=== PATIENT | male | born 1970 | race Caucasian/White ===

== ENCOUNTER 2023-05-10 10:16 | Outpatient (OUT) | payer OTHER, SELFPAY ==
[2023-05-10 10:40] LABS: Basophils Absolute Auto 0.1 10^3/uL (0.0-0.1); Basophils Percent Auto 0.9 % (0.2-2.0); Eosinophils Absolute Auto 0.3 10^3/uL (0.0-0.7); Eosinophils Percent Auto 2.9 % (0.9-7.0); Hematocrit 51.2 % (42.0-54.0); Hemoglobin 17.4 g/dL (14.0-18.0); Immature Granulocytes Abs Auto 0.08 10^3/uL (0.00-0.03); Immature Granulocytes Pct Auto 0.9 % (0.0-0.5); Lymphocytes Percent Auto 33.5 % (20.5-60.0); Mean Corpuscular Hemoglobin 32.6 pg (25.9-34.0); Mean Corpuscular Volume 95.9 fL (80.0-94.0); Mean Platelet Volume 9.5 fL (9.5-13.5); Monocytes Absolute Auto 0.8 10^3/uL (0.3-0.8); Monocytes Percent Auto 8.3 % (1.7-12.0); Neutrophils Absolute Auto 4.8 10^3/uL (1.4-6.5); Neutrophils Percent Auto 53.5 % (43.0-75.0); Platelet Count 268 10^3/uL (150-450); Red Blood Count 5.34 10^6/uL (4.70-6.10); Red Cell Distribution Width 12.4 % (11.0-15.0)
[2023-05-10 11:09] LABS: Estimated Average Glucose 169 mg/dL; Glycohemoglobin A1C 7.5 % (4.5-6.2)
[2023-05-10 12:31] LABS: Alanine Aminotransferase 91 U/L (16-63); Albumin Level 4.2 g/dL (3.4-5.0); Alkaline Phosphatase 46 U/L (46-116); Anion Gap 15.6; Aspartate Amino Transferase 48 U/L (15-37); Bilirubin Total 0.5 mg/dL (0.2-1.0); Calcium 9.2 mg/dL (8.5-10.1); Carbon Dioxide 24.7 mmol/L (21.0-32.0); Chloride 100 mmol/L (98-107); Chol HDL Ratio 5.5; Cholesterol 192 mg/dL (<=200); Estimated GFR (African America >60 (>=60); Estimated GFR (Non-African Ame >60 (>=60); Free T3 2.82 pg/mL (2.18-3.98); Globulin 4.3 g/dL; Glucose 205 mg/dL (74-106); HDL Cholesterol 35 mg/dL (40-60); Potassium 4.3 mmol/L (3.5-5.1); Sodium 136 mmol/L (136-145); Thyroid Stimulating Hormone 2.109 uIU/mL (0.358-3.740); Total Protein 8.5 g/dL (6.4-8.2); Triglycerides 436 mg/dL (<=150); Uric Acid 7.9 mg/dL (3.5-7.2)
[2023-05-10 12:34] LABS: Prostate Specific Antigen Scrn 0.67 ng/mL (<=4.00)
[2023-05-10 12:35] LABS: LDL Cholesterol Direct 87 mg/dL
== END 2023-05-10 10:17 | disposition home or self-care (01) ==
LOC: LAB 10:18
PROVIDERS: PCP Family Medicine; Visit Provider Family Medicine
DX: Z00.00 Encounter for general adult medical examination without abnormal findings (principal)
CPT/HCPCS: 36415; 80053; 80061; 83036; 83721; 84436; 84443; 84481; 84550; 85025; G0103

== ENCOUNTER 2023-05-20 13:28 | Outpatient (OUT) | payer OTHER, SELFPAY ==
--- NOTE | 2023-05-20 13:30 | VEIN_ITS ---
Patient Name: CHRISTOPHER FARRELL MR#: [id number] : 1970 Exam Date: 05/20/2023 Ordering Doctor: DR RULA HERRERA . RADIOLOGY REPORT PROCEDURE: VC EXT VENOUS REFLUX FLOWER LMTD COMPARISON: None. INDICATIONS: I83.813 Bilateral painful varicose veins TECHNIQUE: Duplex imaging of the lower extremity to assess the deep and superficial venous system for the presence of deep or superficial venous incompetence and to document the location and severity of disease. The study includes evaluation of the great saphenous vein (GSV), anterior accessory saphenous vein (AASV) and small saphenous vein (SSV). Patient scanned in reverse Trendelenburg and standing. FINDINGS: RIGHT LOWER EXTREMITY: Saphenofemoral Junction Reflux: Yes 10.6mm 2.5 sec GSV: Diam (mm) Reflux/ Time (sec) Proximal Thigh 5.9 Yes 2.2 Mid Thigh 6.2 Yes 2.1 Distal Thigh 5.5 Yes 0.7 Prox Calf 5.2 No Mid Calf 4.9 No Saphenopopliteal Junction Reflux: 3.3mm No SSV: Proximal Calf 2.6 Yes 0.8 Mid Calf 2.0 No AASV: Proximal Thigh 5.2 No Mid Thigh 3.0 No Distal Thigh Thrombi: No acute or chronic thrombus visualized Compressibility: Normal Flow: Normal Preforator: Dist/med calf 2.4mm with 0s reflux. Tech Note: Incompetent GSV. Patent varicose vein medial knee 3.9mm with 0s reflux. 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 Tech Note: Incompetent GSV and SSV. Patent varicose vein mid/med calf 7.3mm with 1.3s reflux. Patent varicose vein prox/med calf 6.1mm with 1.5s reflux. Patent varicose vein medial knee 4.3mm with 1.1s reflux. Patent varicose vein dist/med calf 6.9mm with 1.3s reflux. CONCLUSION: 1. Milder it bilateral great saphenous vein venous insufficiency with saphenofemoral junction reflux and dilatation 2. Mild to moderate left small saphenous vein venous insufficiency with dilatation and saphenous popliteal junction reflux 3. 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 Bilateral incompetent varicose veins measuring up to 7.3 mm on the left Dictated by: Fernando Miguel MD on 05/20/2023 at 14:36 Approved by: Fernando Miguel MD on 05/20/2023 at 14:38
--- NOTE | 2023-05-20 13:30 | VEIN_ITS ---
Patient Name: CHRISTOPHER FARRELL MR#: [id number] : 1970 Exam Date: 05/20/2023 Ordering Doctor: DR Rocky Michaels . RADIOLOGY REPORT PROCEDURE: [facility] - OFFICE VISIT INITIAL COMPARISON: None. PROGRESS NOTES: 52-year-old male who presents with a 2 year history of lower extremity pain swelling and varicose veins. The patient's symptoms have significantly progressed over the past 6 months. The patient's left side is much worse than the right. The patient rates the pain as a 3 on a scale of 1-10. The patient describes the pain as aching heaviness and throbbing. The patient's symptoms are exacerbated by prolonged sitting and standing and are only partially relieved by rest, leg elevation, compression stockings and over the counter oral analgesics. The patient does have a history of 2 episodes of unprovoked deep vein thrombosis for which she is currently on long-term Eliquis. The patient denies any signs and symptoms to suggest arterial ischemia. Thirty-five pack year history of smoking. The patient continues to smoke 1 pack per day. The patient was counseled on smoking cessation as it relates to his arterial and venous disease. The patient does drink alcohol occasionally. No illicit drug use. Past medical history is significant for type 2 diabetes, gout, hypertension, hypercholesterolemia and sleep apnea. 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 No history of pulmonary embolus. See separate history and physical for medication list. No prior treatment treatment for varicose or spider veins. Nursing notes were reviewed. After history and physical exam I discussed at length the pathophysiology of venous hypertension and possible treatments, therapies and strategies available. We discussed at length the importance of elevating the lower extremities above the level of the heart, increased physical activity and compression stocking use. We discussed conservative treatment with thigh-high compression stockings. We discussed surgical treatments including ligation and stripping and microphlebectomy. We discussed intravenous laser ablation, micro foam chemical ablation at length. Risks benefits and alternatives were discussed. The patient's questions were answered Ultrasound venous reflux study performed the same day was discussed at length with the patient. The report demonstrates moderate bilateral great saphenous and left small saphenous vein venous insufficiency with dilatation period bilateral incompetent varicose veins. Chronic left leg deep vein thrombus involving the popliteal and peroneal veins. I discussed with the patient that his insurance likely would not approve micro foam chemical ablation. I also discussed with him that his symptoms likely remote type factorial while we expected improvement, treatment of his veins would likely not completely resolve his symptoms. PHYSICAL EXAM: The right leg demonstrates mild scattered varicose and reticular veins. Mild hemosiderin staining. No subcutaneous edema. No active ulceration The left leg demonstrates moderate to large varicosities knee lower leg and ankle. Moderate hemosiderin staining. Mild subcutaneous edema. No active ulceration. Both thighs, legs and feet were symmetrically warm to the touch. Good posterior tibial and dorsalis pedis pulses were present bilaterally. VEIN/VC Facility EST Comprehensive IMPRESSION: 1. Bilateral great saphenous vein and left small saphenous vein venous insufficiency with dilatation 2. Bilateral lower extremity varicose veins, left greater than right 3. Mild left lower extremity subcutaneous edema 4. No definite flow significant arterial disease 5. CEAP: C4a, Ep, As, Pro PLAN: 1. Endovenous laser ablation left great saphenous vein followed by right great saphenous vein followed left small saphenous vein 2. Micro foam chemical ablation incompetent varicose veins if approved by his insurance 3. Long-term use of bilateral knee or thigh-high 20-30 mm compression stockings 4. Smoking cessation 5. Leg elevation in the increased physical activity for symptomatic relief Nurse notes, history and physical were reviewed and confirmed, see attached forms. The nurse was present throughout the physical exam and consultation Dictated by: Fernando Miguel MD on 05/20/2023 at 15:20 Approved by: Fernando Miguel MD on 05/20/2023 at 15:25
--- OUTSIDE RECORDS SUMMARY | 2023-05-20 13:32 | XMS_ITS | CCD ---
Author Name Unknown Address [address] [place] [address] Organization [facility] Care Team Providers Care Associate Property Manager Name Role Phone Rula Herrera MD Primary Care Provider [phone] SHARON, RULA Primary Care Unavailable MISC, DR SOTO Attending Unavailable MISC, DR SOTO Admitting Unavailable HOY, RULA Primary Care Unavailable MISC, DR SOTO Admitting Unavailable MISC, DR SOTO Attending Unavailable NICHOLAS BHATIA Admitting Unavailable HOY, RULA Primary Care Unavailable NICHOLAS BHATIA Attending Unavailable TORIE FOLEY Consulting Unavailable NICHOLAS BHATIA Consulting Unavailable LEE ANN BARNETT Consulting Unavailable HOY, RULA Attending Unavailable HOY, RULA Admitting Unavailable HOY, RULA Primary Care Unavailable HOY, RULA Consulting Unavailable HOY, RULA Primary Care Unavailable KRISTINA WAKEFIELD Attending Unavailable KRISTINA WAKEFIELD Admitting Unavailable HOY, RULA Attending Unavailable HOY, RULA Admitting Unavailable HOY, RULA Primary Care Unavailable HOY, RULA Consulting Unavailable Ken Quinonezen Consulting Unavailable HOY, RULA Primary Care Unavailable Red Quinonez Consulting Unavailable DENAE CONTRERAS Attending Unavailable DENAE CONTRERAS Admitting Unavailable DENAE CONTRERAS Consulting Unavailable Rula Herrera MD Primary Care Provider [phone] PERRY ALCANTARA Attending Unavailable RULA HERRERA M Primary Care Unavailable ANDREW, MICHAEL Referring Unavailable RULA HERRERA M Primary Care Unavailable MEGHA LEGGETT Attending Unavailable ANDREW, MICHAEL Referring Unavailable RULA HERRERA M Primary Care Unavailable STEWART BRISENO Attending Unavailable STEWART BRISENO Referring Unavailable RULA HERRERA Primary Care Unavailable RULA HERRERA M Primary Care Unavailable ANDREW, MICHAEL Referring Unavailable ANRDEW, MICHAEL Referring Unavailable HOY, RULA M Primary Care Unavailable ANDREW, MICHAEL Referring Unavailable HOY, RULA M Primary Care Unavailable WADE, STEWART Gibbs Referring Unavailable STEWART BRISENO Attending Unavailable HOY, RULA M Primary Care Unavailable WADE, STEWART R Referring Unavailable MARTINEZ, DONITA Attending Unavailable HOY, RULA M Primary Care Unavailable STEWART BRISENO Attending Unavailable WADE, STEWART R Referring Unavailable HOY, RULA M Primary Care Unavailable MARTINEZ, DONITA Referring Unavailable MARTINEZ, DONITA Attending Unavailable HOY, RULA M Primary Care Unavailable HASNIJohn, PERRY Attending Unavailable HOY, RULA M Primary Care Unavailable ENTEZARI, CHARLIE Referring Unavailable ENTEZARI, CHARLIE Attending Unavailable HOY, RULA M Primary Care Unavailable WADE, STEWART R Attending Unavailable HOY, RULA M Primary Care Unavailable MARTINEZ, DONITA Referring Unavailable MARTINEZ, DONITA Attending Unavailable HOY, RULA M Primary Care Unavailable STEWART BRISENO R Attending Unavailable WADE, STEWART R Referring Unavailable HOY, RULA M Primary Care Unavailable AGAPITO RUANO Attending Unavailable HOY, RULA M Primary Care Unavailable HASNIJohn, PAGEIAH Attending Unavailable HOY, RULA M Primary Care Unavailable ANDREW, MICHAEL Referring Unavailable HOY, RULA M Primary Care Unavailable Allergies Allergy Classification Reported Allergen(s) Allergy Type Date of Onset Reaction(s) Facility (20 sources) Bee Venom Protein (Honey Bee); Translations: [BEE VENOM PROTEIN (HONEY BEE)] Drug Allergy 7 Swelling, Shortness of Breath [facility] Work Phone: (1 source) bee venom Drug allergy (disorder) 7 [facility] Medications Current Medications Medication Drug Class(es) Dates Sig (Normalized) Sig (Original) benoxinate hydrochloride 4 mg/ml / fluorescein sodium 2.5 mg/ml ophthalmic solution (6 sources) Diagnostic Dye Start: 08-02-2022 End: 08-02-2022 fluorescein-benoxi sary 0.25-0.4 % 1 Drop (FLURESS) Start: 07-19-2022 End: 07-19-2022 fluorescein-benoxinate 0.25- 0.4 % 1 Drop (FLURESS) Start: 07-05-2022 End: 07-05-2022 fluorescein-benoxinate 0.25- 0.4 % 1 Drop (FLURESS) Start: 06-17-2022 End: 06-17-2022 fluorescein-benoxinate 0.25- 0.4 % 1 Drop (FLURESS) docusate sodium 100 mg oral capsule (2 sources) Start: 10-25-2021 End: 11-09-2021 take 1 capsule by mouth twice daily docusate sodium (COLACE) 100 mg capsule Take 1 capsule by mouth twice daily for 15 days. 30 capsule 0 10/25/2021 11/09/2021 Active Comment on above: Take 1 capsule by [facility] twice daily for 15 days. Completed/Discontinued Medications Medication Drug Class(es) Dates Sig (Normalized) Sig (Original) apixaban 5 mg oral tablet (16 sources) Factor Xa Inhibitor Start: 3 take 1 tablet by mouth twice daily ELIQUIS 5 mg tab(s) Take 5 mg by mouth twice daily. 0 05/27/2022 Active Comment on above: Take 5 mg by mouth t wice daily. aspirin 81 mg delayed release oral tablet (7 sources) Platelet Aggregation Inhibitor, Nonsteroidal Anti-inflammatory Drug Start: 2 End: 3 take 1 tablet by mouth twice daily aspirin, enteric coated (ECOTRIN LOW STRENGTH) 81 mg EC tablet Take 1 tablet by mouth twice daily for 14 days. 28 tablet 0 10/25/2021 06/17/2022 Discontinued (Course of therapy completed) Comment on above: Take 1 tablet by [facility] twice daily for 14 days. cyclobenzaprine hydrochloride 10 mg oral tablet (16 sources) Muscle Relaxant Start: 3 take 1 tablet by mouth three times daily cyclobenzaprine (FLEXERIL) 10 mg tablet Take 10 mg by mouth three times daily. 0 06/13/2022 Active Comment on above: Take 10 mg by mouth three times daily. cycloSPORINE (14 sources) Calcineurin Inhibitor Immunosuppressant cyclosporine (RESTASIS OPHTHALMIC) Use in eyes. 0 Active Comment on above: Use in eyes. dexamethasone 1 mg/ml / neomycin 3.5 mg/ml / polymyxin b 12581 unt/ml ophthalmic suspension (3 sources) Aminoglycoside Antibacterial, Polymyxin-class Antibacterial, Corticosteroid Start: 3 End: 3 take 1 drop(s) into the eye(s) three times daily NEOMYCIN-POLYMYXIN- DEXAMETH 3.5 MG/ML-10,000 UNIT/ML-0.1% EYE DROPS INSTILL 1 DROP INTO EACH EYE 3 TIMES DAILY 0 05/02/2022 07/19/2022 Discontinued (Course of therapy completed) Comment on above: INSTILL 1 DROP INTO EACH EYE 3 TIMES DAILY diclofenac sodium 75 mg delayed release oral tablet (16 sources) Nonsteroidal Anti-inflammatory Drug Start: 2 take 1 tablet by mouth twice daily diclofenac, EC, (VOLTAREN) 75 mg EC tablet Take 75 mg by mouth twice daily. 0 03/18/2022 Active Comment on above: Take 75 mg by mouth twice daily. erythromycin 0.005 mg/mg ophthalmic ointment (3 sources) Macrolide, Macrolide Antimicrobial Start: 3 End: 3 erythromycin (ROMYCIN) 5 mg/gram (0.5 %) ophthalmic ointment APPLY TO INTO BOTH EYES EVERY DAY AT BEDTIME DIRECTED 0 06/07/2022 07/19/2022 Discontinued (Course of therapy completed) Comment on above: APPLY TO INTO BOTH E YES EVERY DAY AT BEDTIME DIRECTED Fish Oil-DHA-EPA (FISH OIL) 1,200-144-216 mg ORAL Cap (10 sources) Fish Oil-DHA-EPA (FISH OIL) 1,200-144-216 mg ORAL Cap Take by mouth. Taking 3 tablet a day 0 Active Comment on above: Take by mouth. Takin g 3 tablet a day Fish Oil-DHA-EPA 1,200-144-216 mg cap (20 sources) Fish Oil-DHA-EPA 1,200-144-216 mg cap Take by mouth. Taking 3 tablet a day 0 Active Comment on above: Take by mouth. Takin g 3 tablet a day Flaxseed Oil oil (20 sources) Flaxseed Oil oil once daily. 0 Active Comment on above: once daily. glimepiride 4 mg oral tablet (16 sources) Sulfonylurea Start: 3 take 2 tablets by mouth once daily glimepiride (AMARYL) 4 mg tablet Take 8 mg by mouth once daily. 0 05/03/2022 Active Comment on above: Take 8 mg by mouth o nce daily. latanoprost 0.05 mg/ml ophthalmic solution (7 sources) Prostaglandin Analog Start: 3 take 1 drop(s) into the eye(s) once daily latanoprost (XALATAN) 0.005 % ophthalmic solution Use 1 Drop in both eyes once daily. 2.5 mL 1 07/19/2022 Active Comment on above: Use 1 Drop in both e yes once daily. lisinopril 40 mg oral tablet (20 sources) Angiotensin Converting Enzyme Inhibitor Start: 2 take 1 tablet by mouth once daily lisinopril (ZESTRIL, PRINIVIL) 40 mg tablet Take 40 mg by mouth once daily. 0 07/27/2021 Active Comment on above: Take 40 mg by mouth once daily. metFORMIN hydrochloride 500 mg oral tablet (16 sources) Biguanide Start: 3 take 1 tablet by mouth twice daily metFORMIN (GLUCOPHAGE) 500 mg tablet Take 500 mg by mouth twice daily. 0 06/13/2022 Active Comment on above: Take 500 mg by mouth twice daily. MULTI-VITAMIN ORAL (20 sources) MULTI-VITAMIN OR AL Take by mouth. Taking 3 a day 0 Active Comment on above: Take by mouth. Takin g 3 a day naproxen sodium 220 mg oral capsule (20 sources) Nonsteroidal Anti-inflammatory Drug naproxen sodium 220 mg cap Take by mouth as needed. 0 Active Comment on above: Take by mouth as nee ded. olopatadine (14 sources) Histamine-1 Receptor Inhibitor olopatadine HCl (PATADAY OPHTHALMIC) Use in eyes. 0 Active Comment on above: Use in eyes. oxyCODONE hydrochloride 5 mg oral tablet (6 sources) Opioid Agonist Start: 2 End: 3 take 1 tablet by mouth every eight hours as needed for pain oxyCODONE IR (ROXICODONE) 5 mg immediate release tablet Indications: Traumatic complete tear of right rotator cuff, initial encounter Take 1 tablet by mouth every 8 hours as needed for pain. 21 tablet 0 11/07/2021 06/17/2022 Discontinued (Course of therapy completed) Comment on above: Take 1 tablet by omari th every 8 hours as needed for pain. traMADol hydrochloride 50 mg oral tablet (14 sources) Opioid Agonist Start: 2 End: 3 take 1 tablet by mouth every eight hours as needed traMADOL (ULTRAM) 50 mg ORAL tablet Take 1 tablet by mouth every 8 hours as needed. 20 tablet 0 08/23/2011 06/17/2022 Discontinued (Course of therapy completed) Comment on above: Take 1 tablet by omari th every 8 hours as needed. Problems Active Problems Problem Classification Problem Date Documented Da te Episodic/Chronic Adjustment disorders (2 sources) Adjustment disorder; Translations: [Adjustment disorder, unspecified] Onset: 02-18-2023 12-09-2022 Chronic Diabetes mellitus with complications (20 sources) Diabetes mellitus; Translations: [Type 2 diabetes mellitus with hyperglycemia] Onset: 09-28-2021 09-28-2021 Chronic Essential hypertension (20 sources) Essential hypertension; Translations: [Essential (primary) hypertension] Onset: 09-27-2021 Chronic Glaucoma (17 sources) Corticosteroid-liborio valdemar glaucoma; 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, bilateral, stage unspecified] Onset: 07-19-2022 Chronic Inflammation; infection of eye (except that caused by tuberculosis or sexually transmitteddisease) (5 sources) Chronic allergic conjunctivitis; Translations: [Other chronic allergic conjunctivitis] Onset: 06-17-2022 Chronic Miscellaneous mental health disorders (2 sources) Psychologic conversion disorder; 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] Onset: 02-18-2023 12-09-2022 Chronic Other aftercare (1 source) Surgical follow-up; Translations: [Encounter for follow-up examination after completed treatment for conditions other than malignant neoplasm] Episodic Other hereditary and degenerative nervous system conditions (20 sources) Blepharospasm; Translations: [Blepharospasm] Onset: 07-05-2022 Chronic Other hereditary and degenerative nervous system conditions (5 sources) Functional movement disorder; Translations: [Extrapyramidal and movement disorder, unspecified] 11-22-2022 Chronic Other hereditary and degenerative nervous system conditions (1 source) Blepharospasm; Translations: [Blepharospasm] Onset: 07-05-2022 Chronic Other nutritional; endocrine; and metabolic disorders (1 source) Severe obesity; Translations: [Morbid (severe) obesity due to excess calories] Chronic Other nutritional; endocrine; and metabolic disorders (20 sources) Obesity; Translations: [Obesity, unspecified] Onset: 09-27-2021 09-27-2021 Chronic Residual codes; unclassified (20 sources) Obstructive sleep apnea syndrome; Translations: [Obstructive sleep apnea (adult) (pediatric)] Onset: 09-27-2021 Chronic Residual codes; unclassified (3 sources) Obstructive sleep apnea (adult) (pediatric); Translations: [OBSTRUCTIVE SLEEP APNEA] Onset: 07-09-2022 Chronic Thyroid disorders (20 sources) Nodular goiter ; Translations: [Nontoxic goiter, unspecified] Onset: 09-27-2021 Chronic Past or Other Problems Problem Classification Problem Date Documented Da te Episodic/Chronic E Codes: Adverse effects of medical drugs (1 source) Adverse effect of glucocorticoids and synthetic analogues, initial encounter; Translations: [Steroid induced glaucoma, both eyes] Onset: 07-19-2022 Episodic E Codes: Overexertion (1 source) Slipping, tripping and stumbling without falling due to stepping from one level to another, initial encounter; Translations: [SLIP STMBL NO FALL 1 LVL ANOTHR INT] Onset: 09-04-2021 Episodic Inflammation; infection of eye (except that caused by tuberculosis or sexually transmitteddisease) (17 sources) Conjunctivitis; Translations: [Unspecified conjunctivitis] Onset: 06-17-2022 06-17-2022 Episodic Other connective tissue disease (1 source) Unspecified rotator cuff tear or rupture of right shoulder, not specified as traumatic; Translations: [UNS ROT CUFF TEAR/RUPT RT SHOULDER] Onset: 09-04-2021 Episodic Other eye disorders (20 sources) Disorder of lacrimal gland; Translations: [Dry eye syndrome of bilateral lacrimal glands] Onset: 06-17-2022 Episodic Other eye disorders (1 source) Dry eye syndrome of bilateral lacrimal glands; Translations: [Dry eye syndrome of bilateral lacrimal glands] Onset: 06-17-2022 Episodic Other non-traumatic joint disorders (16 sources) Pain in left knee; Translations: [Pain in joint, lower leg] Onset: 03-21-2021 07-05-2022 Episodic Other non-traumatic joint disorders (10 sources) Shoulder pain; Translations: [Pain in right shoulder] Onset: 08-25-2021 07-05-2022 Episodic Other non-traumatic joint disorders (19 sources) Pain in unspecified knee; Translations: [Pain in joint, lower leg] Onset: 11-14-2021 07-05-2022 Episodic Other non-traumatic joint disorders (9 sources) Pain in right shoulder; Translations: [Pain in joint, shoulder region] Onset: 08-25-2021 07-05-2022 Episodic Other skin disorders (20 sources) Excessive sweating; Translations: [Generalized hyperhidrosis] Onset: 09-27-2021 Episodic Phlebitis; thrombophlebitis and thromboembolism (20 sources) H/O: Deep vein thrombosis; Translations: [Personal history of other venous thrombosis and embolism] Onset: 09-27-2021 Episodic Residual codes; unclassified (16 sources) Localized edema; Translations: [Localized edema] Onset: 11-19-2021 07-05-2022 Episodic Residual codes; unclassified (1 source) Localized edema; Translations: [LOCALIZED EDEMA] Onset: 11-19-2021 Episodic Spondylosis; intervertebral disc disorders; other back problems (20 sources) Lumbosacral neuritis; Translations: [Radiculopathy, lumbosacral region] Onset: 07-16-2011 07-16-2011 Episodic Sprains and strains (20 sources) Traumatic rupture of rotator cuff; Translations: [Strain of muscle(s) and tendon(s) of the rotator cuff of right shoulder, initial encounter] Onset: 09-05-2021 Episodic Results Test Name Value Interpretation Reference Range [facility]/PT/Speech Visit (PTAVTC) GONZALES FARRELL ([id number]) 1970 M Date Time Provider Department 03/13/23 4:15 PM [facility] Date Time Provider Department Center 03/13/2023 4:15 PM [id number], AMANDA [facility] [place] Reason for Visit: PT Progress Note [1596] Physical Therapy [503] Primary Visit Diagnosis: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 - olopatadine HCl (PATADAY OPHTHALMIC) Use in eyes. - ELIQUIS 5 mg tab(s) Take 5 mg by mouth twice daily. - cyclobenzaprine (FLEXERIL) 10 mg tablet Take 10 mg by mouth three times daily. - diclofenac, EC, (VOLTAREN) 75 mg EC tablet Take 75 mg by mouth twice daily. - glimepiride (AMARYL) 4 mg tablet Take 8 mg by mouth once daily. - metFORMIN (GLUCOPHAGE) 500 mg tablet Take 500 mg by mouth twice daily. - lisinopril (ZESTRIL, PRINIVIL) 40 mg tablet Take 40 mg by mouth once daily. - naproxen sodium 220 mg cap Take by mouth as needed. - MULTI-VITAMIN ORAL Take by mouth. Taking 3 a day - Fish Oil-DHA-EPA 1,200-144-216 mg cap Take by mouth. 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 - olopatadine HCl (PATADAY OPHTHALMIC) Use in eyes. - ELIQUIS 5 mg tab(s) Take 5 mg by mouth twice daily. - cyclobenzaprine (FLEXERIL) 10 mg tablet Take 10 mg by mouth three times daily. - diclofenac, EC, (VOLTAREN) 75 mg EC tablet Take 75 mg by mouth twice daily. - glimepiride (AMARYL) 4 mg tablet Take 8 mg by mouth once daily. - metFORMIN (GLUCOPHAGE) 500 mg tablet Take 500 mg by mouth twice daily. - lisinopril (ZESTRIL, PRINIVIL) 40 mg tablet Take 40 mg by mouth once daily. - naproxen sodium 220 mg cap Take by mouth as needed. - MULTI-VITAMIN ORAL Take by mouth. Taking 3 a day - Fish Oil-DHA-EPA 1,200-144-216 mg cap Take by mouth. Taking 3 tablet a day Normal [facility] Aracelis 12-26-2022 CNPN Telephone (NREUS2) GONZALES FARRELL ([id number]) 1970 M Date Time Provider Department 12/26/22 MICHAEL ANDREW NREUS2 During your visit today, we recorded the following information about you: Petrona Jacobs 12/26/2022 12:13 PM Signed NI PHONE Name of caller : Clinton Farrell Relationship to patient : Self If not self Will need patient permission to release results or disclose health information with called documented in fy. Was permission obtained from patient ? Yes Patient identified by Name and Date of . ( Gonzales Farrell, 1970). Yes Reason for Call : Request letter stating diagnosis and why he's not able to see be faxed to [phone]/Attn: Sheron @ [facility] Services re: disability. Please cc: Dr. Rula Herrera (PCP) on letter and fax to Dr. Herrera at [phone]. Number to return call [phone] Okay to leave a message ? Yes Last office visit 09/18/[address] Gilmar Andrew Next office visit not scheduled (only FMD appts w/Dr. Alcantara) Thank you calling [facility]. You will receive a return call within 48 hours ( or 2 business days if close to the weekend). If you feel that this is an urgent issue and needs immediate attention, it is recommended that you contact your primary care provider office or proceed to your nearest Urgent Care Center of Emergency Room ED for evaluation/treatment. ' Sandy Ratliff, RN 12/27/2022 8:[address] Andrew documented in My Chart message he spoke with patient and informed him he could not give him the letter requested but could print the notes from his last visit through My Chart. Allergies As of Date: 12/26/2022 Noted Allergy Reaction BEE VENOM PROTEIN (HONEY BEE) 01/27/2017 7 - Swelling 12 - Shortness of Breath Date Reviewed: 09/18/2022 Reviewed by: Rigo Howe MA - Fully Assessed Reason for Visit: Letter [Other] Prescriptions as of 12/27/2022 - cyclosporine (RESTASIS OPHTHALMIC) Use in eyes. - olopatadine HCl (PATADAY OPHTHALMIC) Use in eyes. - ELIQUIS 5 mg tab(s) Take 5 mg by mouth twice daily. - cyclobenzaprine (FLEXERIL) 10 mg tablet Take 10 mg by mouth three times daily. - diclofenac, EC, (VOLTAREN) 75 mg EC tablet Take 75 mg by mouth twice daily. - glimepiride (AMARYL) 4 mg tablet Take 8 mg by mouth once daily. - metFORMIN (GLUCOPHAGE) 500 mg tablet Take 500 mg by mouth twice daily. - lisinopril (ZESTRIL, PRINIVIL) 40 mg tablet Take 40 mg by mouth once daily. - naproxen sodium 220 mg cap Take by mouth as needed. - MULTI-VITAMIN ORAL Take by mouth. Taking 3 a day - Fish Oil-DHA-EPA 1,200-144-216 mg cap Take by mouth. Taking 3 tablet a day Problem List As Of Date 12/26/2022 Noted Resolved Lumbosacral neuritis [M54.17] 07/16/2011 Traumatic complete tear of right rotator cuff [*09/22/2021 Obstructive sleep apnea [G47.33] 09/27/2021 Obese [E66.9] 09/27/2021 Chronic low back pain [M54.50, G89.29] 09/27/2021 History of DVT in adulthood [Z86.718] 09/27/2021 Nodular goiter [E04.9] 09/27/2021 Excessive sweating [R61] 09/27/2021 Primary hypertension [I10] 09/27/2021 Uncontrolled diabetes mellitus with hyperglycem*09/28/2021 S/P right rotator cuff repair [Z98.890] 12/07/2021 Dry eye syndrome of bilateral lacrimal glands [*06/17/2022 Conjunctivitis [H10.9] 06/17/2022 Acute embolism and thrombosis of unspecified de*11/19/2021 Localized edema [R60.0] 11/19/2021 Pain in left knee [M25.562] 03/21/2021 Pain in right shoulder [M25.511] 08/25/2021 Knee pain [M25.569] 11/14/2021 Blepharospasm [G24.5] 07/05/2022 Steroid induced glaucoma, 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, *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/2022 Encounter Status:Closed by SANDY RATLIFF on 12/27/22 [facility] CNTHERAPYon 12-24-2022 CNTHERAPY OT/PT/Speech Visit (PTAVTC) GONZALES FARRELL ([id number]) 1970 M Date Time Provider Department 12/24/22 4:15 PM VONNIE CONNOLLY PTAVTC During your visit today, we recorded the following information about you: Vonnie Connolly, PT 12/24/2022 5:08 PM Signed Episode Visit Count: 4 Therapist That Will Accept/Oversee The Plan Of Care: Soo Villalba Start of Care Date: 11/20/22 Onset Date: 11/20/21 REHABILITATION AND SPORTS THERAPY PHYSICAL THERAPY TREATMENT NOTE ASSESSMENT: Gonzales Farrell tolerated the session with no issues. He demonstrated improvements in understanding at role of PT for FMD management and agrees starting wellness exercise routine at local will help him feel better globally.. The patient will continue to benefit from ongoing skilled physical therapy to progress toward set goals. PLAN FOR NEXT VISIT: Progress note SUBJECTIVE: Doesnt see how the activities performed in PT are helping his symptoms. States deep breathing really helps his symptoms. Pain: Pain Pain Level: 0 Post Treatment Pain Post Treatment Pain Level: No Change OBJECTIVE MEASURES WITH LEVEL OF FUNCTION: Eyes open 100% of time with deep breathing techniques. Overall demeanor: pt talkative and tangential throughout session. Describes multiple stressors going on in his personal life. TREATMENT: Neuromuscular Re-Education: 3: Review of appointments to decrease stress of traveling long distance to come. Will consider changing frequency at next visit if pt continue. 4: *4 square breathing for autonomic strategy for regulating nervous system. 3-4 breath cycles hourly. 5: Education that role of exercises and activities to reduce frequency and intensity of sx to allow for improved brain/nervous system communication 6: Educated on importance of daily exericse for optimal health and wellness. 7: Education on stressors impacting intensity of symptoms. 8: Education and discussion re: role of PT in FMD management. Skilled Intervention: Education as described above. 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 - olopatadine HCl (PATADAY OPHTHALMIC) Use in eyes. - ELIQUIS 5 mg tab(s) Take 5 mg by mouth twice daily. - cyclobenzaprine (FLEXERIL) 10 mg tablet Take 10 mg by mouth three times daily. - diclofenac, EC, (VOLTAREN) 75 mg EC tablet Take 75 mg by mouth twice daily. - glimepiride (AMARYL) 4 mg tablet Take 8 mg by mouth once daily. - metFORMIN (GLUCOPHAGE) 500 mg tablet Take 500 mg by mouth twice daily. - lisinopril (ZESTRIL, PRINIVIL) 40 mg tablet Take 40 mg by mouth once daily. - naproxen sodium 220 mg cap Take by mouth as needed. - MULTI-VITAMIN ORAL Take by mouth. Taking 3 a day - Fish Oil-DHA-EPA 1,200-144-216 mg cap Take by mouth. Taking 3 tablet a day Problem List As Of Date 12/24/2022 Noted Resolved Lumbosacral neuritis [M54.17] 07/16/2011 Traumatic complete tear of right rotator cuff [*09/22/2021 Obstructive sleep apnea [G47.33] 09/27/2021 Obese [E66.9] 09/27/2021 Chronic low back pain [M54.50, G89.29] 09/27/2021 History of DVT in adulthood [Z86.718] 09/27/2021 Nodular goiter [E04.9] 09/27/2021 Excessive sweating [R61] 09/27/2021 Primary hypertension [I10] 09/27/2021 Uncontrolled diabetes mellitus with hyperglycem*09/28/2021 S/P right rotator cuff repair [Z98.890] 12/07/2021 Dry eye syndrome of bilateral lacrimal glands [*06/17/2022 Conjunctivitis [H10.9] 06/17/2022 Acute embolism and thrombosis of unspecified de*11/19/2021 Localized edema [R60.0] 11/19/2021 Pain in left knee [M25.562] 03/21/2021 Pain in right shoulder [M25.511] 08/25/2021 Knee pain [M25.569] 11/14/2021 Blepharospasm [G24.5] 07/05/2022 Steroid induced glaucoma, 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, *07/19/2022 Encounter Status:Closed by VONNIE CONNOLLY on 12/24/22 [facility] CNTHERAPYon 12-19-2022 CNTHERAPY OT/PT/Speech Visit (PTAVTC) GONZALES FARRELL ([id number]) 1970 M Date Time Provider Department 12/19/22 4:15 PM SOO VILLALBA Date Time Provider Department Center 12/19/2022 4:15 PM [id number] [facility] [facility] Reason for Visit: Physical Therapy [503] Primary Visit Diagnosis:Blepharospasm [G24.5] Other Visit Diagnosis: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 - olopatadine HCl (PATADAY OPHTHALMIC) Use in eyes. - ELIQUIS 5 mg tab(s) Take 5 mg by mouth twice daily. - cyclobenzaprine (FLEXERIL) 10 mg tablet Take 10 mg by mouth three times daily. - diclofenac, EC, (VOLTAREN) 75 mg EC tablet Take 75 mg by mouth twice daily. - glimepiride (AMARYL) 4 mg tablet Take 8 mg by mouth once daily. - metFORMIN (GLUCOPHAGE) 500 mg tablet Take 500 mg by mouth twice daily. - lisinopril (ZESTRIL, PRINIVIL) 40 mg tablet Take 40 mg by mouth once daily. - naproxen sodium 220 mg cap Take by mouth as needed. - MULTI-VITAMIN ORAL Take by mouth. Taking 3 a day - Fish Oil-DHA-EPA 1,200-144-216 mg cap Take by mouth. 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 - olopatadine HCl (PATADAY OPHTHALMIC) Use in eyes. - ELIQUIS 5 mg tab(s) Take 5 mg by mouth twice daily. - cyclobenzaprine (FLEXERIL) 10 mg tablet Take 10 mg by mouth three times daily. - diclofenac, EC, (VOLTAREN) 75 mg EC tablet Take 75 mg by mouth twice daily. - glimepiride (AMARYL) 4 mg tablet Take 8 mg by mouth once daily. - metFORMIN (GLUCOPHAGE) 500 mg tablet Take 500 mg by mouth twice daily. - lisinopril (ZESTRIL, PRINIVIL) 40 mg tablet Take 40 mg by mouth once daily. - naproxen sodium 220 mg cap Take by mouth as needed. - MULTI-VITAMIN ORAL Take by mouth. Taking 3 a day - Fish Oil-DHA-EPA 1,200-144-216 mg cap Take by mouth. Taking 3 tablet a day Normal [facility] CNOVon 11-20-2022 CNOV Office Visit (NREUS2 ) GONZALES FARRELL ([id number]) 1970 M Date Time Provider Department 11/20/22 3:00 PM PERRY ALCANTARA NREUS2 During your visit today, we recorded the following information about you: Perry Alcantara PSMARIANELA 12/09/2022 10:05 PM Signed [facility] Psychology Evaluation Time of Service: 3:00 pm to 4:00 pm CPT Code: 76260 - Health AND Behavior Assessment Billing Code: Antonio The patient was informed that this interview was only for the purpose of assessing the presenting problem, for diagnosis and treatment planning and/or to make treatment recommendations. The patient agreed that the evaluation would not be used for forensic, disability, or child custody purposes. The following history is obtained from the patient except when noted. The content acquired from chart review has been confirmed with the patient and discrepancies were noted if any. Limits of confidentiality were discussed. Identification and Presenting Problem: Mr. Farrell is a 51 year old male who was referred by Dr. Andrew from [facility] as part of a multi-disciplinary evaluation for a functional movement disorder. He presents with a history of involuntary movement symptoms. Sx include eye closure/blepharospasm. Symptom onset: 2022 Social History: Mr. Farrell was raised in [place], [place] as the older of 2 children in his family. His parents remained until mother passed at age 80. There is no family hx of movement disorder. Family history is significant for depression and suicide on the part of the patient's brother. Mr. Farrell reports that he has received prior mental health treatment as an outpatient for grief/loss after the of his brother. He believes this treatment was helpful. The patient denies any history of alcohol or drug abuse in his family. Likewise, he denies any history of alcohol or drug abuse on his own part. Mr. Farrell denies any history of physical or sexual abuse in childhood. 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 The patient does not receive any disability payments, nor has he applied for any. Mr. Farrell was previously and is currently for 2 years. He has 4 children, ages 26, 23, 19, and 17 - live nearby and close relationship; 2 grandchildren Social support include close friends and ; hussain community; extended hussain community ACTIVE PROBLEM LIST Lumbosacral Neuritis Traumatic Complete Tear of Right Rotator Cuff Obstructive Sleep Apnea Obese Chronic Low Back Pain History of Dvt in Adulthood Nodular Goiter Excessive Sweating Primary Hypertension Uncontrolled Diabetes Mellitus With Hyperglycemia ([facility]) S/P Right Rotator Cuff Repair Dry Eye Syndrome of Bilateral Lacrimal Glands Conjunctivitis Acute Embolism and Thrombosis of Unspecified Deep Veins of Left Lower Extremity ([facility]) Localized Edema Pain in Left Knee Pain in Right Shoulder Knee Pain Blepharospasm Steroid Induced Glaucoma, Both Eyes Current Functioning: -cautious with walking and fear of tripping; more slow with nurse assistant and lifting objects -no longer driving -mostly sedentary and reports he struggles with requiring more time to complete menial tasks -finger tips and feet are numb chronically -ongoing back problems with 3 bulging discs Medications: Current Outpatient Medications Medication Sig cyclosporine (RESTASIS OPHTHALMIC) Use in eyes. olopatadine HCl (PATADAY OPHTHALMIC) Use in eyes. ELIQUIS 5 mg tab(s) Take 5 mg by mouth twice daily. cyclobenzaprine (FLEXERIL) 10 mg tablet Take 10 mg by mouth three times daily. diclofenac, EC, (VOLTAREN) 75 mg EC tablet Take 75 mg by mouth twice daily. glimepiride (AMARYL) 4 mg tablet Take 8 mg by mouth once daily. metFORMIN (GLUCOPHAGE) 500 mg tablet Take 500 mg by mouth twice daily. lisinopril (ZESTRIL, PRINIVIL) 40 mg tablet Take 40 mg by mouth once daily. naproxen sodium 220 mg cap Take by mouth as needed. MULTI-VITAMIN ORAL Take by mouth. Taking 3 a day Fish Oil-DHA-EPA 1,200-144-216 mg cap Take by mouth. Taking 3 tablet a day No current facility-administered medications for this visit. Mr. Farrell reports significant depressive symptoms in the past month, including intermittent feelings of helplessness, intermittent anhedonia, and intermittent self-criticism - feels he relies on more which is distressing. He denies SI. Drug and alcohol screening and triage Caffeine use: 2-3 cups of coffee Tobacco use: He smokes 0.5 ppd Current illicit drug use: None Current marijuana use: Mr. Farrell denied marijuana use within the past month. Current use of prescribed opioids, sedatives AND benzodiazepines: Mr. Farrell does not use opioids or sedative/hypnotics. Alcohol use: Mr. Farrell has consumed no alc (more content not included)... 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 - olopatadine HCl (PATADAY OPHTHALMIC) Use in eyes. - ELIQUIS 5 mg tab(s) Take 5 mg by mouth twice daily. - cyclobenzaprine (FLEXERIL) 10 mg tablet Take 10 mg by mouth three times daily. - diclofenac, EC, (VOLTAREN) 75 mg EC tablet Take 75 mg by mouth twice daily. - glimepiride (AMARYL) 4 mg tablet Take 8 mg by mouth once daily. - metFORMIN (GLUCOPHAGE) 500 mg tablet Take 500 mg by mouth twice daily. - lisinopril (ZESTRIL, PRINIVIL) 40 mg tablet Take 40 mg by mouth once daily. - naproxen sodium 220 mg cap Take by mouth as needed. - MULTI-VITAMIN ORAL Take by mouth. Taking 3 a day - Fish Oil-DHA-EPA 1,200-144-216 mg cap Take by mouth. Taking 3 tablet a day [facility] Aracelis 08-16-2022 CNPN Telephone (OPHTIN) GONZALES FARRELL ([id number]) 1970 M Date Time Provider Department 08/16/22 DONITA MARTINEZ During your visit today, we recorded the following information about you: Flavia Clement 08/16/2022 1:07 PM Signed Patient was seen on 08/09/22 and states that there is no change in his eyes. In fact he seems to think that they are worse and wants to know what should he do? Please Advise, ~Flavia Lamar Gustavo [facility] 08/16/2022 1:17 PM Signed I spoke with him and he will come in today at 3:30. Appt sent to be scheduled. Flavia Clement 08/19/2022 2:41 PM Signed Brianda Maldonadodon [facility] 3 days ago HS I spoke with him and he will come in today at 3:30. Appt sent to be scheduled. Note Donita Martinez MD You; Yvon Espinal APRN.BOTTOM LINER; Parvin Bhatia MD; Brianda Chen [facility]; Muna Apple PA-C 3 days ago He can come to [facility] to be seen today or can come next week to be seen H, can you see when patient can come in Thanks C Allergies As of Date: 08/16/2022 Noted Allergy Reaction BEE VENOM PROTEIN (HONEY BEE) 01/27/2017 7 - Swelling 12 - Shortness of Breath Date Reviewed: 08/16/2022 Reviewed by: ANGELIA Ramos - Fully Assessed Reason for Visit: Patient Question [3517] Prescriptions as of 08/19/2022 - cyclosporine (RESTASIS OPHTHALMIC) Use in eyes. - olopatadine HCl (PATADAY OPHTHALMIC) Use in eyes. - latanoprost (XALATAN) 0.005 % ophthalmic solution Use 1 Drop in both eyes once daily. - ELIQUIS 5 mg tab(s) Take 5 mg by mouth twice daily. - cyclobenzaprine (FLEXERIL) 10 mg tablet Take 10 mg by mouth three times daily. - diclofenac, EC, (VOLTAREN) 75 mg EC tablet Take 75 mg by mouth twice daily. - glimepiride (AMARYL) 4 mg tablet Take 8 mg by mouth once daily. - metFORMIN (GLUCOPHAGE) 500 mg tablet Take 500 mg by mouth twice daily. - lisinopril (ZESTRIL, PRINIVIL) 40 mg tablet Take 40 mg by mouth once daily. - Flaxseed Oil oil once daily. - naproxen sodium 220 mg cap Take by mouth as needed. - MULTI-VITAMIN ORAL Take by mouth. Taking 3 a day - Fish Oil-DHA-EPA 1,200-144-216 mg cap Take by mouth. Taking 3 tablet a day Problem List As Of Date 08/16/2022 Noted Resolved Lumbosacral neuritis [M54.17] 07/16/2011 Traumatic complete tear of right rotator cuff [*09/22/2021 Obstructive sleep apnea [G47.33] 09/27/2021 Obese [E66.9] 09/27/2021 Chronic low back pain [M54.50, G89.29] 09/27/2021 History of DVT in adulthood [Z86.718] 09/27/2021 Nodular goiter [E04.9] 09/27/2021 Excessive sweating [R61] 09/27/2021 Primary hypertension [I10] 09/27/2021 Uncontrolled diabetes mellitus with hyperglycem*09/28/2021 S/P right rotator cuff repair [Z98.890] 12/07/2021 Dry eye syndrome of bilateral lacrimal glands [*06/17/2022 Conjunctivitis [H10.9] 06/17/2022 Acute embolism and thrombosis of unspecified de*11/19/2021 Localized edema [R60.0] 11/19/2021 Pain in left knee [M25.562] 03/21/2021 Pain in right shoulder [M25.511] 08/25/2021 Knee pain [M25.569] 11/14/2021 Blepharospasm [G24.5] 07/05/2022 Steroid induced glaucoma, 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 Employer's contact info is Glenda Wong Attn: Josue Castellon Allergies As of Date: 08/16/2022 Noted Allergy Reaction BEE VENOM PROTEIN (HONEY BEE) 01/27/2017 7 - Swelling 12 - Shortness of Breath Date Reviewed: 08/09/2022 Reviewed by: Donita Martinez MD - Fully Assessed Reason for Visit: Patient Question [3723] Prescriptions as of 08/16/2022 - cyclosporine (RESTASIS OPHTHALMIC) Use in eyes. - olopatadine HCl (PATADAY OPHTHALMIC) Use in eyes. - latanoprost (XALATAN) 0.005 % ophthalmic solution Use 1 Drop in both eyes once daily. - ELIQUIS 5 mg tab(s) Take 5 mg by mouth twice daily. - cyclobenzaprine (FLEXERIL) 10 mg tablet Take 10 mg by mouth three times daily. - diclofenac, EC, (VOLTAREN) 75 mg EC tablet Take 75 mg by mouth twice daily. - glimepiride (AMARYL) 4 mg tablet Take 8 mg by mouth once daily. - metFORMIN (GLUCOPHAGE) 500 mg tablet Take 500 mg by mouth twice daily. - lisinopril (ZESTRIL, PRINIVIL) 40 mg tablet Take 40 mg by mouth once daily. - Flaxseed Oil oil once daily. - naproxen sodium 220 mg cap Take by mouth as needed. - MULTI-VITAMIN ORAL Take by mouth. Taking 3 a day - Fish Oil-DHA-EPA 1,200-144-216 mg cap Take by mouth. Taking 3 tablet a day Problem List As Of Date 08/16/2022 Noted Resolved Lumbosacral neuritis [M54.17] 07/16/2011 Traumatic complete tear of right rotator cuff [*09/22/2021 Obstructive sleep apnea [G47.33] 09/27/2021 Obese [E66.9] 09/27/2021 Chronic low back pain [M54.50, G89.29] 09/27/2021 History of DVT in adulthood [Z86.718] 09/27/2021 Nodular goiter [E04.9] 09/27/2021 Excessive sweating [R61] 09/27/2021 Primary hypertension [I10] 09/27/2021 Uncontrolled diabetes mellitus with hyperglycem*09/28/2021 S/P right rotator cuff repair [Z98.890] 12/07/2021 Dry eye syndrome of bilateral lacrimal glands [*06/17/2022 Conjunctivitis [H10.9] 06/17/2022 Acute embolism and thrombosis of unspecified de*11/19/2021 Localized edema [R60.0] 11/19/2021 Pain in left knee [M25.562] 03/21/2021 Pain in right shoulder [M25.511] 08/25/2021 Knee pain [M25.569] 11/14/2021 Blepharospasm [G24.5] 07/05/2022 Steroid induced glaucoma, 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 Can you verify if he's good to go for his appt on 08/09 in [place]? 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 Briseno; advised patient to stop steroid drops and not use as needed and to f/u Dr.. Briseno for intraocular pressure Patient does have blepharospasm Will try and get approval for Botox however patient has dryness which can also cause blepharospasm Recc eval with dry accreditation specialist Dr.. Buck Recc art tears four times a day both eyes - Start taking Restasis (or xiidra) 1 drop to both eyes 2 times a day. Restasis may take 3 months to start working effectively. It is normal for the eye drop to burn after instillation of the drop. This will typically improve by the end of the first month. Can also try melissa colored glasses; Where can I get the FL-41 filter? Any [facility] location, (with an optical shop), throughout [place], Email: [email or web address] [employer] [facility] in [place], [place], [facility] in [place], [place], [facility] in [place], [place], [employer] in [place], [place], [phone] [email or web address] Discussed will need to submit for insurance approval and return once approved, usually takes ~1month 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 , up to 100 units Return 1 month for Botulinum toxin if dryness improved 2. General eye care Dr.. Briseno To use pataday 3. Steroid responder Used pred acetate; stop ; f/u Dr. Briseno The documentation for this note was completed by Yvon Espinal APRN, CNP acting as a scribe for Donita Martinez MD. 07/05/2022 11:57 AM. I have confirmed and edited as necessary the relevant ophthalmic history, ROS, and the neuro exam findings as obtained by others. I have seen and examined Gonzales Farrell. I have discussed the case and the management of this patient's care with the Resident/Fellow, if applicable. I also have reviewed and agree with the assessment and plan as stated above and agree with all of its relevant components. I, Donita Martinez MD, personally performed the services described in this documentation. All medical record entries made by the scribe were at my direction and in my presence. I have reviewed the chart and discharge instructions (if applicable) and agree that the record reflects my personal performance and is accurate and complete. Electronically Signed: Donita Martinez MD, July 05, 2022 11:57 AM. Brianda Maldonadodon [facility] 07/30/2022 12:00 PM Signed Yvon Epsinal APRN.BOTTOM LINER Bernardo; Wanda Sousa; Vanessa Maradiaga; Muna Apple PA-C; Parvin Bhatia MD; Stephany Scott PA-C 3 minutes ago (11:56 AM) RH I will send a message to the pharmacy auth team to see if he is approved. Melanie Lamar Gustavo [facility] 07/31/2022 1:33 PM Signed From: Pharm Auth Team Sent: Sunday, July 31, 2022 12:27 PM To: Yvon Espinal Cc: Donita Martinez ; Brianda Higgins ; Muna Apple ; Stephany Scott ; Parvin Abarca ; Ana Hankins ; Sirena Tapia Subject: RE: medical Botox approval Clovis Sanz, I am not seeing a referral request for Botox. Please advise Thank you [facility] Department Remote Office [id number] [id number] From: Yvon Espinal Sent: Saturday, July 30, 2022 11:58 AM To: Pharm Auth Team Cc: Donita Martinez ; Brianda Higgins ; Muna Apple ; Stephany Scott ; Parvin Abarca Subject: medical Botox approval Fredis Berry submitted a prior authorization for Mr. Gonzales Farrell ([id number]) on 07/05/22 for medical Botox. Has it been approved? Thank you, Melanienahid Lamar Gustavo [facility] 07/31/2022 1:36 PM Signed From: Yvon Espinal Sent: Sunday, July 31, 2022 12:33 PM To: Stewart Combs ; Keyona Adkins ; Darlene Lugo ; Pharm Auth Team C (more content not included)... [facility] CNOVon 05-06-2022 CNOV Office Visit (ORTHMN ) GONZALES FARRELL ([id number]) 1970 M Date Time Provider Department 05/06/22 3:45 PM CHARLIE HAYS During your visit today, we recorded the following information about you: Charlie Hays MD 05/08/2022 11:35 AM Signed [facility] NOTE Department of Orthopaedics Charlie Hays MD [facility] [place]: Gonzales Farrell CLINIC NO.: [id number] DATE: 05/06/22 Surgery: Arthroscopy Shoulder Rotator Cuff - Right, Arthroscopy Shoulder Biceps Tenodesis - Right, and Arthroscopy Shoulder With Subacromial Decompression - Right Date: 10/25/2021 Interval Hx: Gonzales Farrell is back for follow up after above mentioned procedure. He was doing really well pain about 2-3/10. Very happy with results. PHYSICAL EXAMINATION: Incision appears well-healed. Forward elevation is passively to 170 ? and actively to 170 ?. External rotation is passively to 50 ? and actively to 40 ?. Abduction is actively to 90 ? and Internal rotation is actively to LL. his strength is 5 of 5 in internal rotation , 5 of 5 in external rotation and 4+ of 5 in abduction in the plane of scapula. Belly press test is neg. Jobes test is neg and Neer and Guido are neg. Upper extremity has intact sensory and motor function and has good perfusion distally. RADIOGRAPHIC STUDIES: no new imaging ASSESSMENT: Encounter Diagnosis ICD-10-CM 1. Traumatic complete tear of right rotator cuff, initial encounter S46.011A PLAN: I told Gonzales Farrell that he is doing well for his post-operative status. We should continue stretching exercises and strengthening with gatching exercises and gradual weight training. As long as symptoms are well controlled and rehab is going well, follow up with my clinic will be as needed. If any questions or concerns arise, he should not hesitate to call. Charlie Hays M.D. M.M.Sc. Shoulder and Elbow Surgeon Orthopaedic Surgery Department [place] [id number] Tell: [phone] Appt: Referring Provider: CHARLIE HAYS [[id number]] Allergies As of Date: 05/06/2022 Noted Allergy Reaction BEE VENOM PROTEIN (HONEY BEE) 09/27/2021 7 - Swelling 12 - Shortness of Breath Date Reviewed: 05/06/2022 Reviewed by: Mariya Giang MA - Fully Assessed Reason for Visit: Established Patient [175] Follow Up [171] Pain [78] Stiffness [1661] Weakness [1606] Primary Visit Diagnosis:Traumatic complete tear of right rotator cuff, initial encounter [S46.011A] Prescriptions as of 05/08/2022 - oxyCODONE IR (ROXICODONE) 5 mg immediate release tablet Take 1 tablet by mouth every 8 hours as needed for pain. - aspirin, enteric coated (ECOTRIN LOW STRENGTH) 81 mg EC tablet Take 1 tablet by mouth twice daily for 14 days. - lisinopril (ZESTRIL, PRINIVIL) 40 mg tablet Take 40 mg by mouth once daily. - Flaxseed Oil oil once daily. - traMADOL (ULTRAM) 50 mg ORAL tablet Take 1 tablet by mouth every 8 hours as needed. - naproxen sodium 220 mg cap Take by mouth as needed. - MULTI-VITAMIN ORAL Take by mouth. Taking 3 a day - Fish Oil-DHA-EPA 1,200-144-216 mg cap Take by mouth. Taking 3 tablet a day Problem List As Of Date 05/06/2022 Noted Resolved Lumbosacral neuritis [M54.17] 07/16/2011 Traumatic complete tear of right rotator cuff [*09/22/2021 Obstructive sleep apnea [G47.33] 09/27/2021 Obese [E66.9] 09/27/2021 Chronic low back pain [M54.50, G89.29] 09/27/2021 History of DVT in adulthood [Z86.718] 09/27/2021 Nodular goiter [E04.9] 09/27/2021 Excessive sweating [R61] 09/27/2021 Primary hypertension [I10] 09/27/2021 Uncontrolled diabetes mellitus with hyperglycem*09/28/2021 S/P right rotator cuff repair [Z98.890] 12/07/2021 Encounter Status:Closed by CHARLIE HAYS on 05/08/22 Normal [facility] US JACKIE DOP LEG LTon 11-15-19 22 US JACKIE DOP LEG LT EXAMINATION: US JACKIE DOP LEG LT HISTORY: Pain of joint of knee COMPARISON: Ultrasound venous Doppler leg left 03/21/2021 FINDINGS: REGION: Left lower extremity THROMBI: Extending from proximal femoral artery through the popliteal vein into the posterior tibial veins and gastrocnemius vein. COMPRESSIBILITY: Noncompressible segments. FLOW: Areas of absent flow. OTHER: None. IMPRESSION: 1. Extensive deep vein thrombus within the left leg. Findings were called by the casing in line feeder to the ordering provider at the time of imaging. Electronically authenticated by: RED QUINONEZ Date: 2021-11-14 12:03 Normal [facility] ANES POSTPROC EVALon 022 ANES POSTPROC EVAL HNO ID: [id number] Author: Smooth Valadez MD Service: Anesthesiology Author Type: Anesthesiologist Type: Anesthesia Postprocedure Evaluation Filed: 10/25/2021 3:50 PM Note Text: POST ANESTHESIA EVALUATION NOTE : 1970 Procedure Summary Date: 10/25/21 Room / Location: [place] [address] / OR Anesthesia Start: 1148 Anesthesia Stop: 1455 Procedure: ARTHROSCOPY SHOULDER ROTATOR CUFF (Right Shoulder) Diagnosis: Preoperative examination Traumatic complete tear of right rotator cuff, initial encounter (Traumatic complete tear of right rotator cuff, initial encounter [S46.011A]) Surgeons: Charlie Hays MD Responsible Provider: mSooth Valadez MD Anesthesia Type: general, regional ASA Status: 3 Anesthesia Type: general, regional Airway Type: ETT Last Vitals Vitals Value Taken Time BP 132/83 10/25/21 1531 Temp 36.9 ?C (98.4 ?F) 10/25/21 1452 Pulse 89 10/25/21 1549 Resp 21 10/25/21 1549 SpO2 93 % 10/25/21 1548 Vitals shown include unvalidated device data. Post Anesthesia Patient Status Patient Evaluation: PACU. PACU/ICU Patient Condition: stable. Anticipated Disposition: phase 2 then home. Neurological Status: aware and responsive. Pulmonary Status: breathing comfortably on room air Airway Control: returned to baseline unsupported. Cardiovascular Status: stable. Pain Management: clinically adequate - multimodal analgesia pain management approach Postoperative Hydration: acceptable. Intraoperative Events: no significant anesthesia events Recommendation: continue current plan of care. Anesthesia Observations No Documentation SIGNATURE: Smooth Valadez MD PATIENT NAME: Gonzales Farrell DATE: October 25, 2021 TIME: 3:50 PM CSN: [id number] [facility] ANES PRE-OPon 10-25-2021 ANES PRE-OP HNO ID: [id number] Author: Smooth Valadez MD Service: Anesthesiology Author Type: Anesthesiologist Type: Anesthesia Preprocedure Evaluation Filed: 10/25/2021 10:00 AM Note Text: ANESTHESIOLOGY DAY OF SURGERY NOTE : 1970 Procedure Information Date/Time: 10/25/21 1120 Procedure: ARTHROSCOPY SHOULDER ROTATOR CUFF (Right Shoulder) - Arthrex Gene and Tex aware 90 mins Location: OR / OR Surgeons: Charlie Hays MD Estimated body mass index is 44.48 kg/m? as calculated from the following: Height as of 09/27/21: 177.8 cm (5' 10 ). Weight as of 09/27/21: 140.6 kg (310 lb). Most recent hematocrit and potassium results: Hematocrit 50.4 09/27/2021 Potassium 4.5 10/18/2021 Relevant Problems ANESTHESIA (+) Obstructive sleep apnea CARDIO (+) Primary hypertension NEURO-PSYCH (+) History of DVT in adulthood PULMONARY (+) Obstructive sleep apnea I - PHYSICAL EVALUATION AIRWAY Patient intubated: No. Tracheostomy tube not present Mallampati: III. TM distance: >3 FB. Neck ROM: full ROM without neurological symptoms. Mouth opening: adequate. Short neck: yes. Thick neck: yes DENTAL Dental findings: teeth intact. Additional exam findings: no II - ANESTHESIA PLAN ASA Score: 3 Anesthetic Plan: general and regional NPO Status: adequate Monitoring plan: Standard ASA. Postoperative analgesic plan: parenteral or oral opioids, peripheral nerve block and multimodal analgesia. Patient / Surrogate agrees to blood products: yes DNR status not reviewed with patient and/or family prior to surgery. Significant changes in the patient condition since the History and Physical, not otherwise documented in primary service progress note: no. Potential Anesthesia issues that may suggest increased risk of complications or contraindication to planned procedure: none. Vitals Value Taken Time BP 135/89 10/25/21925 Pulse 79 10/25/21925 Resp 16 10/25/21925 Temp 36.3 ?C (97.4 ?F) 10/25/21925 SpO2 97 % 10/25/21925 Facility-Administered Medications as of 10/25/2021 Medication Dose Route Frequency - EPINEPHrine 1 mg in lactated Ringers irrigation 5,000 mL 1 mg IRRIGATION PRN Outpatient Medications as of 10/25/2021 Medication Sig - lisinopril (ZESTRIL, PRINIVIL) 40 mg tablet Take 40 mg by mouth once daily. - Flaxseed Oil oil once daily. - traMADOL (ULTRAM) 50 mg ORAL tablet Take 1 tablet by mouth every 8 hours as needed. - naproxen sodium (ALEVE) 220 mg ORAL Cap Take by mouth as needed. - MULTI-VITAMIN ORAL Take by mouth. Taking 3 a day - Fish Oil-DHA-EPA (FISH OIL) 1,200-144-216 mg ORAL Cap Take by mouth. Taking 3 tablet a day - oxyCODONE IR (ROXICODONE) 5 mg immediate release tablet Take 1-2 tablets by mouth every 6 hours as needed for pain for up to 7 days. - acetaminophen (TYLENOL EXTRA STRENGTH) 500 mg tablet Take 2 tablets by mouth every 8 hours as needed for pain for up to 10 days. - docusate sodium (COLACE) 100 mg capsule Take 1 capsule by mouth twice daily for 15 days. - aspirin, enteric coated (ECOTRIN LOW STRENGTH) 81 mg EC tablet Take 1 tablet by mouth twice daily for 14 days. I have interviewed and examined the patient. I have reviewed the medical record and/or the pre-anesthesia evaluation, pertinent labs, and test results. This contains updated information obtained within 48 hours of Surgery/Procedure. SIGNATURE: Smooth Valadez MD PATIENT NAME: Gonzales Farrell DATE: October 25, 2021 TIME: 9:56 AM CSN: [id number] [facility] NURSING PROGon 06-30-2022 NURSING PROG HNO ID: [id number] Author: Kyle Nuno RN Service: Nursing Author Type: Registered Nurse Type: Nursing Progress Note Filed: 10/26/2021 2:35 PM Note Text: TOTAL JOINT COMPLETE CARE PROGRAM DISCHARGE FOLLOW-UP PHONE CALL Phone Call Date: 10/26/2021 Phone Call Time: 230pm Date of Surgery: 10/26 Procedure: Right Shoulder Arthroscopy FOLLOW-UP QUESTIONS: 1. Did you receive adequate written instructions upon discharge? Yes 2. Do you have your follow-up appointment schedule? YES 3. Is your pain controlled with current medication regimen? YES Current Pain level out of 10: 5 4. If you are able to see your incision, is there any increased drainage? NO 5. Any increased swelling? NO 6. Any increased redness? NO 7. If your dressing is still on, do you know when to remove it? Yes, Date: 10/28/2021 8. Do you have any of the following new/worsening symptoms? None 9. Have you contacted your surgeon's office about these symptoms? NO Joint Class Participation: No Education Completed: No Online or DVD Education Complete: Online SIGNATURE: Kyle Nuno RN PATIENT NAME: Gonzales Farrell DATE: October 26, 2021 TIME: 2:33 PM PAGER/CONTACT #: [phone] [facility] NURSING PROG HNO ID: [id number] Author: Salima Nuñez RN Service: Nursing Author Type: Registered Nurse Type: Nursing Progress Note Filed: 10/25/2021 9:31 AM Note Text: PATIENT EDUCATION TOPIC: PROCEDURE / SURGERY: Pre-op Teaching: Logistics PATIENT NAME: Gonzales Farrell PATIENT LOCATION: MM Surgery/MM Surgery READINESS TO LEARN COGNITIVE ABILITY: Alert and oriented MOTIVATION TO LEARN: Interested FAMILY SUPPORT: None - Unavailable/disinterest ed INSTRUCTION PROVIDED TO: Patient PATIENT LEARNS BEST BY: Individual Instruction FACTORS AFFECTING LEARNING: None PHYSICAL LIMITATIONS AFFECTING LEARNING: None LEARNING RESPONSE DIAGNOSIS: ADULT: Well Adult PATIENT/FAMILY RESPONSE: Verbalizes understanding of: PRE-OPERATIVE INSTRUCTIONS-Correct action to take to follow pre-operative instructions METHOD OF INSTRUCTION: Individual instruction FOLLOW-UP PLAN: Complete - No need for follow-up INSTRUCTIONAL AIDS USED: NA SUPPLEMENTAL MATERIAL PROVIDED TO PATIENT: None REFERRAL (RECOMMENDATION): None Electronically Signed By: Salima Willis [facility] OPERATIVE NOon 10-25-2021 OPERATIVE NO HNO ID: [id number] Author: Charlie Hays MD Service: Orthopaedic Surgery Author Type: Physician Type: Operative Report Filed: 10/25/2021 4:56 PM Note Text: OPERATIVE/PROCEDURE REPORT [place] [address] Patient Name: Gonzales Farrell : 1970 Surgery/Procedure Date: 10/25/2021 Incision/Procedure Start Time: 12:34 PM Incision Close/Procedure End Time: 2:37 PM SURGEON(S)/PROCEDURALIS T(S) AND PROTOTYPE MACHINE OPERATOR(S): Charlie Hays MD MMSs (Primary Surgeon) Allan Trevizo MD PRE-OP/PRE-PROCEDURE DIAGNOSIS: * Right full-thickness rotator cuff tear * Right biceps tendinitis POST-OP/POST-PROCEDURE DIAGNOSIS: * Right full-thickness rotator cuff tear * Right biceps tendinitis SURGERY/PROCEDURE(S): * Right arthroscopic rotator cuff repair * Right arthroscopic biceps tenodesis * Right arthroscopic subacromial decompression and acromioplasty * 22-Modifier: BMI 45, massive rotator cuff tear SURGICAL FINDING(S): There was severe degenerative changes in the long head of the biceps tendon and it was unstable. There was full thickness tear of supraspinatus, infraspinatus and subscapularis with retraction to glenoid rim. Subjective tissue quality was goos. There was no arthritic changes in the glenoid and no arthritic changes in the humeral head. SURGICAL IMPLANT(S): Arthrex 5.5 mm bio-composite corkscrew x 1, Arthrex 4.75 mm bio-composite Swivelock x 4, Arthrex link suture x 2 OPERATIVE INDICATIONS: Gonzales Farrell is a 50 year old year old male with previous history of Right shoulder pain who failed extended course of non-operative treatment. MRI showed full-thickness rotator cuff tear. Discussed management including continuing non-operative treatment versus arthroscopic rotator cuff repair. Discussed risks AND benefit of each procedure including but not limited to bleeding, infection, DVT, PE, pain, stiffness, dislocation, neurovascular injury, anesthesia complications, etc. he expressed understanding. Preoperative optimization including pain control, resuscitation and cardiac clearance was obtained and he was deemed acceptable risk for cardiac event. We will proceed with surgery as planned. Consent was obtained. SURGERY/PROCEDURE DETAILS: The patient was identified and brought into the Operating Room by the anesthesia and nursing team. General was successfully performed. Intravenous antibiotic prophylaxis dosing was confirmed. The patient was then positioned in a beach chair position and all pressure points were checked and padded. The operative limb was then examined and range of motion and restrictions noted. The operative leg was then prepped and draped in the usual sterile fashion. A surgical time-out was performed immediately preceding the incision with all personnel in the operating room; the patient identity was again confirmed, the surgical site and extremity were identified and confirmed, X-rays were reviewed, and availability of the appropriate surgical equipment was established. A standard posterior arthroscopic portal was initially established in the Right shoulder. On entering the glenohumeral joint, the long head of the biceps tendon showed evidence of severe degenerative changes and instability. The labrum showed evidence of severe degeneration Superiorly. A full thickness tear of the supraspinatus and infraspinatus tendon was seen. There was evidence of significant degenerative changes along the surfaces of the humeral head and the glenoid. Anteriorly, the subscapularis tendon showed evidence of full thickness tear with retraction to glenoid rim. A standard anterior portal was then made through the rotator interval, just above the subscapularis tendon. A free #1 Prolene stitch was then used to percutaneously tag the long head of the biceps tendon. The biceps was then cut at its anchor site on the superior labrum using the arthroscopic biter. The superior labrum was then debrided at the former biceps insertion site back to a smooth, stable rim. The labral fraying was also debrided. An accessory anterosuperior portal was then made for instrumentation. A combination of the arthroscopic shaver and VAPR device were brought in and used to perform arthroscopic releases for mobilization of the subscapularis tear, including release of the rotator interval. Next, the exposed lesser tuberosity was debrided of soft tissue and prepared using a combination of the arthroscopic shaver and the VAPR device. A 5.5-mm Arthrex Biocorkscrew rotator cuff anchor was placed along the prepared lesser tuberosity, just off the articular margin. The first suture from this anchor was passed in a horizontal mattress fashion through the subscapularis tear, while the second suture was passed in a simple fashion at the uppermost aspect of the tear. The sutures were then sequentially tied down. This did nicely reduce the to (more content not included)... [facility] NURSING PROGon 10-05-2021 NURSING PROG HNO ID: [id number] Author: Shyam Gotti RN Service: ? Author Type: Registered Nurse Type: Nursing Progress Note Filed: 10/05/2021 7:40 AM Note Text: ADDENDUM: Pt meets criteria for DM II, A1C 8.9, glucose close to 300. GFR over 100, but BUN and Cr normal. HGB slightly elevated. Discussed these results with the patient and potential health implications, advised he get into PCP [facility] for treatment. Will review with anesthesia to see if he can proceed with surgical date. Letter and results sent to PCP with patient's permission. He voiced understanding. ? ADDENDUM: 10/04/21: PCP started Gonzales on metformin and Amaryl last week, saw him for a recheck today, and states in faxed note Cleared for OR- sugars under much improved control. Our RN Seun Davidson left a detailed message that he should NOT take his DM meds morning of surgery but glucose needs to be less than 200 or procedure may be cancelled, so watch diet carefully. Dr. Grey reviewed case, ok to proceed with surgery. PCP note from 10/01/2021 scanned in Epic Shyam Gotti RN October 05, 2021 7:40 AM [facility] HGB A1Con 09-27-2021 Average glucose Estimated from glycated hemoglobin (Bld) [Mass/Vol] 209 mg/dL [facility] HbA1c (Bld) [Mass fraction] 8.9 % High 4.3 - 5.6 % [facility] MRI SHOULDER RT WO CONon MRI SHOULDER RT WO CON EXAMINATION: MRI SHOULDER RT WO CON HISTORY: Sprain of shoulder ; acute right shoulder pain and limited range of motion since falling COMPARISON: No relevant comparison available. TECHNIQUE: A variety of imaging planes and parameters were utilized for visualization of suspected pathology. Imaging was performed without contrast. FINDINGS: ROTATOR CUFF REGION CUFF TENDONS: Disruption of the supraspinatus tendon with 2.9 cm retraction. Disruption of the subscapularis tendon. CUFF MUSCLES: Normal appearing muscles. DELTOID: Normal. No significant atrophy or tear. LONG BICEPS TENDON: Medial subluxation of the biceps tendon relative to the bicipital tendon groove, with loss of tendon approximately suggesting a tear. LABRUM/BICEPS ANCHOR SUPERIOR: Normal. No visible labral tear or biceps anchor pathology. ANTERIOR/INFERIOR: Normal. No visible tear or attrition. POSTERIOR: Normal. No posterior labrum abnormality. CAPSULE Normal. No visible capsular laxity or thickening. AC JOINT REGION AC JOINT: Marked osteoarthropathy with moderate to severe narrowing of the underlying coracoacromial arch. AC LIGAMENTS: No appreciable disruption. CC LIGAMENTS: No appreciable disruption. ACROMION: No significant lateral downsloping. SUBACROMIAL BURSA: Small amount of fluid. HYALINE CARTILAGE: Normal. No visible cartilage narrowing or focal defect. OTHER BONES: High riding humeral head. No fracture or dislocation. OTHER OBSERVATIONS: Negative. No other significant findings or glenohumeral effusion. IMPRESSION: 1. Tear and retraction of the supraspinatus tendon. 2. Tear of the subscapularis tendon with medial subluxation of the biceps tendon, and suspected tear of the tendon. 3. Marked degenerative changes of acromioclavicular joint. Electronically authenticated by: RED QUINONEZ Date: 2021-09-05 15:06 Normal [facility] XR FOREIGN BODY EYEon 2021 XR FOREIGN BODY EYE EXAMINATION: XR FORE IGN BODY EYE HISTORY: Foreign body in eye COMPARISON: No relevant comparison available. FINDINGS: ORBITS: Negative for a metallic foreign body. OTHER: Negative. IMPRESSION: 1. No metallic foreign body within the orbits. Electronically authenticated by: RED QUINONEZ Date: 2021-09-05 13:13 Normal [facility] CT CSPINE WO CONon 2 CT CSPINE WO CON EXAMINATION: CT CSPI NE WO CON HISTORY: Pain COMPARISON: None. TECHNIQUE: CT Cervical spine without IV contrast. Coronal and sagittal reformations were performed. Dose reduction techniques were achieved by using automated exposure control and/or adjustment of mA and/or kV according to patient size and/or use of iterative reconstruction technique. FINDINGS: Anatomy: 7 [id number] cervical segments. Column: No acute fracture or dislocation. No suspicious lytic or sclerotic lesion. Canal: No evidence of intraspinal mass or hematoma. C1-C2: Normal atlantoaxial alignment. C2-C3: No significant disc or facet disease. C3-C4: No significant disc or facet disease. C4-C5: No significant disc or facet disease. C5-C6: Disc height loss with endplate osteophytosis and uncovertebral joint hypertrophy. Mild right foraminal stenosis. Patent spinal canal. C6-C7: No significant disc or facet disease. C7-T1: No significant disc or facet disease. Other: Unremarkable paraspinal soft tissues. IMPRESSION: 1. No acute cervical spine pathology. 2. Moderate C5-C6 predominantly disc degeneration with mild right neural foraminal stenosis. Electronically authenticated by: LEE ANN BARNETT Date: 2021-08-25 16:01 Normal [facility] BOTOX INJECTION ESSENTIAL BL EPHAROSPASM [facility] Vital Signs Date Time Vital Sign Value Performing Clinician Brittanyi howiey 09-27-2021 15:07-0400 Body height 177.8 cm Pac 4 Work Phone: [facility] 09-27-2021 15:07-0400 Body temperature 96.69 [degF] Pac 4 Work Phone: [facility] 09-27-2021 15:07-0400 Body weight 140.62 kg Pac 4 Work Phone: [facility] 09-27-2021 15:07-0400 Diastolic blood pressure 84 mm[Hg] Pac 4 Work Phone: [facility] 09-27-2021 15:07-0400 Heart rate 88 /min Pac 4 Work Phone: [facility] 09-27-2021 15:07-0400 Respiratory rate 16 /min Pac 4 Work Phone: [facility] 09-27-2021 15:07-0400 SaO2% (BldA) [Mass fraction] 97 % Pac 4 Work Phone: [facility] 09-27-2021 15:07-0400 Systolic blood pressure 147 mm[Hg] Pac 4 Work Phone: [facility] 09-21-2021 [id number] Body height 177.8 cm Charlie Hays MD Work Phone: [facility] 09-21-2021 [id number] Body weight 136.08 kg Charlie Hays MD Work Phone: [facility] Encounters Encounter Date Encounter Type Care Provider Facility Start: 04-30-2023 End: 04-30-2023 ambulatory [facility] Facility:[facility] Start: 03-13-2023 End: 03-13-2023 ambulatory [facility] Facility:[facility] Start: 03-13-2023 End: 03-13-2023 OT/PT/Speech Visit Soo Villalba PT Work Phone: [facility] Comment on above: Functional movement disorder (Primary Dx); Blepharospasm Start: 02-18-2023 End: 02-18-2023 ambulatory [facility] Facility:[facility] Start: 01-16-2023 End: 01-16-2023 ambulatory RULA HERRERA Facility:[facility] Start: 12-26-2022 Telephone encounter Michael vargas MD Work Phone: [facility] Comment on above: Letter Start: 12-24-2022 End: 12-24-2022 ambulatory MICHAEL ANDREW Facility:[facility] Start: 12-24-2022 End: 12-24-2022 OT/PT/Speech Visit Vonnie Connolly PT Work Phone: [facility] Comment on above: Blepharospasm (Prima ry Dx); Functional movement disorder Start: 12-19-2022 End: 12-19-2022 ambulatory MICHAEL ANDREW Facility:[facility] Start: 12-19-2022 End: 12-19-2022 OT/PT/Speech Visit Soo Villalba PT Work Phone: [facility] Comment on above: Blepharospasm (Prima ry Dx); Functional movement disorder Start: 2022 End: 2022 ambulatory MICHAEL ANDREW Facility:[facility] Start: 2022 End: 2022 OT/PT/Speech Visit Soo Villalba PT Work Phone: [facility] Comment on above: Blepharospasm (Prima ry Dx); Functional movement disorder Start: 11-20-2022 End: 11-20-2022 OT/PT/Speech Visit Megha Leggett PT Work Phone: [facility] Comment on above: Blepharospasm (Prima ry Dx); Functional movement disorder Adjustment disorder, unspecified type (Primary Dx); Functional neurological symptom disorder with mixed symptoms Start: 10-31-2022 End: 10-31-2022 ambulatory AGAPITO RUANO Facility:[facility] Start: 08-26-2022 End: 08-26-2022 ambulatory STEWART BRISENO Facility:[facility] Start: 08-16-2022 End: 08-16-2022 ambulatory DONITA MARTINEZ Facility:[facility] Start: 08-16-2022 End: 08-16-2022 Patient encounter procedure Donita Martinez MD Work Phone: Ophthalmology Comment on above: Blepharospasm (Prima ry Dx) Start: 08-16-2022 Telephone encounter Donita Martinez MD Work Phone: Ophthalmology Comment on above: Patient Question Start: 08-09-2022 End: 08-09-2022 ambulatory DONITA MARTINEZ Facility:[facility] Start: 08-09-2022 End: 08-09-2022 Patient encounter procedure Donita Martinez MD Work Phone: Ophthalmology Comment on above: Blepharospasm (Prima ry Dx) Start: 08-02-2022 End: 08-02-2022 ambulatory STEWART BRISENO Facility:[facility] Start: 08-02-2022 End: 08-02-2022 Patient encounter procedure Stewart Briseno OD Work Phone: Ophthalmology Comment on above: Steroid induced glau coma, both eyes (Primary Dx); Dry eye syndrome of bilateral lacrimal glands; Other chronic allergic conjunctivitis of both eyes; Blepharospasm Start: 07-30-2022 Telephone encounter Donita Martinez MD Work Phone: Ophthalmology Comment on above: Follow Up Start: 07-19-2022 End: 07-19-2022 ambulatory STEWART BRISENO Facility:[facility] Start: 07-19-2022 End: 07-19-2022 Patient encounter procedure Stewart Briseno OD Work Phone: Ophthalmology Comment on above: Steroid induced glau coma, both eyes (Primary Dx); Other chronic allergic conjunctivitis of both eyes; Dry eye syndrome of bilateral lacrimal glands; Blepharospasm Start: 07-07-2022 End: 07-08-2022 ambulatory RULA Nahid Facility: Start: 07-05-2022 End: 07-05-2022 ambulatory STEWART BRISENO Facility:[facility] Start: 07-05-2022 End: 07-05-2022 Patient encounter procedure Donita Martinez MD Work Phone: Ophthalmology Comment on above: Blepharospasm (Prima ry Dx) Other chronic allerg ic conjunctivitis of both eyes (Primary Dx); Dry eye syndrome of bilateral lacrimal glands; Blepharospasm Start: 06-17-2022 End: 06-17-2022 ambulatory STEWART BRISENO Facility:[facility] Start: 06-17-2022 End: 06-17-2022 Patient encounter procedure Stewart Briseno OD Work Phone: Ophthalmology Comment on above: Other chronic allerg ic conjunctivitis of both eyes (Primary Dx); Dry eye syndrome of bilateral lacrimal glands Start: 05-06-2022 End: 05-06-2022 ambulatory CHARLIE HAYS Facility:[facility] Start: 05-06-2022 End: 05-06-2022 Patient encounter procedure Charlie Hays MD Work Phone: Orthopaedics Comment on above: Traumatic complete t ear of right rotator cuff, initial encounter (Primary Dx) Start: 04-28-2022 ambulatory RULA Nahid Facility:[facility] Start: 03-04-2022 End: 03-04-2022 Patient encounter procedure Charlie Hays MD Work Phone: Orthopaedics Comment on above: Traumatic complete t ear of right rotator cuff, initial encounter (Primary Dx); S/P right rotator cuff repair Start: 01-25-2022 End: 01-25-2022 Patient encounter procedure Charlie Hays MD Work Phone: Orthopaedics Comment on above: S/P right rotator cu ff repair (Primary Dx) Start: 12-13-2021 End: 04-27-2022 ambulatory [facility] Facility: Start: 12-07-2021 End: 12-07-2021 Patient encounter procedure Charlie Hays MD Work Phone: Orthopaedics Comment on above: Traumatic complete t ear of right rotator cuff, subsequent encounter (Primary Dx); S/P right rotator cuff repair Start: 11-14-2021 End: 11-15-2021 [facility] Facility: Start: 11-07-2021 End: 11-07-2021 Refill Charlie Hays MD Work Phone: Orthopaedics Comment on above: Refill Request Postop check (Primar y Dx) Start: 10-19-2021 ambulatory Charlie Hays MD Work Phone: Orthopaedics Start: 10-19-2021 Preprocedural examin ation done Charlie Hays MD Work Phone: Orthopaedics Start: 10-17-2021 Orders Only Charlie Hays MD Work Phone: Orthopaedics Comment on above: Preoperative examina tion (Primary Dx) Start: 10-17-2021 Preprocedural examin ation done Charlie Hays MD Work Phone: Orthopaedics Start: 09-28-2021 Telephone encounter Barb olivares PA-C Work Phone: Pre Anesthesia Comment on above: Results (Elevated HG B A1C) Preparations For Tyesha lynette Start: 09-27-2021 End: 09-27-2021 Admission to [facility] 4 Work Phone: [place] Start: 09-27-2021 End: 09-27-2021 [facility] 4 Work Phone: Pre Anesthesia Comment on above: Preop examination (P rimary Dx); Traumatic complete tear of right rotator cuff, initial encounter; Obstructive sleep apnea; Class 3 severe obesity due to excess calories without serious comorbidity with body mass index (BMI) of 40.0 to 44.9 in adult (HCC); Primary hypertension; History of DVT in adulthood; Nodular goiter; Excessive sweating Start: 09-27-2021 End: 09-27-2021 Preprocedural examination done Pac 4 Work Phone: Pre Anesthesia Start: 09-21-2021 ambulatory Charlie Hays MD Work Phone: Orthopaedics Start: 09-21-2021 Preprocedural examin ation done Charlie Hays MD Work Phone: Orthopaedics Start: 09-21-2021 End: 09-21-2021 Patient encounter procedure Charlie Hays MD Work Phone: Orthopaedics Comment on above: Traumatic complete t ear of right rotator cuff, initial encounter (Primary Dx) Start: 09-05-2021 End: 09-06-2021 ambulatory RULA HERRERA Facility:[facility] Start: 08-25-2021 End: 08-25-2021 ambulatory NICHOLAS BHATIA Facility:[facility] Procedures Date Procedure Procedure Detail Performing Clinician Start: 08-09-2022 [facility] innervated facial nrv unil Yvon Espinal LE[employer]IGHTER.[employer]OTT[employer]ER Work Phone: Start: 12-07-2021 History of repair of musculotendinous cuff of shoulder S/P right rotator cuff repair Charlie Hays MD Work Phone: Start: 07-16-2011 Adult depression screening assessment Charlie Hays MD Work Phone: History of repair of musculotendinous cuff of shoulder S/P right rotator cuff repair Charlie Hays MD Work Phone: History of repair of musculotendinous cuff of shoulder S/P right rotator cuff repair Charlie Hays MD Work Phone: Plan of Treatment Date Care Activity Detail Author Start: 09-27-2024 DIABETES SCREEN DIABETES SCREEN [facility] Start: 12-27-2022 Covid-19 Vaccine ( season) Covid-19 Vaccine () [facility] Start: 12-27-2022 Influenza vaccination [facility] Start: 04-28-2022 DEPRESSION ASSESSMENT DEPRESSION ASS ESSMENT [facility] Start: 12-28-2021 Hemoglobin A1c/Hemoglobin.total in Blood HBA1C [facility] Start: 12-27-2021 Influenza vaccination [facility] Start: 10-17-2021 End: 12-17-2021 Basic metabolic 2000 panel - Serum or Plasma BASIC METABOLIC PNL Lab Routine Preoperative examination Expected: 10/17/2021, Expires: 12/17/2021 [facility] Work Phone: Comment on above: Expected: 10/17/2021 , Expires: 12/17/2021 Start: 09-27-2021 End: 11-27-2021 T3 BLD [facility] Work Phone: Comment on above: Expected: 09/27/2021 , Expires: 11/27/2021 Start: 09-27-2021 End: 11-27-2021 T4 FREE/FREE THYROX [facility] Work Phone: Comment on above: Expected: 09/27/2021 , Expires: 11/27/2021 Start: 09-27-2021 End: 11-27-2021 Thyrotropin [Units/volume] in Serum or Plasma [facility] Work Phone: Comment on above: Expected: 09/27/2021 , Expires: 11/27/2021 Start: 09-21-2021 End: 11-21-2021 Basic metabolic 2000 panel - Serum or Plasma BASIC METABOLIC PNL Lab Routine Preoperative examination Expected: 09/21/2021 (Approximate), Expires: 11/21/2021 [facility] Work Phone: Comment on above: Expected: 09/21/2021 (Approximate), Expires: 11/21/2021 Start: 09-21-2021 End: 11-21-2021 CBC panel - Blood by Automated count CBC Lab Routine Preoperative examination Expected: 09/21/2021 (Approximate), Expires: 11/21/2021 [facility] Work Phone: Comment on above: Expected: 09/21/2021 (Approximate), Expires: 11/21/2021 Start: 04-28-2021 DEPRESSION ASSESSMENT DEPRESSION ASS ESSMENT [facility] Start: 09-08-2020 COVID-19 VACCINE (2 - Booster for Marlen series) COVID-19 VACCINE (2 - Booster for Marlen series) [facility] Start: 2018 Influenza vaccination LUNG CANCER SC JODI [facility] Start: 2018 SHINGRIX VACCINE (1 of 2) SHINGRIX VACCINE (1 of 2) [facility] Start: 2013 COLOGUARD (FIT-DNA) COLOGUARD (FIT-D NA) [facility] Start: 2013 Colonoscopy COLONOSCOPY [facility] Start: 2013 COLORECTAL CANCER SCREENING COLORECTAL CANCER SCREENING [facility] Start: [address] COLONOGRAPHY [facility] Start: 2013 DIABETES SCREEN DIABETES SCREEN [facility] Start: 2013 FECAL OCCULT BLOOD FECAL OCCULT BLOO D [facility] Start: 2013 SIGMOIDOSCOPY SIGMOIDOSCOPY [facility] Start: 07-15-2012 Adult depression screening assessment DEPRESSION SCREENING [facility] Start: 12-13-2003 LIPID SCREEN LIPID SCREEN [facility] Start: 12-13-1987 HEPATITIS B (1 of 3 - Risk 3-dose series) HEPATITIS B (1 of 3 - Risk 3-dose series) [facility] Start: 12-13-1987 Urine microalbumin profile [facility] Start: 1986 ANNUAL PCP TEAM HEALTH AND PHYSICAL EDUCATION PROFESSOR OLGA DISEASE VISIT ANNUAL PCP TEAM CHRONIC DISEASE VISIT [facility] Start: 1986 BP CONTROLLED (<130/80) BP CONTROLLE D (<130/80) [facility] Start: 1986 Hepatitis B surface antibody level LDL CHOLESTEROL [facility] Start: 1986 HEPATITIS C SCREENING HEPATITIS C SC JODI [facility] Start: 1986 HIV SCREENING HIV SCREENING [facility] Start: 1978 3 comp foot exam completed DIABETIC FOOT EXAM [facility] Start: 1978 Hepatitis B screening URINE ALBUMIN:CREATININE RATIO [facility] Start: 1978 Hepatitis C antibody , confirmatory test DILATED RETINAL EXAM [facility] Start: 1974 PNEUMOCOCCAL (1 - PCV) PNEUMOCOCCAL (1 - PCV) [facility] Start: 1974 Pneumococcal vaccination Pneum ococcal Vaccine (1 - PCV) [facility] Start: 1968 HEPATITIS B (1 of 3 - 3-dose series) HEPATITIS B (1 of 3 - 3-dose series) [facility] Start: 1968 Hepatitis B Vaccine (1 of 3 - 3-dose series) Hepatitis B Vaccine (1 of 3 - 3-dose series) [facility] End: 09-21-2022 ECG COMPLETE ECG COMPLETE ECG Routine Preoperative examination 1 Occurrences starting 09/21/2021 until 09/21/2022 [facility] Work Phone: Comment on above: 1 Occurrences starti ng 09/21/2021 until 09/21/2022 End: 09-27-2022 ECG COMPLETE ECG COMPLETE ECG Routine Preop examination Obstructive sleep apnea Class 3 severe obesity due to excess calories without serious comorbidity with body mass index (BMI) of 40.0 to 44.9 in adult (HCC) Traumatic complete tear of right rotator cuff, initial encounter Primary hypertension 1 Occurrences starting 09/27/2021 until 09/27/2022 [facility] Work Phone: Comment on above: 1 Occurrences starti ng 09/27/2021 until 09/27/2022 [facility] Payers Date Payer Category Payer Private Health Insurance [id number] 2021 Unknown [id number] 2021 Unknown [facility] RADHA IVORY COMP [id number] 2021-Present [phone] [place] [address] MCO [id number] 2020 Unknown [employer] MED[employer]EN xx [id number] 2020-Present [phone] [address] [place] [address] PPO [id number] 2011 Unknown [facility] MEDICAL GENERIC [id number] 2011-Present [phone] [address] [place] [address] Indemnity [id number] 1968 Unknown [id number] 1968 Unknown [id number] 1968 Unknown [id number] 1968 Unknown [id number] 1968 Unknown [id number] 1968 Unknown [id number] 1968 Unknown [id number] 1959 Self-pay 1959 Unknown [id number] 1959 Unknown [id number] 1959 Unknown [id number] 1959 Unknown [id number] Social History Date Type Detail Facility Start: 07-16-2011 End: 08-02-2022 Tobacco smoking status NHIS Smokes tobacco daily [facility] Start: 07-16-2011 End: 09-18-2022 Cigarettes smoked current (pack per day) - Reported 1.5 [facility] Start: 08-23-2011 End: 09-18-2022 Alcohol intake Current drinker of alcohol (finding) [facility] Start: 07-16-2011 History SDOH Alcohol Comment occassionally [facility] Start: 1970 Sex Assigned At Not on file [facility] Start: 09-11-2021 End: 03-04-2022 Exposure to SARS-CoV-2 (event) Not sure [facility] History of tobacco use Cigarette Smoker [facility] Start: 07-16-2011 End: 08-02-2022 Tobacco use and exposure Former smokeless tobacco user [facility] History of tobacco use Chews Tobacco [facility] Start: 09-27-2021 History SDOH Alcohol Comment once a month maybe [facility] Start: 09-27-2021 End: 08-02-2022 Tobacco Comment 2 ppd [facility] Start: 09-18-2022 End: 02-17-2023 Tobacco use panel [facility] Adult Depression Screening Assessment 4 [facility] Medical Equipment Procedure Code Equipment Code Equipment Origin al Text Equipment Identifier Dates [employer]le Corkscrew Suturetape 5.5mm Full Thread 1.3mm Black Blue White - [id number] Start: 10-25-2021 [place]le Swivelock C 4.75mm Black White Biocomposite Peek 19.1mm Suture - [id number] Start: 10-25-2021 [place] Swivelock C 4.75mm Black White Biocomposite 19.1mm Suture Close - [id number] Start: 10-25-2021 [place] Swivelock C 4.75mm Biocomposite Peek 19.1mm Suture Closed Eyelet - [id number] Start: 10-25-2021 [place]le Swivelock C 4.75mm Biocomposite Peek 19.1mm Suture Closed Eyelet - [id number] Start: 10-25-2021 Clinical Notes 08-25-2021 to 03-13-2023 Soo Villalba, PT - 03/13/2023 4:20 PM ESTTelephone Encounter - Sandy Ratliff RN - 12/27/2022 8:45 AM EDTTelephone Encounter - Petrona Jacobs - 12/26/2022 12:08 PM EDT Note Date & Type Note Facility 03-13-2023 Note HNO ID: [id number] Author: Soo Villalba, PT Service: ? 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 Symptoms are currently affected by significant life stressors, including medical disability and financial stressors, that patient is currently working on addressing. Patient has demonstrated some mild improvements in self management of symptoms including autonomic and diverted attention strategies, though patient continues to require education on role of these strategies for symptom management . He has not met goals. Patient continues to present with impairments in balance, overall function, stress management, symptom management, and driving that interfere with walking, driving, working . Current prognosis is Good due to: within-session changes, Prognosis may be limited due to chronic nature of impairments . He will benefit from continued skilled therapy services to meet the updated goals for this plan of care as noted below. Plan for continued focus on HEP and follow up with Psychology team, and plan to return as needed. Updated 01/16/23, 03/14/23 Goals for Episode of Care: created on 11/20/22 through 01/17/23- EXTENDED Patient will ambulate community distances without assistive device independently without loss of balance.- PROGRESSING- intermittent LOB Patient will demonstrate current home exercise program independently. - PROGRESSING, inconsistent performance Patient will demonstrate 3 strategies to maintain eyes open and improve daily function- PROGRESSING Patient will return to driving x1 hour without symptom onset. - NOT MET Patient Goals: return to driving, walk without losing balance, be able to see Patient Goals: return to driving, walk without losing balance, be able to see Planned Interventions, Frequency, and Duration: 1 visit, 1 visit Total Number of Visits Planned: 1 Patient to be seen for Therapeutic exercise (86760), Neuromuscular re-education (27609), Manual therapy (61429), Therapeutic activities (75661), Self-senior care management (01243), Gait Training (89255) PLAN FOR NEXT VISIT: Return as needed SUBJECTIVE: Is going to gym 2-3x/week and has been able to increase resistance and time on elliptical. No significant change in eye symptoms. Does report a cousin he has not seen in a few months reported he looked better, patient and spouse feel no change. Endorses significant life stressors regarding medical disability, income, and health conditions. Worked with Dr. Alcantara and saw some benefit.. Patient Goals: return to driving, walk without losing balance, be able to see Functional Limitations: walking, driving, working Pain: Pain Pain Level: 0 Additional Pain Information : Specific pain level not discussed in order to focus on movement/functional goals Post Treatment Pain Post Treatment Pain Level: No Change PROMIS Scales Higher is Better 03/10/2023 12/23/2022 11/19/2022 Phys Func - Score 35 (moderate dysfunction) 43 (mild dysfunction) 39 (moderate dysfunction) Phys Func - Percentile 7 % 24 % 14 % Self-Eff Symptom - Score - 41 (Average) 42 (Average) Self-Eff Symptom - Percentile - 18 % 21 % T-scores: mean of general population = 50. 5 points is clinically meaningfully difference Percentiles provide an indication of how the patient's score ranks in relation to the general population. Higher percentile rankings indicate better function/quality of life. 50th percentile is the average of the general population and indicates half of respondents had a worse score. OBJECTIVE MEASURES WITH LEVEL OF FUNCTION: Functional Performance Test Results 9 Hole Peg Test Right (seconds): 28.05 (mild reduced left eye spasm) 9 Hole Peg Test Left (seconds): 28.56 (mild reduced left eye spasm) TREATMENT: Self-Half-Way Management: 1: PNE on sensitive nerves with education on normal baseline nervous system, normal nervous system response to injury/threat, current altered nervous system, resultant symptoms. Goal of rewiring alarm/nervous system 2: Education on daily cup analogy, resultant overflow of symptoms. Extensive discussion on current life stressors impacting patient's nervous system and resultant sx presentation 3: Reinforced role of breathing/autonomic strategies throughout day vs solely as exercise performance, and role of these to be used during stressors and during sx episodes for management and nervous system regulation. 4: Education on role of autonomic and diverted attention str (more content not included)... 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 Symptoms are currently affected by significant life stressors, including medical disability and financial stressors, that patient is currently working on addressing. Patient has demonstrated some mild improvements in self management of symptoms including autonomic and diverted attention strategies, though patient continues to require education on role of these strategies for symptom management . He has not met goals. Patient continues to present with impairments in balance, overall function, stress management, symptom management, and driving that interfere with walking, driving, working . Current prognosis is Good due to: within-session changes, Prognosis may be limited due to chronic nature of impairments . He will benefit from continued skilled therapy services to meet the updated goals for this plan of care as noted below. Plan for continued focus on HEP and follow up with Psychology team, and plan to return as needed. Updated 01/16/23, 03/14/23 Goals for Episode of Care: created on 11/20/22 through 01/17/23- EXTENDED Patient will ambulate community distances without assistive device independently without loss of balance.- PROGRESSING- intermittent LOB Patient will demonstrate current home exercise program independently. - PROGRESSING, inconsistent performance Patient will demonstrate 3 strategies to maintain eyes open and improve daily function- PROGRESSING Patient will return to driving x1 hour without symptom onset. - NOT MET Patient Goals: return to driving, walk without losing balance, be able to see Patient Goals: return to driving, walk without losing balance, be able to see Planned Interventions, Frequency, and Duration: 1 visit, 1 visit Total Number of Visits Planned: 1 Patient to be seen for Therapeutic exercise (41651), Neuromuscular re-education (45021), Manual therapy (78759), Therapeutic activities (89570), Self-senior care management (77817), Gait Training (52018) PLAN FOR NEXT VISIT: Return as needed SUBJECTIVE: Is going to gym 2-3x/week and has been able to increase resistance and time on elliptical. No significant change in eye symptoms. Does report a cousin he has not seen in a few months reported he looked better, patient and spouse feel no change. Endorses significant life stressors regarding medical disability, income, and health conditions. Worked with Dr. Alcantara and saw some benefit.. Patient Goals: return to driving, walk without losing balance, be able to see Functional Limitations: walking, driving, working Pain: Pain Pain Level: 0 Additional Pain Information : Specific pain level not discussed in order to focus on movement/functional goals Post Treatment Pain Post Treatment Pain Level: No Change PROMIS Scales Higher is Better 03/10/2023 12/23/2022 11/19/2022 Phys Func - Score 35 (moderate dysfunction) 43 (mild dysfunction) 39 (moderate dysfunction) Phys Func - Percentile 7 % 24 % 14 % Self-Eff Symptom - Score - 41 (Average) 42 (Average) Self-Eff Symptom - Percentile - 18 % 21 % T-scores: mean of general population = 50. 5 points is clinically meaningfully difference Percentiles provide an indication of how the patient's score ranks in relation to the general population. Higher percentile rankings indicate better function/quality of life. 50th percentile is the average of the general population and indicates half of respondents had a worse score. OBJECTIVE MEASURES WITH LEVEL OF FUNCTION: Functional Performance Test Results 9 Hole Peg Test Right (seconds): 28.05 (mild reduced left eye spasm) 9 Hole Peg Test Left (seconds): 28.56 (mild reduced left eye spasm) TREATMENT: Self-Half-Way Management: 1: PNE on sensitive nerves with education on normal baseline nervous system, normal nervous system response to injury/threat, current altered nervous system, resultant symptoms. Goal of rewiring alarm/nervous system 2: Education on daily cup analogy, resultant overflow of symptoms. Extensive discussion on current life stressors impacting patient's nervous system and resultant sx presentation 3: Reinforced role of breathing/autonomic strategies throughout day vs solely as exercise performance, and role of these to be used during stressors and during sx episodes for management and nervous system regulation. 4: Education on role of autonomic and diverted attention strategies for calming nervous system and sx management 5: Plan for follow up as needed. Skilled Intervention: Skilled judgment in the selection of proper modification for activity of daily living/home management based on clinical presentation, deficits, and needs. Physical assistance was provided during education for modifications and patient safety. Provided written instruction for activities of daily living techniques to facilitate proper performance and compliance. Reviewed patient specific diagnosis in relation to activities of daily living/home management. Activity progression based on professional judgement. Provided written instruction for home program to facilitate proper performance and compliance. Correct performance of home program was facilitated with verbal and visual cueing. Billing Self-Care/Home Management Treatment Minutes: 38 Skilled Treatment Time Minutes (timed and untimed codes): 38 Total Session Time (minutes): 38 Session Start Time : 1615 Session Stop Time : 1653 Soo Villalba PT documented in this encounter [facility] 02-18-2023 Note HNO ID: [id number] Author: Perry Alcantara PSYD Service: ? Author Type: Physician Type: Progress Notes Filed: 03/10/2023 8:54 PM Note Text: [facility] Psychology Progress Note Billing codes: Antonio PSYCHOLOGY: FOLLOW-UP APPOINTMENT PROGRESS NOTE- Virtual Visit I have communicated my name and active licensure. The patient's identity and physical location were verified at the time of this visit. Either the patient or their legal junior sales representative has been informed of the risks and benefits of -- and alternatives to -- treatment through a remote evaluation and consents to proceed with the evaluation remotely. Gonzales Ricks Trinijohanna 02/18/2023 [id number] PROVIDER: Perry Alcantara PSYD CPT Code: Virtual PSYTX PT AND/FAMILY 45 MINS Time spent doing therapy with patient: 3:58-4:40pm Parties Present: Patient, Spouse Interventions: Cognitive Behavioral MENTAL STATUS: Mood: euthymic Affect: mood-congruent Thoughts/Associations: goal directed Suicidal/Homicidal Ideation: None expressed or evidenced MEDICATIONS: Per medical record: Current Outpatient Medications Medication Sig cyclosporine (RESTASIS OPHTHALMIC) Use in eyes. olopatadine HCl (PATADAY OPHTHALMIC) Use in eyes. ELIQUIS 5 mg tab(s) Take 5 mg by mouth twice daily. cyclobenzaprine (FLEXERIL) 10 mg tablet Take 10 mg by mouth three times daily. diclofenac, EC, (VOLTAREN) 75 mg EC tablet Take 75 mg by mouth twice daily. glimepiride (AMARYL) 4 mg tablet Take 8 mg by mouth once daily. metFORMIN (GLUCOPHAGE) 500 mg tablet Take 500 mg by mouth twice daily. lisinopril (ZESTRIL, PRINIVIL) 40 mg tablet Take 40 mg by mouth once daily. naproxen sodium 220 mg cap Take by mouth as needed. MULTI-VITAMIN ORAL Take by mouth. Taking 3 a day Fish Oil-DHA-EPA 1,200-144-216 mg cap Take by mouth. Taking 3 tablet a day No current facility-administered medications for this visit. 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 Staff, [facility] 01-16-2023 Note HNO ID: [id number] Author: Soo Villalba, PT Service: ? Author Type: Physical Therapist Type: Progress Notes Filed: 01/16/2023 4:58 PM Note Text: Episode Visit Count: 5 Therapist That Will Accept/Oversee The Plan Of Care: Soo Villalba Start of Care Date: 11/20/22 Onset Date: 11/20/21 REHABILITATION AND SPORTS THERAPY PHYSICAL THERAPY PROGRESS REPORT PLAN OF CARE UPDATE: Assessment: Gonzales Farrell demonstrates no significant improvement in symptom frequency or intensity, though demonstrates mild improvement in understanding of role of autonomic and diverted attention strategies for managing symptoms and role of these for FND management. Recently began starting an exercise program at gym. He has progressed toward goals. Patient continues to present with impairments in ADL's, balance, gait, independence in exercise, and overall function that interfere with walking, driving, working . Current prognosis is Good due to: within-session changes, Prognosis may be limited due to chronic nature of impairments . He will benefit from continued skilled therapy services to meet the updated goals for this plan of care as noted below. Plan for focus on HEP and return in 2 months or sooner if indicated. Updated 01/16/23 Goals for Episode of Care: created on 11/20/22 through 01/17/23 Patient will ambulate community distances without assistive device independently without loss of balance.- PROGRESSING- intermittent LOB Patient will demonstrate current home exercise program independently. - PROGRESSING, inconsistent performance Patient will demonstrate 3 strategies to maintain eyes open and improve daily function- PROGRESSING Patient will return to driving x1 hour without symptom onset. - NOT MET Patient Goals: return to driving, walk without losing balance, be able to see Patient Goals: return to driving, walk without losing balance, be able to see Planned Interventions, Frequency, and Duration: 1 visit, 1 visit Total Number of Visits Planned: 1 Patient to be seen for Therapeutic exercise (31625), Neuromuscular re-education (94467), Manual therapy (79409), Therapeutic activities (90072), Self-senior care management (81795), Gait Training (94173) PLAN FOR NEXT VISIT: Return in 2 months SUBJECTIVE: Went on vacation and had a great time and was relaxing. Was thinking that the relaxation would get rid of his sx but it did not happen. Thinks his sx all stemmed from when he got his shoulder injury and was out of a job. [place] a lot of stress at that time, and thinks it all piled up.. Patient Goals: return to driving, walk without losing balance, be able to see Functional Limitations: walking, driving, working Pain: Pain Pain Level: 0 Post Treatment Pain Post Treatment Pain Level: No Change PROMIS Scales Higher is Better 12/23/2022 11/19/2022 Phys Func - Score 43 (mild dysfunction) 39 (moderate dysfunction) Phys Func - Percentile 24 % 14 % Self-Eff Symptom - Score 41 (Average) 42 (Average) Self-Eff Symptom - Percentile 18 % 21 % T-scores: mean of general population = 50. 5 points is clinically meaningfully difference Percentiles provide an indication of how the patient's score ranks in relation to the general population. Higher percentile rankings indicate better function/quality of life. 50th percentile is the average of the general population and indicates half of respondents had a worse score. OBJECTIVE MEASURES WITH LEVEL OF FUNCTION: Posture / Alignment Posture comment: Mild lateral lean while sitting. Sunglasses donned throughout session TREATMENT: Neuromuscular Re-Education: 3: Reinforced importance of breathing techniques, finger tracking, meditation techniques when noticing sx come on vs solely performing as an exericse. Reinforced with PNE on sensitive nerves and graph of nervous system response and smaller room for activities prior to ''fight or flight response of nervous system 4: Education on PT POC and plan for 2 month break from therapy for focus on consistency with exercise program at gym, aerobic exercise, and using toolbox of strategies more consistently Skilled Intervention: Skilled judgment used to assess appropriate program for balance and coordination activity. Education in proprioceptive/kinesthetic awareness during dynamic activities Correct performance of home program was facilitated with verbal and visual cueing. Patient education as noted. Billing Neuromuscular Re-Education Treatment Minutes: 25 Skilled Treatment Time Minutes (timed and untimed codes): 25 Total Session Time (minutes): 25 Session Start Time : 1623 Session Stop Time : 1648 Soo Villalba PT [facility] 12-27-[address] Andrew documented in My Chart message he spoke with patient and informed him he could not give him the letter requested but could print the notes from his last visit through My Chart. NI PHONE Name of caller : Clinton Farrell Relationship to patient : Self If not self Will need patient permission to release results or disclose health information with called documented in fyi. Was permission obtained from patient ? Yes Patient identified by Name and Date of . ( Gonzales Farrell, 1970). Yes Reason for Call : Request letter stating diagnosis and why he's not able to see be faxed to [phone]/Attn: Sheron @ [facility] re: disability. Please cc: Dr. Rula Herrera (PCP) on letter and fax to Dr. Herrera at [phone]. Number to return call [phone] Okay to leave a message ? Yes Last office visit 09/18/[address] Gilmar Andrew Next office visit not scheduled (only FMD appts w/Dr. Alcantara) Thank you calling [facility] [place]. You will receive a return call within 48 hours ( or 2 business days if close to the weekend). If you feel that this is an urgent issue and needs immediate attention, it is recommended that you contact your primary care provider office or proceed to your nearest Urgent Care Center of Emergency Room ED for evaluation/treatment. ' documented in this encounter [facility] 12-24-2022 Note HNO ID: [id number] Author: Vonnie Connolly, PT Service: ? Author Type: Physical Therapist Type: Progress Notes Filed: 12/24/2022 5:08 PM Note Text: Episode Visit Count: 4 Therapist That Will Accept/Oversee The Plan Of Care: Soo Villalba Start of Care Date: 11/20/22 Onset Date: 11/20/21 REHABILITATION AND SPORTS THERAPY PHYSICAL THERAPY TREATMENT NOTE ASSESSMENT: Gonzales Rambo Felizjohanna tolerated the session with no issues. He demonstrated improvements in understanding at role of PT for FMD management and agrees starting wellness exercise routine at local will help him feel better globally.. The patient will continue to benefit from ongoing skilled physical therapy to progress toward set goals. PLAN FOR NEXT VISIT: Progress note SUBJECTIVE: Doesnt see how the activities performed in PT are helping his symptoms. States deep breathing really helps his symptoms. Pain: Pain Pain Level: 0 Post Treatment Pain Post Treatment Pain Level: No Change OBJECTIVE MEASURES WITH LEVEL OF FUNCTION: Eyes open 100% of time with deep breathing techniques. Overall demeanor: pt talkative and tangential throughout session. Describes multiple stressors going on in his personal life. TREATMENT: Neuromuscular Re-Education: 3: Review of appointments to decrease stress of traveling long distance to come. Will consider changing frequency at next visit if pt continue. 4: *4 square breathing for autonomic strategy for regulating nervous system. 3-4 breath cycles hourly. 5: Education that role of exercises and activities to reduce frequency and intensity of sx to allow for improved brain/nervous system communication 6: Educated on importance of daily exericse for optimal health and wellness. 7: Education on stressors impacting intensity of symptoms. 8: Education and discussion re: role of PT in FMD management. Skilled Intervention: Education as described above. Allan Neuromuscular Re-Education Treatment Minutes: 45 Total Treatment Time Minutes (timed/untimed): 45 Vonnie Connolly, PT [facility] 12-24-2022 History of Presen t illness Narrative Episode Visit Count: 4 Therapist That Will Accept/Oversee The Plan Of Care: Soo Villalba Start of Care Date: 11/20/22 Onset Date: 11/20/21 REHABILITATION AND SPORTS THERAPY PHYSICAL THERAPY TREATMENT NOTE ASSESSMENT: Gonzales Farrell tolerated the session with no issues. He demonstrated improvements in understanding at role of PT for FMD management and agrees starting wellness exercise routine at local will help him feel better globally.. The patient will continue to benefit from ongoing skilled physical therapy to progress toward set goals. PLAN FOR NEXT VISIT: Progress note SUBJECTIVE: Doesnt see how the activities performed in PT are helping his symptoms. States deep breathing really helps his symptoms. Pain: Pain Pain Level: 0 Post Treatment Pain Post Treatment Pain Level: No Change OBJECTIVE MEASURES WITH LEVEL OF FUNCTION: Eyes open 100% of time with deep breathing techniques. Overall demeanor: pt talkative and tangential throughout session. Describes multiple stressors going on in his personal life. TREATMENT: Neuromuscular Re-Education: 3: Review of appointments to decrease stress of traveling long distance to come. Will consider changing frequency at next visit if pt continue. 4: *4 square breathing for autonomic strategy for regulating nervous system. 3-4 breath cycles hourly. 5: Education that role of exercises and activities to reduce frequency and intensity of sx to allow for improved brain/nervous system communication 6: Educated on importance of daily exericse for optimal health and wellness. 7: Education on stressors impacting intensity of symptoms. 8: Education and discussion re: role of PT in FMD management. Skilled Intervention: Education as described above. Allan Neuromuscular Re-Education Treatment Minutes: 45 Total Treatment Time Minutes (timed/untimed): 45 Vonnie Connolly PT documented in this encounter [facility] 12-19-2022 Note HNO ID: [id number] Author: Soo Villalba, PT Service: ? Author Type: Physical Therapist Type: Progress Notes Filed: 12/19/2022 6:08 PM Note Text: Episode Visit Count: 3 Therapist That Will Accept/Oversee The Plan Of Care: Soo Villalba Start of Care Date: 11/20/22 Onset Date: 11/20/21 REHABILITATION AND SPORTS THERAPY PHYSICAL THERAPY TREATMENT NOTE ASSESSMENT: Gonzales Farrell tolerated the session with no issues. He demonstrated moderate improvements in left eye opening and reduced symptoms onset with use of external visual cueing with blaze pod, though not as effective with use of cognitive distraction technique. Continued difficulty with maintaining left eye opening during more progressed gait activities, like on treadmill this date. The patient will continue to benefit from ongoing skilled physical therapy to progress toward set goals. PLAN FOR NEXT VISIT: Walking with visul external focus- maybe walking with scarf toss. Possible blaze pods. Visual external cues and targets. Aerobic exercise SUBJECTIVE: Feels not much has changed since last visit. Notices he can sit and watch TV for 4-5 hours at a time, and when he does this his left eye is closed the whole time. He will often extend his neck back or to the side to try to keep eye open Pain: Pain Pain Level: 0 Post Treatment Pain Post Treatment Pain Level: No Change OBJECTIVE MEASURES WITH LEVEL OF FUNCTION: Gait Gait Observation: While on treadmill- 50% instances of left eye closing. ATtempts to hyperextend neck when trying to keep eye open as compensation. Mild reduction in sx with cognitive dual task of conversation TREATMENT: Neuromuscular Re-Education: 1: C [place]- [place]- speed: 0.8 m/s. B UE support. 75% instances of left eye closing during task 2: C Mill- -static Catch for visuual distraction. 50% instances of left eye closing 3: Standing on foam pad- blaze pods for visual external focus and distraction. Able to perform 2 minute trials x2 with 100% instance of eye opening. Further trials with cognitive dual task of UE designated per color- reduced performance with 50% instance of eye opening 4: *4 square breathing for autonomic strategy for regulating nervous system. To be used throughout day and when notices symptoms are starting or entering environment that causes sx. 5: Education that role of exercises and activities to reduce frequency and intensity of sx to allow for improved brain/nervous system communication 6: *instruction to break up TV program by watching for only 30 mintues at at time, then taking a break to focus on activities that allow for left eye opening Skilled Intervention: Skilled judgment used to assess appropriate program for balance and coordination activity. Education in proprioceptive/kinesthetic awareness during dynamic activities. Ensured patient safety with use of CGA while on treadmill Correct performance of home program was facilitated with verbal and visual cueing. Patient education as noted. Billing Neuromuscular Re-Education Treatment Minutes: 45 Total Treatment Time Minutes (timed/untimed): 45 Session Start Time : 1615 Session Stop Time : 1700 Soo Villalba, PT [facility] 12-19-2022 History of Presen t illness Narrative Episode Visit Count: 3 Therapist That Will Accept/Oversee The Plan Of Care: Soo Villalba Start of Care Date: 11/20/22 Onset Date: 11/20/21 REHABILITATION AND SPORTS THERAPY PHYSICAL THERAPY TREATMENT NOTE ASSESSMENT: Gonzales Farrell tolerated the session with no issues. He demonstrated moderate improvements in left eye opening and reduced symptoms onset with use of external visual cueing with blaze pod, though not as effective with use of cognitive distraction technique. Continued difficulty with maintaining left eye opening during more progressed gait activities, like on treadmill this date. The patient will continue to benefit from ongoing skilled physical therapy to progress toward set goals. PLAN FOR NEXT VISIT: Walking with visul external focus- maybe walking with scarf toss. Possible blaze pods. Visual external cues and targets. Aerobic exercise SUBJECTIVE: Feels not much has changed since last visit. Notices he can sit and watch TV for 4-5 hours at a time, and when he does this his left eye is closed the whole time. He will often extend his neck back or to the side to try to keep eye open Pain: Pain Pain Level: 0 Post Treatment Pain Post Treatment Pain Level: No Change OBJECTIVE MEASURES WITH LEVEL OF FUNCTION: Gait Gait Observation: While on treadmill- 50% instances of left eye closing. ATtempts to hyperextend neck when trying to keep eye open as compensation. Mild reduction in sx with cognitive dual task of conversation TREATMENT: Neuromuscular Re-Education: 1: C [facility]- speed: 0.8 m/s. B UE support. 75% instances of left eye closing during task 2: C Mill- -static Catch for visuual distraction. 50% instances of left eye closing 3: Standing on foam pad- blaze pods for visual external focus and distraction. Able to perform 2 minute trials x2 with 100% instance of eye opening. Further trials with cognitive dual task of UE designated per color- reduced performance with 50% instance of eye opening 4: *4 square breathing for autonomic strategy for regulating nervous system. To be used throughout day and when notices symptoms are starting or entering environment that causes sx. 5: Education that role of exercises and activities to reduce frequency and intensity of sx to allow for improved brain/nervous system communication 6: *instruction to break up TV program by watching for only 30 mintues at at time, then taking a break to focus on activities that allow for left eye opening Skilled Intervention: Skilled judgment used to assess appropriate program for balance and coordination activity. Education in proprioceptive/kinesthetic awareness during dynamic activities. Ensured patient safety with use of CGA while on treadmill Correct performance of home program was facilitated with verbal and visual cueing. Patient education as noted. Billing Neuromuscular Re-Education Treatment Minutes: 45 Total Treatment Time Minutes (timed/untimed): 45 Session Start Time : 1615 Session Stop Time : 1700 Soo Villalba PT documented in this encounter [facility] 2022 Note HNO ID: [id number] Author: Soo Villalba PT Service: ? Author Type: Physical Therapist Type: Progress Notes Filed: 2022 5:59 PM Note Text: Episode Visit Count: 2 Therapist That Will Accept/Oversee The Plan Of Care: Soo Villalba Start of Care Date: 11/20/22 Onset Date: 11/20/21 REHABILITATION AND SPORTS THERAPY PHYSICAL THERAPY TREATMENT NOTE *Patient accepted as transfer of care from [facility]* ASSESSMENT: Gonzales Farrell tolerated the session with no issues. He demonstrated difficulty with symptom management and consistent utilization of autonomic strategies for symptom management at home. Demos improved understanding of condition, and role of autonomic strategies as symptom management tools. Demonstrates improved eye control during session during dual task and conversation, with only 25% instance of eye closing (L>R) during session. The patient will continue to benefit from ongoing skilled physical therapy to progress toward set goals. PLAN FOR NEXT VISIT: Walking with visual external focus. C Mill with [place] al[place] for visual distraction. Aerobic exercise. SUBJECTIVE: Feels symptoms are the same. Arrives with sunglasses donned. Is planning on going to the gym. Eyes continue to close when he is watching tv and when he is walking. Has been dealing with sx for 1 year, and thinks it is getting worse. Sx started a few weeks after surgery. Very stressed regarding unemployment and income. Reports I will do anything to help my symptoms, whatever it is I will do it. HAs not followed up with Psychology team. Patient Goals: return to driving, walk without losing balance, be able to see Functional Limitations: walking, driving, working Pain: Pain Pain Level: 0 Post Treatment Pain Post Treatment Pain Level: No Change OBJECTIVE MEASURES WITH LEVEL OF FUNCTION: Posture / Alignment Posture: Comments Posture comment: Mild lateral lean while sitting. Sunglasses donned at start of session. Instancs of left eye closing 25% oftime during session. TREATMENT: Neuromuscular Re-Education: 1: PNE on sensitive nerves , fight or flight response of nervous system with lack of return back to baseline function, smaller room for activities prior to fight or flight response, and resultant symptom onset. 2: Education on software vs hardware analogy 3: Education on role of diverted attention strategies to allow for more instances of normal eye movement, and goal of using these strategies when patient notices symptoms starting 4: Education on role of aerobic exercise on brain health and calming nervous system 5: Education on role of autonomic strategies for symptom management 6: Daily cup analogy and resultant overflow of symptom presentation 7: Nustep B UE and LE. L2. HIIT :30 sec fast, and 45 sec recovery period. Total time- 9 minutes 8: Education on role of Psychology for further stress management. Skilled Intervention: Skilled judgment used to assess appropriate program for balance and coordination activity. Education in proprioceptive/kinesthetic awareness during dynamic activities. Correct performance of home program was facilitated with verbal and visual cueing. Patient education as noted. Billing Neuromuscular Re-Education Treatment Minutes: 45 Total Treatment Time Minutes (timed/untimed): 45 Session Start Time : 1615 Session Stop Time : 1700 Soo Villalba PT [facility] 2022 History of Presen t illness Narrative Episode Visit Count: 2 Therapist That Will Accept/Oversee The Plan Of Care: Soo Villalba Start of Care Date: 11/20/22 Onset Date: 11/20/21 REHABILITATION AND SPORTS THERAPY PHYSICAL THERAPY TREATMENT NOTE *Patient accepted as transfer of care from [facility]* ASSESSMENT: Gonzales Farrell tolerated the session with no issues. He demonstrated difficulty with symptom management and consistent utilization of autonomic strategies for symptom management at home. Demos improved understanding of condition, and role of autonomic strategies as symptom management tools. Demonstrates improved eye control during session during dual task and conversation, with only 25% instance of eye closing (L>R) during session. The patient will continue to benefit from ongoing skilled physical therapy to progress toward set goals. PLAN FOR NEXT VISIT: Walking with visual external focus. C [place] with [place] for visual distraction. Aerobic exercise. SUBJECTIVE: Feels symptoms are the same. Arrives with sunglasses donned. Is planning on going to the gym. Eyes continue to close when he is watching tv and when he is walking. Has been dealing with sx for 1 year, and thinks it is getting worse. Sx started a few weeks after surgery. Very stressed regarding unemployment and income. Reports I will do anything to help my symptoms, whatever it is I will do it. HAs not followed up with Psychology team. Patient Goals: return to driving, walk without losing balance, be able to see Functional Limitations: walking, driving, working Pain: Pain Pain Level: 0 Post Treatment Pain Post Treatment Pain Level: No Change OBJECTIVE MEASURES WITH LEVEL OF FUNCTION: Posture / Alignment Posture: Comments Posture comment: Mild lateral lean while sitting. Sunglasses donned at start of session. Instancs of left eye closing 25% oftime during session. TREATMENT: Neuromuscular Re-Education: 1: PNE on sensitive nerves , fight or flight response of nervous system with lack of return back to baseline function, smaller room for activities prior to fight or flight response, and resultant symptom onset. 2: Education on software vs hardware analogy 3: Education on role of diverted attention strategies to allow for more instances of normal eye movement, and goal of using these strategies when patient notices symptoms starting 4: Education on role of aerobic exercise on brain health and calming nervous system 5: Education on role of autonomic strategies for symptom management 6: Daily cup analogy and resultant overflow of symptom presentation 7: Nustep B UE and LE. L2. HIIT :30 sec fast, and 45 sec recovery period. Total time- 9 minutes 8: Education on role of Psychology for further stress management. Skilled Intervention: Skilled judgment used to assess appropriate program for balance and coordination activity. Education in proprioceptive/kinesthetic awareness during dynamic activities. Correct performance of home program was facilitated with verbal and visual cueing. Patient education as noted. Billing Neuromuscular Re-Education Treatment Minutes: 45 Total Treatment Time Minutes (timed/untimed): 45 Session Start Time : 1615 Session Stop Time : 1700 Soo Villalba PT documented in this encounter [facility] 11-22-2022 Instructions Megha Leggett, LANDY - 11/22/2022 2:18 PM EDT You were evaluated by a skilled Physical Therapist for the treatment of Functional Neurological Disorder (FND). Today we discussed that FND is a problem with the functioning of the nervous system due to the brain s ability to send and receive signals properly, rather than a disease or structural problem, leading to altered motor and sensory output. In other words, your brain and body are communicating differently, leading to abnormal movement patterns. The goal for treatment is to return to the positive, automatic movement pathways that are currently being bypassed, utilizing various distraction techniques in a multidisciplinary approach. When your brain is distracted in the way that is best for you, there will be a return to these automatic pathways. Each person is different in what strategies work best for them, so there will be some trial and error in your treatment. Below are some resources that will be beneficial for better understanding FND and learning to manage your symptoms. Websites:? - https://www.neurosymptoms.org/? - Website was developed by a neurologist who is a leader in the field of FND.? - https://fndhope.org/? - Website was developed by a woman who had FND.? Because she didn't have many resources, she developed this for others.? ? - https://www.[facility]/educa tion? ?- Website developed by Dr. Annabella Rodriguez who owns a private neuro therapy practice in [place] with a large focus on the treatment of FND. They are also on [employer]: @[place] - https://fndportal.org/ - Website developed to better understand FND with helpful links and resources (including an information sheet to give to you physician who may be unfamiliar with your FND diagnosis). - MyFND [facility] - Free wyatt where patients can track and monitor their symptoms, review strategies for symptom management, and find resources and education on FND. documented in this encounter [facility] 11-20-2022 Note HNO ID: [id number] Author: Perry Alcantara PSYD Service: ? Author Type: Physician Type: Progress Notes Filed: 12/09/2022 10:05 PM Note Text: [facility] Clinical Health Psychology Evaluation Time of Service: 3:00 pm to 4:00 pm CPT Code: 17790 - Health AND Behavior Assessment Billing Code: Antonio The patient was informed that this interview was only for the purpose of assessing the presenting problem, for diagnosis and treatment planning and/or to make treatment recommendations. The patient agreed that the evaluation would not be used for forensic, disability, or child custody purposes. The following history is obtained from the patient except when noted. The content acquired from chart review has been confirmed with the patient and discrepancies were noted if any. Limits of confidentiality were discussed. Identification and Presenting Problem: Mr. Farrell is a 51 year old male who was referred by Dr. 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 He presents with a history of involuntary movement symptoms. Sx include eye closure/blepharospasm. Symptom onset: 2022 Social History: Mr. Farrell was raised in [place], [place] as the older of 2 children in his family. His parents remained until mother passed at age 80. There is no family hx of movement disorder. Family history is significant for depression and suicide on the part of the patient's brother. Mr. Farrell reports that he has received prior mental health treatment as an outpatient for grief/loss after the of his brother. He believes this treatment was helpful. The patient denies any history of alcohol or drug abuse in his family. Likewise, he denies any history of alcohol or drug abuse on his own part. Mr. Farrell denies any history of physical or sexual abuse in childhood. 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 The patient does not receive any disability payments, nor has he applied for any. Mr. Farrell was previously and is currently for 2 years. He has 4 children, ages 26, 23, 19, and 17 - live nearby and close relationship; 2 grandchildren Social support include close friends and ; hussain community; extended hussain community ACTIVE PROBLEM LIST Lumbosacral Neuritis Traumatic Complete Tear of Right Rotator Cuff Obstructive Sleep Apnea Obese Chronic Low Back Pain History of Dvt in Adulthood Nodular Goiter Excessive Sweating Primary Hypertension Uncontrolled Diabetes Mellitus With Hyperglycemia ([facility]) S/P Right Rotator Cuff Repair Dry Eye Syndrome of Bilateral Lacrimal Glands Conjunctivitis Acute Embolism and Thrombosis of Unspecified Deep Veins of Left Lower Extremity ([facility]) Localized Edema Pain in Left Knee Pain in Right Shoulder Knee Pain Blepharospasm Steroid Induced Glaucoma, Both Eyes Current Functioning: -cautious with walking and fear of tripping; more slow with nurse assistant and lifting objects -no longer driving -mostly sedentary and reports he struggles with requiring more time to complete menial tasks -finger tips and feet are numb chronically -ongoing back problems with 3 bulging discs Medications: Current Outpatient Medications Medication Sig cyclosporine (RESTASIS OPHTHALMIC) Use in eyes. olopatadine HCl (PATADAY OPHTHALMIC) Use in eyes. ELIQUIS 5 mg tab(s) Take 5 mg by mouth twice daily. cyclobenzaprine (FLEXERIL) 10 mg tablet Take 10 mg by mouth three times daily. diclofenac, EC, (VOLTAREN) 75 mg EC tablet Take 75 mg by mouth twice daily. glimepiride (AMARYL) 4 mg tablet Take 8 mg by mouth once daily. metFORMIN (GLUCOPHAGE) 500 mg tablet Take 500 mg by mouth twice daily. lisinopril (ZESTRIL, PRINIVIL) 40 mg tablet Take 40 mg by mouth once daily. naproxen sodium 220 mg cap Take by mouth as needed. MULTI-VITAMIN ORAL Take by mouth. Taking 3 a day Fish Oil-DHA-EPA 1,200-144-216 mg cap Take by mouth. Taking 3 tablet a day No current facility-administered medications for this visit. Mr. Farrell reports significant depressive symptoms in the past month, including intermittent feelings of helplessness, intermittent anhedonia, and intermittent self-criticism - feels he relies on more which is distressing. He denies SI. Drug and alcohol screening and triage Caffeine use: 2-3 cups of coffee Tobacco use: He smokes 0.5 ppd Current illicit drug use: None Current marijuana use: Mr. Farrell denied marijuana use within the past month. Current use of prescribed opioids, sedatives AND benzodiazepines: Mr. Farrell does not use opioids or sedative/hypnotics. Alcohol use: Mr. Farrell has consumed no alcoholic beverages in the past week. He has not consumed more than 4 alcoholic beverages (3 if female) in a single sitting within the past month. Screening questions: - ?H (more content not included)... [facility] 11-20-2022 Note HNO ID: [id number] Author: Megha Leggett PT Service: ? Author Type: Physical Therapist Type: Progress Notes Filed: 11/22/2022 2:20 PM Note Text: Episode Visit Count: 1 Therapist That Will Accept/Oversee The Plan Of Care: Soo Villalba Start of Care Date: 11/20/22 Onset Date: 11/20/21 Patient Identified by Name and Date of : Yes REHABILITATION AND SPORTS THERAPY PHYSICAL THERAPY EVALUATION PLAN OF CARE: Assessment: Gonzales Farrell presents with diagnosis of functional movement disorder with main symptom of frequent eye blinking, blepharospasm that interferes with walking, driving, working . He presents with impairments in gait, overall function, stress management, and symptom management. Good response to techniques including bubble blowing, hand coordination techniques with eyes maintained open through these tasks. PROMIS? (Patient-Reported Outcomes Measurement Information System) scores were reviewed and physical function domain identified as a rehabilitation concern. Prognosis for therapy is Good due to: within-session changes, Prognosis may be limited due to chronic nature of impairments . He will benefit from skilled therapy services to meet the goals established for this plan of care as noted below. Goals for Episode of Care: created on 11/20/22 through 01/17/23 Patient will ambulate community distances without assistive device independently without loss of balance. Patient will demonstrate current home exercise program independently. Patient will demonstrate 3 strategies to maintain eyes open and improve daily function Patient will return to driving x1 hour without symptom onset. Patient Goals: return to driving, walk without losing balance, be able to see Planned Interventions, Frequency, and Duration: Current Frequency: 2x/week Duration: 8 weeks Total Number of Visits Planned: 16 Planned Treatment Interventions: Therapeutic exercise (88596), Neuromuscular re-education (95393), Manual therapy (82886), Therapeutic activities (95639), Self-senior care management (28544), Gait Training (28787) PLAN FOR NEXT VISIT: review aerobic exercise routine. Continue autonomic training (breathing, bubbles, visualization). Sensory assessment and training at face? Patient demonstrates good understanding of plan of care and treatment. The above goals and plan of care were discussed and agreed upon by patient/family. Transfer of Care Due To: Closer to Home Patient transferring care to: Soo Villalba, PT DPT [facility] SUBJECTIVE: Gonzales Farrell is a 51 year old male seen today for Had shoulder surgery in September 2021, then a few weeks later started having eye twitching and problems. Then progressed to blinking, dx as dry eye syndrome, blepharospasm. Then finally diagnosed with functional movement disorder. 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 5 points is clinically meaningfully difference Percentiles provide an indication of how the patient's score ranks in relation to the general population. Higher percentile rankings indicate better function/quality of life. 50th percentile is the average of the general population and indicates half of respondents had a worse score. OBJECTIVE MEASURES WITH LEVEL OF FUNCTION: Posture / Alignment Posture: Forward head Mobility Sit To Stand: Independent Stand To Sit: Independent Gait Gait Observation: mild lateral sway. Intermittent toe catch. Diffciulty with narrow base of support Wearing sunglasses due to symptoms. Frequent eye blinking present throughout session. Worse with attention to task in hands (manipulating objects) or with attempts to reduce symptoms. Improved with distraction and breath activation (blowing bubbles, itsy bitsy spider ) Education: Education Learning Preferences: Demonstration, Explanation, Performance, Printed Materials Barriers: None Learning/educational needs: Home exercise program, Plan of Care Education Provided: Yes, see treatment interventions for education provided Education Provided To: Patient, Family Education Mode/Type: Demonstration, Explanation/Discussion, Literature/Printed Materials Response to Education/Teach Back: States/Identifies, Requires Review/Additional Edu (more content not included)... [facility] 11-20-2022 History of Presen t illness Narrative [facility] Clinical Health Psychology Evaluation Time of Service: 3:00 pm to 4:00 pm CPT Code: 91031 - Health & Behavior Assessment Billing Code: Hasnie The patient was informed that this interview was only for the purpose of assessing the presenting problem, for diagnosis and treatment planning and/or to make treatment recommendations. The patient agreed that the evaluation would not be used for forensic, disability, or child custody purposes. The following history is obtained from the patient except when noted. The content acquired from chart review has been confirmed with the patient and discrepancies were noted if any. Limits of confidentiality were discussed. Identification and Presenting Problem: Mr. Farrell is a 51 year old male who was referred by Dr. 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 He presents with a history of involuntary movement symptoms. Sx include eye closure/blepharospasm. Symptom onset: 2022 Social History: Mr. Farrell was raised in [place], [place] as the older of 2 children in his family. His parents remained until mother passed at age 80. There is no family hx of movement disorder. Family history is significant for depression and suicide on the part of the patient's brother. Mr. Farrell reports that he has received prior mental health treatment as an outpatient for grief/loss after the of his brother. He believes this treatment was helpful. The patient denies any history of alcohol or drug abuse in his family. Likewise, he denies any history of alcohol or drug abuse on his own part. Mr. Farrell denies any history of physical or sexual abuse in childhood. 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 The patient does not receive any disability payments, nor has he applied for any. Mr. Farrell was previously and is currently for 2 years. He has 4 children, ages 26, 23, 19, and 17 - live nearby and close relationship; 2 grandchildren Social support include close friends and ; hussain community; extended hussain community ACTIVE PROBLEM LIST Lumbosacral Neuritis Traumatic Complete Tear of Right Rotator Cuff Obstructive Sleep Apnea Obese Chronic Low Back Pain History of Dvt in Adulthood Nodular Goiter Excessive Sweating Primary Hypertension Uncontrolled Diabetes Mellitus With Hyperglycemia ([facility]) S/P Right Rotator Cuff Repair Dry Eye Syndrome of Bilateral Lacrimal Glands Conjunctivitis Acute Embolism and Thrombosis of Unspecified Deep Veins of Left Lower Extremity ([facility]) Localized Edema Pain in Left Knee Pain in Right Shoulder Knee Pain Blepharospasm Steroid Induced Glaucoma, Both Eyes Current Functioning: -cautious with walking and fear of tripping; more slow with nurse assistant and lifting objects -no longer driving -mostly sedentary and reports he struggles with requiring more time to complete menial tasks -finger tips and feet are numb chronically -ongoing back problems with 3 bulging discs Medications: Current Outpatient Medications Medication Sig cyclosporine (RESTASIS OPHTHALMIC) Use in eyes. olopatadine HCl (PATADAY OPHTHALMIC) Use in eyes. ELIQUIS 5 mg tab(s) Take 5 mg by mouth twice daily. cyclobenzaprine (FLEXERIL) 10 mg tablet Take 10 mg by mouth three times daily. diclofenac, EC, (VOLTAREN) 75 mg EC tablet Take 75 mg by mouth twice daily. glimepiride (AMARYL) 4 mg tablet Take 8 mg by mouth once daily. metFORMIN (GLUCOPHAGE) 500 mg tablet Take 500 mg by mouth twice daily. lisinopril (ZESTRIL, PRINIVIL) 40 mg tablet Take 40 mg by mouth once daily. naproxen sodium 220 mg cap Take by mouth as needed. MULTI-VITAMIN ORAL Take by mouth. Taking 3 a day Fish Oil-DHA-EPA 1,200-144-216 mg cap Take by mouth. Taking 3 tablet a day No current facility-administered medications for this visit. Mr. Farrell reports significant depressive symptoms in the past month, including intermittent feelings of helplessness, intermittent anhedonia, and intermittent self-criticism - feels he relies on more which is distressing. He denies SI. Drug and alcohol screening and triage Caffeine use: 2-3 cups of coffee Tobacco use: He smokes 0.5 ppd Current illicit drug use: None Current marijuana use: Mr. Farrell denied marijuana use within the past month. Current use of prescribed opioids, sedatives & benzodiazepines: Mr. Farrell does not use opioids or sedative/hypnotics. Alcohol use: Mr. Farrell has consumed no alcoholic beverages in the past week. He has not consumed more than 4 alcoholic beverages (3 if female) in a single sitting within the past month. Screening questions: - Has a family member, friend or physician expressed concern about your drug, alcohol, or prescription medication use? No. - Have you ever been evaluated or treated for problems with alcohol or other drugs, including prescribed drugs? No. - Have you ever been concerned that prescriptions, recreational drugs, or alcohol had become harmful to you? No. Impressions Mr. Farrell is a 51 year old male who was referred by Dr. Andrew from [facility] as part of a multi-disciplinary evaluation for a functional movement disorder. He presents with a history of involuntary movement symptoms. Sx include eye closure/blepharospasm. Patient denies any significant MH hx, though reports recent depressive sx largely related to increased dependence on for ADLs secondary to worsening movement sx. Discussed options for engaging in [facility] Psychology for focus on trigger identification, stress management, and relaxation training. Patient decline scheduling at this time and was provided with my clinic contact information should he wish to schedule follow up in the future. Diagnoses: Adjustment disorder, unspecified type (primary encounter diagnosis) Functional neurological symptom disorder with mixed symptoms Perry Alcantara Psy.D. Staff, [facility] documented in this encounter [facility] 11-20-2022 History of Presen t illness Narrative Episode Visit Count: 1 Therapist That Will Accept/Oversee The Plan Of Care: Soo Villalba Start of Care Date: 11/20/22 Onset Date: 11/20/21 Patient Identified by Name and Date of : Yes REHABILITATION AND SPORTS THERAPY PHYSICAL THERAPY EVALUATION PLAN OF CARE: Assessment: Gonzales Farrell presents with diagnosis of functional movement disorder with main symptom of frequent eye blinking, blepharospasm that interferes with walking, driving, working . He presents with impairments in gait, overall function, stress management, and symptom management. Good response to techniques including bubble blowing, hand coordination techniques with eyes maintained open through these tasks. PROMIS (Patient-Reported Outcomes Measurement Information System) scores were reviewed and physical function domain identified as a rehabilitation concern. Prognosis for therapy is Good due to: within-session changes, Prognosis may be limited due to chronic nature of impairments . He will benefit from skilled therapy services to meet the goals established for this plan of care as noted below. Goals for Episode of Care: created on 11/20/22 through 01/17/23 Patient will ambulate community distances without assistive device independently without loss of balance. Patient will demonstrate current home exercise program independently. Patient will demonstrate 3 strategies to maintain eyes open and improve daily function Patient will return to driving x1 hour without symptom onset. Patient Goals: return to driving, walk without losing balance, be able to see Planned Interventions, Frequency, and Duration: Current Frequency: 2x/week Duration: 8 weeks Total Number of Visits Planned: 16 Planned Treatment Interventions: Therapeutic exercise (27552), Neuromuscular re-education (66942), Manual therapy (41316), Therapeutic activities (42100), Self-senior care management (15019), Gait Training (59000) PLAN FOR NEXT VISIT: review aerobic exercise routine. Continue autonomic training (breathing, bubbles, visualization). Sensory assessment and training at face? Patient demonstrates good understanding of plan of care and treatment. The above goals and plan of care were discussed and agreed upon by patient/family. Transfer of Care Due To: Closer to Home Patient transferring care to: Soo Villalba, PT DPT [facility] SUBJECTIVE: Gonzales Farrell is a 51 year old male seen today for Had shoulder surgery in September 2021, then a few weeks later started having eye twitching and problems. Then progressed to blinking, dx as dry eye syndrome, blepharospasm. Then finally diagnosed with functional movement disorder. 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 5 points is clinically meaningfully difference Percentiles provide an indication of how the patient's score ranks in relation to the general population. Higher percentile rankings indicate better function/quality of life. 50th percentile is the average of the general population and indicates half of respondents had a worse score. OBJECTIVE MEASURES WITH LEVEL OF FUNCTION: Posture / Alignment Posture: Forward head Mobility Sit To Stand: Independent Stand To Sit: Independent Gait Gait Observation: mild lateral sway. Intermittent toe catch. Diffciulty with narrow base of support Wearing sunglasses due to symptoms. Frequent eye blinking present throughout session. Worse with attention to task in hands (manipulating objects) or with attempts to reduce symptoms. Improved with distraction and breath activation (blowing bubbles, itsy bitsy spider ) Education: Education Learning Preferences: Demonstration, Explanation, Performance, Printed Materials Barriers: None Learning/educational needs: Home exercise program, Plan of Care Education Provided: Yes, see treatment interventions for education provided Education Provided To: Patient, Family Education Mode/Type: Demonstration, Explanation/Discussion, Literature/Printed Materials Response to Education/Teach Back: States/Identifies, Requires Review/Additional Education TREATMENT: PT Treatment Interventions: Neuromuscular Re-Education Evaluation Neuromuscular Re-Education: 1: extensive FND education 2: software/hardware analogy 3: [email or web address].org 4: functional facial symptoms handout provided 5: autonomic trials: 6: -bubble blowing (eyes open) 7: - itsy bitsy spider eyes open 8: attempted otehr diverted attention techniques including finding objects in putty, tossing ball, walking with box on head. no significant change noted with these techniques 9: *aerobic exercise for neuroplasticity-pt to go to gym with sons and use stationary bike Skilled Intervention: Skilled judgment used to assess appropriate program for balance and coordination activity. Education in proprioceptive/kinesthetic awareness during dynamic activities. Patient education as noted. Education provided on FND, PT role in treatment, diverted attention strategies, physiologic reasoning for FND, plan of care, goal setting, prognosis Patient education regarding need for consistent follow up with neurological PT using principles discussed in Mccray, 2014 article Physiotherapy for functional motor disorders: a consensus recommendation Educated on distraction techniques to practice at home. Includes finger tapping, toe tapping or cognitive/mental distraction to help control the symptoms Educated on proper dosing, frequency, and rest breaks throughout the day Educated on progressive walking program for neuro protective benefits. Billing * Evaluation Moderate Complexity: 1 Unit Neuromuscular Re-Education Treatment Minutes: 40 Total Treatment Time Minutes (timed/untimed): 65 Session Start Time : 1300 Session Stop Time : 1405 Megha Leggett PT DPT Board Certified Neurologic Clinical Specialist documented in this encounter [facility] 10-31-2022 Note HNO ID: [id number] Author: Sandy Ratliff RN Service: ? Author Type: Registered Nurse Type: Progress Notes Filed: 10/31/2022 10:01 AM Note Text: [facility] - FOLLOW UP EVALUATION No referring provider defined for this encounter. Rula Herrera MD [address] [facility] [id number] I had the pleasure of seeing Mr. Farrell for follow up today. he is a 51 year old male with a history of functional neurological disorder here for VSMA FND education session.. We had a visit using: [employer] I have communicated my name and active licensure. The patient's identity and physical location were verified at the time of this visit. Either the patient or their legal junior sales representative has been informed of the risks and benefits of -- and alternatives to -- treatment through a remote evaluation and consents to proceed with the evaluation remotely. Subjective Interval History Patient is here for FMD education VSMA. In the last 4 weeks, patient reported experiencing following symptoms: Patient denies the following symptoms: Abnormal movements: Non-epileptic (dissociative) seizures: Difficulty walking or loss of balance: Weakness or paralysis: Difficulty speaking: Difficulty swallowing: Altered bodily sensation: Pain symptoms: Dizziness: Blackout spells: Visual problems: Hearing problems: Unusual intolerance to ordinary sound, light, or smell: Memory issues: Feeling tired or having little energy: Difficulty sleeping: Chest and/or breathing issues: Stomach or bowel issues: Bladder symptoms: Other symptoms No flowsheet data found. PHQ-9 10/29/2022 09/11/2022 PHQ-9 Score 6 (Mild Depression) 10 (Moderate Depression) ALLERGIES Allergen Reactions Bee Venom Protein (* Swelling, Shortness of Breath Current Outpatient Medications Medication Sig cyclosporine (RESTASIS OPHTHALMIC) Use in eyes. olopatadine HCl (PATADAY OPHTHALMIC) Use in eyes. ELIQUIS 5 mg tab(s) Take 5 mg by mouth twice daily. cyclobenzaprine (FLEXERIL) 10 mg tablet Take 10 mg by mouth three times daily. diclofenac, EC, (VOLTAREN) 75 mg EC tablet Take 75 mg by mouth twice daily. glimepiride (AMARYL) 4 mg tablet Take 8 mg by mouth once daily. metFORMIN (GLUCOPHAGE) 500 mg tablet Take 500 mg by mouth twice daily. lisinopril (ZESTRIL, PRINIVIL) 40 mg tablet Take 40 mg by mouth once daily. naproxen sodium 220 mg cap Take by mouth as needed. MULTI-VITAMIN ORAL Take by mouth. Taking 3 a day Fish Oil-DHA-EPA 1,200-144-216 mg cap Take by mouth. Taking 3 tablet a day No current facility-administered medications for this visit. Objective General Physical Examination: General: Awake, alert, interactive, no acute distress, good nutritional status, normal development, well-kept Only a limited general examination was done. General Neurological Examination: Neurological Exam Mental Status Awake, alert and oriented to person, place and time. Speech is normal. Language is fluent with no aphasia. Cranial Nerves CN III, IV, : Extraocular movements intact bilaterally. Normal lids and orbits bilaterally. CN VII: Full and symmetric facial movement. Motor Moves head, neck and upper extremities with full range of motion. Assessment and Plan: Assessment Mr. Farrell is a 51 year old male with a history of functional neurological disorder here for VSMA FND education session. The following are the current problems noted and addressed during this visit: Functional neurological symptom disorder with mixed symptoms (primary encounter diagnosis) Plan: Provided general education on FMD and treatment approach, questions were answered. Offered future living well with FMD VSMA Follow up with FMD management team locally or at [facility] Level of service : [id number] (20-29 min). Time spent 29 min on the day of service, which included preparing to see the patient, [id number] patient care, completing clinical documentation, obtaining and/or reviewing separately obtained history, performing a medically appropriate examination and counseling and educating the patient/family/caregiver. Medical Decision Making Thank you for allowing me to be part of the clinical care of this patient! I look forward to continued participation in the patient?s care with you. Please do not hesitate to call with any questions. Sincerely, Agapito Ruano MD [facility] 08-26-2022 Note HNO ID: [id number] Author: Stewart Briseno, MADAI Service: ? Author Type: PROCEDURES ANALYST Type: Progress Notes Filed: 08/26/2022 7:08 PM Note Text: [email or web address] (H40.63X0, T38.0X5A) Steroid induced glaucoma, both eyes (primary encounter diagnosis) Comment: resolved after discontinuing PA Plan: no treatment needed monitor (G24.5) Blepharospasm Comment: chronic unresponsive to BOTOX Plan: consult scheduled with Neurology and follow up for another treatment with Dr Martinez (H04.123) Dry eye syndrome of bilateral lacrimal glands Comment: improved with artificial tears and restasis Plan: continue current treatment (H10.45) Other chronic allergic conjunctivitis of both eyes Comment: mild chronic allergic conj both eyes Plan: continue Pataday qd OU I have confirmed and edited as necessary the relevant ophthalmic history, ROS, and the neuro exam findings as obtained by others. I have seen and examined this patient. I have discussed the case and the management of this patient's care with the Resident/Fellow, if applicable. I also have reviewed and agree with the assessment and plan as stated above and agree with all of its relevant components. Stewart Briseno, OD August 26, 2022 6:55 PM [facility] 08-16-2022 Note HNO ID: [id number] Author: Donita Martinez MD Service: ? Author Type: Physician Type: Progress Notes Filed: 08/19/2022 9:37 PM Note Text: Pt is worried about his ability to return to work - current facial sx, blepharospasm, have not improved since injection last week. 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 08/09/22 Exam: Tr blepharospasm tr both eyes (intermittent) Orbicularis function decreased 2/4 both eyes (Botox improved) Some apraxia No Superficial punctate keratopathy (SPK) both eyes Meibomian gland dysfunction Floppy eyelids Bilateral upper lids Everted the lids, no lesions Patient feels that his eyes are still closing Discussed patient has a good result from 81 units Botox; much less blepharospasm today Has some component of apraxia Could consider seeing neurology for possible medical treatment with possible adderal (has worked on a few pts in the past) Cont taking Restasis (or xiidra) 1 drop to both eyes 2 times a day. Restasis may take 3 months to start working effectively. It is normal for the eye drop to burn after instillation of the drop. This will typically improve by the end of the first month. Also has signs of allergies Cont patanol twice a day both eyes Can also try melissa colored glasses; may help with light sensitivity; Where can I get the FL-41 filter? Any [facility] location, (with an optical shop), throughout [place], Email: [email or web address] [email or web address] [facility] in [place], [place], [facility] in [place], [place], 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 Briseno; at this time blepharospasm seems minimal but can try and see neurology to try and see if there are any other treatment options; may want to change professions if he doesn't feel comfortable driving---desk job option? F/u 3 mo 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 , up to 100 units [address] eye care Dr.. Briseno To use pataday 3. H/o Steroid responder The documentation for this note was completed by Yvon Espinal APRN, CNP acting as a scribe for Donita Martinez MD. 08/09/2022 11:13 AM. I have confirmed and edited as necessary the relevant ophthalmic history, ROS, and the neuro exam findings as obtained by others. I have seen and examined Gonzales Farrell. I have discussed the case and the management of this patient's care with the Resident/Fellow, if applicable. I also have reviewed and agree with the assessment and plan as stated above and agree with all of its relevant components. I, Donita Martinez MD, personally performed the services described in this documentation. All medical record entries made by the scribe were at my direction and in my presence. I have reviewed the chart and discharge instructions (if applicable) and agree that the record reflects my personal performance and is accurate and complete. Electronically Signed: Donita Martinez MD, August 09, 2022 11:13 AM. [facility] 08-16-2022 Instructions Donita Martinez MD - 08/16/2022 3:42 PM EDT Patient feels that his eyes are still closing Discussed patient has a good result from 81 units Botox; much less blepharospasm today Has some component of apraxia Could consider seeing neurology for possible medical treatment with possible adderal (has worked on a few pts in the past) Cont taking Restasis (or xiidra) 1 drop to both eyes 2 times a day. Restasis may take 3 months to start working effectively. It is normal for the eye drop to burn after instillation of the drop. This will typically improve by the end of the first month. Also has signs of allergies Cont patanol twice a day both eyes Can also try melissa colored glasses; may help with light sensitivity; Where can I get the FL-41 filter? Any [facility] location, (with an optical shop), throughout [place], Email: [email or web address] [employer] in [place], [place], [facility] in [place], [place], 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 Briseno; at this time blepharospasm seems minimal but can try and see neurology to try and see if there are any other treatment options F/u 3 mo 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 , up to 100 units [address] General eye care Dr.. Briseno To use pataday 3. H/o Steroid responder documented in this encounter [facility] 08-16-2022 History of Presen t illness Narrative Pt is worried about his ability to return to work - current facial sx, blepharospasm, have not improved since injection last week. 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 Exam: Tr blepharospasm tr both eyes (intermittent) Orbicularis function decreased 2/4 both eyes (Botox improved) Some apraxia No Superficial punctate keratopathy (SPK) both eyes Meibomian gland dysfunction Floppy eyelids Bilateral upper lids Everted the lids, no lesions Patient feels that his eyes are still closing Discussed patient has a good result from 81 units Botox; much less blepharospasm today Has some component of apraxia Could consider seeing neurology for possible medical treatment with possible adderal (has worked on a few pts in the past) Cont taking Restasis (or xiidra) 1 drop to both eyes 2 times a day. Restasis may take 3 months to start working effectively. It is normal for the eye drop to burn after instillation of the drop. This will typically improve by the end of the first month. Also has signs of allergies Cont patanol twice a day both eyes Can also try melissa colored glasses; may help with light sensitivity; Where can I get the FL-41 filter? Any [facility] location, (with an optical shop), throughout [place], Email: [email or web address] [employer] [facility] in [place], [place], [facility] in [place], [place], 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 Briseon; at this time blepharospasm seems minimal but can try and see neurology to try and see if there are any other treatment options; may want to change professions if he doesn't feel comfortable driving---desk job option? F/u 3 mo 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 , up to 100 units [address] eye care [address].. Briseno To use pataday 3. H/o Steroid responder The documentation for this note was completed by Yvon Espinal APRN, CNP acting as a scribe for Donita Martinez MD. 08/09/2022 11:13 AM. I have confirmed and edited as necessary the relevant ophthalmic history, ROS, and the neuro exam findings as obtained by others. I have seen and examined Gonzales Farrell. I have discussed the case and the management of this patient's care with the Resident/Fellow, if applicable. I also have reviewed and agree with the assessment and plan as stated above and agree with all of its relevant components. I, Donita Martinez MD, personally performed the services described in this documentation. All medical record entries made by the scribe were at my direction and in my presence. I have reviewed the chart and discharge instructions (if applicable) and agree that the record reflects my personal performance and is accurate and complete. Electronically Signed: Donita Martinez MD, August 09, 2022 11:13 AM. documented in this encounter [facility] 08-16-2022 Miscellaneous Notes I spoke with him and he will come in today at 3:30. Appt sent to be scheduled. Patient was seen on 08/09/22 and states that there is no change in his eyes. In fact he seems to think that they are worse and wants to know what should he do? Please Advise, Rohti documented in this encounter [facility] 08-16-2022 Miscellaneous Notes Patient called in and stated that his employer is requesting a letter to remain off of work due to still have systems after first Botox visit on 08/09/2022. Employer's contact info is [employer] Attn: Josue Castellon documented in this encounter [facility] 08-09-2022 Note HNO ID: [id number] Author: Donita Martinez MD Service: ? Author Type: Physician Type: Progress Notes Filed: 08/09/2022 11:19 AM Note Text: Blepharospasm follow up Patient having trouble keeping eyes open. 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 Restasis may take 3 months to start working effectively. It is normal for the eye drop to burn after instillation of the drop. This will typically improve by the end of the first month. Can also try melissa colored glasses; Where can I get the FL-41 filter? Any [facility] location, (with an optical shop), throughout [place], Email: [email or web address] [employer] in [place], [place], [facility] in [place], [place], [facility] in [place], [place], [facility] in [place], [place], [phone] www.[employer] Botulinum toxin takes 1 week to set in lasts 3-4 mo Discussed risk of bruising, spread to cause droopy eyelid,double vision, rare allergic reaction, rare generalized weakness with neurological disorders eg. Eaton Lambert syndrome Risks, benefits, alternatives discussed and patient wishes to proceed. Consent obtained Additional site verification of Botulinum toxin injection completed verbally with patient just prior to injection. 81 units Botox today F/u 3 mo 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 , up to [address] units [address] eye care [address].. Briseno To use pataday 3. H/o Steroid responder The documentation for this note was completed by Yvon Espinal APRN, CNP acting as a scribe for Donita Martinez MD. 08/09/2022 11:13 AM. I have confirmed and edited as necessary the relevant ophthalmic history, ROS, and the neuro exam findings as obtained by others. I have seen and examined Gonzales Farrell. I have discussed the case and the management of this patient's care with the Resident/Fellow, if applicable. I also have reviewed and agree with the assessment and plan as stated above and agree with all of its relevant components. I, Donita Martinez MD, personally performed the services described in this documentation. All medical record entries made by the scribe were at my direction and in my presence. I have reviewed the chart and discharge instructions (if applicable) and agree that the record reflects my personal performance and is accurate and complete. Electronically Signed: Donita Martinez MD, August 09, 2022 11:13 AM. [facility] 08-09-2022 History of Presen t illness Narrative Blepharospasm follow up Patient having trouble keeping eyes open. 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 Restasis may take 3 months to start working effectively. It is normal for the eye drop to burn after instillation of the drop. This will typically improve by the end of the first month. Can also try melissa colored glasses; Where can I get the FL-41 filter? Any [facility] location, (with an optical shop), throughout [place], Email: [email or web address] [employer] in [place], [place], [facility] in [place], [place], [facility] [facility] in [place], [place], [employer] in [place], [place], [phone] www.[email or web address] Botulinum toxin takes 1 week to set in lasts 3-4 mo Discussed risk of bruising, spread to cause droopy eyelid,double vision, rare allergic reaction, rare generalized weakness with neurological disorders eg. Eaton Lambert syndrome Risks, benefits, alternatives discussed and patient wishes to proceed. Consent obtained Additional site verification of Botulinum toxin injection completed verbally with patient just prior to injection. 81 units Botox today F/u 3 mo 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 , up to [address] units [address] eye care [address].. Briseno To use pataday 3. H/o Steroid responder The documentation for this note was completed by Yvon Espinal APRN, CNP acting as a scribe for Donita Martinez MD. 08/09/2022 11:13 AM. I have confirmed and edited as necessary the relevant ophthalmic history, ROS, and the neuro exam findings as obtained by others. I have seen and examined Gonzales Farrell. I have discussed the case and the management of this patient's care with the Resident/Fellow, if applicable. I also have reviewed and agree with the assessment and plan as stated above and agree with all of its relevant components. I, Donita Martinez MD, personally performed the services described in this documentation. All medical record entries made by the scribe were at my direction and in my presence. I have reviewed the chart and discharge instructions (if applicable) and agree that the record reflects my personal performance and is accurate and complete. Electronically Signed: Donita Martinez MD, August 09, 2022 11:13 AM. documented in this encounter [facility] 08-02-2022 Note HNO ID: [id number] Author: Stewart Briseno OD Service: ? 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) Steroid induced glaucoma, both eyes (primary encounter diagnosis) Comment: IOP normalized Plan:DC latanoprost and follow up 08/26/22 christen (H04.123) Dry eye syndrome of bilateral lacrimal glands Comment: improved with restasis Plan: liannea evaluate cornea to determine if needs to continue restasis (H10.45) Other chronic allergic conjunctivitis of both eyes Comment: mild improved Plan: use patanol (G24.5) Blepharospasm Comment: still very symptomatic Plan: follow up as scheduled with Dr Martinez I have confirmed and edited as necessary the relevant ophthalmic history, ROS, and the neuro exam findings as obtained by others. I have seen and examined this patient. I have discussed the case and the management of this patient's care with the Resident/Fellow, if applicable. I also have reviewed and agree with the assessment and plan as stated above and agree with all of its relevant components. Stewart Briseno, OD August 02, 2022 12:00 PM [facility] 08-02-2022 History of Presen t illness Narrative (H40.63X0, T38.0X5A) Steroid induced glaucoma, both eyes (primary encounter diagnosis) Comment: IOP normalized Plan:DC latanoprost and follow up 08/26/22 christen (H04.123) Dry eye syndrome of bilateral lacrimal glands Comment: improved with restasis Plan: christen evaluate cornea to determine if needs to continue restasis (H10.45) Other chronic allergic conjunctivitis of both eyes Comment: mild improved Plan: use patanol (G24.5) Blepharospasm Comment: still very symptomatic Plan: follow up as scheduled with Dr Martinez I have confirmed and edited as necessary the relevant ophthalmic history, ROS, and the neuro exam findings as obtained by others. I have seen and examined this patient. I have discussed the case and the management of this patient's care with the Resident/Fellow, if applicable. I also have reviewed and agree with the assessment and plan as stated above and agree with all of its relevant components. Stewart Briseno, OD August 02, 2022 12:00 PM documented in this encounter [facility] 07-31-2022 Miscellaneous Notes From: Yvon Espinal < > Sent: Sunday, July 31, 2022 12:33 PM To: Stewart Combs < >; Keyona Adkins < >; Darlene Lugo < >; Pharm Auth Team < > Cc: Donita Martinez < >; Brianda Higgins < >; Muna Apple < >; Stephany Scott < >; Parvin Abarca < >; Ana Hankins < >; Sirena Tapia < > Subject: Re: medical Botox approval Gonzales Farrell [id number] This patient is supposed to be getting medical Botox injections with Dr. Martinez. Can the auth please get placed and expedited? patient has appointment on 08/09/22. Thanks, Melanie Espinal [facility] Oculoplastic [facility] Reconstructive Surgery [facility] [phone] From: Pharm Auth Team < > Sent: Sunday, July 31, 2022 12:27 PM To: Yvon Espinal < > Cc: Donita Martinez < >; Brianda Higgins < >; Muna Apple < >; Stephany Scott < >; Parvin Abarca < >; Ana Hankins < >; Sirena Tapia < > Subject: RE: medical Botox approval Clovis Sanz, I am not seeing a referral request for Botox. Please advise Thank you [facility] Department Remote Office [address] [id number] From: Yvon Espinal < > Sent: Saturday, July 30, 2022 11:58 AM To: Pharm Auth Team < > Cc: oDnita Martinez < >; Brianda Higgins < >; Muna Apple < >; Stephany Scott < >; Parvin Abarca < > Subject: medical Botox approval Fredis Berry submitted a prior authorization for Mr. Gonzales Farrell ([id number]) on 07/05/22 for medical Botox. Has it been approved? Thank you, Melanie Images from the original note were not included. Yvon Espinal APRN.BOTTOM LINER Bernardo; Wanda Sousa; Vanessa Maradiaga; Muna Apple PA-C; Parvin Bhatia MD; Stephany Scott PA-C 3 minutes ago (11:56 AM) RH I will send a message to the pharmacy auth team to see if he is approved. Melanie His is calling stating that they have not received anything regarding whether his injection will be covered for his upcoming appt on 08/09. Can you verify if he's good to go for his appt on 08/09 in [place]? 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 Briseno; advised patient to stop steroid drops and not use as needed and to f/u Dr.. Briseno for intraocular pressure Patient does have blepharospasm Will try and get approval for Botox however patient has dryness which can also cause blepharospasm Recc eval with dry accreditation specialist Dr.. Buck Rec art tears four times a day both eyes - Start taking Restasis (or xiidra) 1 drop to both eyes 2 times a day. Restasis may take 3 months to start working effectively. It is normal for the eye drop to burn after instillation of the drop. This will typically improve by the end of the first month. Can also try melissa colored glasses; Where can I get the FL-41 filter? Any [facility] location, (with an optical shop), throughout [place], Email: [email or web address] [email or web address] [facility] in [place], [place], [facility] in [place], [place], [facility] in [place], [place], [facility] in [place], [place], [email or web address] Discussed will need to submit for insurance approval and return once approved, usually takes ~1month 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 , up to 100 units Return 1 month for Botulinum toxin if dryness improved 2. General eye care Dr.. Briseno To use pataday 3. Steroid responder Used pred acetate; stop ; f/u Dr. Briseno The documentation for this note was completed by Yvon Espinal APRN, CNP acting as a scribe for Donita Martinez MD. 07/05/2022 11:57 AM. I have confirmed and edited as necessary the relevant ophthalmic history, ROS, and the neuro exam findings as obtained by others. I have seen and examined Gonzales Farrell. I have discussed the case and the management of this patient's care with the Resident/Fellow, if applicable. I also have reviewed and agree with the assessment and plan as stated above and agree with all of its relevant components. I, Donita Martinez MD, personally performed the services described in this documentation. All medical record entries made by the scribe were at my direction and in my presence. I have reviewed the chart and discharge instructions (if applicable) and agree that the record reflects my personal performance and is accurate and complete. Electronically Signed: Donita Martinez MD, July 05, 2022 11:57 AM. documented in this encounter [facility] 07-19-2022 Note HNO ID: [id number] Author: Stewart Briseno OD Service: ? 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 I have seen and examined this patient. I have discussed the case and the management of this patient's care with the Resident/Fellow, if applicable. I also have reviewed and agree with the assessment and plan as stated above and agree with all of its relevant components. Stewart Briseno OD July 19, 2022 11:25 AM [facility] 07-19-2022 History of Presen t illness Narrative (H10.45) Other chronic allergic conjunctivitis of both eyes (primary encounter diagnosis) Comment: slight improvement Plan:continue pataday OU (H40.63X0, T38.0X5A) Steroid induced glaucoma, both eyes Comment: IOP still elevated from topical steroid use Plan: add latanoprost OU and follow up vata in 2-3 weeks (H04.123) Dry eye syndrome of bilateral lacrimal glands Comment: slight improvement Plan: continue restasis bid OU (G24.5) Blepharospasm Comment: chronic still very symptomatic Plan: follow up with Dr Martinez for possible botox treatment I have confirmed and edited as necessary the relevant ophthalmic history, ROS, and the neuro exam findings as obtained by others. I have seen and examined this patient. I have discussed the case and the management of this patient's care with the Resident/Fellow, if applicable. I also have reviewed and agree with the assessment and plan as stated above and agree with all of its relevant components. Stewart Briseno OD July 19, 2022 11:25 AM documented in this encounter [facility] 07-05-2022 Note HNO ID: [id number] Author: Donita Martinez MD Service: ? 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 Briseno; advised patient to stop steroid drops and not use as needed and to f/u Dr.. Briseno for intraocular pressure Patient does have blepharospasm Will try and get approval for Botox however patient has dryness which can also cause blepharospasm Recc eval with dry accreditation specialist Dr.. Buck Recc art tears four times a day both eyes - Start taking Restasis (or xiidra) 1 drop to both eyes 2 times a day. Restasis may take 3 months to start working effectively. It is normal for the eye drop to burn after instillation of the drop. This will typically improve by the end of the first month. Can also try melissa colored glasses; Where can I get the FL-41 filter? Any [facility] location, (with an optical shop), throughout [place], Email: [email or web address] in [place], [place], [facility] in [place], [place], [facility] [facility] in [place], [place], [employer] in [place], [place], [phone] www[email or web address] Discussed will need to submit for insurance approval and return once approved, usually takes ~1month 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 , up to 100 units Return 1 month for Botulinum toxin if dryness improved 2. General eye care Dr.. Briseno To use pataday 3. Steroid responder Used pred acetate; stop ; f/u Dr. Briseno The documentation for this note was completed by Yvon Espinal APRN, CNP acting as a scribe for Donita Martinez MD. 07/05/2022 11:57 AM. I have confirmed and edited as necessary the relevant ophthalmic history, ROS, and the neuro exam findings as obtained by others. I have seen and examined Gonzales Farrell. I have discussed the case and the management of this patient's care with the Resident/Fellow, if applicable. I also have reviewed and agree with the assessment and plan as stated above and agree with all of its relevant components. I, Donita Martinez MD, personally performed the services described in this documentation. All medical record entries made by the scribe were at my direction and in my presence. I have reviewed the chart and discharge instructions (if applicable) and agree that the record reflects my personal performance and is accurate and complete. Electronically Signed: Dnoita Martinez MD, July 05, 2022 11:57 AM. [facility] 07-05-2022 Note HNO ID: [id number] Author: Stewart Briseno OD Service: ? Author Type: PROCEDURES ANALYST Type: Progress Notes Filed: 07/05/2022 12:20 PM Note Text: (H10.45) Other chronic allergic conjunctivitis of both eyes (primary encounter diagnosis) Comment: allergy improved Plan:DC PA and change to pataday qd OU allergy improved Vata in 2 weeks due to elevated IOP (H04.123) Dry eye syndrome of bilateral lacrimal glands Comment: slight improvement Plan: continue art tears qid OU try restaisis bid (G24.5) Blepharospasm Comment: uncontrolled spasm Plan: consult Dr Martinez I have confirmed and edited as necessary the relevant ophthalmic history, ROS, and the neuro exam findings as obtained by others. I have seen and examined this patient. I have discussed the case and the management of this patient's care with the Resident/Fellow, if applicable. I also have reviewed and agree with the assessment and plan as stated above and agree with all of its relevant components. Stewart Briseno OD July 05, 2022 11:49 AM [facility] 07-05-2022 Miscellaneous Notes Addended by: STEWART BRISENO on: 07/05/2022 12:21 PM Modules accepted: Orders, SmartSet documented in this encounter [facility] 07-05-2022 Instructions Donita Martinez MD - 07/05/2022 11:58 AM EST Discussed with patient he has dryness both eyes, recc treating dry eye Patient has restasis-->recc starting Intraocular pressure elevated today-->may be steroid responder (was using pred forte); followed by Dr.. Briseno; advised patient to stop steroid drops and not use as needed and to f/u Dr.. Briseno for intraocular pressure Patient does have blepharospasm Will try and get approval for Botox however patient has dryness which can also cause blepharospasm Recc eval with dry accreditation specialist Dr.. Buck Rec art tears four times a day both eyes - Start taking Restasis (or xiidra) 1 drop to both eyes 2 times a day. Restasis may take 3 months to start working effectively. It is normal for the eye drop to burn after instillation of the drop. This will typically improve by the end of the first month. Can also try melissa colored glasses; Where can I get the FL-41 filter? Any [facility] location, (with an optical shop), throughout [place], Email: [email or web address] in [place], [place], [facility] in [place], [place], [facility] [facility] in [place], [place], [employer] in [place], [place], [employer] Discussed will need to submit for insurance approval and return once approved, usually takes ~1month 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 , up to 100 units Return 1 month for Botulinum toxin if dryness improved 2. General eye care Dr.. Briseno To use pataday 3. Steroid responder Used pred acetate; stop ; f/u Dr. 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 Briseno; advised patient to stop steroid drops and not use as needed and to f/u Dr.. Briseno for intraocular pressure Patient does have blepharospasm Will try and get approval for Botox however patient has dryness which can also cause blepharospasm Recc eval with dry accreditation specialist Dr.. Buck Recc art tears four times a day both eyes - Start taking Restasis (or xiidra) 1 drop to both eyes 2 times a day. Restasis may take 3 months to start working effectively. It is normal for the eye drop to burn after instillation of the drop. This will typically improve by the end of the first month. Can also try melissa colored glasses; Where can I get the FL-41 filter? Any [facility] location, (with an optical shop), throughout [place], Email: [email or web address] in [place], [place], [facility] in [place], [place], [facility] [facility] in [place], [place], [employer] [facility] [employer] in [place], [place], [email or web address] Discussed will need to submit for insurance approval and return once approved, usually takes ~1month 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 , up to 100 units Return 1 month for Botulinum toxin if dryness improved 2. General eye care Dr.. Briseno To use pataday 3. Steroid responder Used pred acetate; stop ; f/u Dr. Briseno The documentation for this note was completed by Yvon Espinal APRN, CNP acting as a scribe for Donita Martinez MD. 07/05/2022 11:57 AM. I have confirmed and edited as necessary the relevant ophthalmic history, ROS, and the neuro exam findings as obtained by others. I have seen and examined Gonzales Farrell. I have discussed the case and the management of this patient's care with the Resident/Fellow, if applicable. I also have reviewed and agree with the assessment and plan as stated above and agree with all of its relevant components. I, Donita Martinez MD, personally performed the services described in this documentation. All medical record entries made by the scribe were at my direction and in my presence. I have reviewed the chart and discharge instructions (if applicable) and agree that the record reflects my personal performance and is accurate and complete. Electronically Signed: Donita Martinez MD, July 05, 2022 11:57 AM. documented in this encounter [facility] 07-05-2022 History of Presen t illness Narrative (H10.45) Other chronic allergic conjunctivitis of both eyes (primary encounter diagnosis) Comment: allergy improved Plan:DC PA and change to pataday qd OU allergy improved Vata in 2 weeks due to elevated IOP (H04.123) Dry eye syndrome of bilateral lacrimal glands Comment: slight improvement Plan: continue art tears qid OU try restaisis bid (G24.5) Blepharospasm Comment: uncontrolled spasm Plan: consult Dr Martinez I have confirmed and edited as necessary the relevant ophthalmic history, ROS, and the neuro exam findings as obtained by others. I have seen and examined this patient. I have discussed the case and the management of this patient's care with the Resident/Fellow, if applicable. I also have reviewed and agree with the assessment and plan as stated above and agree with all of its relevant components. Stewart Briseno OD July 05, 2022 11:49 AM documented in this encounter [facility] 06-17-2022 Note HNO ID: [id number] Author: Stewart Briseno OD Service: ? Author Type: PROCEDURES ANALYST Type: Progress Notes Filed: 06/17/2022 12:57 PM Note Text: (H10.45) Other chronic allergic conjunctivitis of both eyes (primary encounter diagnosis) Comment: moderate allergic conj with symptoms of itching and chronic irritaion Plan: add PA qid x 1 week then bid x 1 week then DC start patanol bid oU Follow up in2-3 weeks (H04.123) Dry eye syndrome of bilateral lacrimal glands Comment: chronic irritation not responding to lubricants nor punctal plugs ahd rx for xiidra hasnt started yet Plan: monitor use lubricants and allergy tx for now hold off on xiidra I have confirmed and edited as necessary the relevant ophthalmic history, ROS, and the neuro exam findings as obtained by others. I have seen and examined this patient. I have discussed the case and the management of this patient's care with the Resident/Fellow, if applicable. I also have reviewed and agree with the assessment and plan as stated above and agree with all of its relevant components. Stewart Briseno, OD June 17, 2022 12:55 PM [facility] 06-17-2022 History of Presen t illness Narrative (H10.45) Other chronic allergic conjunctivitis of both eyes (primary encounter diagnosis) Comment: moderate allergic conj with symptoms of itching and chronic irritaion Plan: add PA qid x 1 week then bid x 1 week then DC start patanol bid oU Follow up in2-3 weeks (H04.123) Dry eye syndrome of bilateral lacrimal glands Comment: chronic irritation not responding to lubricants nor punctal plugs ahd rx for xiidra hasnt started yet Plan: monitor use lubricants and allergy tx for now hold off on xiidra I have confirmed and edited as necessary the relevant ophthalmic history, ROS, and the neuro exam findings as obtained by others. I have seen and examined this patient. I have discussed the case and the management of this patient's care with the Resident/Fellow, if applicable. I also have reviewed and agree with the assessment and plan as stated above and agree with all of its relevant components. Stewart Briseno, OD June 17, 2022 12:55 PM documented in this encounter [facility] 05-06-2022 Note HNO ID: [id number] Author: Charlie Hays MD Service: ? Author Type: Physician Type: Progress Notes Filed: 05/08/2022 11:35 AM Note Text: [facility] NOTE Department of Orthopaedics Charlie Hays [place] [facility] [place] Gonzales Farrell [facility] NO.: [id number] DATE: 05/06/22 Surgery: Arthroscopy Shoulder Rotator Cuff - Right, Arthroscopy Shoulder Biceps Tenodesis - Right, and Arthroscopy Shoulder With Subacromial Decompression - Right Date: 10/25/2021 Interval Hx: Gonzales Farrell is back for follow up after above mentioned procedure. He was doing really well pain about 2-3/10. Very happy with results. PHYSICAL EXAMINATION: Incision appears well-healed. Forward elevation is passively to 170 ? and actively to 170 ?. External rotation is passively to 50 ? and actively to 40 ?. Abduction is actively to 90 ? and Internal rotation is actively to LL. his strength is 5 of 5 in internal rotation , 5 of 5 in external rotation and 4+ of 5 in abduction in the plane of scapula. Belly press test is neg. Jobes test is neg and Neer and Guido are neg. Upper extremity has intact sensory and motor function and has good perfusion distally. RADIOGRAPHIC STUDIES: no new imaging ASSESSMENT: Encounter Diagnosis ICD-10-CM 1. Traumatic complete tear of right rotator cuff, initial encounter S46.011A PLAN: I told Gonzales Farrell that he is doing well for his post-operative status. We should continue stretching exercises and strengthening with gatching exercises and gradual weight training. As long as symptoms are well controlled and rehab is going well, follow up with my clinic will be as needed. If any questions or concerns arise, he should not hesitate to call. Charlie Hays M.D. M.M.Sc. Shoulder and Elbow Surgeon Orthopaedic Surgery Department [place], [place] [address] Tell: [phone] Appt:[phone] [facility] 05-06-2022 History of Presen t illness Narrative [facility] NOTE Department of Orthopaedics Charlie Hays [place] [facility] [place] Gonzales Farrell CLINIC NO.: [id number] DATE: 05/06/22 Surgery: Arthroscopy Shoulder Rotator Cuff - Right, Arthroscopy Shoulder Biceps Tenodesis - Right, and Arthroscopy Shoulder With Subacromial Decompression - Right Date: 10/25/2021 Interval Hx: Gonzales Farrell is back for follow up after above mentioned procedure. He was doing really well pain about 2-3/10. Very happy with results. PHYSICAL EXAMINATION: Incision appears well-healed. Forward elevation is passively to 170 and actively to 170 . External rotation is passively to 50 and actively to 40 . Abduction is actively to 90 and Internal rotation is actively to LL. his strength is 5 of 5 in internal rotation , 5 of 5 in external rotation and 4+ of 5 in abduction in the plane of scapula. Belly press test is neg. Jobes test is neg and Neer and Guido are neg. Upper extremity has intact sensory and motor function and has good perfusion distally. RADIOGRAPHIC STUDIES: no new imaging ASSESSMENT: Encounter Diagnosis ICD-10-CM 1. Traumatic complete tear of right rotator cuff, initial encounter S46.011A PLAN: I told Gonzales Farrell that he is doing well for his post-operative status. We should continue stretching exercises and strengthening with gatching exercises and gradual weight training. As long as symptoms are well controlled and rehab is going well, follow up with my clinic will be as needed. If any questions or concerns arise, he should not hesitate to call. Charlie Hays M.D. M.M.Sc. Shoulder and Elbow Surgeon Orthopaedic Surgery Department [place], [place] [address] Tell: [phone] Appt:[phone] documented in this encounter [facility] 03-04-2022 History of Presen t illness Narrative [facility] NOTE Department of Orthopaedics Charlie Hays [place] [facility] [place] Gonzales Farrell CLINIC NO.: [id number] DATE: 03/04/2022 Surgery: Arthroscopy Shoulder Rotator Cuff - Right, Arthroscopy Shoulder Biceps Tenodesis - Right, and Arthroscopy Shoulder With Subacromial Decompression - Right Date: 10/25/2021 Interval Hx: Gonzales Farrell is back for 4 month follow up after above mentioned procedure. He was doing really well but his C9 ran out and had to stop his rehab. He is giving himself . PHYSICAL EXAMINATION: Incision appears well-healed. Forward elevation is passively to 170 and actively to 170 . External rotation is passively to 50 and actively to 40 . Abduction is actively to 90 and Internal rotation is actively to LL. his strength is 5 of 5 in internal rotation , 5 of 5 in external rotation and 4+ of 5 in abduction in the plane of scapula. Belly press test is neg. Jobes test is neg and Neer and Guido are neg. Upper extremity has intact sensory and motor function and has good perfusion distally. RADIOGRAPHIC STUDIES: no new imaging ASSESSMENT: Encounter Diagnosis ICD-10-CM 1. Traumatic complete tear of right rotator cuff, initial encounter S46.011A 2. S/P right rotator cuff repair Z98.890 PLAN: I told Gonzales Farrell that he is doing well for his post-operative status. We should continue stretching exercises and add phase 2 strengthening with gatching exercises and gradual weight training. As long as symptoms are well controlled and rehab is going well, follow up with my clinic will be as needed. If any questions or concerns arise, he should not hesitate to call. Charlie Hays M.D. M.M.Sc. Shoulder and Elbow Surgeon Orthopaedic Surgery Department [place], [place] [address] Tell: [phone] Appt:[phone] documented in this encounter [facility] 01-25-2022 History of Presen t illness Narrative [facility] NOTE Department of Orthopaedics Charlie Hays [place] [facility] [place] Gonzales Farrell CLINIC NO.: [id number] DATE: 01/25/2022 Surgery: Arthroscopy Shoulder Rotator Cuff - Right, Arthroscopy Shoulder Biceps Tenodesis - Right, and Arthroscopy Shoulder With Subacromial Decompression - Right Date: 10/25/2021 Interval Hx: Gonzales Farrell is back for 12 weeks follow up after above mentioned procedure. he denies any new injury or trauma. he gives his pain 2 out of 10. he is not using pain medication. he doing physical therapy and improving. he is very satisfied with his results so far. PHYSICAL EXAMINATION: Incision appears well-healed. Forward elevation is passively to 160 and actively to 150 . External rotation is passively to 50 and actively to 40 . Abduction is actively to 90 and Internal rotation is actively to LL. his strength is 4+ of 5 in internal rotation , 4+ of 5 in external rotation and 4 of 5 in abduction in the plane of scapula. Belly press test is neg. Jobes test is neg and Neer and Guido are neg. Upper extremity has intact sensory and motor function and has good perfusion distally. RADIOGRAPHIC STUDIES: no new imaging ASSESSMENT: Encounter Diagnosis ICD-10-CM 1. S/P right rotator cuff repair Z98.890 PLAN: I told Gonzales Farrell that he is doing well for his post-operative status. We should continue stretching exercises and add phase 2 strengthening with gatching exercises and gradual weight training. As long as symptoms are well controlled and rehab is going well, follow up with my clinic will be as needed. If any questions or concerns arise, he should not hesitate to call. Charlie Hays M.D. M.M.Sc. Shoulder and Elbow Surgeon Orthopaedic Surgery Department [place], [place] [address] Tell: [phone] Appt:[phone] documented in this encounter [facility] 12-07-2021 History of Presen t illness Narrative [facility] NOTE Department of Orthopaedics Charlie Hays [place] [facility] [place] Gonzales Farrell CLINIC NO.: [id number] DATE: 12/07/2021 Surgery: Arthroscopy Shoulder Rotator Cuff - Right, Arthroscopy Shoulder Biceps Tenodesis - Right, and Arthroscopy Shoulder With Subacromial Decompression - Right Date: 10/25/2021 Interval Hx: Gonzales Farrell is back for 2 weeks follow up after above mentioned procedure. he denies any fever, chills, N/V, SP or SOB or drainage from the incision. he gives his pain 3 out of 10. he is using prescribed meds for pain control. he is wearing his immoblizer/sling. He had DVT and has been started on Eliquis. PHYSICAL EXAMINATION: Incision appears well-healed. Dressing is off and we removed sutures today. There is no erythema, warmth or drainage from the incision. There is mild swelling in the upper arm. Patient has passive forward elevation of 90 and passive external rotation of 30 . Upper extremity has intact sensory and motor function and has good perfusion distally. RADIOGRAPHIC STUDIES: no new imaging ASSESSMENT: Encounter Diagnosis ICD-10-CM 1. Traumatic complete tear of right rotator cuff, subsequent encounter S46.011D CONSULT TO PHYSICAL THERAPY 2. S/P right rotator cuff repair Z98.890 CONSULT TO PHYSICAL THERAPY PLAN: I told Gonzales Farrell that he is doing well for his post-operative status. We will start phase 1 stretching exercises. I'd like to see him in 4 weeks. If any questions or concerns arise, he should not hesitate to call. Charlie Hays M.D. M.M.Sc. Shoulder and Elbow Surgeon Orthopaedic Surgery Department [place], [place] [address] Tell: [phone] Appt:[phone] documented in this encounter [facility] 11-07-2021 History of Presen t illness Narrative ORTHO CARE COORDINATION POST OPERATIVE TRANSITIONAL CARE NOTE Patient has been identified by name and date of : Yes Patients pain is controlled?Yes Incision intact? Yes Any drainage? No Patient aware of activity restrictions? Yes Does patient have any medication concerns from what we prescribed? No Follow up appointment made? Yes Patient aware of goals, to return to ADL's, Yes. Any barriers to achieving goal? No Pt presents to clinic for two week postop check well appearing . Pt states his pain is minimal-additional script sent to Dr. Hays. Pt will continue hand/wrist/elbow exercises until follow up with Dr. Hays in one month. Pt to start formal PT after that apt-sent to [facility] for request of C9. Sutures removed-steri strips applied-unremarkable. Reviewed restrictions with pt. Office number provided for additional questions or concerns. Pt seen under direction of Charlie Hays MD. Teresa Birch RN documented in this encounter [facility] 10-25-2021 Note HNO ID: [id number] Author: Pepe Cornelius APRN.PROCESS DEVELOPMENT ENGINEER Service: ? Author Type: Nurse Range Operator Type: Anesthesia Procedure Notes Filed: 10/25/2021 12:53 PM Note Text: ANESTHESIOLOGY PROCEDURE NOTE Airway General Information Procedure Start Time/Medication Administration: 10/25/2021 11:57 AM Patient location during procedure: OR Timeout Performed Pre-procedure: timeout performed Consent Obtained: Yes Patient identity confirmed: arm band, care team manager and patient Staffing PROCESS DEVELOPMENT ENGINEER: Pepe Cornelius APRN.PROCESS DEVELOPMENT ENGINEER Performed by: PROCESS DEVELOPMENT ENGINEER Indications and Patient Condition Preoxygenated: yes Patient position: sniffing Manual In-Line Stabilization: No Difficult Mask: Yes Indications for airway management: anesthesia anesthesia circuit Method: asleep Cricoid Pressure: No Final Airway Details Final airway type: endotracheal airway Final Endotracheal Airway: ETT Cuffed: yes Devices used: Gillespie Endotracheal tube insertion site: oral Blade: Yuki Blade size: #5 ETT size (mm): 7.5 Measured from: teeth Measurement (cm): 23 Placement verified by: chest auscultation and capnometry Number of attempts at approach: 1 Airway not difficult SIGNATURE: Pepe Cornelius APRN.PROCESS DEVELOPMENT ENGINEER PATIENT NAME: Gonzales Farrell DATE: October 25, 2021 TIME: 12:52 PM CSN: [id number] [facility] 10-25-2021 Note HNO ID: [id number] Author: Sofia Glaser RN Service: Nursing Author Type: Registered Nurse Type: Nursing Progress Note Filed: 10/25/2021 10:27 AM Note Text: preop block: [id number] [facility] 10-25-2021 Note HNO ID: [id number] Author: Smooth Valadez MD Service: Anesthesiology Author Type: Anesthesiologist Type: Anesthesia Procedure Notes Filed: 10/25/2021 10:22 AM Note Text: ANESTHESIOLOGY PROCEDURE NOTE Peripheral Nerve Block General Information Procedure Start Time/Medication Administration: 10/25/2021 10:10 AM Procedure End time: 10/25/2021 10:20 AM Patient location during procedure: pre-op Timeout Performed Pre-procedure: timeout performed Consent Obtained: Yes Patient identity confirmed: arm band and patient Reason for block: post-op pain management/at surgeon's request Staffing Anesthesiologist: Smooth Valadez MD Performed by: anesthesiologist Preparation Sterility Preparation: hand hygiene performed prior to procedure, sterile gloves, drapes, and procedure tray, surgical cap used, mask used, sterile drape used during line insertion, skin prep agent completely dried prior to procedure Site Prep: Chloraprep Pre-Procedure Neuro Exam Location: RUE Sensory: intact Motor: intact Procedure Details Patient Position: supine Monitoring: Pulse OX, EKG and NIBP Block Type Upper Extremity: brachial plexus Approach: supraclavicular Laterality: right Injection Technique: single-shot Ultrasound Guided: Yes Image in Chart: yes Local Infiltration: Yes Needle Needle Type: echogenic Needle Gauge: 22 G Needle Length: 51 mm Needle Localization: ultrasound Assessment Injection assessment: negative aspiration, no paresthesia on injection, incremental injection and local visualized surrounding nerve on ultrasound Post-Procedure Neuro Exam Expected Regional Anesthesia: Yes Medications Administered Dexamethasone sodium phosphate injection (DECADRON), 10 mg ropivacaine (PF) 10 mg/mL (1 %) injection (NAROPIN), 20 mL Comments 10cc of 0.5% Lidocaine. 30cc vol SIGNATURE: Smooth Valadez MD PATIENT NAME: Gonzales Farrell DATE: October 25, 2021 TIME: 10:21 AM CSN: [id number] [facility] 09-28-2021 Miscellaneous Notes Spoke with pt and he has made an appointment with his PCP on 10/01/21. Shyam Gotti RN September 28, 2021 11:11 AM The patient needs optimization from PCP for new DM, untreated. Letter and results faxed, please track. Email sent to Dr. Sanders in anesthesia for review. Thank you. documented in this encounter [facility] 09-28-2021 Miscellaneous Notes Component Latest Ref Rng & Units 09/27/2021 Glucose 74 - 99 mg/dL 284 (H) BUN 9 - 24 mg/dL 17 Creatinine 0.73 - 1.22 mg/dL 0.85 Sodium 136 - 144 mmol/L 135 (L) Potassium 3.7 - 5.1 mmol/L 4.1 Chloride 97 - 105 mmol/L 95 (L) CO2 22 - 30 mmol/L 25 Anion Gap 9 - 18 mmol/L 15 Calcium 8.5 - 10.2 mg/dL 10.3 (H) eGFR >=60 mL/min/1.73m 105 Hemoglobin A1C 4.3 - 5.6 % 8.9 (H) Estimated Average Glucose mg/dL 209 Good morning, Please review preoperative labs from 09/27/2021. HGB A1C 8.9 and glucose 284. No prior history of diabetes. Please advise if anything further needed prior to 10/11/2021 surgery. Thank you! Shyam Gotti RN, PACC Resource RN September 28, 2021 7:33 AM documented in this encounter [facility] 09-27-2021 History and physical note HISTORY AND PHYSICAL EXAMINATION SERVICE DATE: 09/27/2021 SERVICE TIME: 4:01 PM PRIMARY CARE PHYSICIAN: Rula Herrera MD, MD REASON FOR VISIT: Gonzales Farrell is a 50 year old male who is scheduled for right Arthroscopy Shoulder Rotator Cuff at the request of Dr. Charlie Hays for consultation. My final recommendation will be communicated back to the requesting physician by way of shared medical record or letter. The patient has the following: ACTIVE PROBLEM LIST Lumbosacral Neuritis Traumatic Complete Tear of Right Rotator Cuff Obstructive Sleep Apnea Obese Chronic Low Back Pain History of Dvt in Adulthood Nodular Goiter Excessive Sweating Primary Hypertension Subjective CHIEF COMPLAINT: PACC HPI: 50 YO WM smoker with MO is here for PACC. He fell at work and Tore his right RC; he has weakness in that arm, unable to lift it to 90 degrees. He has chronic LBP as well. PAST MEDICAL HISTORY Diagnosis Date Acute deep vein thrombosis (DVT) of popliteal vein of left lower extremity (HCC) post viral illness, was in bed for 2 weeks. summer 2019 Chronic low back pain Obese Obstructive sleep apnea Primary hypertension 09/27/2021 PAST SURGICAL HISTORY Procedure Laterality Date APPENDECTOMY CARPAL TUNNEL Right hand FINGER AMPUTATION (SPECIFY DIGIT) HX PAST SURGICAL HISTORY OF Finger removed left hand TONSILLECTOMY HX UVULECTOMY EXCISION OF UVULA FAMILY HISTORY Problem Relation Age of Onset Leukemia Mother other (pulmonary disease) Mother Suicide / Suicidal Behaviors Brother SOCIAL HISTORY: Social History Tobacco Use Smoking status: Current Every Day Smoker Packs/day: 1.50 Years: 20.00 Pack years: 30.00 Types: Cigarettes Smokeless tobacco: Former User Types: Chew Tobacco comment: 2 ppd Substance Use Topics Alcohol use: Yes Comment: once a month maybe Drug use: Yes Types: Marijuana Comment: rare MEDICATIONS: Prior to Admission medications as of 09/27/21 1506 Medication Sig Last Dose Taking lisinopril (ZESTRIL, PRINIVIL) 40 mg tablet Take 40 mg by mouth once daily. Taking Yes Flaxseed Oil oil once daily. Taking Yes MULTI-VITAMIN ORAL Take by mouth. Taking 3 a day Taking Yes traMADOL (ULTRAM) 50 mg ORAL tablet Take 1 tablet by mouth every 8 hours as needed. naproxen sodium (ALEVE) 220 mg ORAL Cap Take by mouth as needed. Fish Oil-DHA-EPA (FISH OIL) 1,200-144-216 mg ORAL Cap Take by mouth. Taking 3 tablet a day No medication comments found. CURRENT ALLERGIES: ALLERGIES Allergen Reactions Bee Venom Protein (* Swelling, Shortness of Breath COVID VACCINATION STATUS: Partially vaccinated REVIEW OF SYSTEMS: PAIN ASSESSMENT: Pain Pain Level: 5 Pain Location: Shoulder-Right Description: Burning;Sharp Frequency: Continuous Intervention/Comfort measure: Medication General: No weight loss, malaise or fevers. Neuro: No history of TIA's, stroke, FLAP MAKER tumor, impaired sensorium, hemiplegia, paraplegia or quadraplegia. No neurological symptoms or problems. Respiratory: 2ppd smoker, denies dx of COPD, haschronic morning congested cough (Brief); no wheezing. HORACIO on BIPAP. Cardiovascular: HTN on rx; Has mild ORDAZ but can take a few flights and do heavy housework. Denies all cardiac symptoms otherwise. GI: chronic constipation controlled with metamucil; no other GI sx : No history of dysuria, frequency or incontinence,, stones or chronic kidney disease Endocrine: excess sweating; denies DM or thyroid dx. No excess thirst, hunger. Frequently feels warm. Hematology: No history of bleeding or clotting disorder. Pt is not taking anti-coagulation or platelet medications. No history of hematological symptoms or problems. Oncology: No history of CA metastasis, chemo within 30 days, or radiotherapy within 90 days. Has not lost 10% of body wt in 6 months. No history of oncological symptoms or problems. Psych: No history of psychiatric symptoms or problems. Musculoskeletal: See HPI Skin: Negative for lesions, rash and itching. Objective PHYSICAL EXAM: VITALS: BP 147/84 Pulse 88 Temp (Src) 96.7 (Temporal Artery) Resp 16 Ht 5' 10 (1.78m) Wt 310 lb (140.6kg) SpO2 97% BMI 44.48 kg/(m^2). General: Alert and oriented, No acute distress, Morbidly obese Skin: small scratch/abrasion right forearm, no sign infeciton HEENT: EOM, pupils equal, round and reactive., No carotid bruits; several small thyroid nodules, mildly enlarged thyroid. Cardiovascular: Normal S1 & S2, no rubs, murmurs or gallops. No JVD. Pulse regular. Lungs: Normal breath sounds, no wheezes or crackles. Abdomen: Soft, non-tender, no rigidity. Extremities: trace pit edema BLEs. No c/c/erythema, cords. Missing second digit left hand Neurological: CN II-XII grossly intact Pulses: pedal and radial pulses normal +2 Diagnostic tests reviewed for today's visit: Lab Value Units Date High Low HB 18.0 g/dL 09/27/2021 17.0 13.0 HCT 50.4 % 09/27/2021 51.0 39.0 WBC 9.56 k/uL 09/27/2021 11.00 3.70 PLT 253 k/uL 09/27/2021 400 150 NA No results within date range. K No results within date range. GLUC No results within date range. BUN No results within date range. CREAT No results within date range. PTSEC No results within date range. INR No results within date range. APTT No results within date range. ALT No results within date range. AST No results within date range. TBILI No results within date range. TSH No results within date range. Lab Value Units Date High Low HCGQT No results within date range. UHCG No results within date range. HCG, BODY* No results within date range. Lab Value Units Date High Low ABORHD No results within date range. ABSCREEN No results within date range. No results found for: HBA1C Assessment/Plan (S46.011A) Traumatic complete tear of right rotator cuff, initial encounter (G47.33) Obstructive sleep apnea On BIPAP, to bring to surgery. (E66.01, Z68.41) Class 3 severe obesity due to excess calories without serious comorbidity with body mass index (BMI) of 40.0 to 44.9 in adult (HCC) BMI 44.48 (R03.0) HTN mildly elevated, acceptable for surgery on ACEI (Z86.718) History of DVT in adulthood In 2020 after being in bed for two week while ill. The patient states the surgeon is aware. (E04.9) Nodular goiter TSH today. F/u with PCP after surgery for possible US. (R61) Excessive sweating TSH; BMP already ordered by PCP, A1C added to orders. Smoker 2ppd, likely has COPD. METS: Climb a flight of stairs or walk up a hill (5.50 METs) Do heavy work around the house, such as scrubbing floors, lifting or moving heavy furniture (8.00 METs) has mild ORDAZ with these activities but doesn't have to stop. DASI Score: ASA Class: 3 ANESTHESIA FINDINGS: Intubation History: No history of difficult intubation Significant Anesthesia Considerations: None Airway Exam: General: Morbid obesity Mallampati Score is CLASS IV ULBT: Class I - Lower incisors can bite the upper lip above the louis line Neck: Distance from hyoid to mentum during neck extension is at least 3 finger breaths, Short thick neck Mouth: Normal tongue size and Mouth opening greater than 2 finger breaths; high arched palate, small appearance of mouth Dentition: Intact Airway History: No abnormal airway history STOP BANG Score: HORACIO uses CPAP/BiPAP PLAN This patient is optimally prepared for surgery pending ANESTHESIA CONSULT and LABS. CONSULTS: Anesthesia Consult airay findings and ORDAZ. email sent to Dr. Sanders. The Following Tests/Procedures Have Been Initiated: Orders Placed This Encounter HGB A1C Standing Status: Future Number of Occurrences: 1 Standing Expiration Date: 11/27/2021 TSH BLD Standing Status: Future Number of Occurrences: 1 Standing Expiration Date: 11/27/2021 T3 BLD Standing Status: Future Number of Occurrences: 1 Standing Expiration Date: 11/27/2021 T4 FREE/FREE THYROX Standing Status: Future Number of Occurrences: 1 Standing Expiration Date: 11/27/2021 lisinopril (ZESTRIL, PRINIVIL) 40 mg tablet Sig: Take 40 mg by mouth once daily. Flaxseed Oil oil Sig: once daily. ECG COMPLETE Standing Status: Future Standing Expiration Date: 09/27/2022 Planned Anesthetic: General Instructions Given to Patient: Instructions located in the after visit summary. Patient given verbal and written preop instructions and voices comprehension and compliance. SIGNATURE: Barb Mast PA-C PATIENT NAME: Gonzales Farrell DATE: September 27, 2021 TIME: 4:01 PM documented in this encounter [facility] 09-27-2021 Instructions Barb Mast PA-C - 09/27/2021 3:40 PM EDT PATIENT PREOPERATIVE INSTRUCTIONS Charlie Hays MD has scheduled you for your procedure at this surgery center: [facility]: [phone] -- [id number] [place] [address]. Please read below carefully for your personalized instructions. Dietary Restrictions: - No solid food after midnight. - You may have 12 ounces of clear liquids (water, clear juices such as apple juice or gatorade, carbonated beverages, clear tea, black coffee, jello) until 2 hours before scheduled arrival at facility. Medications: Unless instructed differently below, stay on all of your medications until your surgery. Approved medications to take the morning of surgery with a sip of water: none If you take any medications for erectile dysfunction-Cialis (Tadalafil), Levitra, Staxyn (Vardenafil) Viagra (Sildenenafil please do not take these for 48 hours before surgery. If you start any new medications after today's visit, please contact the surgeon's office. Blood Thinning Medications: - Stop NSAIDS (Ibuprofen, Advil, Aleve, Motrin, Celebrex, Mobic, etc.) 7 days before surgery, as directed by your surgeon. - Stop Aspirin 7 days before surgery, as directed by your surgeon. - Stop Vitamin E, ALL multi-vitamins, herbals and dietary supplements 14 days before surgery. - You may take Tylenol (Acetaminophen) or any of your pain medications that do not contain aspirin or NSAIDS as needed. Important Reminders: - If you use CPAP/BIPAP, bring the machine with you to the surgery center. - If you are prescribed inhalers for breathing, continue using them. - Candy, mints, and tobacco products are NOT permitted the morning of surgery. - Hearing aids, dentures and glasses may be worn the morning of surgery. - NO jewelry, body piercings, makeup, hairpins or contacts are to be worn the day of surgery. If you develop symptoms such as a fever, cold, or flu, or have other changes to your health within TWO DAYS of scheduled surgery or the morning of surgery, please contact the surgery center above. Personal Belongings: -Please have photo ID and insurance cards. -If you do not have a copy of advance directives on file with us, please bring a copy with you on the day of surgery. - Leave ALL valuables and money at home or with family members. For Outpatient Procedures: - YOU MUST HAVE A RESPONSIBLE SHOPPER TAKE YOU HOME. A PROJECT MANAGEMENT CONSULTANT OR RIVET PASSER CANNOT BE MADE A RESPONSIBLE SHOPPER. - We recommend that a responsible person stays with you overnight to take care of you. - You cannot stay in a hotel alone after outpatient surgery. You will not be permitted to have your surgery, if you do not have someone to take care of you. Arrival Time for Surgery: - The Surgery Center or hospital where you are having surgery will call the afternoon before surgery (or Friday for Friday surgery) with a scheduled arrival time. - If you have not heard by 4 pm, please contact the surgery center above. Please be aware that emergency situations arise, which may delay or change your surgical time. If this happens, we will notify you as soon as possible and regret any inconvenience. If you already have an Advance Directive, please fax a copy to [phone] or email to for it to be added to your chart. If you do not have an Advance Directive, you can find the appropriate form and more information at [email or web address]. We recommend that you complete the Advance Directive form found on the website and bring it with you the day of your surgery. It can be witnessed and scanned into your chart that day. Barb Mast PA-C documented in this encounter [facility] [facility] 09[facility]21[facility]21 History of Presen t illness Narrative SERVICE DATE: Patient would like to see someone today. PCP: Gonzales Farrell REFERRING PROVIDER: SELF Consult requested for an opinion regarding the evaluation and treatment of the above patient. My final impression and recommendations will be communicated back to the requesting physician by way of the shared medical record or letter via [place] mail. CHIEF COMPLAINT: Patient presents with: New Patient: Right Shoulder SUBJECTIVE HISTORY OF PRESENT ILLNESS: Gonzales Farrell is a 50 year old is a [id number] gentleman who is referred to my clinic by Dr. Alcocer for evaluation of his right shoulder injury. This visit is part of a [facility] claim. 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 He gives himself 7 out of 10 for pain and 40% for function in the right shoulder. He denies any history of injury or trauma in the past in the shoulder and had no pain or discomfort in the shoulder prior to this injury. He has history of left lower extremity DVT about 2 years ago. He is currently not taking any blood thinners. He smokes 2 packs/day of cigarette for the past 30 years. He has history of hypertension and no diabetes. He does not drink alcohol regularly. PROGRESSIVE SYMPTOMS: Pain affecting living situation/ADL's Pain impacting sleep or causing fatigue Pain impacting work Pain limiting ability to stay fit and healthy, sports or recreational activity Pain worsened by overhead activity/reaching PREVIOUS TREATMENT(S): Modified Activity OTC NSAIDS for Less Than 3 Months NECK COMPLAINTS: None Problem List Noted Noted By Resolved Resolved By Lumbosacral neuritis 07/16/2011 Vinh Gonzales MD No No past surgical history on file. No family history on file. Social History Marital status: ALLERGIES ALLERGIES No Known Allergies MEDICATIONS: Current Outpatient Medications Medication Sig Dispense Refill traMADOL (ULTRAM) 50 mg ORAL tablet Take 1 tablet by mouth every 8 hours as needed. 20 tablet 0 naproxen sodium (ALEVE) 220 mg ORAL Cap Take by mouth as needed. MULTI-VITAMIN ORAL Take by mouth. Taking 3 a day Fish Oil-DHA-EPA (FISH OIL) 1,200-144-216 mg ORAL Cap Take by mouth. Taking 3 tablet a day No current facility-administered medications for this visit. REVIEW OF SYSTEMS PAIN ASSESSMENT: PAIN EVALUATION 09/21/2021 1350 Pain Level: 7 Pain Location: Shoulder-Right Description: Sharp;Burning Duration Amount of Time: 4 Duration Units: Weeks Frequency: Continuous Intervention/Comfort measure: Medication;Cold;Heat REVIEW OF SYMPTOMS: Constitutional: Any recent fevers? no Cardiovascular: Any chest pain? no Respiratory: Any shortness or breath? no Gastrointestinal: Any abdominal discomfort? no Integumentary: Any recent skin changes or rashes? no Neurologic: Any numbness or tingling? See Above Endocrine: Any diagnosis of diabetes? no Hematologic: Any recent bleeding episodes? no OBJECTIVE Ht 177.8 cm (5' 10 ) Wt 136.1 kg (300 lb) BMI 43.05 kg/m PHYSICAL EXAMINATION: On physical exam he is a 50-year-old gentleman with no apparent distress. His active forward elevation is 80 degrees. Passively I can get his shoulder to 140 degrees. External rotation is actively to 20 degrees and passively to 40 degrees. He does not have a positive lag sign. Internal rotation is to posterior lateral buttock area. His strength is 5 out of 5 in internal rotation but 4 out of 5 in external rotation and abduction in the plane of the scapula. He has positive Terri's test and positive Neer and Guido test and negative belly press test. He has intact sensorimotor function to right upper extremity. RADIOGRAPHIC RESULTS: 3 view x-ray of the right shoulder shows no glenohumeral arthritis, well-maintained glenohumeral relationship on the AP and axillary view with no evidence of fracture or dislocation. Overall bone quality appears to be good. There is minimal AC arthritis. MRI of the right shoulder was brought on a CD that showed full-thickness tear of supraspinatus extending to infraspinatus. Mild atrophy and grade 2 fatty infiltration and muscle belly of supraspinatus and infraspinatus with retraction to the level of glenohumeral joint. ASSESSMENT Encounter Diagnosis ICD-10-CM 1. Traumatic complete tear of right rotator cuff, initial encounter S46.011A PLAN I discussed with Gonzales that the symptoms in his right shoulder is due to full-thickness large rotator cuff tear involving supraspinatus and infraspinatus. We had a long conversation regarding his presentation and treatment options. Given his age, desired level of activity and size of the tear, it is in his best interest to consider surgical repair. His body habitus and active smoking and size of the tear are negative predictors of outcome in his case. We discussed risk and benefit expected recovery and prolonged immobilization and rehab after this procedure. 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 He understands and would like to proceed with surgical option. We obtained a consent form and will get this scheduled for him in coming weeks. If any questions or concerns arise, he should not hesitate to call. Charlie Hays M.D. M.M.Sc. Shoulder and Elbow Surgeon Orthopaedic Surgery Department [place], [place] [address] Tell: [phone] Appt:[phone] 09/21/2021 2:19 PM documented in this encounter [facility] 08-25-2021 Note PROCEDURE: XR SHOULD ER RT 2V or > COMPARISON: None. HISTORY: Pain FINDINGS: BONES:No acute fracture or dislocation. Mild osteoarthropathy of the acromioclavicular joint. SOFT TISSUES:Negative. No visible soft tissue swelling. EFFUSION:None visible. OTHER: Numerous lung nodules, likely sequela of prior granulomatous process IMPRESSION: No acute fracture Electronically authenticated by: TORIE FOLEY Date: 2021-08-25 15:59 [facility] Evaluation note Diagnosis Preoperative examination- Primary Preoperative examination, unspecified Traumatic complete tear of right rotator cuff, initial encounter [facility] Traumatic complete tear of right rotator cuff, initial encounter- Primary [facility] Diagnosis Preop examination- Primary Preoperative examination, unspecified Traumatic complete tear of right rotator cuff, initial encounter Obstructive sleep apnea Obstructive sleep apnea (adult) (pediatric) Class 3 severe obesity due to excess calories without serious comorbidity with body mass index (BMI) of 40.0 to 44.9 in adult (HCC) Primary hypertension Unspecified essential hypertension History of DVT in adulthood Nodular goiter Unspecified nontoxic nodular goiter Excessive sweating Generalized hyperhidrosis Preoperative examination Preoperative examination, unspecified Traumatic complete tear of right rotator cuff, initial encounter [facility] Diagnosis Preoperative examination- Primary Preoperative examination, unspecified [facility] Diagnosis Preoperative examination- Primary Preoperative examination, unspecified Traumatic complete tear of right rotator cuff, initial encounter Preoperative examination Preoperative examination, unspecified Traumatic complete tear of right rotator cuff, initial encounter [facility] Diagnosis Traumatic complete tear of right rotator cuff, initial encounter [facility] Diagnosis Postop check- Primary Follow-up examination, following unspecified surgery [facility] Diagnosis Traumatic complete tear of right rotator cuff, subsequent encounter- Primary S/P right rotator cuff repair [facility] Diagnosis S/P right rotator cuff repair- Primary [facility] Diagnosis Traumatic complete tear of right rotator cuff, initial encounter- Primary S/P right rotator cuff repair [facility] Diagnosis Traumatic complete tear of right rotator cuff, initial encounter- Primary [facility] Diagnosis Other chronic allergic conjunctivitis of both eyes- Primary 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, unspecified [facility] Diagnosis Blepharospasm- Primary [facility] Diagnosis Other chronic allergic conjunctivitis of both eyes- Primary 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, unspecified Blepharospasm [facility] Diagnosis Steroid induced glaucoma, both eyes- Primary Corticosteroid-induced glaucoma, 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, unspecified Blepharospasm documented in this encounter [facility] note* Diagnosis Steroid induced glaucoma, both eyes- Primary Corticosteroid-induced glaucoma, 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, 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 documented in this encounter [facility] note* Diagnosis Blepharospasm- Primary documented in this encounter [facility] note* Diagnosis Blepharospasm- Primary documented in this encounter [facility] note* Diagnosis 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 documented in this encounter [facility] note* Diagnosis Adjustment disorder, unspecified type- Primary 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 documented in this encounter [facility] note* Diagnosis 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 documented in this encounter [facility] note* Diagnosis 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 documented in this encounter [facility] note* Diagnosis 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 documented in this encounter [facility] note* Diagnosis 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 documented in this encounter [facility] for referral (narrative)* Outpatient Procedure (Routine) - Pending Review Specialty Diagnoses / Procedures Referred By Jassi t Referred To [facility] Diagnoses Preoperative examination Procedures ECG COMPLETE ECG ROUTINE ECG W/LEAST 12 LDS W/I&R Charlie Hays MD [address] [place] [address] [facility] [place] [facility] [place] [address] Referral ID Status Reason Start Date Expiration Date Visits Requested Visits Authorized [id number] Pending Review Auto-Generat ed Referral 09/21/2021 09/21/2022 1 1 [facility] Outpatient Procedure (Routine) - Pending Review Specialty Diagnoses / Procedures Referred By Jassi yoo Referred [facility] Diagnoses Preop examination Obstructive sleep apnea Class 3 severe obesity due to excess calories without serious comorbidity with body mass index (BMI) of 40.0 to 44.9 in adult (HCC) Traumatic complete tear of right rotator cuff, initial encounter Elevated BP without diagnosis of hypertension Primary hypertension Procedures ECG COMPLETE ECG ROUTINE ECG W/LEAST 12 LDS W/I&R Barb Mast PA-C [address] [place], [place] [id number] [facility] [address] [address] Referral ID Status Reason Start Date Expiration Date Visits Requested Visits Authorized [id number] Pending Review Auto-Generat ed Referral 09/27/2021 09/27/2022 1 1 [facility] Advance Directives No Advanced Directives Records FoundDocuments on File Type Date Recorded 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 Advance Directive(s) 10/01/2021 8:09 AM Documents on File Type Date Recorded 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 Advance Directive(s) 10/24/2021 10:15 AM Advance Directive(s) 10/01/2021 8:09 AM Documents on File Type Date Recorded 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 Advance Directive(s) 10/24/2021 10:15 AM Advance Directive(s) 10/01/2021 8:09 AM Summary Purpose Family History No Family History Records FoundNo Family History Records FoundNo Family History Records Found Reason for Referral Specialty Diagnoses / Procedures Referred By Jassi yoo Referred To Contact Diagnoses Traumatic complete tear of right rotator cuff, initial encounter Charlie Hays MD [address] [place] [address] Referral ID Status Reason Start Date Expiration Date Visits Re quested Visits Authorized [id number] Denied 1 1 Specialty Diagnoses / Procedures Referred By Jassi yoo Referred To Contact [facility] Diagnoses Traumatic complete tear of right rotator cuff, subsequent encounter S/P right rotator cuff repair Procedures CONSULT TO PHYSICAL THERAPY PHYSICAL THERAPY EVALUATION HIGH COMPLEX 45 MINS Charlie Hays MD [address] [place] [address] [facility] [address] [address] Referral ID Status Reason Start Date Expiration Date Visits Requested Visits Authorized [id number] Pending Review Auto-Generat ed Referral 12/07/2021 12/07/2022 1 1 Specialty Diagnoses / Procedures Referred By Contac t Referred To Contact [facility] Diagnoses S/P right rotator cuff repair Procedures CONSULT TO PHYSICAL THERAPY PHYSICAL THERAPY EVALUATION HIGH COMPLEX 45 MINS Charlie Hays MD [address] [place] [address] [address] Referral ID Status Reason Start Date Expiration Date Visits Requested Visits Authorized [id number] Pending Review Auto-Generat ed Referral 01/25/2022 01/25/2023 1 1 Specialty Diagnoses / Procedures Referred By Contac t Referred To Contact Neurology Diagnoses Blepharospasm Procedures CONSULT TO NEUROLOGY OFFICE/OUTPATIENT [facility] 60-74 MINUTES Donita Martinez MD [address] [place] [address] Referral ID Status Reason Start Date Expiration Date Visits Requested Visits Authorized [id number] Pending Review PCP Requested Referral 08/16/2022 08/16/2023 1 1 Specialty Diagnoses / Procedures Referred By Contac t Referred To Contact [facility] Diagnoses Blepharospasm Procedures PT REHAB FOLLOW UP ORDER THERAPEUTIC EXERCISES RE, EA [address] [address] [place] [address] [facility] [address] [address] Referral ID Status Reason Start Date Expiration Date Visits Requested Visits Authorized [id number] Pending Review PCP Requested Referral Auto-Generate d Referral 11/20/2022 02/18/2023 1 1 Medications Administered Section Active Administered Medications - up to 3 most recent administrations Medication Order MAR Action Action Date Dose Rate Site fluorescein-benoxinate 0.25-0.4 % 1 Drop (FLURESS) 1 Drop, BOTH EYES, DIRECTED, Starting on Fri07/05/22 at 0830, Until Fri07/05/22 at 2028, Administer for applanation tonometry. In the event of a Fluress shortage, administer Charito-Fluor 1 drop into both eyes as directed for applanation tonometry Given 07/05/2022 8:30 AM EST 1 Drop Active Administered Medications - up to 3 most recent administrations Medication Order MAR Action Action Date Dose Rate Site fluorescein-benoxinate 0.25-0.4 % 1 Drop (FLURESS) 1 Drop, BOTH EYES, DIRECTED, Starting on Fri08/02/22 at 1030, Until Fri08/02/22 at 222, Administer for applanation tonometry. In the event of a Fluress shortage, administer Charito-Fluor 1 drop into both eyes as directed for applanation tonometry, [facility] MED ORDERS Given 08/02/2022 10:30 AM EDT 1 Drop Additional Source Comments Source Comments (unrecognize d section and content) In the event this informatio n is protected by the Federal Confidentiality of Alcohol and Drug Abuse Patient Records regulations: The Federal rules restrict any use of the information to criminally investigate or prosecute any alcohol or drug abuse patient.[facility] event this information is protected by the Federal Confidentiality of Alcohol and Drug Abuse Patient Records regulations: The Federal rules restrict any use of the information to criminally investigate or prosecute any alcohol or drug abuse patient.[facility] event this information is protected by the Federal Confidentiality of Alcohol and Drug Abuse Patient Records regulations: The Federal rules restrict any use of the information to criminally investigate or prosecute any alcohol or drug abuse patient.[facility] event this information is protected by the Federal Confidentiality of Alcohol and Drug Abuse Patient Records regulations: The Federal rules restrict any use of the information to criminally investigate or prosecute any alcohol or drug abuse patient.[facility] event this information is protected by the Federal Confidentiality of Alcohol and Drug Abuse Patient Records regulations: The Federal rules restrict any use of the information to criminally investigate or prosecute any alcohol or drug abuse patient.[facility] the event this information is protected by the Federal Confidentiality of Alcohol and Drug Abuse Patient Records regulations: The Federal rules restrict any use of the information to criminally investigate or prosecute any alcohol or drug abuse patient.[facility] the event this information is protected by the Federal Confidentiality of Alcohol and Drug Abuse Patient Records regulations: The Federal rules restrict any use of the information to criminally investigate or prosecute any alcohol or drug abuse patient.[facility] the event this information is protected by the Federal Confidentiality of Alcohol and Drug Abuse Patient Records regulations: The Federal rules restrict any use of the information to criminally investigate or prosecute any alcohol or drug abuse patient.[facility] the event this information is protected by the Federal Confidentiality of Alcohol and Drug Abuse Patient Records regulations: The Federal rules restrict any use of the information to criminally investigate or prosecute any alcohol or drug abuse patient.[facility] the event this information is protected by the Federal Confidentiality of Alcohol and Drug Abuse Patient Records regulations: The Federal rules restrict any use of the information to criminally investigate or prosecute any alcohol or drug abuse patient.[facility] the event this information is protected by the Federal Confidentiality of Alcohol and Drug Abuse Patient Records regulations: The Federal rules restrict any use of the information to criminally investigate or prosecute any alcohol or drug abuse patient.[facility] event this information is protected by the Federal Confidentiality of Alcohol and Drug Abuse Patient Records regulations: The Federal rules restrict any use of the information to criminally investigate or prosecute any alcohol or drug abuse patient.[facility] the event this information is protected by the Federal Confidentiality of Alcohol and Drug Abuse Patient Records regulations: The Federal rules restrict any use of the information to criminally investigate or prosecute any alcohol or drug abuse patient.[facility] event this information is protected by the Federal Confidentiality of Alcohol and Drug Abuse Patient Records regulations: The Federal rules restrict any use of the information to criminally investigate or prosecute any alcohol or drug abuse patient.[facility] the event this information is protected by the Federal Confidentiality of Alcohol and Drug Abuse Patient Records regulations: The Federal rules restrict any use of the information to criminally investigate or prosecute any alcohol or drug abuse patient.[facility] the event this information is protected by the Federal Confidentiality of Alcohol and Drug Abuse Patient Records regulations: The Federal rules restrict any use of the information to criminally investigate or prosecute any alcohol or drug abuse patient.[facility] the event this information is protected by the Federal Confidentiality of Alcohol and Drug Abuse Patient Records regulations: The Federal rules restrict any use of the information to criminally investigate or prosecute any alcohol or drug abuse patient.[facility] the event this information is protected by the Federal Confidentiality of Alcohol and Drug Abuse Patient Records regulations: The Federal rules restrict any use of the information to criminally investigate or prosecute any alcohol or drug abuse patient.[facility] the event this information is protected by the Federal Confidentiality of Alcohol and Drug Abuse Patient Records regulations: The Federal rules restrict any use of the information to criminally investigate or prosecute any alcohol or drug abuse patient.[facility] the event this information is protected by the Federal Confidentiality of Alcohol and Drug Abuse Patient Records regulations: The Federal rules restrict any use of the information to criminally investigate or prosecute any alcohol or drug abuse patient.[facility] the event this information is protected by the Federal Confidentiality of Alcohol and Drug Abuse Patient Records regulations: The Federal rules restrict any use of the information to criminally investigate or prosecute any alcohol or drug abuse patient.[facility] the event this information is protected by the Federal Confidentiality of Alcohol and Drug Abuse Patient Records regulations: The Federal rules restrict any use of the information to criminally investigate or prosecute any alcohol or drug abuse patient.[facility] the event this information is protected by the Federal Confidentiality of Alcohol and Drug Abuse Patient Records regulations: The Federal rules restrict any use of the information to criminally investigate or prosecute any alcohol or drug abuse patient.[facility] the event this information is protected by the Federal Confidentiality of Alcohol and Drug Abuse Patient Records regulations: The Federal rules restrict any use of the information to criminally investigate or prosecute any alcohol or drug abuse patient.[facility] the event this information is protected by the Federal Confidentiality of Alcohol and Drug Abuse Patient Records regulations: The Federal rules restrict any use of the information to criminally investigate or prosecute any alcohol or drug abuse patient.[facility] the event this information is protected by the Federal Confidentiality of Alcohol and Drug Abuse Patient Records regulations: The Federal rules restrict any use of the information to criminally investigate or prosecute any alcohol or drug abuse patient.[facility] the event this information is protected by the Federal Confidentiality of Alcohol and Drug Abuse Patient Records regulations: The Federal rules restrict any use of the information to criminally investigate or prosecute any alcohol or drug abuse patient.[facility] the event this information is protected by the Federal Confidentiality of Alcohol and Drug Abuse Patient Records regulations: The Federal rules restrict any use of the information to criminally investigate or prosecute any alcohol or drug abuse patient.[facility] the event this information is protected by the Federal Confidentiality of Alcohol and Drug Abuse Patient Records regulations: The Federal rules restrict any use of the information to criminally investigate or prosecute any alcohol or drug abuse patient.[facility] the event this information is protected by the Federal Confidentiality of Alcohol and Drug Abuse Patient Records regulations: The Federal rules restrict any use of the information to criminally investigate or prosecute any alcohol or drug abuse patient.[facility] Care Teams (unrecognized sec tion and content) Associate Property Manager Relationship Specialty Start Date End Date Rula Herrera MD [address] [place] [address] PCP - General 08/13/00 Associate Property Manager Relationship Specialty Start Date End Date Rula Herrera MD [address] [place] [address] PCP - General 08/13/00 Associate Property Manager Relationship Specialty Start Date End Date Rula Herrera MD [address] [place] [address] PCP - General 08/13/00 Associate Property Manager Relationship Specialty Start Date End Date Rula Herrera MD [address] [place] [address] PCP - General Family Practice 09/28/21 Associate Property Manager Relationship Specialty Start Date End Date Rula Herrera MD [address] [place] [address] PCP - General Family Practice 09/28/21 Associate Property Manager Relationship Specialty Start Date End Date Rula Herrera MD [address] [place] [address] PCP - General Family Practice 09/28/21 Associate Property Manager Relationship Specialty Start Date End Date Rula Herrera MD [address] [place] [address] PCP - General Family Practice 09/28/21 Associate Property Manager Relationship Specialty Start Date End Date Rula Herrera MD [address] [place] [address] PCP - General Family Practice 09/28/21 Associate Property Manager Relationship Specialty Start Date End Date Rula Herrera MD [address] [place] [address] PCP - General Family Medicine 09/28/21 Associate Property Manager Relationship Specialty Start Date End Date Rula Herrera MD [address] [place] [address] PCP - General Family Medicine 09/28/21 Associate Property Manager Relationship Specialty Start Date End Date Rula Herrera MD [address] [facility] [place] [address] PCP - General Family Medicine 09/28/21 Associate Property Manager Relationship Specialty Start Date End Date Rula Herrera MD [address] [facility] [place] [address] PCP - General Family Medicine 09/28/21 Associate Property Manager Relationship Specialty Start Date End Date Rula Herrera MD [address] [facility] [place] [address] PCP - General Family Medicine 09/28/21 Associate Property Manager Relationship Specialty Start Date End Date Rula Herrera MD [address] [facility] [place] [address] PCP - General Family Medicine 09/28/21 Associate Property Manager Relationship Specialty Start Date End Date Rula Herrera MD PCP - General Family Medicine 09/28/21 Associate Property Manager Relationship Specialty Start Date End Date Rula Herrera MD PCP - General Family Medicine 09/28/21 Associate Property Manager Relationship Specialty Start Date End Date Rula Herrera MD PCP - General Family Medicine 09/28/21 Associate Property Manager Relationship Specialty Start Date End Date Rula Herrera MD PCP - General Family Medicine 09/28/21 Associate Property Manager Relationship Specialty Start Date End Date Rula Herrera MD PCP - General Family Medicine 09/28/21 Associate Property Manager Relationship Specialty Start Date End Date Rula Herrera MD PCP - General Family Medicine 09/28/21 Associate Property Manager Relationship Specialty Start Date End Date Rula Herrera MD PCP - General Family Medicine 09/28/21 Associate Property Manager Relationship Specialty Start Date End Date Rula Herrera MD PCP - General Family Medicine 09/28/21 Associate Property Manager Relationship Specialty Start Date End Date Rula Herrera MD PCP - General Family Medicine 09/28/21 Associate Property Manager Relationship Specialty Start Date End Date Rula Herrera MD PCP - General Family Medicine 09/28/21 Associate Property Manager Relationship Specialty Start Date End Date Rula Herrera MD PCP - General Family Medicine 09/28/21 Associate Property Manager Relationship Specialty Start Date End Date Rula Herrera MD PCP - General Family Medicine 09/28/21 Associate Property Manager Relationship Specialty Start Date End Date Rula Herrera MD PCP - General Family Medicine 09/28/21 Reason for Visit (unrecogniz ed section and content) Reason Comments PT Progress Note Physical Therapy Specialty Diagnoses / Procedures Referred By Jassi t Referred To Contact Physical Therapy / PHYSICAL THERAPY Diagnoses FMD Procedures NEW RS PT Michael Hatch MD [address] [place] [address] [place] [address] [place] [address] Referral ID Status Reason Start Date Expiration Date V isits Requested Visits Authorized [id number] Authorized 04/28/2022 04/27/2023 20 20 Reason Comments Physical Therapy Reason Comments New Patient Right Shoulder Specialty Diagnoses / Procedures Referred By Jassi yoo Referred To Contact ANESTHESIOLOGY Diagnoses ARTHROSCOPY SHOULDER ROTATOR CUFF [1113] - Shoulder - Right Procedures ARTHROSCOPY SHOULDER ROTATOR CUFF [1113] - Shoulder - Right Charlie Hays MD [address] [place] [address] [place] [address] Referral ID Status Reason Start Date Expiration Date Visits Requested Visits Authorized [id number] Waiting for Response OON/Self Pay Override 09/26/2021 09/27/2021 1 1 Reason Comments Results Elevated HGB A1C Reason Comments Preparations For Surgery Reason Onset Date Comments Refill Request 11/07/2021 Reason Comments Post Op Specialty Diagnoses / Procedures Referred By Jassi t Referred To Contact ORTHOPAEDIC SURGERY Diagnoses Strain of muscle(s) and tendon(s) of the rotator cuff of right shoulder, initial encounter post op DOS 10/25/21 surgery RT SHOULDER Procedures REFERRAL TO 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 Charlie Hays MD [address] [place] [phone] Teresa Birch, shipping lead person ID Status Reason Start Date Expiration Date Visits Re quested Visits Authorized [id number] Closed 11/07/2021 11/07/2021 1 1 Reason Comments Post Op Specialty Diagnoses / Procedures Referred By Contac t Referred To Contact ORTHOPAEDIC SURGERY Diagnoses Post op shoulder Procedures established right shoulder post op Charlie Hays MD [address] [place] [phone] [facility] [address] [place] [address] Referral ID Status Reason Start Date Expiration Date Visits Re quested Visits Authorized [id number] Closed 11/07/2021 12/07/2021 1 1 Specialty Diagnoses / Procedures Referred By Contac t Referred To Contact ORTHOPAEDIC SURGERY Diagnoses RIGHT SHOULDER PAIN Procedures POST/ FOLLOW UP Charlie Hays MD [address] [place] [address] [facility] [address] [place] [address] Referral ID Status Reason Start Date Expiration Date Visits Re quested Visits Authorized [id number] Closed 12/07/2021 03/07/2022 1 1 Reason Comments Established Patient Follow Up Pain Weakness Stiffness Specialty Diagnoses / Procedures Referred By Contac t Referred To Contact ORTHOPAEDIC SURGERY Diagnoses RIGHT SHOULDER PAIN Procedures POST/ FOLLOW UP Charlie Hays MD [address] [place] [address] [facility] [address] [place] [address] Reason Comments Established Patient Follow Up Pain Stiffness Weakness Specialty Diagnoses / Procedures Referred By Contact Referred To Contact [facility] Diagnoses Rotator cuff disorder, right Procedures FOLLOW-UP/REASSESSMEN T Charlie Hays MD [address] [place] [address] [facility] [place] [phone] Referral ID Status Reason Start Date Expiration Date Visits Requested Visits Authorized [id number] Pending Review OON/Self Pay Override Patient Cleared - Admin/Chair man/Directo r advise to proceed 05/06/2022 11/02/2022 1 1 Reason Comments Dry Eye Syndrome Follow Up Reason Comments Facial Myokymia Reason Comments Other chronic allergic conjunctivitis of both eyes 2-3 week follow up Dry Eye Syndrome Follow Up Reason Comments Conjunctivitis Follow Up Reason Comments Steroid induced glaucoma, 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 Dry eye syndrome of bilateral lacrimal g lands Reason Comments Follow Up Reason Comments Blepharospasm Follow Up Specialty Diagnoses / Procedures Referred By Contac t Referred To Contact Ophthalmology / OPHTHALMOLOGY Diagnoses Blepharospasm Discussed will need to submit for insurance approval and return once approved, usually takes ~1month 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 , up to 100 units Return 1 month for Botulinum toxin if dryness improved Procedures BOTULINUM TOXIN A PER 1 UNIT BOTOX Donita Shaffer MD [address] [place] [address] Donita Martinez MD [address] [facility] [place] [address] Referral ID Status Reason Start Date Expiration Date V isits Requested Visits Authorized [id number] Authorized 08/09/2022 04/27/2023 99 99 Reason Comments Patient Question Reason Comments Botox Injection 3mo: Blepharospasm s /p botox injection essential on 08/07/22 Specialty Diagnoses / Procedures Referred By [facility] Referred To Contact Ophthalmology / OPHTHALMOLOGY Diagnoses Blepharospasm Discussed will need to submit for insurance approval and return once approved, usually takes ~1month 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 , up to 100 units Return 1 month for Botulinum toxin if dryness improved Procedures BOTULINUM TOXIN A PER 1 UNIT BOTOX Donita Shaffer MD [address] [place] [address] Donita Martinez MD [address] [facility] [place] [address] Reason Comments PT Eval Specialty Diagnoses / Procedures [facility] To Contact Physical Therapy / PHYSICAL THERAPY Diagnoses FMD Procedures NEW RS PT FND Andrew, Michael, MD [address] [place] [address] [place] [address] [place] [address] Reason Comments Consult Specialty Diagnoses / Procedures Referred By Contac t Referred To Contact Psychology / NEUROLOGICAL CATHOLIC Diagnoses 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 Procedures OFFICE/OUTPATIENT NEW MODERATE MDM 45-59 MINUTES NEW PSYL HEADACHE/MOVEMENT Self Marianoiah, PSYD [address] [place] [id number] Referral ID Status Reason Start Date Expiration Date Visits Re quested Visits Authorized [id number] Closed 11/20/2022 04/27/2023 1 1 Reason Comments Letter (unrecognized sect ion and content) No Status Records FoundNo Status Records FoundNo Status Records Found INFORMATION SOURCE (unrecogn ized section and content) DATE CREATED AUTHOR 10/27/2021 [facility] DATE CREATED AUTHOR AUTHOR'S ORGANIZ ATION 07/10/2022 [facility] DATE CREATED AUTHOR AUTHOR'S ORGANIZ ATION 05/02/2023 [facility] FOR RECORDS PERTAINING TO PATIENTS WHO ARE OR HAVE BEEN ENROLLED IN A CHEMICAL DEPENDENCY/SUBSTANCEABUSE PROGRAM, SOME INFORMATION MAY BE OMITTED. This clinical summary was aggregated from multiple sources. Caution should be exercised in using it in the provision of clinical care. This summary normalizes information from multiple sources, and as a consequence, information in this document may materially change the coding, format and clinical context of patient data. In addition, data may be omitted in some cases. CLINICAL DECISIONS SHOULD BE BASED ON THE PRIMARY CLINICAL RECORDS. [facility] [facility]. provides no warranty or guarantee of the accuracy or completeness of information in this document.
== END 2023-05-20 13:29 | disposition home or self-care (01) ==
LOC: VC 13:29
PROVIDERS: PCP Family Medicine; Visit Provider Family Medicine
DX: I83.813 Varicose veins of bilateral lower extremities with pain (principal)
CPT/HCPCS: 93970; G0463

== ENCOUNTER 2023-06-18 12:51 | Outpatient (OUT) | payer OTHER, SELFPAY ==
--- NOTE | 2023-06-18 12:54 | VEIN_ITS ---
[address] [address] Patient Name: CHRISTOPHER FARRELL MRN: [id number] date: 1970 Sex: M Assigned Patient Location: Current Patient Location: Accession/Order Number: [id number] Exam Date: 06/18/2023 13:00 Report Date: 06/18/2023 14:32 At the request of: TORIE FOLEY Procedure: VC Endovenous Ablation 1VeinLT EXAMINATION: VC Endovenous Ablation 1VeinLT HISTORY: Pain due to varicose veins of bilateral legs I83.813 The risks and benefits of the procedure had been previously discussed, and were rediscussed at length. Informed written consent was obtained. Seamus Carter RN and Celina Stafford RDMS assisted. Time out procedure was performed. The left lower extremity was prepared and draped in the usual sterile fashion to allow knee flexion in the sterile field. Duplex ultrasound probe was draped in a sterile cover, sterile transmission gel was used. Venous mapping was performed with the areas of dilation and large tributaries marked. The total length was 16 cm from the entry 4 cm above the ankle to 3 cm below the Saphenofemoral junction. The diameter of the left great saphenous vein ranged from 8.4 mm. A 30 gauge needle and 1% buffered lidocaine was used to anesthetize the entry site. A 4 mm incision was made with a scalpel and the saphenous vein was entered percutaneously under direct ultrasound guidance with a micropuncture set, a single stick was successful in gaining access. A micro-guide wire was inserted and the needle removed. A micro-set including a dilator was inserted over the microwire and the needle and dilator were removed. A guide wire was inserted through the micro-set and guided through the saphenous vein to the saphenofemoral junction. The dilator was removed and an introducer sheath was inserted over the wire until the end of the sheath entered the saphenofemoral junction. The dilator and wire were removed and the 600 micron fiber was introduced and placed and positioned so that it extended beyond the sheath and was 3 cm distal to the saphenofemoral or saphenopopliteal junction. Final position of the fiber was determined by ultrasound guidance and duplex imaging. Tumescent anesthetic was delivered by ultrasound guidance. 300 cc of fluid was delivered along the entire course of the saphenous vein. The solution consisted of 1000 cc of normal saline with 40 mL of 1% lidocaine and 20 mL of sodium bicarbonate. A final positioning check was made. The energy source was turned on by means of the foot pedal and the fiber and sheath were withdrawn. The total number of Joules delivered was 3380. The laser was active for 423 seconds under continuous pulse, average laser use of 8 J. Laser start time 2:11 PM, 06/18/2023. Laser stop time 2:20 PM, 06/18/2023. A duplex ultrasound revealed compressibility and flow at the saphenofemoral junction immediately after the procedure. Hemostasis at the access site was achieved. The skin incision of the saphenous vein was closed with a 4 x 4. A compression stocking was applied. Postop instructions were given. A follow up appointment was recommended and scheduled. The patient tolerated the procedure well. Electronically authenticated by: RED QUINONEZ Date: 06/18/2023 14:32
[2023-06-18] MEDS: 0.9 % SODIUM CHLORIDE 500 ML, LIDOCAINE HCL 20 ML, SODIUM BICARBONATE 10 MEQ INJ (13:01)
[2023-06-18] MEDS: LIDOCAINE HCL 1% 100 MG/10 ML MDV INJ (13:02)
== END 2023-06-18 12:52 | disposition home or self-care (01) ==
LOC: VC 12:51
PROVIDERS: PCP Family Medicine; Visit Provider Radiology Diagnostic Radiology
DX: I83.813 Varicose veins of bilateral lower extremities with pain (principal)
CPT/HCPCS: 36478

== ENCOUNTER 2023-06-24 13:37 | Outpatient (OUT) | payer OTHER, SELFPAY | END 2023-06-24 13:38 | disposition home or self-care (01) | LOC: PST 13:37 | PROVIDERS: Visit Provider Surgery | DX: Z12.11 Encounter for screening for malignant neoplasm of colon (principal) ==

== ENCOUNTER 2023-06-25 14:20 | Outpatient (OUT) | payer OTHER, SELFPAY ==
--- NOTE | 2023-06-25 14:22 | VEIN_ITS ---
Patient Name: CHRISTOPHER FARRELL MR#: [id number] : 1970 Exam Date: 06/25/2023 Ordering Doctor: DR FERNANDO MIGUEL M.D. RADIOLOGY REPORT PROCEDURE: VC FACILITY EST LMTD VEIN CENTER - OFFICE VISIT FOLLOW UP COMPARISON: None. PROGRESS NOTES: The patient reports no significant problems following intravenous laser ablation of the left great saphenous vein. The patient did not require oral analgesics. The patient has worn his compression stockings as directed. The patient has tried exercise to the best of his ability in the weather. Physical exam demonstrates moderate bruising in the medial left thigh likely related to tumescence injection. Thrombosed left great saphenous vein can be palpated. The incision is healed. No areas of erythema or warmth to suggest cellulitis or thrombophlebitis. No active ulceration Review of the ultrasound performed the same day demonstrates occlusive thrombus extending throughout the treated left great saphenous vein with heat induced thrombus 2.3 cm in the saphenofemoral junction. No deep vein thrombus. The patient expressed a desire to proceed with treatment of incompetent right great saphenous vein with intravenous laser ablation. VEIN/VC Facility EST LMTD IMPRESSION: 1. Successful ablation of the left great saphenous vein 2. Persistent incompetent right great saphenous vein. PLAN: Intravenous laser ablation right great saphenous vein Nurse notes, history and physical were reviewed and confirmed, see attached forms. The nurse was present throughout the physical exam and consultation Dictated by: Fernnado Miguel MD on 06/25/2023 at 14:57 Approved by: Fernando Miguel MD on 06/25/2023 at 14:58
--- NOTE | 2023-06-25 14:22 | VEIN_ITS ---
Patient Name: CHRISTOPHER FARRELL MR#: [id number] : 1970 Exam Date: 06/25/2023 Ordering Doctor: DR FERNANDO MIGUEL M.D. RADIOLOGY REPORT PROCEDURE: VC EXT VENOUS LT LIMITED COMPARISON: None. INDICATIONS: Phlebitis of superficial veins of left lower extremity I80.02 TECHNIQUE: Lower extremity kothari scale and Duplex Doppler evaluation of the deep venous system from the inguinal ligament through the calf veins. FINDINGS: REGION: Left lower extremity. THROMBI: Positive for DVT. 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 Heat induced thrombus in left GSV 2.3 cm from SFJ and extends to distal lower leg. COMPRESSIBILITY: Non-compressible segments corresponding to thrombus FLOW: Areas of no flow corresponding to thrombus CONCLUSION: Post ablation occlusion of the treated left great saphenous vein with heat induced thrombus 2.3 cm from the saphenofemoral junction. No deep vein thrombus Dictated by: Fernando Miguel MD on 06/25/2023 at 14:46 Approved by: Fernando Miguel MD on 06/25/2023 at 14:47
== END 2023-06-25 14:21 | disposition home or self-care (01) ==
LOC: VC 14:20
PROVIDERS: Visit Provider Radiology Diagnostic Radiology
DX: I80.02 Phlebitis and thrombophlebitis of superficial vessels of left lower extremity (principal)
CPT/HCPCS: 93971; G0463

== ENCOUNTER 2023-07-02 07:53 | Day surgery (SDC) | payer OTHER, SELFPAY ==
--- NOTE | 2023-07-02 | OP_ITS ---
OPERATION DATE: 07/02/2023 PREOPERATIVE DIAGNOSIS: Colorectal screening. POSTOPERATIVE DIAGNOSIS: Normal colonoscopy to cecum. PROCEDURE: Colonoscopy to cecum. SURGEON: Eric Shepard M.D. ANESTHESIA: Monitored anesthesia care. ESTIMATED BLOOD LOSS: Zero. INDICATIONS AND CONSENT: Patient is a 52-year-old male, presents for colorectal screening. Indications, risks, benefits, alternatives of proceeding with colonoscopy were explained extensively to the patient, including the risks of bleeding, colon perforation or anesthetic complications. All of his questions were answered. Informed consent was obtained. PROCEDURE: Patient brought to the operating room, placed in the left lateral decubitus position. Monitored anesthesia care was provided. Patient?s Eliquis had been held three days prior. Rectal exam was performed which showed no masses or blood. The scope was inserted into the anal canal. Under direct visualization was advanced. With the aid of abdominal compression, it was advanced to the cecum, where cecal markings were clearly identified. There was noted to be a good prep. Upon withdrawal of the scope, mucosal surfaces were carefully examined. There were no mass lesions or inflammatory changes. No significant diverticulosis. The scope was retroflexed in the anal canal. There was no significant hemorrhoidal disease. Scope was then withdrawn. Patient tolerated procedure well, was sent to recovery room in good condition. f/u screening colonoscopy in 10 years. CC: Patient?s family physician ANU
--- OUTSIDE RECORDS SUMMARY | 2023-07-02 07:57 | XMS_ITS | CCD ---
Author Name Unknown Address [address] [place] [address] Organization [facility] Care Team Providers Care [place] Name Role Phone Rula Herrera MD Primary Care Provider [phone] RULA HERRERA Primary Care Unavailable MISC, DR SOTO Attending [...] WAKEFIELD Attending Unavailable KRISTINA WAKEFIELD Admitting Unavailable HOY RULA Attending Unavailable HOY, RULA Admitting Unavailable HOY, RULA Primary Care Unavailable HOY, RULA Consulting Unavailable Red Quinonez Consulting Unavailable HOY, RULA Primary Care Unavailable Red Quinonez Consulting Unavailable DENAE CONTRERAS Attending Unavailable DENAE CONTRERAS Admitting Unavailable DENAE CONTRERAS Consulting Unavailable Rula Herrera MD Primary Care Provider [phone] Rula Herrera Primary Care Physician [phone] Stewart MAY Attending Unavailable Delroy Herreralas Referring Unavailable QUINTON, AFIAH Attending Unavailable RULA HERRERA Primary Care Unavailable KMARAN, MICHAEL Referring Unavailable RULA HERRERA Primary Care Unavailable QUINTON, AFIAH Attending Unavailable RULA HERRERA Primary Care Unavailable QUINTON, AFIAH Attending Unavailable RULA HERRERA M Primary Care Unavailable ANDREW, MICHAEL Referring Unavailable HOY, RULA M Primary Care Unavailable MEGHA LEGGETT Attending Unavailable ANDREW, MICHAEL Referring Unavailable HOY, RULA M Primary Care Unavailable ANDREW, MICHAEL Referring Unavailable HOY, RULA M Primary Care Unavailable ANDREW, MICHAEL Referring Unavailable HOY, RULA M Primary Care Unavailable ANDREW, MICHAEL Referring Unavailable HOY, RULA M Primary Care Unavailable HASNIE, AFIAH Referring Unavailable HASNIE, AFIAH Attending Unavailable HOY, RULA M Primary Care Unavailable WADE, STEWART R Referring Unavailable HOY, RULA M Primary Care Unavailable STEWART BRISENO R Attending Unavailable MARTINEZ, DONITA Referring Unavailable MARTINEZ, DONITA Attending Unavailable HOY, RULA M Primary Care Unavailable WADE, STEWART R Referring Unavailable HOY, RULA M Primary Care Unavailable WADE, STEWART R Attending Unavailable AGAPITO RUANO Attending Unavailable HOY, RULA M Primary Care Unavailable MARTINEZ, DONITA Referring Unavailable MARTINEZ, DONITA Attending Unavailable HOY, RULA M Primary Care Unavailable WADE, STEWART R Referring Unavailable STEWART BRISENO R Attending Unavailable HOY, RULA M Primary Care Unavailable WADE, STEWART R Referring Unavailable MARTINEZ, DONITA Attending Unavailable HOY, RULA M Primary Care Unavailable WADE, STEWART R Referring Unavailable AWDE, STEWART R Attending Unavailable HOY, RULA M Primary Care Unavailable Allergies Allergy Classification Reported Allergen(s) Allergy Type Date of Onset Reaction(s) Facility (20 sources) Bee Venom Protein (Honey Bee); Translations: [BEE VENOM PROTEIN (HONEY BEE)] Drug Allergy 7 Swelling, Shortness of Breath [facility] Work Phone: (1 source) bee venom Drug allergy (disorder) 7 [facility] Repository (1 source) No Known Medication Allergies; Translations: [No Known Medication Allergies] Propensity to adverse reactions (disorder) [facility] Repository Medications Current Medications Medication Drug Class(es) Dates Sig (Normalized) Sig (Original) apixaban 5 mg oral tablet (17 sources) Factor Xa Inhibitor Start: 05-28-2023 take 1 tablet by mouth twice daily Eliquis 5 mg oral tablet 5 mg = 1 tab(s), Oral, BID, Refills(s) 0 Start Date: 05/28/23 Status: Ordered Start: 05-27-2022 take 1 tablet by omari th twice daily ELIQUIS 5 mg tab(s) Take 5 mg by mouth twice daily. 0 05/27/2022 Active Comment on above: Take 5 mg by mouth t wice daily. benoxinate hydrochloride 4 mg/ml / fluorescein sodium 2.5 mg/ml ophthalmic solution (6 sources) Diagnostic Dye Start: 08-02-2022 End: 08-02-2022 fluorescein-benoxi sary 0.25-0.4 % 1 Drop (FLURESS) Start: 07-19-2022 End: 07-19-2022 fluorescein-benoxinate 0.25- 0.4 % 1 Drop (FLURESS) Start: 07-05-2022 End: 07-05-2022 fluorescein-benoxinate 0.25- 0.4 % 1 Drop (FLURESS) Start: 06-17-2022 End: 06-17-2022 fluorescein-benoxinate 0.25- 0.4 % 1 Drop (FLURESS) cyclobenzaprine hydrochloride 10 mg oral tablet (17 sources) Muscle Relaxant Start: 05-28-2023 take 1 tablet by mouth three times daily as needed for muscle spasms cyclobenzaprine 10 mg Tab 10 mg = 1 tab(s), Oral, TID, PRN for spasm, Refills(s) 0 Start Date: 05/28/23 Status: Ordered Start: 06-13-2022 take 1 tablet by omari th three times daily cyclobenzaprine (FLEXERIL) 10 mg tablet Take 10 mg by mouth three times daily. 0 06/13/2022 Active Comment on above: Take 10 mg by mouth three times daily. diclofenac sodium 75 mg delayed release oral tablet (17 sources) Nonsteroidal Anti-inflammatory Drug Start: take 1 tablet by mouth twice daily diclofenac sodium 75 mg Oral EC Tab 75 mg = 1 tab(s), Oral, BID, Refills(s) 0 Start Date: 05/28/23 Status: Ordered Start: 03-18-2022 take 1 tablet by omari th twice daily diclofenac, EC, (VOLTAREN) 75 mg EC tablet Take 75 mg by mouth twice daily. 0 03/18/2022 Active Comment on above: Take 75 mg by mouth twice daily. docusate sodium 100 mg oral capsule (2 sources) Start: 2 End: 2 take 1 capsule by mouth twice daily docusate sodium (COLACE) 100 mg capsule Take 1 capsule by mouth twice daily for 15 days. 30 capsule 0 10/25/2021 11/09/2021 Active Comment on above: Take [address] [facility] twice daily for 15 days. fenofibrate 145 mg oral tablet (1 source) Peroxisome Proliferator Receptor alpha Agonist Start: 4 take 1 tablet by mouth once daily TriCor 145 mg Tab 145 mg = 1 tab(s), Oral, Daily, Refills(s) 0 Start Date: 05/28/23 Status: Ordered glimepiride 4 mg oral tablet (17 sources) Sulfonylurea Start: 4 take 1 tablet by mouth once daily glimepiride 4 mg Tab 4 mg = 1 tab(s), Oral, Daily, Refills(s) 0 Start Date: 05/28/23 Status: Ordered Start: 05-03-2022 take [address] [facility] once daily glimepiride (AMARYL) 4 mg tablet Take 8 mg by mouth once daily. 0 05/03/2022 Active Comment on above: Take 8 mg by mouth o nce daily. lisinopril 40 mg oral tablet (20 sources) Angiotensin Converting Enzyme Inhibitor Start: 05-28-2023 take 1 tablet by mouth once daily lisinopril 40 mg Tab 40 mg = 1 tab(s), Oral, Daily, Refills(s) 0 Start Date: 05/28/23 Status: Ordered Start: 07-27-2021 take 1 tablet by omari once daily lisinopril (ZESTRIL, PRINIVIL) 40 mg tablet Take 40 mg by mouth once daily. 0 07/27/2021 Active Comment on above: Take 40 mg by mouth once daily. metFORMIN hydrochloride 500 mg oral tablet (17 sources) Biguanide Start: 05-28-2023 take 1 tablet by mouth twice daily metformin 500 mg Tab 500 mg = 1 tab(s), Oral, BID, Refills(s) 0 Start Date: 05/28/23 Status: Ordered Start: 06-13-2022 take 1 tablet by omari twice daily metFORMIN (GLUCOPHAGE) 500 mg tablet Take 500 mg by mouth twice daily. 0 06/13/2022 Active Comment on above: Take 500 mg by mouth twice daily. SITagliptin 100 mg oral tablet (1 source) Dipeptidyl Peptidase 4 Inhibitor Start: 05-28-2023 take 1 tablet by mouth once daily Januvia 100 mg Tab 100 mg = 1 tab(s), Oral, Daily, Refills(s) 0 Start Date: 05/28/23 Status: Ordered Completed/Discontinued Medications Medication Drug Class(es) Dates Sig (Normalized) Sig (Original) aspirin 81 mg delayed release oral tablet (7 sources) Platelet Aggregation Inhibitor, Nonsteroidal Anti-inflammatory Drug Start: 10-25-2021 End: 06-17-2022 take 1 tablet by mouth twice daily aspirin, enteric coated (ECOTRIN LOW STRENGTH) 81 mg EC tablet Take 1 tablet by mouth twice daily for 14 days. 28 tablet 0 10/25/2021 06/17/2022 Discontinued (Course of therapy completed) Comment on above: Take 1 tablet by omari twice daily for 14 days. cycloSPORINE (14 sources) Calcineurin Inhibitor Immunosuppressant cyclosporine (RESTASIS OPHTHALMIC) Use in eyes. 0 Active Comment on above: Use in eyes. dexamethasone 1 mg/ml / neomycin 3.5 mg/ml / polymyxin b 72910 unt/ml ophthalmic suspension (3 sources) Aminoglycoside Antibacterial, Polymyxin-class Antibacterial, Corticosteroid Start: 05-02-2022 End: 07-19-2022 take 1 drop(s) into the eye(s) three times daily NEOMYCIN-POLYMYXI N-DEXAMETH 3.5 MG/ML-10,000 UNIT/ML-0.1% EYE DROPS INSTILL 1 DROP INTO EACH EYE 3 TIMES DAILY 0 05/02/2022 07/19/2022 Discontinued (Course of therapy completed) Comment on above: INSTILL 1 DROP INTO EACH EYE 3 TIMES DAILY erythromycin 0.005 mg/mg ophthalmic ointment (3 sources) Macrolide, Macrolide Antimicrobial Start: 06-07-2022 End: 07-19-2022 erythromycin (ROMYCIN) 5 mg/gram (0.5 %) ophthalmic [...] 0 Active Comment on above: once daily. latanoprost 0.05 mg/ml ophthalmic solution (7 sources) Prostaglandin Analog Start: 07-19-2022 take 1 drop(s) into the eye(s) once daily latanoprost (XALATAN) 0.005 % ophthalmic solution Use 1 Drop in both eyes once daily. 2.5 mL 1 07/19/2022 Active Comment on above: Use 1 Drop in both e yes once daily. MULTI-VITAMIN ORAL (20 sources) MULTI-VITAMIN ORAL Take by mouth. Taking 3 a day 0 Active Comment on above: Take by mouth. Takin g 3 a day naproxen sodium 220 mg oral capsule (20 sources) Nonsteroidal Anti-inflammatory Drug naproxen sodium 220 mg cap Take by mouth as needed. 0 Active Comment on above: Take by mouth as nee ded. olopatadine (14 sources) Histamine-1 Receptor Inhibitor olopatadine HCl ([facility] OPHTHALMIC) Use in eyes. 0 Active Comment on above: Use in eyes. oxyCODONE hydrochloride 5 mg oral tablet (6 sources) Opioid Agonist Start: 11-07-2021 End: 06-17-2022 take 1 tablet by mouth every eight [...] oral tablet (14 sources) Opioid Agonist Start: 08-23-2011 End: 06-17-2022 take 1 tablet by mouth every eight [...] [Adjustment disorder, unspecified] Onset: 02-18-2023 12-09-2022 Chronic Anxiety disorders (1 source) Anxiety 05-28-2023 Chronic Diabetes mellitus with complications (20 sources) Diabetes mellitus; Translations: [Type 2 diabetes mellitus with hyperglycemia] Onset: 09-28-2021 09-28-2021 Chronic Disorders of lipid metabolism (1 source) Hyperlipidemia 05-28-2023 Chronic Essential hypertension (20 sources) Essential hypertension; Translations: [Essential (primary) hypertension] Onset: 09-27-2021 Chronic Glaucoma (18 sources) Corticosteroid-induc ed glaucoma; 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, bilateral, stage unspecified] Onset: 07-19-2022 Chronic Gout and other crystal arthropathies (1 source) Gout 05-28-2023 Chronic Inflammation; infection of eye (except that [...] conditions (1 source) Blepharospasm; Translations: [Blepharospasm] Onset: 03-10-2023 Chronic Other nutritional; endocrine; and metabolic disorders (1 source) Severe obesity; Translations: [Morbid (severe) obesity due to excess calories] Chronic Other nutritional; endocrine; and metabolic disorders (20 sources) Obesity; Translations: [Obesity, unspecified] Onset: 09-27-2021 09-27-2021 Chronic Other nutritional; endocrine; and metabolic disorders (2 sources) Body mass index 40+ - severely obese; Translations: [Body mass index (BMI) 40.0-44.9, adult] Onset: 06-17-2023 Chronic Other nutritional; endocrine; and metabolic disorders (1 source) Morbid obesity Onset: 09-27-2021 06-17-2023 Chronic Other screening for suspected conditions (not mental disorders or infectious disease) (1 source) Screening for malignant neoplasm of colon done; Translations: [Encounter for screening for malignant neoplasm of colon] Onset: 06-17-2023 Episodic Phlebitis; thrombophlebitis and thromboembolism (20 sources) H/O: Deep vein thrombosis; Translations: [Personal history of other venous thrombosis and embolism] Onset: 09-27-2021 Episodic Residual codes; unclassified (20 sources) Obstructive sleep apnea syndrome; Translations: [Obstructive sleep apnea (adult) (pediatric)] Onset: 09-27-2021 Chronic Residual codes; unclassified (3 sources) Obstructive sleep apnea (adult) (pediatric); Translations: [OBSTRUCTIVE SLEEP APNEA] Onset: 07-09-2022 Chronic Thyroid disorders (20 sources) Nodular goiter ; Translations: [Nontoxic goiter, unspecified] Onset: 09-27-2021 Chronic Unclassified (2 sources) Patient encounter status 05-28-2023 Varicose veins of lower extremity (1 source) Varicose veins of lower extremity 05-28-2023 Episodic Past or Other Problems Problem Classification Problem Date Documented Date Episodic/Chronic E Codes: Adverse effects of medical [...] sweating; Translations: [Generalized hyperhidrosis] Onset: 09-27-2021 Episodic Residual codes; unclassified (16 [...] Test Name Value Interpretation Reference Range Facility Insurance Correspondenceon 0 06-20-2023 Insurance Correspondence [id number]. 00TIFF [facility] Consent for Procedure/Surger yon 06-19-2023 Consent for Procedure/Surgery [id number]. 00TIFF [facility] Formson 06-19-2023 Forms [id number]#1.0 0[facility]FF [facility] Facesheeton 06-18-2023 Facesheet [id number]#1.0 0TIFF [facility] Ambulatory Visit Summaryon 0 06-17-2023 Ambulatory Visit Summary GONZALES FARRELL :1970 Visit Date:06/17/2023 Ambulatory Visit Instructions Your Diagnosis Screening for malignant neoplasm of colon BMI 40.0-44.9, adult Your Care Team Attending Physician - LALO JARAMILLO, Stewart Gibbs Primary Care Physician - Rula Herrera MD Referring Physician - Rula Herrera MD This Is Your Medications List apixaban (Eliquis 5 mg oral tablet) cyclobenzaprine (cyclobenzaprine 10 mg Tab) diclofenac (diclofenac sodium 75 mg Oral EC Tab) fenofibrate (TriCor 145 mg Tab) glimepiride (glimepiride 4 mg Tab) lisinopril (lisinopril 40 mg Tab) metformin (metformin 500 mg Tab) sitagliptin (Januvia 100 mg Tab) Procedures Performed Amputation of finger of left hand, Appendectomy, Carpal tunnel release, History of repair of musculotendinous cuff of shoulder, Rotator cuff repair, Tonsillectomy and adenoidectomy, Vasectomy. Discharge Vitals Heart Rate (Peripheral) 70 Respiratory Rate 16 Blood Pressure 122/66 Height 177.8 cm Height 70 in Weight 138 kg Weight 303.6 lb BMI 43.65 Medications What How Much When Instructions Unchanged apixaban (Eliquis 5 mg oral tablet) 1 Tablets By Mouth 2 times a day Unchanged cyclobenzaprine (cyclobenzaprine 10 mg Tab) 1 Tablets By Mouth 3 times a day as needed for for spasm Unchanged diclofenac (diclofenac sodium 75 mg Oral EC Tab) 1 Tablets By Mouth 2 times a day Unchanged fenofibrate (TriCor 145 mg Tab) 1 Tablets By Mouth Every day Unchanged glimepiride (glimepiride 4 mg Tab) 1 Tablets By Mouth Every day Unchanged lisinopril (lisinopril 40 mg Tab) 1 Tablets By Mouth Every day Unchanged metformin (metformin 500 mg Tab) 1 Tablets By Mouth 2 times a day Unchanged sitagliptin (Januvia 100 mg Tab) 1 Tablets By Mouth Every day Medications and Immunizations Administered Not Given influenza virus vaccine, inactivated, Patient Refuses Allergies No Known Allergies No Known Medication Allergies Problems Ongoing - Any problem that you are currently receiving treatment for. Anxiety BMI 40.0-44.9, adult Corticosteroid-induced open angle glaucoma Diabetes mellitus Essential hypertension Gout History of DVT (deep vein thrombosis) Hyperlipidemia Hypertensive disorder Lumbosacral neuritis Morbid obesity Nodular goiter Obstructive sleep apnea syndrome Screening for colorectal cancer Screening for malignant neoplasm of colon Varicose veins of lower extremity Patient Survey You may receive a survey via text or e-mail asking about your office visit. Please share your experience with us by completing your survey. We appreciate your feedback and thank you for choosing us for your care. 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 Taking 3 tablet a day Normal [facility] Aracelis 12-26-2022 KANN Telephone (NREUS2) GONZALES FARRELL ([id number]) 1970 Date Time Provider Department 12/26/22 MICHAEL ANDREW NREUS2 During your visit today, we recorded the following information about you: [facility] 12/26/2022 12:13 PM Signed NI PHONE Name of caller : Clinton Farrell Relationship to patient : Self If not self Will need patient permission to release results or disclose health information with called documented in . Was permission obtained from patient ? Yes Patient identified by Name and Date of . ( Gonzales Farrell, 1970). Yes Reason for Call : Request letter stating diagnosis and why he's not able to see be faxed to [phone]/Attn: Sheron @ [facility] re: disability. Please cc: Dr. Rula Herrera (PCP) on letter and fax to Dr. Herrera at [phone]. Number to return call [phone] Okay to leave a message ? Yes Last office visit 09/18/[address] Gilmar Andrew Next office visit not scheduled (only FMD appts w/Dr. Alcantara) Thank you calling [facility] You will receive a return call within [...] Encounter Status:Closed by SANDY RATLIFF on 12/27/22 [facility] CNTHERAPYon 12-24-2022 CNTHERAPY OT/PT/Speech Visit (PTAVTC) GONZALES FARRELL ([id number]) 1970 M Date Time Provider Department 12/24/22 [...] Vonnie Connolly, PT Referring Provider: MICHAEL ANDREW [[id number]] Allergies As of Date: 12/24/2022 Noted Allergy Reaction BEE VENOM PROTEIN (HONEY BEE) 01/27/2017 7 - Swelling 12 - Shortness of Breath Date Reviewed: 09/18/2022 Reviewed by: Rigo Howe MA - Fully Assessed Reason for Visit: Physical Therapy [503] Primary Visit Diagnosis:Blepharospas m [G24.5] 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 Taking 3 tablet a day Normal [facility] CNOVon 11-20-2022 CNOV Office Visit (NREUS2 ) GONZALES FARRELL ([id number]) 1970 M Date Time Provider Department 11/20/22 3:00 PM PERRY ALCANTARA NREUS2 During your visit today, we recorded the following information about you: Perry Alcantara PSYD 12/09/2022 10:05 PM Signed [facility] Clinical Health Psychology Evaluation Time of Service: 3:00 pm to 4:00 pm CPT Code: 04452 - Health AND Behavior Assessment Billing Code: Loryguru The patient was informed that this interview [...] who was referred by Dr. Andrew from [facility] as part of a multi-disciplinary evaluation for a functional movement disorder. He presents with a history of involuntary movement symptoms. Sx include eye closure/blepharospasm. Symptom onset: 2022 Social History: Mr. 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 [facility] 3 [facility]OPHTIN) GONZALES FARRELL ([id number]) 1970 M Date Time Provider Department 08/16/22 DONITA MARTINEZ During your visit today, we recorded the following information about you: Flavia Clement 08/16/2022 1:07 PM Signed Patient was seen on 08/09/22 and states that there is no change in his eyes. In fact he seems to think that they are worse and wants to know what should he do? Please Advise, ~Flaviavanesa Chen [facility] 08/16/2022 1:17 PM Signed I spoke with him and he will come in today at 3:30. Appt sent to be scheduled. Flavia Clement 08/19/2022 2:41 PM Signed Brianda Gustavo Kirk 3 days ago HS I spoke with him and he will come in today at 3:30. Appt sent to be scheduled. Note Donita Martinez MD You; Yvon Espinal APRN.MEDICAL FIELD REPRESENTATIVE; Parvin Bhatia MD; Brianda [facility]; Muna Apple PA-C [...] Fully Assessed Reason for Visit: Patient Question [7739] Prescriptions as of 08/19/2022 - cyclosporine (RESTASIS [...] Status:Closed by BRIANDA DE JESUS [facility] GONZALES FARRELL ([id number]) 1970 M Date Time Provider Department 08/16/22 DONITA MARTINEZ During your visit today, we recorded the following information about you: Kaye Gaston, PSS 08/16/2022 12:15 PM Signed Patient called in and stated that his employer is requesting a letter to remain off of work due to still have systems after first Botox visit on 08/09/2022. Employer's contact info is Admeld Attn: Josue Castellon Allergies As of Date: 08/16/2022 Noted Allergy Reaction BEE VENOM PROTEIN (HONEY BEE) 01/27/2017 7 - Swelling 12 - Shortness of Breath Date Reviewed: 08/09/2022 Reviewed by: Donita Martinez MD - Fully Assessed Reason for Visit: Patient Question [6627] Prescriptions as of 08/16/2022 - cyclosporine (RESTASIS [...] 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, *07/19/2022 Encounter Status:Closed by GUSTAVO SAL BRIANDA [facility] 08/16/22 [facility] CNPN Telephone (OPHTMN) GONZALES FARRELL ([id number]) 1970 M Date Time Provider Department 07/30/22 [...] go for his appt on 08/09 in [place]? 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 Buck Recc art tears four [...] of the first month. Can also try melisas colored glasses; Where can I get the FL-41 filter? Any [facility] location, (with an optical shop), throughout [place], Email: [email or web address] [employer] in [place], [place], [facility] in [place], [place], [facility] in [place], [place], [employer] in [place], [place], [phone] [email or web address] Discussed will need to submit for insurance [...] MD, July 05, 2022 11:57 AM. Brianda [facility] 07/30/2022 12:00 PM Signed Yvon Espinal APRN.KAN Chang; Wanda Sousa; Vanessa Maradiaga; Muna Apple PA-C; Parvin Bhatia MD; Stephany Scott PA-C 3 minutes ago (11:56 AM) RH I will send a message to the pharmacy auth team to see if he is approved. Melanienahid Lamar [facility] 07/31/2022 1:33 PM [...] Please advise Thank you [facility] Department Remote Office [address] [facility] [address] From: Yvon Espinal Sent: Saturday, July 30, 2022 11:58 AM To: Pharm Auth Team Cc: Donita Martinez ; Brianda Higgins ; Muna Apple ; Stephany Scott ; Parvin Abarca Subject: medical Botox approval Fredis Berry submitted a prior authorization for Mr. [place] Farrell ([id number]) on 07/05/22 for medical Botox. Has it been approved? Thank you, Melanie Brianda [facility] 07/31/2022 1:36 PM Signed From: Yvon Espinal Sent: Sunday, July 31, 2022 12:33 PM To: Stewart Combs ; Keyona Adkins ; Darlene Lugo ; Pharm Auth Team C (more content not included)... Normal [facility] US JACKIE DOP LEG LTon 11-15-19 [...] left leg. Findings were called by the insurance assistant to the ordering provider at the time of imaging. Electronically authenticated by: RED QUINONEZ Date: 2021-11-14 12:03 Normal [facility] ANES POSTPROC EVALon 022 ANES POSTPROC EVAL HNO ID: [id number] Author: Smooth Valadez MD Service: Anesthesiology Author Type: Anesthesiologist Type: Anesthesia Postprocedure Evaluation Filed: 10/25/2021 3:50 PM Note Text: POST ANESTHESIA EVALUATION NOTE : 1970 Procedure Summary Date: 10/25/21 Room / Location: [place] [address] / OR Anesthesia Start: 1148 Anesthesia Stop: 1455 Procedure: ARTHROSCOPY SHOULDER ROTATOR CUFF (Right Shoulder) Diagnosis: Preoperative examination Traumatic complete tear of right rotator cuff, initial encounter (Traumatic complete tear of right rotator cuff, initial encounter [S46.011A]) Surgeons: Gus Vyas MD Responsible Provider: Smooth Valadez MD Anesthesia Type: general, regional ASA [...] October 25, 2021 TIME: 3:50 PM CSN: [id number] [facility] ANES PRE-OPon 10-25-2021 ANES PRE-OP HNO ID: [id number] Author: Smooth Valadez MD Service: Anesthesiology Author Type: Anesthesiologist Type: Anesthesia Preprocedure Evaluation Filed: 10/25/2021 10:00 AM Note Text: ANESTHESIOLOGY DAY OF SURGERY NOTE : 1970 Procedure Information Date/Time: 10/25/21 1120 Procedure: ARTHROSCOPY SHOULDER ROTATOR CUFF (Right Shoulder) - Arthrex Gene and Tex aware 90 mins Location: [place] [address] / OR Surgeons: Gus Vyas MD Estimated body mass index is 44.48 [...] October 25, 2021 TIME: 9:56 AM CSN: [id number] [facility] NURSING PROGon 10-25-2021 NURSING PROG HNO ID: [id number] Author: Kyle Nuno RN Service: Nursing Author [...] 2021 TIME: 2:33 PM PAGER/CONTACT #: [id number] [facility] NURSING PROG HNO ID: [id number] Author: Salima Nuñez RN Service: Nursing Author Type: Registered Nurse Type: Nursing Progress Note Filed: 10/25/2021 9:31 AM Note Text: PATIENT EDUCATION TOPIC: PROCEDURE / SURGERY: Pre-op Teaching: Logistics PATIENT NAME: [place] Farrell PATIENT LOCATION: Surgery/ Surgery READINESS TO LEARN COGNITIVE ABILITY: Alert and oriented MOTIVATION TO LEARN: Interested FAMILY SUPPORT: None - Unavailable/disinteres omar INSTRUCTION PROVIDED TO: Patient PATIENT LEARNS BEST [...] REFERRAL (RECOMMENDATION): None Electronically Signed By: Salima Nuñez [facility] OPERATIVE NOon 10-25-2021 OPERATIVE NO HNO ID: [id number] Author: Gus Vyas MD Service: Orthopaedic Surgery Author Type: Physician Type: Operative Report Filed: 10/25/2021 4:56 PM Note Text: OPERATIVE/PROCEDURE REPORT [place] [address] Patient Name: [place] Farrell : 1970 Surgery/Procedure Date: 10/25/2021 Incision/Procedure Start Time: 12:34 PM Incision Close/Procedure End Time: 2:37 PM SURGEON(S)/PROCEDURALI ST(S) AND COURTROOM CLERK(S): Gus Vyas MD MMSs (Primary Surgeon) Allan Trevizo MD [...] reduce the to (more content not included)... [facility] NURSING PROGon 10-05-2021 NURSING PROG HNO ID: [id number] Author: Shyam Gotti RN Service: ? Author [...] Gotti RN October 05, 2021 7:40 AM [facility] HGB A1Con 09-27-2021 Average glucose Estimated from glycated hemoglobin (Bld) [Mass/Vol] 209 mg/dL [facility] HbA1c (Bld) [Mass fraction] 8.9 % High 4.3 - 5.6 % [facility] MRI SHOULDER RT WO CONon MRI SHOULDER [...] by: RED QUINONEZ Date: 2021-09-05 15:06 Normal [facility] XR FOREIGN BODY EYEon 2021 XR FOREIGN BODY EYE EXAMINATION: XR FOREIGN BODY EYE HISTORY: Foreign body in eye COMPARISON: No relevant comparison available. FINDINGS: ORBITS: Negative for a metallic foreign body. OTHER: Negative. IMPRESSION: 1. No metallic foreign body within the orbits. Electronically authenticated by: RED QUINONEZ Date: 2021-09-05 13:13 Normal [facility] CT CSPINE WO CONon 2 CT CSPINE WO CON EXAMINATION: CT CSPI NE WO CON HISTORY: Pain COMPARISON: None. TECHNIQUE: CT Cervical spine without IV contrast. Coronal and sagittal reformations were performed. Dose reduction techniques were achieved by using automated exposure control and/or adjustment of mA and/or kV according to patient size and/or use of iterative reconstruction technique. FINDINGS: Anatomy: 7 [id number] cervical segments. Column: No acute fracture or [...] LEE ANN BARNETT Date: 2021-08-25 16:01 Normal [facility] BOTOX INJECTION ESSENTIAL BL EPHAROSPASM [facility] Vital Signs Date Time Vital Sign Value Performing Clinician Facility 06-17-2023 15:18-0500 Blood Pressure Location Stewart MAY [facility] 06-17-2023 15:18-0500 Diastolic blood pressure 66 mm[Hg] Stewart JACQUESL [facility] 06-17-2023 15:18-0500 Heart rate 70 /min Stewart JACQUESL [facility] 06-17-2023 15:18-0500 Respiratory rate 16 /min Stewart JACQUESL [facility] 06-17-2023 15:18-0500 Systolic blood pressure 122 mm[Hg] Stewart MAY [facility] 09-27-2021 15:07-0400 Body height 177.8 cm Pac 4 Work Phone: [facility] 09-27-2021 15:07-0400 Body temperature 96.69 [degF] Pac 4 Work Phone: [facility] 09-27-2021 15:07-0400 Body weight 140.62 kg Pac 4 Work Phone: [facility] 09-27-2021 15:07-0400 Diastolic blood pressure 84 mm[Hg] Pac 4 Work Phone: [facility] 09-27-2021 15:07-0400 Heart rate 88 /min Pac 4 Work Phone: [facility] 09-27-2021 15:07-0400 Respiratory rate 16 /min Pacc 4 Work Phone: [facility] 09-27-2021 15:07-0400 SaO2% (BldA) [Mass fraction] 97 % Pacc 4 Work Phone: [facility] 09-27-2021 15:07-0400 Systolic blood pressure 147 mm[Hg] Pacc 4 Work Phone: [facility] 09-21-2021 13:51-0400 Body height 177.8 cm Gus Vyas MD Work Phone: [facility] 09-21-2021 13:51-0400 Body weight 136.08 kg Gus Vyas MD Work Phone: [facility] Encounters Encounter Date Encounter Type Care Provider Facility Start: 06-19-2023 End: 06-19-2023 ambulatory AFIAH HASHALEYE Facility:[facility] Start: 06-17-2023 End: 06-18-2023 ambulatory Stewart MAY Facility:[facility] Start: 06-17-2023 End: 06-17-2023 Patient encounter procedure Stewart MAY General Surgery [facility] Start: 05-15-2023 ambulatory Stewart MAY Facility:[facility] Start: 04-30-2023 End: 04-30-2023 ambulatory AFIAH HASNIE Facility:[facility] Start: 03-13-2023 End: 03-13-2023 ambulatory MICHAEL ANDREW Facility:[facility] Start: 03-13-2023 End: 03-13-2023 OT/PT/Speech Visit Soo Villalba PT Work Phone: [facility] Comment on above: Functional movement disorder (Primary Dx); Blepharospasm Start: 02-18-2023 End: 02-18-2023 ambulatory AFIAH HASNIE Facility:[facility] Start: 01-16-2023 End: 01-16-2023 ambulatory MICHAEL ANDREW Facility:[facility] Start: 12-26-2022 Telephone encounter Michael vargas MD Work Phone: [facility] Comment on above: Letter Start: 12-24-2022 End: 12-24-2022 ambulatory [facility] Facility:[facility] Start: 12-24-2022 End: 12-24-2022 OT/PT/Speech Visit Vonnie Connolly PT Work Phone: [facility] Comment on above: Blepharospasm (Prima ry Dx); Functional movement disorder Start: 12-19-2022 End: 12-19-2022 ambulatory [facility] Facility:[facility] Start: 12-19-2022 End: 12-19-2022 OT/PT/Speech Visit Soo Villalba PT Work Phone: [facility] Comment on above: Blepharospasm (Prima ry Dx); Functional movement disorder Start: 2022 End: 2022 ambulatory [facility] Facility:[facility] Start: 2022 End: 2022 OT/PT/Speech Visit Soo Villalba PT Work Phone: [facility] Comment on above: Blepharospasm (Prima ry Dx); Functional movement disorder Start: 11-20-2022 End: 11-20-2022 OT/PT/Speech Visit Megha Leggett PT Work Phone: [facility] Comment on above: Blepharospasm (Prima ry Dx); Functional movement disorder Adjustment disorder, unspecified type (Primary Dx); Functional neurological symptom disorder with mixed symptoms Start: 10-31-2022 End: 10-31-2022 ambulatory AGAPITO RUANO Facility:[facility] Start: 08-26-2022 End: 08-26-2022 ambulatory STEWART BRISENO Facility:[facility] Start: 08-16-2022 End: 08-16-2022 ambulatory DONITA MARTINEZ Facility:[facility] Start: 08-16-2022 End: 08-16-2022 Patient encounter procedure Donita Martinez MD Work Phone: Ophthalmology Comment on above: Blepharospasm (Prima ry Dx) Start: 08-16-2022 Telephone encounter Donita Martinez MD Work Phone: Ophthalmology Comment on above: Patient Question Start: 08-09-2022 End: 08-09-2022 ambulatory DONITA MARTINEZ Facility:[facility] Start: 08-09-2022 End: 08-09-2022 Patient encounter procedure Donita Martinez MD Work Phone: Ophthalmology Comment on above: Blepharospasm (Prima ry Dx) Start: 08-02-2022 End: 08-02-2022 ambulatory STEWART BRISENO Facility:[facility] Start: 08-02-2022 End: 08-02-2022 Patient encounter procedure Stewart Briseno OD Work Phone: Ophthalmology Comment on above: Steroid induced glau coma, both eyes (Primary Dx); Dry eye syndrome of bilateral lacrimal glands; Other chronic allergic conjunctivitis of both eyes; Blepharospasm Start: 07-30-2022 Telephone encounter Donita Martinez MD Work Phone: Ophthalmology Comment on above: Follow Up Start: 07-19-2022 End: 07-19-2022 ambulatory STEWART BRISENO Facility:[facility] Start: 07-19-2022 End: 07-19-2022 Patient encounter procedure Stewart Briseno OD Work Phone: Ophthalmology Comment on above: Steroid induced glau coma, both eyes (Primary Dx); Other chronic allergic conjunctivitis of both eyes; Dry eye syndrome of bilateral lacrimal glands; Blepharospasm Start: 07-07-2022 End: 07-08-2022 ambulatory RULA HERRERA Facility: Start: 07-05-2022 End: 07-05-2022 ambulatory STEWART BRISENO Facility:[facility] Start: 07-05-2022 End: 07-05-2022 Patient encounter procedure Donita Martinez MD Work Phone: Ophthalmology Comment on above: Blepharospasm (Prima ry Dx) Other chronic allerg ic conjunctivitis of both eyes (Primary Dx); Dry eye syndrome of bilateral lacrimal glands; Blepharospasm Start: 06-17-2022 End: 06-17-2022 Patient encounter procedure Stewart Sai Briseno OD Work Phone: Ophthalmology Comment on above: Other chronic allerg ic conjunctivitis of both eyes (Primary Dx); Dry eye syndrome of bilateral lacrimal glands Start: 05-06-2022 End: 05-06-2022 Patient encounter procedure Gus Vyas MD Work Phone: Orthopaedics Comment on above: Traumatic complete t ear of right rotator cuff, initial encounter (Primary Dx) Start: 04-28-2022 ambulatory [facility] Facility:[facility] Start: 03-04-2022 End: 03-04-2022 Patient encounter procedure Gus Vyas MD Work Phone: Orthopaedics Comment on above: Traumatic complete t ear of right rotator cuff, initial encounter (Primary Dx); S/P right rotator cuff repair Start: 01-25-2022 End: 01-25-2022 Patient encounter procedure Gus Vyas MD Work Phone: Orthopaedics Comment on above: S/P right rotator cu ff repair (Primary Dx) Start: 12-13-2021 End: 04-27-2022 ambulatory [facility] Facility: Start: 12-07-2021 End: 12-07-2021 Patient encounter procedure Gus Vyas MD Work Phone: Orthopaedics Comment on above: Traumatic complete t ear of right rotator cuff, subsequent encounter (Primary Dx); S/P right rotator cuff repair Start: 11-14-2021 End: 11-15-2021 [facility] Facility: Start: 11-07-2021 End: 11-07-2021 Refill Gus Vyas MD Work Phone: Orthopaedics Comment on above: Refill Request Postop check (Primar y Dx) Start: 10-19-2021 ambulatory Gus Vyas MD Work Phone: Orthopaedics Start: 10-19-2021 Preprocedural examin ation done Gus Vyas MD Work Phone: Orthopaedics Start: 10-17-2021 Orders Only Gus Vyas MD Work Phone: Orthopaedics Comment on above: Preoperative examina tion (Primary Dx) Start: 10-17-2021 Preprocedural examin ation done Gus Vyas MD Work Phone: Orthopaedics Start: 09-28-2021 Telephone encounter Barb olivares PA-C Work Phone: Pre Anesthesia Comment on above: Results (Elevated HG B A1C) Preparations For Tyesha ojeda Start: 09-27-2021 End: 09-27-2021 Admission to establishment Pacc [place] [id number] Work Phone: [place] Start: 09-27-2021 End: 09-27-2021 [place] [id number] Work Phone: Pre Anesthesia Comment on above: [...] Start: 09-27-2021 End: 09-27-2021 Preprocedural examination done [facility] Work Phone: Pre Anesthesia Start: 09-21-2021 ambulatory Gus Vyas MD Work Phone: Orthopaedics Start: 09-21-2021 Preprocedural examin ation done Gus Vyas MD Work Phone: Orthopaedics Start: 09-21-2021 End: 09-21-2021 Patient encounter procedure Gus Vyas MD Work Phone: Orthopaedics Comment on above: Traumatic complete t ear of right rotator cuff, initial encounter (Primary Dx) Start: 09-05-2021 End: 09-06-2021 ambulatory RULA HERRERA Facility:[facility] Start: 08-25-2021 End: 08-25-2021 ambulatory NICHOLAS BHATIA Facility:[facility] Procedures Date Procedure Procedure Detail Performing Clinician Start: 08-09-2022 [facility] innervated facial nrv unil Yvon Teddy MANAGER DAIRY.MEDICAL FIELD REPRESENTATIVE Work Phone: Start: 12-07-2021 History of repair of musculotendinous cuff of shoulder S/P right rotator cuff repair Gus Vyas MD Work Phone: Start: 07-16-2011 Adult depression screening assessment Gus Vyas MD Work Phone: Amputation of finger of left hand Stewart MAY Appendectomy Stewart NILL Decompression of med andrey nerve Stewart MAY History of repair of musculotendinous cuff of shoulder S/P right rotator cuff repair Gus Vyas MD Work Phone: History of repair of musculotendinous cuff of shoulder S/P right rotator cuff repair uGs Vyas MD Work Phone: History of repair of musculotendinous cuff of shoulder Stewart NILL Repair of musculoten dinous cuff of shoulder Stewart NILL Tonsillectomy and adenoidectomy Stewart NILL Vasectomy Stewart NILL Plan of Treatment Date Care Activity Detail Author Start: 09-27-2024 DIABETES SCREEN DIABETES SCREEN [facility] Start: 12-27-2022 Covid-19 Vaccine ( season) Covid-19 Vaccine ( season) [facility] Start: 12-27-2022 Influenza vaccination [facility] Start: 04-28-2022 DEPRESSION ASSESSMENT DEPRESSION ASS ESSMENT [facility] Start: 12-28-2021 Hemoglobin A1c/Hemoglobin.total in Blood HBA1C [facility] Start: 12-27-2021 Influenza vaccination [facility] Start: 10-17-2021 End: 12-17-2021 Basic metabolic 2000 panel - Serum or Plasma BASIC METABOLIC PNL Lab Routine Preoperative examination Expected: 10/17/2021, Expires: 12/17/2021 [facility] Work Phone: Comment on above: Expected: 10/17/2021 , Expires: 12/17/2021 Start: 09-27-2021 End: 11-27-2021 T3 BLD [facility] Work Phone: Comment on above: Expected: 09/27/2021 , Expires: 11/27/2021 Start: 09-27-2021 End: 11-27-2021 T4 FREE/FREE THYROX [facility] Work Phone: Comment on above: Expected: 09/27/2021 , Expires: 11/27/2021 Start: 09-27-2021 End: 11-27-2021 Thyrotropin [Units/volume] in Serum or Plasma [facility] Work Phone: Comment on above: Expected: 09/27/2021 , Expires: 11/27/2021 Start: 09-21-2021 End: 11-21-2021 Basic metabolic 2000 panel - Serum or Plasma BASIC METABOLIC PNL Lab Routine Preoperative examination Expected: 09/21/2021 (Approximate), Expires: 11/21/2021 [facility] Work Phone: Comment on above: Expected: 09/21/2021 (Approximate), Expires: 11/21/2021 Start: 09-21-2021 End: 11-21-2021 CBC panel - Blood by Automated count CBC Lab Routine Preoperative examination Expected: 09/21/2021 (Approximate), Expires: 11/21/2021 [facility] Work Phone: Comment on above: Expected: 09/21/2021 (Approximate), Expires: 11/21/2021 Start: 04-28-2021 DEPRESSION ASSESSMENT DEPRESSION ASS ESSMENT [facility] Start: 09-08-2020 COVID-19 VACCINE (2 - Booster for Marlen series) COVID-19 VACCINE (2 - Booster for Marlen series) [facility] Start: 2018 Influenza vaccination LUNG CANCER SC REENING [facility] Start: 2018 SHINGRIX VACCINE (1 of 2) SHINGRIX VACCINE (1 of 2) [facility] Start: 2013 COLOGUARD (FIT-DNA) COLOGUARD (FIT-D NA) [facility] Start: 2013 Colonoscopy COLONOSCOPY [facility] Start: 2013 COLORECTAL CANCER SCREENING COLORECTAL CANCER SCREENING [facility] Start: [address] COLONOGRAPHY [facility] Start: 2013 DIABETES SCREEN DIABETES SCREEN [facility] Start: 2013 FECAL OCCULT BLOOD FECAL OCCULT BLOO D [facility] Start: 2013 SIGMOIDOSCOPY SIGMOIDOSCOPY [facility] Start: 07-15-2012 Adult depression screening assessment DEPRESSION SCREENING [facility] Start: 12-13-2003 LIPID SCREEN LIPID SCREEN [facility] Start: 12-13-1987 HEPATITIS B (1 of 3 - Risk 3-dose series) HEPATITIS B (1 of 3 - Risk 3-dose series) [facility] Start: 12-13-1987 Urine microalbumin profile [facility] Start: 1986 ANNUAL PCP TEAM ELECTRICIAN APPRENTICE OLGA DISEASE VISIT ANNUAL PCP TEAM CHRONIC DISEASE VISIT [facility] Start: 1986 BP CONTROLLED (<130/80) BP CONTROLLE D (<130/80) [facility] Start: 1986 Hepatitis B surface antibody level LDL CHOLESTEROL [facility] Start: 1986 HEPATITIS C SCREENING HEPATITIS C SC JODI [facility] Start: 1986 HIV SCREENING HIV SCREENING [facility] Start: 1978 3 comp foot exam completed DIABETIC FOOT EXAM [facility] Start: 1978 Hepatitis B screening URINE ALBUMIN:CREATININE RATIO [facility] Start: 1978 Hepatitis C antibody , confirmatory test DILATED RETINAL EXAM [facility] Start: 1974 PNEUMOCOCCAL (1 - PCV) PNEUMOCOCCAL (1 - PCV) [facility] Start: 1974 Pneumococcal vaccination Pneum ococcal Vaccine (1 - PCV) [facility] Start: 1968 HEPATITIS B (1 of 3 - 3-dose series) HEPATITIS B (1 of 3 - 3-dose series) [facility] Start: 1968 Hepatitis B Vaccine (1 of 3 - 3-dose series) Hepatitis B Vaccine (1 of 3 - 3-dose series) [facility] End: 09-21-2022 ECG COMPLETE ECG COMPLETE ECG Routine Preoperative examination 1 Occurrences starting 09/21/2021 until 09/21/2022 [facility] Work Phone: Comment on above: 1 [...] hypertension 1 Occurrences starting 09/27/2021 until 09/27/2022 [facility] Work Phone: Comment on above: 1 Occurrences starti ng 09/27/2021 until 09/27/2022 [facility] Immunizations Immunization Date Immunization Notes Care Provider Fa leonid 07-14-2020 SARS-CoV-2 (COVID-19 ) Ad26 vaccine, recombinant Stewart MAY [facility] [place] NEGATED: Highlighted row has not occurred!06-17-2023 influenza virus vaccine, unspecified formulation Stewart MAY [facility] [place] Payers Date Payer Category Payer Private Health Insurance [id number] 2021 Unknown [id number] 2021 Unknown [facility] [id number] 2021-Present [phone] [place] [address] [facility] [id number] 2020 Unknown [employer] [id number] 2020-Present [phone] [address] [place] [address] PPO [id number] 2011 Unknown [facility] GENER[facility] MEDICAL GENERIC [id number] 2011-Present [phone] [address] [place] [address] Indemnity [id number] 1968 Unknown [id number] 1968 Unknown [id number] [id number] 1968 Unknown [id number] [id number] 1968 Unknown [id number] [id number] 1968 Unknown [id number] [id number] 1968 Unknown [id number] [id number] 1968 Unknown [id number] [id number] 1968 Unknown [id number] [id number] 1959 Self-pay 1959 Unknown [id number] 1959 Unknown [id number] 1959 Unknown [id number] 1959 Unknown [id number] Social History Date Type Detail Facility Start: 07-16-2011 End: 08-02-2022 Tobacco smoking status NHIS Smokes tobacco daily [facility] Start: 07-16-2011 End: 09-18-2022 Cigarettes smoked current (pack per day) - Reported 1.5 [facility] Start: 08-23-2011 End: 09-18-2022 Alcohol intake Current drinker of alcohol (finding) [facility] Start: 07-16-2011 History SDOH Alcohol Comment occassionally [facility] Start: 1970 Sex Assigned At Not on file [facility] Start: 09-11-2021 End: 03-04-2022 Exposure to SARS-CoV-2 (event) Not sure [facility] History of tobacco use Cigarette Smoker [facility] Start: 07-16-2011 End: 08-02-2022 Tobacco use and exposure Former smokeless tobacco user [facility] History of tobacco use Chews Tobacco [facility] [facility] Start: 09-27-2021 History SDOH Alcohol Comment once a month maybe [facility] Start: 09-27-2021 End: 08-02-2022 Tobacco Comment 2 ppd [facility] Start: 09-18-2022 End: 02-17-2023 Tobacco use panel [facility] Adult Depression Screening Assessment 4 [facility] Start: 06-17-2023 Tobacco smoking status Heavy t obacco smoker (finding) General Surgery [facility] Procedure Code Equipment Code Equipment Origin al Text Equipment Identifier Dates Weimar Corkscrew Suturetape 5.5mm Full Thread 1.3mm Black Blue White - [id number] Start: 10-25-2021 Weimar Swivelock C 4.75mm Black White Biocomposite Peek 19.1mm Suture - [id number] Start: 10-25-2021 We[place] Swivelock C 4.75mm Black White Biocomposite 19.1mm Suture Close - [id number] Start: 10-25-2021 [place] Swivelock C 4.75mm Biocomposite Peek 19.1mm Suture Closed Eyelet - [id number] Start: 10-25-2021 We[place] Swivelock C 4.75mm Biocomposite Peek 19.1mm Suture Closed Eyelet - [id number] Start: 10-25-2021 Functional Status Date Assessment Result Facility 06-17-2023 Functional Status N/A General Shrestha kayla Perez Clinical Notes 08-25-2021 to 06-17-2023 Soo Villalba, PT - 03/13/2023 4:20 PM ESTTelephone Encounter - Sandy Ratliff, RN - 12/27/2022 8:45 AM EDTTelephone Encounter - Petrona Jacobs - 12/26/2022 12:08 PM EDT Note Date & Type Note Facility 06-17-2023 Note Chief Complaint consultation for colonoscopy HPI Staff 52 year old male presents on consultation from Dr. Herrera for screening colonoscopy. Denies abdominal or rectal pain. No rectal bleeding or change in bowel habits. Denies nausea or vomiting. No unexplained weight loss. Never had colonoscopy in the past. No known family history of colon cancer. Patient on Eliquis for history of DVT. History of Present Illness 52 yo male with h/o htn, DMII, hyperlipidemia, DVT, on Eliquis, HORACIO, referred for colorectal screening; denies change in bms or blood in stools; no abdominal complaints; denies asa or NSAID use, no SBE prophylaxis; abdominal operations significant for appendectomy, no previous colonoscopy; no fmhx of GI malignancy or IBD; smokes daily. Review of Systems PHQ Score Initial Depression Screen Score: 0 SCORE ROS - Provider Constitutional: no fever, no sweats, no weight loss. Eyes: no glasses, no blurred vision, no visual loss. ENMT: no dentures, no hoarseness, no swallowing difficulties, no hearing loss, no ear infection(s), no nose bleeds. Cardiovascular: normal blood pressure, no chest pain, regular heartbeat, no heart murmur. Respiratory: no shortness of breath, no cough, no asthma, no wheezing. Gastrointestinal: no nausea, no vomiting, no diarrhea, no constipation, no blood in stool, no change in bowel habits, no abdominal pain, no hepatitis. Genitourinary: no kidney stones, no urine infection, no dysuria. Musculoskeletal: no pain, no weakness. Skin: no changing moles, no rash, no skin lumps. Neurologic: no seizures, no epilepsy, no headache. Psychiatric: no emotional or psychiatric problem. Heme/Lymph: no bleeding problems, no anemia, no blood clots, no transfusions. Allergy/Immunologic: no swollen lymph nodes/glands, no IV drug abuse. Other: Additional ROS info: Except as noted in the above Review of Systems and in the History of Present Illness, all other systems have been reviewed and are negative or noncontributory. Physical Exam Vitals & Measurements HR: 70(Peripheral) RR: 16 BP: 122/66 HT: 70 in HT: 177.8 cm WT: 138 kg WT: 303.6 lb BMI: 43.65 HEENT: normal conjunctiva, sclera clear, no scleral icterus, EOM intact, PERRLA, oral mucosa moist without lesions. Neck: trachea midline, no mass, symmetric, no thyromegaly or nodules, no adenopathy Respiratory: lungs CTA, respirations non labored. Cardiovascular: regular rate and rhythm, no murmur, no pedal edema or varicosities. Gastrointestinal: obese, soft, non distended, no tenderness, no masses, no palpable hernias, diastasis recti yes, no hepatosplenomegaly; normal bs Lymphatic: no cervical adenopathy, no supraclavicular adenopathy. Musculoskeletal: normal gait, digits and nails without infection, nodes, cyanosis, clubbing. Skin: no rashes, no lesions, no ulcers, no subcutaneous nodules, induration. Psychiatric/Neuro: oriented to time, place, person, judgement normal, affect appropriate for age, insight intact, no focal deficits. Tests: review of old records completed , Discussed surgical options, risks, and possible complications with patient. Assessment/Plan 1. Screening for malignant neoplasm of colon (Z12.11: Encounter for screening for malignant neoplasm of colon) plan colonoscopy under anesthesia, informed consent obtained. hold Eliquis 2 days prior to procedure. 2. BMI 40.0-44.9, adult (Z68.41: Body mass index [BMI] 40.0-44.9, adult) recommend diet and exercise. Follow-up No qualifying data available Problem List/Past Medical History Ongoing Anxiety BMI 40.0-44.9, adult Corticosteroid-induced open angle glaucoma Diabetes mellitus Essential hypertension Gout History of DVT (deep vein thrombosis) Hyperlipidemia Hypertensive disorder Lumbosacral neuritis Morbid obesity Nodular goiter Obstructive sleep apnea syndrome Screening for colorectal cancer Screening for malignant neoplasm of colon Varicose veins of lower extremity Historical No qualifying data Procedure/Surgical History Amputation of finger of left hand, Appendectomy, Carpal tunnel release, History of repair of musculotendinous cuff of shoulder, Rotator cuff repair, Tonsillectomy and adenoidectomy, Vasectomy. Medications cyclobenzaprine 10 mg Tab, 10 mg= 1 tab(s), Oral, TID, PRN diclofenac sodium 75 mg Oral EC Tab, 75 mg= 1 tab(s), Oral, BID Eliquis 5 mg oral tablet, 5 mg= 1 tab(s), Oral, BID glimepiride 4 mg Tab, 4 mg= 1 tab(s), Oral, Daily Januvia 100 mg Tab, 100 mg= 1 tab(s), Oral, Daily lisinopril 40 mg Tab, 40 mg= 1 tab(s), Oral, Daily metformin 500 mg Tab, 500 mg= 1 tab(s), Oral, BID TriCor 145 mg Tab, 145 mg= 1 tab(s), Oral, Daily Allergies No Known Allergies No Known Medication Allergies Social History Alcohol - Denies Alcohol Use, 06/17/2023 Substance Abuse - Denies Substance Abuse, 06/17/2023 Tobacco 10 or more cigarettes (1/2 pack or more)/day in last 30 days Tobacco Use:. Never Smokeless Tobacco Use:. Cigare (more content not included)... [facility] Comment on above: Result Comment: Elec tronically Signed By: LALO JARAMILLO, Stewart Crespo\Date and Time Signed: 06/17/23 15:50 EST 04-30-2023 Note HNO ID: [id number] Author: PERRY ALCANTARA PSYD Service: ? Author Type: Physician Type: Progress Notes Filed: 05/19/2023 21:24 Note Text: [facility] Psychology Progress Note Billing codes: [place]inton PSYCHOLOGY: FOLLOW-UP APPOINTMENT PROGRESS NOTE- Virtual Visit I have communicated my name and active licensure. The patient's identity and physical location were verified at the time of this visit. Either the patient or their legal signs and displays sales representative has been informed of the risks and benefits of -- and alternatives to -- treatment through a remote evaluation and consents to proceed with the evaluation remotely. [place] Farrell 04/30/2023 [id number] PROVIDER: Perry Alcantara PSYD CPT Code: Virtual PSYTX PT AND/FAMILY 30 MINS Time spent doing therapy with patient: 4:01-4:33pm Parties Present: Patient Interventions: Cognitive Behavioral Problem solving MENTAL STATUS: Mood: euthymic Affect: mood-congruent Thoughts/Associations: [...] disorder with mixed symptoms PROGRESS TO DATE/ASSESSMENT: -Patient last seen in January. He states he was having problems connecting to virtual platform via [employer] and was able to troubleshoot with [employer]. He has reports minimal changes to symptoms since last session. However, continues to implement suggestions from care team, including working with local truck driver and chiropractic weekly for the past 1.5 months. He finds this has had benefit to stress and tension. Discuss how small actions throughout the day can increase sense of control, given symptoms have led to feelings re: loss of control. Encouraged utilization of stress reduction practices on a more frequent basis and biofeedback principles to increase awareness of tension building/need for intervention. TREATMENT PLAN/GOALS/OBJECTIVES: Homework: Mindful Breathing excercise and Walk daily Follow Up: 1 month/JOEY Alcantara Psy.D. Staff, [facility] 03-13-2023 Note HNO ID: [id number] Author: Soo Villalba, LANDY Service: ? Author Type: Physical Therapist Type: [...] Patient to be seen for Therapeutic exercise (22186), Neuromuscular re-education (93558), Manual therapy (58451), Therapeutic activities (84918), Self-longterm management (33141), Gait Training (65256) PLAN FOR NEXT VISIT: Return as needed [...] diverted attention str (more content not included)... [facility] 03-13-2023 History of Presen t illness [...] Patient to be seen for Therapeutic exercise (61197), Neuromuscular re-education (10481), Manual therapy (87648), Therapeutic activities (83789), Self-longterm management (31974), Gait Training (24273) PLAN FOR NEXT VISIT: Return as needed [...] Time : 1615 Session Stop Time : 165 Soo Villalba PT documented in this encounter [facility] 02-18-2023 Note HNO ID: [id number] Author: Perry Alcantara PSYD Service: ? Author Type: Physician Type: Progress Notes Filed: 03/10/2023 8:54 PM Note Text: [facility] Psychology Progress Note Billing codes: Quinton PSYCHOLOGY: FOLLOW-UP APPOINTMENT PROGRESS NOTE- Virtual Visit I have communicated my name and active licensure. The patient's identity and physical location were verified at the time of this visit. Either the patient or their legal signs and displays sales representative has been informed of the risks and benefits of -- and alternatives to -- treatment through a remote evaluation and consents to proceed with the evaluation remotely. [place] Farrell 02/18/2023 [id number] PROVIDER: Perry Alcantara PSYD CPT Code: Virtual [...] Perry Alcantara Psy.D. Staff, [facility] 01-16-2023 Note HNO ID: [id number] Author: Soo Villalab, PT Service: ? Author Type: Physical Therapist [...] Patient to be seen for Therapeutic exercise (78929), Neuromuscular re-education (19229), Manual therapy (19818), Therapeutic activities (68386), Self-longterm management (31940), Gait Training (66259) PLAN FOR NEXT VISIT: Return in 2 months SUBJECTIVE: Went on vacation and had a great time and was relaxing. Was thinking that the relaxation would get rid of his sx but it did not happen. Thinks his sx all stemmed from when he got his shoulder injury and was out of a job. Maynard a lot of stress at that time, [...] Stop Time : 1648 Soo Villalba PT [facility] 12-27-[address] Andrew documented in My Chart message he spoke with patient and informed him he could not give him the letter requested but could print the notes from his last visit through My Chart. NI PHONE Name of caller : Clinton Kassiejohanna Relationship to patient : Self If not self Will need patient permission to release results or disclose health information with called documented in fyi. Was permission obtained from patient ? Yes Patient identified by Name and Date of . ( [place] Farrell, 1970). Yes Reason for Call : Request letter stating diagnosis and why he's not able to see be faxed to [phone]/Attn: Sheron @ [facility]'s Services re: disability. Please cc: Dr. Rula Herrera (PCP) on letter and fax to Dr. Herrera at [phone]. Number to return call [phone] Okay to leave a message ? Yes Last office visit 09/18/[address] Gilmar Andrew Next office visit not scheduled (only FMD appts w/Dr. Alcantara) Thank you calling [facility] [place]. You will receive a return call within 48 hours ( or 2 business days if close to the weekend). If you feel that this is an urgent issue and needs immediate attention, it is recommended that you contact your primary care provider office or proceed to your nearest Urgent Care Center of Emergency Room ED for evaluation/treatment. ' documented in this encounter [facility] 12-24-2022 Note HNO ID: [id number] Author: Vonnie Connolly PT Service: ? Author Type: Physical Therapist [...] Time Minutes (timed/untimed): 45 Vonnie Connolly PT [facility] 12-24-2022 History of Presen t illness [...] Vonnie Connolly PT documented in this encounter [facility] 12-19-2022 Note HNO ID: [id number] Author: Soo Villalba PT Service: ? Author [...] of conversation TREATMENT: Neuromuscular Re-Education: 1: C Mill- Jordanian alps- speed: 0.8 m/s. B UE support. [...] Stop Time : 1700 Soo Villalba, PT [facility] 12-19-2022 History of Presen t illness [...] of conversation TREATMENT: Neuromuscular Re-Education: 1: C Mill- Jordanian alps- speed: 0.8 m/s. B UE support. [...] Soo Villalba PT documented in this encounter [facility] 2022 Note HNO ID: [id number] Author: Soo Villalba PT Service: ? Author Type: Physical Therapist Type: Progress Notes Filed: 2022 5:59 PM Note Text: Episode Visit Count: 2 Therapist That Will Accept/Oversee The Plan Of Care: Soo Villalba Start of Care Date: 11/20/22 Onset Date: 11/20/21 REHABILITATION AND SPORTS THERAPY PHYSICAL THERAPY TREATMENT NOTE *Patient accepted as transfer of care from [facility]* ASSESSMENT: [place] Farrell tolerated the session with [...] with visual external focus. C Mill with Jordanian alps for visual distraction. Aerobic exercise. SUBJECTIVE: [...] and visual cueing. Patient education as noted. Elijahing Neuromuscular Re-Education Treatment Minutes: 45 Total Treatment Time Minutes (timed/untimed): 45 Session Start Time : 1615 Session Stop Time : 1700 Soo Villalba, PT [facility] 2022 History of Presen t illness Narrative Episode Visit Count: 2 Therapist That Will Accept/Oversee The Plan Of Care: Soo Villalba Start of Care Date: 11/20/22 Onset Date: 11/20/21 REHABILITATION AND SPORTS THERAPY PHYSICAL THERAPY TREATMENT NOTE *Patient accepted as transfer of care from [facility]* ASSESSMENT: [place] Farrell tolerated the session with [...] with visual external focus. C Mill with Jordanian alps for visual distraction. Aerobic exercise. SUBJECTIVE: [...] Soo Villalba PT documented in this encounter [facility] 11-22-2022 Instructions Megha Leggett, PT - 11/22/2022 2:18 PM EDT You were [...] she developed this for others.? ? - [email or web address].com/educa tion? ?- Website developed by Dr. Annabella Rodriguez who owns a private neuro therapy practice in [place] with a large focus on the treatment of FND. They are also on [employer]: [email or web address] - [email or web address].org/ - Website developed to better understand FND with helpful links and resources (including an information sheet to give to you physician who may be unfamiliar with your FND diagnosis). - Recyclebank[employer] Wyatt - Free wyatt where patients can track and monitor their symptoms, review strategies for symptom management, and find resources and education on FND. documented in this encounter [facility] 11-20-2022 Note HNO ID: [id number] Author: Perry Alcantara PSYD Service: ? Author Type: Physician Type: Progress Notes Filed: 12/09/2022 10:05 PM Note Text: [facility] Clinical Health Psychology Evaluation Time of Service: 3:00 pm to 4:00 pm CPT Code: 93682 - Health AND Behavior Assessment Billing Code: Hashaleye The patient was informed that this interview [...] who was referred by Dr. Andrew from [facility] as part of a multi-disciplinary evaluation for a functional movement disorder. He presents with a history of involuntary movement symptoms. Sx include eye closure/blepharospasm. Symptom onset: 2022 Social History: Mr. 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 [...] Primary Hypertension Uncontrolled Diabetes Mellitus With Hyperglycemia ([facility]) S/P Right Rotator Cuff Repair Dry Eye Syndrome of Bilateral Lacrimal Glands Conjunctivitis Acute Embolism and Thrombosis of Unspecified Deep Veins of Left Lower Extremity ([facility]) Localized Edema Pain in Left Knee Pain in Right Shoulder Knee Pain Blepharospasm Steroid Induced Glaucoma, Both Eyes Current Functioning: -cautious with walking and fear of tripping; more slow with tool room attendant and lifting objects -no longer driving -mostly [...] questions: - ?H (more content not included)... [facility] 11-20-2022 Note HNO ID: [id number] Author: Megha Leggett, LANDY Service: ? 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 [facility] 11-20-2022 History of Presen t illness Narrative [facility] Clinical Health Psychology Evaluation Time of Service: 3:00 pm to 4:00 pm CPT Code: 36722 - Health & Behavior Assessment Billing Code: Quinton The patient was informed that this interview [...] who was referred by Dr. Andrew from [facility] as part of a multi-disciplinary evaluation for a functional movement disorder. He presents with a history of involuntary movement symptoms. Sx include eye closure/blepharospasm. Symptom onset: 2022 Social History: Mr. Farrell was raised in [place], [place] as the older of 2 children [...] drug abuse on his own part. Mr. Farerll denies any history of physical or sexual abuse in childhood. 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 [...] Primary Hypertension Uncontrolled Diabetes Mellitus With Hyperglycemia ([facility]) S/P Right Rotator Cuff Repair Dry Eye Syndrome of Bilateral Lacrimal Glands Conjunctivitis Acute Embolism and Thrombosis of Unspecified Deep Veins of Left Lower Extremity ([facility]) Localized Edema Pain in Left Knee Pain in Right Shoulder Knee Pain Blepharospasm Steroid Induced Glaucoma, Both Eyes Current Functioning: -cautious with walking and fear of tripping; more slow with tool room attendant and lifting objects -no longer driving -mostly [...] movement sx. Discussed options for engaging in [facility] for focus on trigger identification, stress management, and relaxation training. Patient decline scheduling at this time and was provided with my clinic contact information should he wish to schedule follow up in the future. Diagnoses: Adjustment disorder, unspecified type (primary encounter diagnosis) Functional neurological symptom disorder with mixed symptoms Perry Alcantara Psy.D. 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 Author Type: Registered Nurse Type: Progress Notes Filed: 10/31/2022 10:01 AM Note Text: [facility] - FOLLOW UP EVALUATION No referring provider defined for this encounter. Rula Herrera MD [address] [facility] [id number] I had the pleasure of seeing Mr. Farrell for follow up today. he is a 51 year old male with a history of functional neurological disorder here for VSMA FND education session.. We had a visit using: [employer] I have communicated my name and active licensure. The patient's identity and physical location were verified at the time of this visit. Either the patient or their legal signs and displays sales representative has been informed of the [...] with FMD management team locally or at [facility] Level of service : 95286 (20-29 min). Time spent 29 min on the day of service, which included preparing to see the patient, [id number] patient care, completing clinical documentation, obtaining and/or [...] with any questions. Sincerely, Agapito Ruano MD [facility] 08-26-2022 Note HNO ID: [id number] Author: Stewart Briseno, MADAI Service: ? Author Type: CUTTING AND CREASING PRESS OPERATOR Type: Progress Notes Filed: 08/26/2022 7:08 PM Note Text: [email or web address] (H40.63X0, T38.0X5A) Steroid induced glaucoma, both eyes [...] Briseno, OD August 26, 2022 6:55 PM [facility] 08-16-2022 Note HNO ID: [id number] Author: Donita Martinez MD Service: ? 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 Any [facility] location, (with an optical shop), throughout [place], Email: [email or web address] [employer] in [place], [place], [facility] in [place], [place], 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 [facility] 08-16-2022 Instructions Donita Martinez MD - [...] can I get the FL-41 filter? 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 Any [facility] location, (with an optical shop), throughout [place], Email: [email or web address] [employer] in [place], [place], [employer] [facility] in [place], [place], 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 documented in this encounter [facility] 08-16-2022 Miscellaneous Notes I spoke with him and he will come in today at 3:30. Appt sent to be scheduled. Patient was seen on 08/09/22 and states that there is no change in his eyes. In fact he seems to think that they are worse and wants to know what should he do? Please Advise, Rohit documented in this encounter [facility] 08-16-2022 Miscellaneous Notes Patient called in and stated that his employer is requesting a letter to remain off of work due to still have systems after first Botox visit on 08/09/2022. Employer's contact info is Admeld Attn: Josue Castellon documented in this encounter [facility] 08-09-2022 Note HNO ID: [id number] Author: Donita Martinez MD Service: ? Author Type: Physician Type: Progress Notes Filed: 08/09/2022 11:19 AM Note Text: Blepharospasm follow up Patient having trouble keeping eyes open. 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 Any [facility] location, (with an optical shop), throughout [place], Email: [email or web address] in [place], [place], [facility] in [place], [place], [facility] in [place], [place], [facility] in [place], [place], [phone] [email or web address] Botulinum toxin takes 1 week to set [...] Martinez MD, August 09, 2022 11:13 AM. [facility] 08-09-2022 History of Presen t illness Narrative Blepharospasm follow up Patient having trouble keeping eyes open. 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 Any [facility] location, (with an optical shop), throughout [place], Email: [email or web address] [employer] [facility] in [place], [place], [facility] in [place], [place], [facility] in [place], [place], [facility] in [place], [place], [email or web address] Botulinum toxin takes 1 week to set [...] 2022 11:13 AM. documented in this encounter [facility] 08-02-2022 Note HNO ID: [id number] Author: Stewart Briseno OD Service: ? Author Type: CUTTING AND CREASING PRESS OPERATOR Type: Progress Notes Filed: 08/02/2022 12:01 PM Note Text: (H40.63X0, T38.0X5A) Steroid induced glaucoma, both eyes (primary encounter diagnosis) Comment: IOP normalized Plan:DC latanoprost and follow up 08/26/22 vata (H04.123) Dry eye syndrome of bilateral lacrimal glands Comment: improved with restasis Plan: vata evaluate cornea to determine if needs to [...] Briseno, OD August 02, 2022 12:00 PM [facility] 08-02-2022 History of Presen t illness Narrative (H40.63X0, T38.0X5A) Steroid induced glaucoma, both eyes (primary encounter diagnosis) Comment: IOP normalized Plan:DC latanoprost and follow up 08/26/22 vata (H04.123) Dry eye syndrome of bilateral lacrimal glands Comment: improved with restasis Plan: vata evaluate cornea to determine if needs to [...] of its relevant components. Stewart Briseno OD August 02, 2022 12:00 PM documented in this encounter [facility] 07-31-2022 Miscellaneous Notes From: Yvon Espinal < [...] Subject: Re: medical Botox approval [place] [id number] This patient is supposed to be getting medical Botox injections with Dr. Martinez. Can the auth please get placed and expedited? patient has appointment on 08/09/22. Thanks, Melanie Espinal [facility] Oculoplastic and Reconstructive Surgery [facility] [phone] From: Pharm Auth Team < > Sent: Sunday, July 31, 2022 12:27 PM To: Yvon Espinal < > Cc: Donita Martinez < >; Brianda Higgins < >; Muna Apple < >; Stephany Scott < >; Parvin Abarca. < >; Ana Hankins < >; Sirena Tapia < > Subject: RE: medical Botox approval Clovis Sanz, I am not seeing a referral request for Botox. Please advise Thank you [facility] Department Remote Office [address] [facility] [address] From: Yvon Espinal < > Sent: Saturday, July 30, 2022 11:58 AM To: Pharm Auth Team < > Cc: Donita Martinez < >; Brianda Higgins < >; Muna Apple < >; Stephany Scott < >; Parvin Abarca < > Subject: medical Botox approval Fredis Berry submitted a prior authorization for Mr. [place] Farrell ([id number]) on 07/05/22 for medical Botox. Has it been approved? Thank you, Melanie Images from the original note were not included. Yvon Espinal APRN.MEDICAL FIELD REPRESENTATIVE Bernardo; Wanda Sousa; Vanessa Maradiaga; Muna Apple [...] go for his appt on 08/09 in [place]? 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 Buck Rec art tears four [...] can I get the FL-41 filter? Any [facility] location, (with an optical shop), throughout [place], Email: [email or web address] [employer] [facility] in [place], [place], [facility] in [place], [place], [facility] in [place], [place], [facility] in [place], [place], [email or web address] Discussed will need to submit for insurance approval and return once approved, usually takes ~1month 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 , up to 100 units Return 1 month for Botulinum toxin if dryness improved 2. General eye care Dr.. Briseno To use pataday 3. Steroid responder Used pred acetate; stop ; f/u Dr. rBiseno The documentation for this note was completed [...] 2022 11:57 AM. documented in this encounter [facility] 07-19-2022 Note HNO ID: [id number] Author: Stewart Briseno, OD Service: ? Author Type: CUTTING AND CREASING PRESS OPERATOR Type: Progress Notes Filed: 07/19/2022 11:27 AM [...] of its relevant components. Stewart Briseno, OD July 19, 2022 11:25 AM [facility] 07-19-2022 History of Presen t illness [...] of its relevant components. Stewart Briseno, OD July 19, 2022 11:25 AM documented in this encounter [facility] 07-05-2022 Note HNO ID: [id number] Author: Donita Martinez MD Service: ? 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 Buck [facility] art tears four times a day both [...] can I get the FL-41 filter? Any [facility] location, (with an optical shop), throughout [place], Email: [email or web address] [employer] [facility] in [place], [place], [facility] in [place], [place], [facility] in [place], [place], [facility] in [place], [place], [phone] www.[email or web address] Discussed will need to submit for insurance [...] Martinez MD, July 05, 2022 11:57 AM. [facility] 07-05-2022 Note HNO ID: [id number] Author: Stewart Briseno OD Service: ? Author Type: CUTTING AND CREASING PRESS OPERATOR Type: Progress Notes Filed: 07/05/2022 12:20 PM [...] all of its relevant components. Stewart Briseno, MADAI July 05, 2022 11:49 AM [facility] 07-05-2022 Miscellaneous Notes Addended by: STEWART BRISENO on: 07/05/2022 12:21 PM Modules accepted: Orders, SmartSet documented in this encounter [facility] 07-05-2022 Instructions Donita Martinez MD - 07/05/2022 11:58 AM EST Discussed with patient he has dryness both eyes, recc treating dry eye Patient has restasis-->[facility] starting Intraocular pressure elevated today-->may be steroid responder (was using pred forte); followed by Dr.. Briseno; advised patient to stop steroid drops and not use as needed and to f/u Dr.. Briseno for intraocular pressure Patient does have blepharospasm Will try and get approval for Botox however patient has dryness which can also cause blepharospasm [facility] eval with dry machine specialist Dr.. Buck [facility] art tears four times a day both [...] can I get the FL-41 filter? Any [facility] location, (with an optical shop), throughout [place], Email: [email or web address] [employer] [facility] in [place], [place], [facility] in [place], [place], [facility] in [place], [place], [employer] in [place], [place], [phone] www.[email or web address] Discussed will need to submit for insurance [...] f/u Dr. 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 Briseno; advised patient to stop steroid drops and not use as needed and to f/u Dr.. Briseno for intraocular pressure Patient does have blepharospasm Will try and get approval for Botox however patient has dryness which can also cause blepharospasm Rec eval with dry machine specialist Dr.. Buck [facility] art tears four times a day both [...] can I get the FL-41 filter? Any [facility] location, (with an optical shop), throughout [place], Email: [email or web address] [employer] [facility] in [place], [place], [facility] in [place], [place], [facility] in [place], [place], [employer] in [place], [place], www[email or web address] Discussed will need to submit for insurance [...] 2022 11:57 AM. documented in this encounter [facility] 07-05-2022 History of Presen t illness Narrative [...] all of its relevant components. Stewart Briseno, MADAI July 05, 2022 11:49 AM documented in this encounter [facility] 06-17-2022 History of Presen t illness Narrative [...] 2022 12:55 PM documented in this encounter [facility] 05-06-2022 History of Presen t illness Narrative [facility] NOTE Department of Orthopaedics Gus Vyas MD [facility] NAME: [place] Farrell CLINIC NO.: [id number] DATE: 05/06/22 Surgery: Arthroscopy Shoulder Rotator Cuff [...] arise, he should not hesitate to call. Gus Vyas M.D. M.M.Sc. Shoulder and Elbow Surgeon Orthopaedic Surgery Department [place], [place] [address] Tell: [phone] Appt:[phone] documented in this encounter [facility] 03-04-2022 History of Presen t illness Narrative [facility] NOTE Department of Orthopaedics Gus Vyas MD [facility] NAME: [place] Farrell CLINIC NO.: [id number] DATE: 03/04/2022 Surgery: Arthroscopy Shoulder Rotator Cuff [...] arise, he should not hesitate to call. Beatriz VazquezM.Sc. Shoulder and Elbow Surgeon Orthopaedic Surgery Department [place], [place] [address] Tell: [phone] Appt:[phone] documented in this encounter [facility] 01-25-2022 History of Presen t illness Narrative [facility] NOTE Department of Orthopaedics Gus Vyas MD [facility] NAME: [place] Farrell CLINIC NO.: [id number] DATE: 01/25/2022 Surgery: Arthroscopy Shoulder Rotator Cuff [...] arise, he should not hesitate to call. Gus Vyas M.D. M.M.Sc. Shoulder and Elbow Surgeon Orthopaedic Surgery Department [place], [place] [address] Tell: [phone] Appt:[phone] documented in this encounter [facility] 12-07-2021 History of Presen t illness Narrative [facility] NOTE Department of Orthopaedics Gus Vyas MD [facility] NAME: [place] Farrell CLINIC NO.: [id number] DATE: 12/07/2021 Surgery: Arthroscopy Shoulder Rotator Cuff [...] arise, he should not hesitate to call. Gus Vyas M.D. M.M.Sc. Shoulder and Elbow Surgeon Orthopaedic Surgery Department [place], [place] [address] Tell: [phone] Appt:[phone] documented in this encounter [facility] 11-07-2021 History of Presen t illness Narrative [...] pain is minimal-additional script sent to Dr. Vyas. Pt will continue hand/wrist/elbow exercises until follow up with Dr. Vyas in one month. Pt to start formal PT after that apt-sent to [facility] for request of C9. Sutures removed-steri strips applied-unremarkable. Reviewed restrictions with pt. Office number provided for additional questions or concerns. Pt seen under direction of Gus Vyas MD. Teresa Birch RN documented in this encounter [facility] 10-25-2021 Note HNO ID: [id number] Author: Pepe Cornelius APRN.CUSTOM GRINDER Service: ? Author Type: Nurse Insurance Representative Type: Anesthesia Procedure Notes Filed: 10/25/2021 12:53 PM Note Text: ANESTHESIOLOGY PROCEDURE NOTE Airway General Information Procedure Start Time/Medication Administration: 10/25/2021 11:57 AM Patient location during procedure: OR Timeout Performed Pre-procedure: timeout performed Consent Obtained: Yes Patient identity confirmed: arm band, care cylinder steamer and patient Staffing CUSTOM GRINDER: Pepe Cornelius APRN.CUSTOM GRINDER Performed by: CHARO Indications and Patient Condition Preoxygenated: yes Patient [...] 1 Airway not difficult SIGNATURE: Pepe Cornelius APRN.CRNA PATIENT NAME: [place] Farrell DATE: October 25, 2021 TIME: 12:52 PM CSN: [id number] [facility] 10-25-2021 Note HNO ID: [id number] Author: Sofia Glaser RN Service: Nursing Author Type: Registered Nurse Type: Nursing Progress Note Filed: 10/25/2021 10:27 AM Note Text: preop block: [id number] [facility] 10-25-2021 Note HNO ID: [id number] Author: Smooth Valadez MD Service: Anesthesiology Author [...] October 25, 2021 TIME: 10:21 AM CSN: [id number] [facility] 09-28-2021 Miscellaneous Notes Spoke with pt and he has made an appointment with his PCP on 10/01/21. Shyam Gotti RN September 28, 2021 11:11 AM The patient needs optimization from PCP for new DM, untreated. Letter and results faxed, please track. Email sent to Dr. Sanders in anesthesia for review. Thank you. documented in this encounter [facility] 09-28-2021 Miscellaneous Notes Component Latest Ref Rng [...] 2021 7:33 AM documented in this encounter [facility] 09-27-2021 History and physical note HISTORY AND PHYSICAL EXAMINATION SERVICE DATE: 09/27/2021 SERVICE TIME: 4:01 PM PRIMARY CARE PHYSICIAN: Rula Herrera MD, MD REASON FOR VISIT: [place] Farrell is a 50 year old male who is scheduled for right Arthroscopy Shoulder Rotator Cuff at the request of Dr. Gus Vyas for consultation. My final recommendation will be [...] fevers. Neuro: No history of TIA's, stroke, THERAPEUTIC RECREATION ASSISTANT tumor, impaired sensorium, hemiplegia, paraplegia or quadraplegia. [...] TIME: 4:01 PM documented in this encounter [facility] 09-27-2021 Instructions Barb Mast PA-C - 09/27/2021 3:40 PM EDT PATIENT PREOPERATIVE INSTRUCTIONS Gus Vyas MD has scheduled you for your procedure at this surgery center: [facility]: [phone] -- [address] [place] [address]. Please read below carefully for your personalized [...] Procedures: - YOU MUST HAVE A RESPONSIBLE MANAGER TELECOM TAKE YOU HOME. A RECORDER OF DEEDS OR SKIDWAY MAN CANNOT BE MADE A RESPONSIBLE MANAGER TELECOM. - We recommend that a responsible person [...] Advance Directive, please fax a copy to [phone] or email to for it to be [...] Barb Mast PA-C documented in this encounter [facility] 09-21-2021 History of Presen t illness Narrative [...] is a 50 year old is a rawio-zqzx-dvomeour gentleman who is referred to my clinic by Dr. Alcocer for evaluation of his right shoulder injury. This visit is part of a [facility] claim. 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 He understands and would like to proceed with surgical option. We obtained a consent form and will get this scheduled for him in coming weeks. If any questions or concerns arise, he should not hesitate to call. Gus Vyas M.D. M.M.Sc. Shoulder and Elbow Surgeon Orthopaedic Surgery Department [place], [place] [address] Tell: [phone] Appt:[phone] 09/21/2021 2:19 PM documented in this encounter [facility] 08-25-2021 Note PROCEDURE: XR SHOULD ER RT 2V or > COMPARISON: None. HISTORY: Pain FINDINGS: BONES:No acute fracture or dislocation. Mild osteoarthropathy of the acromioclavicular joint. SOFT TISSUES:Negative. No visible soft tissue swelling. EFFUSION:None visible. OTHER: Numerous lung nodules, likely sequela of prior granulomatous process IMPRESSION: No acute fracture Electronically authenticated by: TORIE FOLEY Date: 2021-08-25 15:59 [facility] Evaluation + Plan note No data available for this section General Surgery [place] Evaluation note Diagnosis Preoperative examination- Primary Preoperative examination, unspecified Traumatic complete tear of right rotator cuff, initial encounter [facility] Diagnosis Traumatic complete tear of right rotator cuff, initial encounter- Primary [facility] Diagnosis Preop examination- Primary Preoperative examination, [...] cuff, initial encounter [facility] Diagnosis Preoperative examination- Primary Preoperative examination, unspecified [facility] Diagnosis Preoperative examination- Primary Preoperative examination, unspecified Traumatic complete tear of right rotator cuff, initial encounter Preoperative examination Preoperative examination, unspecified Traumatic complete tear of right rotator cuff, initial encounter [facility] Diagnosis Traumatic complete tear of right rotator cuff, initial encounter [facility] Diagnosis Postop check- Primary Follow-up examination, following unspecified [facility] Traumatic complete tear of right rotator cuff, subsequent encounter- Primary S/P right rotator cuff repair [facility] Diagnosis S/P right rotator cuff repair- Primary [facility] Diagnosis Traumatic complete tear of right rotator cuff, initial encounter- Primary S/P right rotator cuff repair [facility] Diagnosis Traumatic complete tear of right rotator cuff, initial encounter- Primary [facility] Diagnosis Other chronic allergic conjunctivitis of both eyes- Primary 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, unspecified [facility] Diagnosis Blepharospasm- Primary [facility] Diagnosis Other chronic allergic conjunctivitis of both eyes- Primary 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, unspecified Blepharospasm [facility] Diagnosis Steroid induced glaucoma, both eyes- Primary Corticosteroid-induced glaucoma, 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, unspecified Blepharospasm [facility] Diagnosis Steroid induced glaucoma, both eyes- Primary Corticosteroid-induced glaucoma, 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, 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 [facility] Diagnosis Blepharospasm- Primary [facility] Diagnosis Blepharospasm- Primary [facility] Diagnosis 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 [facility] Diagnosis Adjustment disorder, unspecified type- Primary 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 [facility] Diagnosis 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 [facility] Diagnosis 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 [facility] Diagnosis 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 [facility] Diagnosis 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 documented in this encounter [facility] Discharge instructions No data available for this section General Surgery Qgiv Progress note No data available for this section General Surgery [place] Reason for referral (narrative)* Outpatient Procedure (Routine) - Pending Review Specialty Diagnoses / Procedures Referred By Contac t Referred To Contact [facility] Diagnoses Preoperative examination Procedures ECG COMPLETE ECG ROUTINE ECG W/LEAST 12 LDS W/I&R Gus Vyas MD [address] [place] [address] [facility] [address] [address] Referral ID Status Reason Start Date Expiration Date Visits Requested Visits Authorized [id number] Pending Review Auto-Generat ed Referral 09/21/2021 09/21/2022 1 1 [facility] for referral (narrative)* Outpatient Procedure (Routine) - Pending Review Specialty Diagnoses / Procedures Referred By Contac t Referred To Contact [facility] Diagnoses Preop examination Obstructive sleep apnea Class 3 severe obesity due to excess calories without serious comorbidity with body mass index (BMI) of 40.0 to 44.9 in adult (HCC) Traumatic complete tear of right rotator cuff, initial encounter Elevated BP without diagnosis of hypertension Primary hypertension Procedures ECG COMPLETE ECG ROUTINE ECG W/LEAST 12 LDS W/I&R Barb Mast PA-C [address] [place] [id number] [facility] [id number] [place] [address] Referral ID Status Reason Start Date Expiration Date Visits Requested Visits Authorized [id number] Pending Review Auto-Generat ed Referral 09/27/2021 09/27/2022 1 1 [facility] Advance Directives No Advanced Directives Records FoundDocuments on File Type Date Recorded Patient Precast Molder Expl anation Advance Directive(s) 10/01/2021 8:09 AM Documents on File Type Date Recorded Patient Precast Molder Expl anation Advance Directive(s) 10/24/2021 10:15 AM Advance Directive(s) 10/01/2021 8:09 AM Documents on File Type Date Recorded Patient Precast Molder Expl anation Advance Directive(s) 10/24/2021 10:15 AM Advance Directive(s) 10/01/2021 8:09 AM Summary Purpose Family History No Family History Records FoundNo Family History Records Found No data available for this section No Family History Records FoundNo Family History Records Found Reason for Referral Specialty Diagnoses / Procedures Referred By Jassi yoo Referred To Contact Diagnoses Traumatic complete tear of right rotator cuff, initial encounter Gus Vyas MD [address] [place] [address] Referral ID Status Reason Start Date Expiration Date Visits Re quested Visits Authorized [id number] Denied 1 1 Specialty Diagnoses / Procedures Referred By Jassi yoo Referred To Contact [facility] Diagnoses Traumatic complete tear of right rotator cuff, subsequent encounter S/P right rotator cuff repair Procedures CONSULT TO PHYSICAL THERAPY PHYSICAL THERAPY EVALUATION HIGH COMPLEX 45 MINS Gus Vyas MD [address] [place] [address] [facility] [address] [address] Referral ID Status Reason Start Date Expiration Date Visits Requested Visits Authorized [id number] Pending Review Auto-Generat ed Referral 12/07/2021 12/07/2022 1 1 Specialty Diagnoses / Procedures Referred By Jassi yoo Referred To Contact [facility] Diagnoses S/P right rotator cuff repair Procedures CONSULT TO PHYSICAL THERAPY PHYSICAL THERAPY EVALUATION HIGH COMPLEX 45 MINS Gus Vyas MD [address] [place] [address] [facility] [address] [place] [address] Referral ID Status Reason Start Date Expiration Date Visits Requested Visits Authorized [id number] Pending Review Auto-Generat ed Referral 01/25/2022 01/25/2023 1 1 Specialty Diagnoses / Procedures Referred By Jassi yoo Referred To Contact Neurology Diagnoses Blepharospasm Procedures CONSULT TO NEUROLOGY OFFICE/OUTPATIENT [facility] 60-74 MINUTES Donita Martinez MD [address] [place] [address] Referral ID Status Reason Start Date Expiration Date Visits Requested Visits Authorized [id number] Pending Review PCP Requested Referral 08/16/2022 08/16/2023 1 1 Specialty Diagnoses / Procedures Referred By Jassi yoo Referred To Contact [facility] Diagnoses Blepharospasm Procedures PT REHAB FOLLOW UP ORDER THERAPEUTIC EXERCISES RE, EA [address] [place] [address] [address] [id number] [facility] [place] [id number] Referral ID Status Reason Start Date Expiration Date Visits Requested Visits Authorized [id number] Pending Review PCP Requested Referral Auto-Generate d [...] the event of a Fluress shortage, administer [place]-Fluor 1 drop into both eyes as directed for applanation tonometry Given 07/05/2022 8:30 AM EST 1 Drop Active Administered Medications - up to 3 most recent administrations Medication Order MAR Action Action Date Dose Rate Site fluorescein-benoxinate 0.25-0.4 % 1 Drop (FLURESS) 1 Drop, BOTH EYES, DIRECTED, Starting on Fri08/02/22 at 1030, Until Fri08/02/22 at 2229, Administer for applanation tonometry. In the event [...] or prosecute any alcohol or drug abuse patient.[facility] the event this information is protected by the Federal Confidentiality of Alcohol and Drug Abuse Patient Records regulations: The Federal rules restrict any use of the information to criminally investigate or prosecute any alcohol or drug abuse patient.[facility] the event this information is protected by the Federal Confidentiality of Alcohol and Drug Abuse Patient Records regulations: The Federal rules restrict any use of the information to criminally investigate or prosecute any alcohol or drug abuse patient.[facility] the event this information is protected by the Federal Confidentiality of Alcohol and Drug Abuse Patient Records regulations: The Federal rules restrict any use of the information to criminally investigate or prosecute any alcohol or drug abuse patient.[facility] the event this information is protected by the Federal Confidentiality of Alcohol and Drug Abuse Patient Records regulations: The Federal rules restrict any use of the information to criminally investigate or prosecute any alcohol or drug abuse patient.[facility] the event this information is protected by the Federal Confidentiality of Alcohol and Drug Abuse Patient Records regulations: The Federal rules restrict any use of the information to criminally investigate or prosecute any alcohol or drug abuse patient.[facility] the event this information is protected by the Federal Confidentiality of Alcohol and Drug Abuse Patient Records regulations: The Federal rules restrict any use of the information to criminally investigate or prosecute any alcohol or drug abuse patient.[facility] the event this information is protected by the Federal Confidentiality of Alcohol and Drug Abuse Patient Records regulations: The Federal rules restrict any use of the information to criminally investigate or prosecute any alcohol or drug abuse patient.[facility] the event this information is protected by the Federal Confidentiality of Alcohol and Drug Abuse Patient Records regulations: The Federal rules restrict any use of the information to criminally investigate or prosecute any alcohol or drug abuse patient.[facility] the event this information is protected by the Federal Confidentiality of Alcohol and Drug Abuse Patient Records regulations: The Federal rules restrict any use of the information to criminally investigate or prosecute any alcohol or drug abuse patient.[facility] the event this information is protected by the Federal Confidentiality of Alcohol and Drug Abuse Patient Records regulations: The Federal rules restrict any use of the information to criminally investigate or prosecute any alcohol or drug abuse patient.[facility] the event this information is protected by the Federal Confidentiality of Alcohol and Drug Abuse Patient Records regulations: The Federal rules restrict any use of the information to criminally investigate or prosecute any alcohol or drug abuse patient.[facility] the event this information is protected by the Federal Confidentiality of Alcohol and Drug Abuse Patient Records regulations: The Federal rules restrict any use of the information to criminally investigate or prosecute any alcohol or drug abuse patient.[facility] the event this information is protected by the Federal Confidentiality of Alcohol and Drug Abuse Patient Records regulations: The Federal rules restrict any use of the information to criminally investigate or prosecute any alcohol or drug abuse patient.[facility] the event this information is protected by the Federal Confidentiality of Alcohol and Drug Abuse Patient Records regulations: The Federal rules restrict any use of the information to criminally investigate or prosecute any alcohol or drug abuse patient.[facility] the event this information is protected by the Federal Confidentiality of Alcohol and Drug Abuse Patient Records regulations: The Federal rules restrict any use of the information to criminally investigate or prosecute any alcohol or drug abuse patient.[facility] the event this information is protected by the Federal Confidentiality of Alcohol and Drug Abuse Patient Records regulations: The Federal rules restrict any use of the information to criminally investigate or prosecute any alcohol or drug abuse patient.[facility] the event this information is protected by the Federal Confidentiality of Alcohol and Drug Abuse Patient Records regulations: The Federal rules restrict any use of the information to criminally investigate or prosecute any alcohol or drug abuse patient.[facility] the event this information is protected by the Federal Confidentiality of Alcohol and Drug Abuse Patient Records regulations: The Federal rules restrict any use of the information to criminally investigate or prosecute any alcohol or drug abuse patient.[facility] the event this information is protected by the Federal Confidentiality of Alcohol and Drug Abuse Patient Records regulations: The Federal rules restrict any use of the information to criminally investigate or prosecute any alcohol or drug abuse patient.[facility] the event this information is protected by the Federal Confidentiality of Alcohol and Drug Abuse Patient Records regulations: The Federal rules restrict any use of the information to criminally investigate or prosecute any alcohol or drug abuse patient.[facility] the event this information is protected by the Federal Confidentiality of Alcohol and Drug Abuse Patient Records regulations: The Federal rules restrict any use of the information to criminally investigate or prosecute any alcohol or drug abuse patient.[facility] the event this information is protected by the Federal Confidentiality of Alcohol and Drug Abuse Patient Records regulations: The Federal rules restrict any use of the information to criminally investigate or prosecute any alcohol or drug abuse patient.[facility] the event this information is protected by the Federal Confidentiality of Alcohol and Drug Abuse Patient Records regulations: The Federal rules restrict any use of the information to criminally investigate or prosecute any alcohol or drug abuse patient.[facility] the event this information is protected by the Federal Confidentiality of Alcohol and Drug Abuse Patient Records regulations: The Federal rules restrict any use of the information to criminally investigate or prosecute any alcohol or drug abuse patient.[facility] the event this information is protected by the Federal Confidentiality of Alcohol and Drug Abuse Patient Records regulations: The Federal rules restrict any use of the information to criminally investigate or prosecute any alcohol or drug abuse patient.[facility] the event this information is protected by the Federal Confidentiality of Alcohol and Drug Abuse Patient Records regulations: The Federal rules restrict any use of the information to criminally investigate or prosecute any alcohol or drug abuse patient.[facility] the event this information is protected by the Federal Confidentiality of Alcohol and Drug Abuse Patient Records regulations: The Federal rules restrict any use of the information to criminally investigate or prosecute any alcohol or drug abuse patient.[facility]In the event this information is protected by the Federal Confidentiality of Alcohol and Drug Abuse Patient Records regulations: The Federal rules restrict any use of the information to criminally investigate or prosecute any alcohol or drug abuse patient.[facility]In the event this information is protected by the Federal Confidentiality of Alcohol and Drug Abuse Patient Records regulations: The Federal rules restrict any use of the information to criminally investigate or prosecute any alcohol or drug abuse patient.[facility] Care Teams (unrecognized sec tion and content) County Coroner Relationship Specialty Start Date End Date Rula Herrera MD [address] [phone] PCP - General 08/13/00 County Coroner Relationship Specialty Start Date End Date Rula Herrera MD [address] [facility] [place] [address] PCP - General 08/13/00 County Coroner Relationship Specialty Start Date End Date Rula Herrera MD [address] [facility] [place] [address] PCP - General 08/13/00 County Coroner Relationship Specialty Start Date End Date Rula Herrera MD [address] [facility] [place] [place] [address] PCP - General Family Practice 09/28/21 County Coroner Relationship Specialty Start Date End Date Rula Herrera MD [address] [facility] [place] [address] PCP - General Family Practice 09/28/21 County Coroner Relationship Specialty Start Date End Date Rula Herrera MD [address] [facility] [place] [place] [address] PCP - General Family Practice 09/28/21 County Coroner Relationship Specialty Start Date End Date Rula Herrera MD [address] [facility] [place] [address] PCP - General Family Practice 09/28/21 County Coroner Relationship Specialty Start Date End Date Rula Herrera MD [address] [facility] [place] [address] PCP - General Family Practice 09/28/21 County Coroner Relationship Specialty Start Date End Date Rula Herrera MD [address] [facility] [place] [address] PCP - General Family Medicine 09/28/21 County Coroner Relationship Specialty Start Date End Date Rula Herrera MD [address] [facility] [place] [address] PCP - General Family Medicine 09/28/21 County Coroner Relationship Specialty Start Date End Date Rula Herrera MD [address] [phone] PCP - General Family Medicine 09/28/21 County Coroner Relationship Specialty Start Date End Date Rula Herrera MD [address] [phone] PCP - General Family Medicine 09/28/21 County Coroner Relationship Specialty Start Date End Date Rula Herrera MD [address] [phone] PCP - General Family Medicine 09/28/21 County Coroner Relationship Specialty Start Date End Date Rula Herrera MD [address] [phone] PCP - General Family Medicine 09/28/21 County Coroner Relationship Specialty Start Date End Date Rula Herrera MD PCP - General Family Medicine 09/28/21 County Coroner Relationship Specialty Start Date End Date Rula Herrera MD PCP - General Family Medicine 09/28/21 County Coroner Relationship Specialty Start Date End Date Rula Herrera MD PCP - General Family Medicine 09/28/21 County Coroner Relationship Specialty Start Date End Date Rula Herrera MD PCP - General Family Medicine 09/28/21 County Coroner Relationship Specialty Start Date End Date Rula Herrera MD PCP - General Family Medicine 09/28/21 County Coroner Relationship Specialty Start Date End Date Rula Herrera MD PCP - General Family Medicine 09/28/21 County Coroner Relationship Specialty Start Date End Date Rula Herrera MD PCP - General Family Medicine 09/28/21 County Coroner Relationship Specialty Start Date End Date Rula Herrera MD PCP - General Family Medicine 09/28/21 County Coroner Relationship Specialty Start Date End Date Rula Herrera MD PCP - General Family Medicine 09/28/21 County Coroner Relationship Specialty Start Date End Date Rula Herrera MD PCP - General Family Medicine 09/28/21 County Coroner Relationship Specialty Start Date End Date Rula Herrera MD PCP - General Family Medicine 09/28/21 County Coroner Relationship Specialty Start Date End Date Rula Herrera MD PCP - General Family Medicine 09/28/21 County Coroner Relationship Specialty Start Date End Date Rula Herrera MD PCP - General Family Medicine 09/28/21 Reason for Visit (unrecogniz ed section and content) Reason Comments PT Progress Note Physical Therapy Specialty Diagnoses / Procedures Referred By Contac t Referred To Contact Physical Therapy / PHYSICAL THERAPY Diagnoses FMD Procedures NEW RS PT FND Michael Andrew MD [address] [place] [address] [place] [address] [place] [address] Referral ID Status Reason Start Date Expiration Date V isits Requested Visits Authorized [id number] Authorized 04/28/2022 04/27/2023 20 20 Reason Comments Physical Therapy Reason Comments New Patient Right Shoulder Specialty Diagnoses / Procedures Referred By Jassi yoo Referred To Contact ANESTHESIOLOGY Diagnoses ARTHROSCOPY SHOULDER ROTATOR CUFF [1113] - Shoulder - Right Procedures ARTHROSCOPY SHOULDER ROTATOR CUFF [1113] - Shoulder - Right Gus Vyas MD [address] [place] [address] [facility] [address] [place] [address] Referral ID Status Reason Start Date Expiration Date Visits Requested Visits Authorized [id number] Waiting for Response OON/Self Pay Override 09/26/2021 09/27/2021 1 1 Reason Comments Results Elevated HGB A1C Reason Comments Preparations For Surgery Reason Onset Date Comments Refill Request 11/07/2021 Reason Comments Post Op Specialty Diagnoses / Procedures Referred By Jassi yoo Referred To Contact ORTHOPAEDIC SURGERY Diagnoses Strain of muscle(s) and tendon(s) of the rotator cuff of right shoulder, initial encounter post op DOS 10/25/21 surgery RT SHOULDER Procedures REFERRAL TO 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 Gus Vyas MD [address] [place] [address] Teresa Birch RN Referral ID Status Reason Start Date Expiration Date Visits Re quested Visits Authorized [id number] Closed 11/07/2021 11/07/2021 1 1 Reason Comments Post Op Specialty Diagnoses / Procedures Referred By Jassi yoo Referred To Contact ORTHOPAEDIC SURGERY Diagnoses Post op shoulder Procedures established right shoulder post op Gus Vyas MD [address] [place] [address] [facility] [place] [address] [place] [address] Referral ID Status Reason Start Date Expiration Date Visits Re quested Visits Authorized [id number] Closed 11/07/2021 12/07/2021 1 1 Specialty Diagnoses / Procedures Referred By Jassi yoo Referred To Contact ORTHOPAEDIC SURGERY Diagnoses RIGHT SHOULDER PAIN Procedures POST/ FOLLOW UP Gus Vyas MD [address] [place] [address] [facility] [address] [place] [address] Referral ID Status Reason Start Date Expiration Date Visits Re quested Visits Authorized [id number] Closed 12/07/2021 03/07/2022 1 1 Reason Comments Established Patient Follow Up Pain Weakness Stiffness Specialty Diagnoses / Procedures Referred By Contjesus t Referred To Contact ORTHOPAEDIC SURGERY Diagnoses RIGHT SHOULDER PAIN Procedures POST/ FOLLOW UP Gus Vyas MD [address] [place] [address] [facility] [address] [place] [address] Reason Comments Established Patient Follow Up Pain Stiffness Weakness Specialty Diagnoses / Procedures Referred By Contact Referred To Contact [facility] Diagnoses Rotator cuff disorder, right Procedures FOLLOW-UP/REASSESSMEN T Gus Vyas MD [address] [place] [address] [facility] [address] [place] [address] Referral ID Status Reason Start Date Expiration Date Visits Requested Visits Authorized [id number] Pending Review OON/Self Pay Override Patient Cleared [...] Up Specialty Diagnoses / Procedures Referred By Jassi yoo Referred To Contact Ophthalmology / OPHTHALMOLOGY Diagnoses Blepharospasm Discussed will need to submit for insurance approval and return once approved, usually takes ~1month 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 , up to 100 units Return 1 month for Botulinum toxin if dryness improved Procedures BOTULINUM TOXIN A PER 1 UNIT BOTOX EI Dontia Martinez MD [address] [place] [address] Donita Martinez MD [address] [place] [address] Referral ID Status Reason Start Date Expiration Date V isits Requested Visits Authorized [id number] Authorized 08/09/2022 04/27/2023 99 99 Reason Comments Patient Question Reason Comments Botox Injection 3mo: Blepharospasm s /p botox injection essential on 08/07/22 Specialty Diagnoses / Procedures Referred By Contac [...] BOTULINUM TOXIN A PER 1 UNIT BOTOX EI Donita Martinez MD [address] [place] [address] Donita Martinez MD [address] [phone] Reason Comments PT Eval Specialty Diagnoses / Procedures Referred By Contac t Referred To Contact Physical Therapy / PHYSICAL THERAPY Diagnoses FMD Procedures NEW RS PT SEBASD Michael Andrew MD [address] [place] [address] [place] [address] [place] [address] Reason Comments Consult Specialty Diagnoses / Procedures Referred By Contac t Referred To Contact Psychology / NEUROLOGICAL YARSANI Diagnoses 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 Procedures OFFICE/OUTPATIENT NEW MODERATE MDM 45-59 MINUTES NEW PSYL HEADACHE/MOVEMENT Self Hasnie, Afiah, PSYD [address] [place] [address] Referral ID Status Reason Start Date Expiration Date Visits Re quested Visits Authorized [id number] Closed 11/20/2022 04/27/2023 1 1 Reason Comments Letter (unrecognized sect ion and content) No Status Records FoundNo Status Records FoundNo Status Records FoundNo Status Records Found INFORMATION SOURCE (unrecogn ized section and content) DATE CREATED AUTHOR 10/27/2021 [facility] DATE CREATED AUTHOR AUTHOR'S ORGANIZ ATION 07/10/2022 [facility] DATE CREATED AUTHOR AUTHOR'S ORGANIZ ATION [facility]/24/2023 [facility] DATE CREATED AUTHOR AUTHOR'S ORGANIZ ATION 06/27/2023 [facility] FOR RECORDS PERTAINING TO PATIENTS WHO [...] BE BASED ON THE PRIMARY CLINICAL RECORDS. [facility]. provides no warranty or guarantee of the accuracy or completeness of information in this document.
[2023-07-02 08:09] VITALS: BMI 43.7
[2023-07-02 08:12] VITALS: BP 123/91; PULSE 91; RESP 20; TEMP 36.4; O2SAT 97
[2023-07-02 08:12] LABS: Glucometer 189 mg/dL (74-106)
[2023-07-02] MEDS: LACTATED RINGER'S SOLUTION 1,000 ML 50 ML IV (08:17)
[2023-07-02 10:31] VITALS: BP 98/74; PULSE 80; RESP 16; O2SAT 95
[2023-07-02 10:47] VITALS: BP 103/67; PULSE 78; RESP 16; O2SAT 97
== END 2023-07-02 11:10 | disposition home or self-care (01) ==
PROVIDERS: Visit Provider Surgery
PROC: (CPT 00812; principal; 2023-07-02 09:00)
DX: Z12.11 Encounter for screening for malignant neoplasm of colon (principal); Z79.01 Long term (current) use of anticoagulants; Z86.718 Personal history of other venous thrombosis and embolism; F41.9 Anxiety disorder, unspecified; E11.9 Type 2 diabetes mellitus without complications; I10 Essential (primary) hypertension; E78.5 Hyperlipidemia, unspecified; E66.01 Morbid (severe) obesity due to excess calories; Z68.41 Body mass index [BMI] 40.0-44.9, adult; G47.33 Obstructive sleep apnea (adult) (pediatric); Z79.84 Long term (current) use of oral hypoglycemic drugs; F17.210 Nicotine dependence, cigarettes, uncomplicated
CPT/HCPCS: 00812; 45378; 36415; 82948; J1094; J2704

== ENCOUNTER 2023-07-08 13:44 | Outpatient (OUT) | payer OTHER, SELFPAY ==
--- NOTE | 2023-07-08 13:54 | VEIN_ITS ---
[address] [address] Patient Name: CHRISTOPHER FARRELL MRN: [id number] date: 1970 Sex: M Assigned Patient Location: Current Patient Location: Accession/Order Number: [id number] Exam Date: 07/08/2023 13:55 Report Date: 07/08/2023 15:28 At the request of: TORIE FOLEY Procedure: VC Endovenous Ablation 1VeinRT EXAMINATION: VC Endovenous Ablation 1Vein right great saphenous vein HISTORY: Pain due to varicose veins of bilateral legs I83.813 COMPARISON: No relevant comparison available. TECHNIQUE: The risks and benefits of the procedure had been previously discussed, and were rediscussed at length. Informed written consent was obtained. Cheri Rodriguez and Seamus Carter assisted. Time out procedure was performed. The right lower extremity was prepared and draped in the usual sterile fashion to allow knee flexion in the sterile field. Duplex ultrasound probe was draped in a sterile cover, sterile transmission gel was used. Venous mapping was performed with the areas of dilation and large tributaries marked. The total length was 61 cm from the entry 5 cm above the medial malleolus to 3 cm below the saphenofemoral junction. The diameter of the greater saphenous vein ranged from 5-11 mm. A 30 gauge needle and 1% buffered lidocaine was used to anesthetize the entry site. A 4 mm incision was made with a scalpel and the saphenous vein was entered percutaneously under direct ultrasound guidance with a micropuncture set, a single stick was successful in gaining access. A micro-guide wire was inserted and the needle removed. A micro-set including a dilator was inserted over the microwire and the needle and dilator were removed. A 0.018 guide wire was inserted through the micro-set and threaded through the saphenous vein to the saphenofemoral junction. The dilator was removed and an introducer sheath was inserted over the wire until the end of the sheath entered the saphenofemoral junction. The dilator and wire were removed and the 600 micron fiber was introduced and placed and positioned so that it extended beyond the sheath and was 3 cm peripheral to the saphenofemoral femoral junction. Final position of the fiber was determined by ultrasound guidance and duplex imaging. Tumescent anesthetic was delivered by ultrasound guidance. 325 cc of fluid was delivered along the entire course of the saphenous vein. The solution consisted of 1000 cc of normal saline with 40 mL of 1% lidocaine and 20 mL of sodium bicarbonate. A final positioning check was made. The energy source was turned on by means of the foot pedal and the fiber and sheath were withdrawn. The total number of Joules delivered was 2886. The laser was active for 361seconds under continuous pulse, average laser use of 8 J. Laser start time 3:03 pm 07/08/23 . Laser stop time 3:13 pm 07/08/23 . A duplex ultrasound revealed compressibility and flow at the saphenofemoral junction immediately after the procedure. Hemostasis at the access site was achieved. The skin incision of the saphenous vein was closed with a 4 x 4. A compression stocking was applied. Postop instructions were given. A follow up appointment was recommended and scheduled. The patient tolerated the procedure well and was discharged in good condition . VEIN/VC Endovenous Ablation 1VeinRT IMPRESSION: Technically successful endovenous laser ablation of the right great saphenous vein Electronically authenticated by: TORIE FOLEY Date: 07/08/2023 15:28
[2023-07-08] MEDS: LIDOCAINE HCL 1% 100 MG/10 ML MDV INJ (14:27)
[2023-07-08] MEDS: 0.9 % SODIUM CHLORIDE 500 ML, LIDOCAINE HCL 20 ML, SODIUM BICARBONATE 10 MEQ INJ (14:28)
== END 2023-07-08 13:45 | disposition home or self-care (01) ==
LOC: VC 13:44
PROVIDERS: PCP Radiology Diagnostic Radiology; Visit Provider Radiology Diagnostic Radiology
DX: I83.813 Varicose veins of bilateral lower extremities with pain (principal)
CPT/HCPCS: 36478

== ENCOUNTER 2023-07-15 14:12 | Outpatient (OUT) | payer OTHER, SELFPAY ==
--- NOTE | 2023-07-15 14:19 | VEIN_ITS ---
Patient Name: CHRISTOPHER FARRELL MR#: [id number] : 1970 Exam Date: 07/15/2023 Ordering Doctor: DR FERNANDO MIGUEL M.D. RADIOLOGY REPORT PROCEDURE: FACILITY EST [facility] - OFFICE VISIT FOLLOW UP COMPARISON: [facility] EST TD, 06/25/2023. PROGRESS NOTES: The patient reports mild discomfort of the right leg following intravenous laser ablation of the right great saphenous vein. The patient did not require oral analgesics. The patient has worn his compression stockings. The patient has tried to exercise. Physical exam demonstrates minimal bruising along the course of the right great saphenous vein. Thrombosed right great saphenous vein can be partially palpated. No erythema or warmth to suggest cellulitis or thrombophlebitis. No active ulceration. Review of the ultrasound performed the same day demonstrates occlusive thrombus extending throughout the treated right great saphenous vein with heat induced thrombus 2.8 cm from the saphenofemoral junction. No deep vein thrombus. The patient expressed a desire to proceed with treatment of incompetent right small saphenous vein with intravenous laser ablation. VEIN/[facility] EST LMTD IMPRESSION: 1. Successful ablation of the right great saphenous vein 2. Persistent incompetent right small saphenous vein. PLAN: Intravenous laser ablation right small saphenous vein Nurse notes, history and physical were reviewed and confirmed, see attached forms. The nurse was present throughout the physical exam and consultation Dictated by: Fernando Miguel MD on 07/15/2023 at 14:43 Approved by: Fernando Miguel MD on 07/15/2023 at 15:28
--- NOTE | 2023-07-15 14:20 | VEIN_ITS ---
Patient Name: CHRISTOPHER FARRELL MR#: [id number] : 1970 Exam Date: 07/15/2023 Ordering Doctor: DR FERNANDO MIGUEL M.D. RADIOLOGY REPORT PROCEDURE: VC EXT VENOUS RT LMTD COMPARISON: None. INDICATIONS: I80.01 Phlebitis of superficial veins of rt lower extremity TECHNIQUE: Lower extremity kothari scale and Duplex Doppler evaluation of the deep venous system from the inguinal ligament through the calf veins. FINDINGS: REGION: Right lower extremity. THROMBI: Negative for DVT. Heat induced thrombus visualized 2.8cm from the SFJ. The heat induced thrombus extends from groin to distal calf. COMPRESSIBILITY: Non-compressible segments corresponding to thrombus FLOW: Areas of no flow corresponding to thrombus CONCLUSION: Post ablation occlusion of the right great saphenous vein with heat induced thrombus 2.8 cm from the saphenofemoral junction Dictated by: Fernando Miguel MD on 07/15/2023 at 14:36 Approved by: Fernando Miguel MD on 07/15/2023 at 14:36
--- OUTSIDE RECORDS SUMMARY | 2023-07-15 14:29 | XMS_ITS | CCD ---
Author Organization [facility] Care Team Providers Care Education Assistant Name Role Phone Rula Herrera MD Primary Care Provider [phone] RULA HERRERA Primary Care Unavailable MISC, DR SOTO Attending Unavailable MISC, DR SOTO Admitting Unavailable RULA HERRERA Primary Care Unavailable MISC, DR SOTO Admitting Unavailable MISC, DR SOTO Attending Unavailable NICHOLAS BHATIA Admitting Unavailable RULA HERRERA Primary Care Unavailable NICHOLAS BHATIA Attending Unavailable TORIE FOLEY Consulting Unavailable NICHOLAS BHATIA Consulting Unavailable LEE ANN BARNETT Consulting Unavailable RULA HERRERA Attending Unavailable RULA HERRERA Admitting Unavailable HOYRULA Primary Care Unavailable RULA HERRERA Consulting Unavailable RULA HERRERA Primary Care Unavailable KRISTINA WAKEFIELD Attending Unavailable KRISTINA WAKEFIELD Admitting Unavailable RULA HERRERA Attending Unavailable RULA HERRERA Admitting Unavailable HOY, RULA Primary Care Unavailable RULA HERRERA Consulting Unavailable Red Quinonez Consulting Unavailable RULA HERRERA Primary Care Unavailable Red Quinonez Consulting Unavailable DENAE CONTRERAS Attending Unavailable DENAE CONTRERAS Admitting Unavailable DENAE CONTRERAS Consulting Unavailable Rula Herrera MD Primary Care Provider [phone] Rula Herrera Primary Care Physician RULA HERRERA Primary Care Unavailable MICHAEL ANDREW Referring Unavailable RULA HERRERA Primary Care Unavailable AGAPITO RUANO Attending Unavailable RULA HERRERA Primary Care Unavailable DONITA MARTINEZ Attending Unavailable DONITA MARTINEZ Referring Unavailable STEWART BRISENO Referring Unavailable RULA HERRERA Primary Care Unavailable STEWART BRISENO Attending Unavailable STEWART BRISEON Referring Unavailable RULA HERRERA Primary Care Unavailable STEWART BRISENO Attending Unavailable RULA HERRERA M Primary Care Unavailable PERRY ALCANTARA Attending Unavailable HASNIE, AFIAH Referring Unavailable HOY, RULA M Primary Care Unavailable DONITA MARTINEZ Attending Unavailable DONITA MARTINEZ Referring Unavailable STEWART BRISENO Attending Unavailable STEWART BRISENO Referring Unavailable HOY, RULA M Primary Care Unavailable HOY, RULA M Primary Care Unavailable ANDREW, MICHAEL Referring Unavailable HOY, RULA M Primary Care Unavailable ANDREW, MICHAEL Referring Unavailable HOY, RULA M Primary Care Unavailable ANDREW, MICHAEL Referring Unavailable HOY, RULA M Primary Care Unavailable ANDREW, MICHAEL Referring Unavailable HOY, RULA M Primary Care Unavailable MEGHA LEGGETT Attending Unavailable ANDREW, MICHAEL Referring Unavailable HOY, RULA M Primary Care Unavailable HASNIE, AFIAH Attending Unavailable HOY, RULA M Primary Care Unavailable HASNIE, AFIAH Attending Unavailable HOY, RULA M Primary Care Unavailable HASPERRY DAWKINS Attending Unavailable Stewart MAY Attending Unavailable Hoy, Rula Referring Unavailable Stewart MAY Attending Unavailable Allergies Allergy Classification Reported Allergen(s) Allergy Type Date of Onset Reaction(s) Facility (20 sources) Bee Venom Protein (Honey Bee); Translations: [BEE VENOM PROTEIN (HONEY BEE)] Drug Allergy 7 Swelling, Shortness of Breath [facility] Work Phone: (1 source) bee venom Drug allergy (disorder) 7 [facility] Repository (1 source) No Known Medication Allergies; Translations: [No Known Medication Allergies] Propensity to adverse reactions (disorder) [facility] Repository Medications Current Medications Medication Drug Class(es) Dates Sig (Normalized) Sig (Original) apixaban 5 mg oral tablet (18 sources) Factor Xa Inhibitor Start: 05-27-2022 take 1 tablet by mouth twice daily Eliquis 5 mg oral tablet 5 mg = 1 tab(s), Oral, BID, Refills(s) 0 Start Date: 05/28/23 Status: Ordered Comment on above: Take 5 mg by mouth t wice daily. benoxinate hydrochloride 4 mg/ml / fluorescein sodium 2.5 mg/ml ophthalmic solution (6 sources) Diagnostic Dye Start: 08-02-2022 End: 08-02-2022 fluorescein-benox inate 0.25-0.4 % 1 Drop (FLURESS) Start: 07-19-2022 End: 07-19-2022 fluorescein-benoxinate 0.25- 0.4 % 1 Drop (FLURESS) Start: 07-05-2022 End: 07-05-2022 fluorescein-benoxinate 0.25- 0.4 % 1 Drop (FLURESS) Start: 06-17-2022 End: 06-17-2022 fluorescein-benoxinate 0.25- 0.4 % 1 Drop (FLURESS) cyclobenzaprine hydrochloride 10 mg oral tablet (18 sources) Muscle Relaxant Start: 06-13-2022 take 1 tablet by mouth three times daily as needed for muscle spasms cyclobenzaprine 10 mg Tab 10 mg = 1 tab(s), Oral, TID, PRN for spasm, Refills(s) 0 Start Date: 05/28/23 Status: Ordered Comment on above: Take 10 mg by mouth three times daily. diclofenac sodium 75 mg delayed release oral tablet (18 sources) Nonsteroidal Anti-inflammatory Drug Start: 03-18-2022 take 1 tablet by mouth twice daily diclofenac sodium 75 mg Oral EC Tab 75 mg = 1 tab(s), Oral, BID, Refills(s) 0 Start Date: 05/28/23 Status: Ordered Comment on above: Take 75 mg by mouth twice daily. docusate sodium 100 mg oral capsule (2 sources) Start: 10-25-2021 End: 11-09-2021 take 1 capsule by mouth twice daily docusate sodium (COLACE) 100 mg capsule Take 1 capsule by mouth twice daily for 15 days. 30 capsule 0 10/25/2021 11/09/2021 Active Comment on above: Take 1 capsule by [facility] twice daily for 15 days. fenofibrate 145 mg oral tablet (1 source) Peroxisome Proliferator Receptor alpha Agonist Start: 05-28-2023 take 1 tablet by mouth once daily TriCor 145 mg Tab 145 mg = 1 tab(s), Oral, Daily, Refills(s) 0 Start Date: 05/28/23 Status: Ordered glimepiride 4 mg oral tablet (18 sources) Sulfonylurea Start: 05-28-2023 take 1 tablet by mouth once daily glimepiride 4 mg Tab 4 mg = 1 tab(s), Oral, Daily, Refills(s) 0 Start Date: 05/28/23 Status: Ordered Start: 05-03-2022 take 2 tablets by mo [facility] once daily glimepiride (AMARYL) 4 mg tablet [...] Refills(s) 0 Start Date: 05/28/23 Status: Ordered Comment on above: Take 40 mg by mouth once daily. metFORMIN hydrochloride 500 mg oral tablet (18 sources) Biguanide Start: 3 take 1 tablet by mouth twice daily metformin 500 mg Tab 500 mg = 1 tab(s), Oral, BID, Refills(s) 0 Start Date: 05/28/23 Status: Ordered Comment on above: Take 500 mg by mouth twice daily. SITagliptin 100 mg oral tablet (1 source) Dipeptidyl Peptidase 4 Inhibitor Start: 4 take 1 tablet by mouth [...] Comment on above: [facility]. cycloSPORINE (15 sources) Calcineurin Inhibitor Immunosuppressant cyclosporine (RESTASIS OPHTHALMIC) Use in eyes. 0 Active Comment on above: Use in eyes. dexamethasone 1 mg/ml / neomycin 3.5 mg/ml / polymyxin b 12478 unt/ml ophthalmic suspension (3 sources) Aminoglycoside Antibacterial, [...] Take by mouth as nee ded. olopatadine (15 sources) Histamine-1 Receptor Inhibitor olopatadine HCl (PATADA OPHTHALMIC) Use in eyes. 0 Active Comment [...] Active Problems Problem Classification Problem Date Documented Date Episodic/Chronic Adjustment disorders (4 sources) Adjustment disorder; Translations: [Adjustment disorder, unspecified] Onset: 04-30-2023 12-09-2022 Chronic Anxiety disorders (1 source) Anxiety 05-28-2023 Chronic Diabetes mellitus with complications (20 sources) Diabetes mellitus; Translations: [Type 2 diabetes mellitus with hyperglycemia] Onset: 09-28-2021 09-28-2021 Chronic Disorders of lipid metabolism (1 source) Hyperlipidemia 05-28-2023 Chronic Essential hypertension (20 sources) Essential hypertension; Translations: [Essential (primary) hypertension] Onset: 09-27-2021 Chronic Glaucoma (19 sources) Corticosteroid-induce d glaucoma; 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, bilateral, stage unspecified] Onset: 07-19-2022 Chronic Gout and other crystal arthropathies (1 source) Gout 05-28-2023 Chronic Inflammation; infection of eye (except that caused by tuberculosis or sexually transmitteddisease) (5 sources) Chronic allergic conjunctivitis; Translations: [Other chronic allergic conjunctivitis] Onset: 06-17-2022 Chronic Miscellaneous mental health disorders (3 sources) Psychologic conversion disorder; 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] Onset: 06-19-2023 12-09-2022 Chronic Other aftercare (1 source) Surgical [...] malignant neoplasm of colon] Onset: 06-17-2023 Episodic Residual codes; unclassified (20 sources) Obstructive [...] that caused by tuberculosis or sexually transmitteddisease) (18 sources) Conjunctivitis; Translations: [Unspecified conjunctivitis] Onset: 06-17-2022 06-17-2022 Episodic Other connective tissue disease (1 source) Unspecified rotator cuff tear or rupture of right shoulder, not specified as traumatic; Translations: [UNS ROT CUFF TEAR/RUPT RT SHOULDER] Onset: 09-04-2021 Episodic Other eye disorders (20 sources) Disorder of lacrimal gland; Translations: [Dry eye syndrome of bilateral lacrimal glands] Onset: 06-17-2022 Episodic Other non-traumatic joint disorders (17 sources) Pain in left knee; Translations: [Pain in joint, lower leg] Onset: 03-21-2021 07-05-2022 Episodic Other non-traumatic joint disorders (10 sources) Shoulder pain; Translations: [Pain in right shoulder] Onset: 08-25-2021 07-05-2022 Episodic Other non-traumatic joint disorders (20 sources) Pain in unspecified knee; Translations: [Pain in joint, lower leg] Onset: 11-14-2021 07-05-2022 Episodic Other non-traumatic joint disorders (10 sources) Pain in right shoulder; Translations: [Pain in joint, shoulder region] Onset: 08-25-2021 07-05-2022 Episodic Other skin disorders (20 sources) Excessive sweating; Translations: [Generalized hyperhidrosis] Onset: 09-27-2021 Episodic Phlebitis; thrombophlebitis and thromboembolism (20 sources) H/O: Deep vein thrombosis; Translations: [Personal history of other venous thrombosis and embolism] Onset: 09-27-2021 Episodic Residual codes; unclassified (17 sources) Localized edema; Translations: [Localized edema] Onset: [...] Test Name Value Interpretation Reference Range Facility Outside Colonoscopyon 2023 Outside Colonoscopy [id number]#1.0 0TIFF [facility] Lab Reportson 07-03-2023 Lab Reports [id number]#1.0 0TIFF [facility] Reminderson 07-03-2023 Reminders - From: Martine Alvarez LPN To: N - Clinical; Sent: 07/03/2023 13:32:03 EST Show up: 06/03/2033 07:00:00 EST Subject: colonoscopy recall Due Date/Time: 07/01/2033 07:00:00 EST Reminder/Recall Patient due for screening colonoscopy 07/01/2033. [facility] Insurance Correspondenceon 0 06-20-2023 Insurance Correspondence [id number]. 00TIFF [facility] Consent for Procedure/Surger yon 06-19-2023 Consent for Procedure/Surgery [id number]#1. 00TIFF [facility] Formson 06-19-2023 Forms [id number]#1.0 0TIFF Normal [facility] Facesheeton 06-18-2023 Facesheet [id number]#1.0 0TIFF Normal [facility] Ambulatory Visit Summaryon 0 06-17-2023 Ambulatory Visit Summary GONZALES FARRELL :1970 Visit Date:06/17/2023 Ambulatory Visit Instructions Your Diagnosis Screening for malignant neoplasm of colon BMI 40.0-44.9, adult Your Care Team Attending Physician - LALO JARAMILLO, Stewart Gibbs Primary Care Physician - Sharon JARAMILLO, Rula Referring Physician - Rula Herrera MD This [...] you for choosing us for your care. 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 [...] mouth. Taking 3 tablet a day Normal [facility] CNTHERAPYon 01-16-2023 [facility] GONZALES FARRELL ([id number]) 1970 M Date Time Provider Department 01/16/23 4:15 PM SOO VILLALBA [facility] Date Time Provider Department Center 01/16/2023 4:15 PM [id number], AMANDA [facility] Reason for Visit: Physical [...] mouth. Taking 3 [facility]NREUS2[facility] GONZALES FARRELL ([id number]) 1970 M Date Time Provider Department 12/26/22 [...] not able to see be faxed to [phone]/Attn: Sheron @ [facility] re: disability. Please cc: Dr. Rula Herrera (PCP) on letter and fax to Dr. Herrera at [phone]. Number to return call [phone] Okay to leave a message ? Yes Last office visit 09/18/[address] Gilmar Andrew Next office visit not scheduled (only FMD appts w/Dr. Alcantara) Thank you calling [facility]. You will receive a return call within 48 hours ( or 2 business days if close to the weekend). If you feel that this is an urgent issue and needs immediate attention, it is recommended that you contact your primary care provider office or proceed to your nearest Urgent Care Center of Emergency Room ED for evaluation/treatment. ' Sandy Ratliff RN 12/27/2022 8:[address] Andrew [...] Encounter Status:Closed by SANDY RATLIFF on 12/27/22 [facility] CNTHERAPYon 12-24-2022 CNTHERAPY OT/PT/Speech Visit (PTAVTC) KASSIEGONZALES ROMERO ([id number]) 1970 M Date Time Provider Department 12/24/22 [...] Time Minutes (timed/untimed): 45 Vonnie Connolly PT Referring Provider: MICHAEL ANDREW [[id number]] Allergies As of Date: 12/24/2022 Noted Allergy [...] Encounter Status:Closed by VONNIE CONNOLLY on 12/24/22 [facility] CNTHERAPYon 12-19-2022 CNTHERAPY OT/PT/Speech Visit (PTAVTC) GONZALES FARRELL ([id number]) 1970 M Date Time Provider Department 12/19/22 4:15 PM SOO VILLALBA [facility] Date Time Provider Department Center 12/19/2022 4:15 PM [id number], AMANDA [facility] Reason for Visit: Physical [...] mouth. Taking 3 tablet a day Normal [facility] CNTHERAPYon 2022 CNTHERAPY OT/PT/Speech Visit (PTAVTC) GONZALES FARRELL ([id number]) 1970 M Date Time Provider Department 12/12/22 4:15 PM [facility] Time Provider Department Center 2022 4:15 PM [id number], AMANDA [facility] Reason for Visit: PT Progress Note [1116] Physical Therapy [503] Primary Visit Diagnosis:Blepharospas m [...] mouth. Taking 3 tablet a day Normal [facility] Kameron 11-20-2022 CNOV Office Visit (NREUS2 ) GONZALES FARRELL ([id number]) 1970 M Date Time Provider Department 11/20/22 3:00 PM PERRY ALCANTARA NREUS2 During your visit today, we recorded the following information about you: Perry AlcantaraNILDA 12/09/2022 10:05 PM Signed [facility] Psychology Evaluation Time of Service: 3:00 pm to 4:00 pm CPT Code: 94919 - Health AND Behavior Assessment Billing Code: [...] who was referred by Dr. Andrew from [facility] as part of a multi-disciplinary evaluation for a functional movement disorder. He presents with a history of involuntary movement symptoms. Sx include eye closure/blepharospasm. Symptom onset: 2022 Social History: Mr. 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 [...] Primary Hypertension Uncontrolled Diabetes Mellitus With Hyperglycemia ([facility]) S/P Right Rotator Cuff Repair Dry Eye Syndrome of Bilateral Lacrimal Glands Conjunctivitis Acute Embolism and Thrombosis of Unspecified Deep Veins of Left Lower Extremity ([facility]) Localized Edema Pain in Left Knee Pain in Right Shoulder Knee Pain Blepharospasm Steroid Induced Glaucoma, Both Eyes Current Functioning: -cautious with walking and fear of tripping; more slow with region manager and lifting objects -no longer driving -mostly [...] no alc (more content not included)... [facility] CNTHERAPYon 11-20-2022 CNTHERAPY OT/PT/Speech Visit (PHYTMN) GONZALES FARRELL ([id number]) 1970 M Date Time Provider Department 11/20/22 1:00 PM MEGHA LEGGETT Date Time Provider Department Center 11/20/2022 1:00 PM [id number] [facility] Reason for Visit: PT Eval [...] mouth. Taking 3 tablet a day Normal [facility] 08-16-2022 CNPN Telephone (OPHTIN) GONZALES FARRELL ([id number]) 1970 M Date Time Provider Department 08/16/22 DONITA MARTINEZ During your visit today, we recorded the following information about you: Flavia Clement 08/16/2022 1:07 PM Signed Patient was seen on 08/09/22 and states that there is no change in his eyes. In fact he seems to think that they are worse and wants to know what should he do? Please Advise, ~Flavia Brianda Samuel 08/16/2022 1:17 PM Signed I spoke with him and he will come in today at 3:30. Appt sent to be scheduled. Flavia Clmeent 08/19/2022 2:41 PM Signed Brianda Samuel 3 days ago HS I spoke with him and he will come in today at 3:30. Appt sent to be scheduled. Note Donita Martinez MD You; Yvon Espinal APRN.MAINSPRING STRIP INSPECTOR; Parvin Bhatia MD; Brianda Smauel; Muna Apple PA-C 3 days ago He can come to [place] to be seen today or can come next week to be seen H, can you see when patient can come in Thanks C Allergies As of Date: 08/16/2022 Noted Allergy Reaction BEE VENOM PROTEIN (HONEY BEE) 01/27/2017 7 - Swelling 12 - Shortness of Breath Date Reviewed: 08/16/2022 Reviewed by: ANGELIA Ramos - Fully Assessed Reason for Visit: Patient Question [4078] Prescriptions as of 08/19/2022 - cyclosporine (RESTASIS [...] Status:Closed by BRIANDA DE JESUS on [facility]/16/[facility]ON[facility]RELL ([id number]) 1970 M Date Time Provider Department 08/16/22 DONITA MARTINEZ During your visit today, we recorded the following information about you: Kaye Gaston, [facility] 08/16/2022 12:15 PM Signed Patient called in and stated that his employer is requesting a letter to remain off of work due to still have systems after first Botox visit on 08/09/2022. Employer's contact info is [employer] Attn: Josue Mcnealaver Allergies As of Date: 08/16/2022 Noted Allergy Reaction BEE VENOM PROTEIN (HONEY BEE) 01/27/2017 7 - Swelling 12 - Shortness of Breath Date Reviewed: 08/09/2022 Reviewed by: Donita Martinez MD - Fully Assessed Reason for Visit: Patient Question [8347] Prescriptions as of 08/16/2022 - cyclosporine (RESTASIS [...] eyes [H40.63X0, *07/19/2022 Encounter Status:Closed by GUSTAVO PERDOMOSALONIBRIANDA on 08/16/22 [facility] (OPHTMN) GONZALES FARRELL ([id number]) 1970 M Date Time Provider Department 07/30/22 DONITA MARTINEZ During your visit today, we recorded the following information about you: Brianda Chen Jimmie 07/30/2022 11:32 AM Signed His is calling stating that they have not received anything regarding whether his injection will be covered for his upcoming appt on 08/09. Can you verify if he's good to go for his appt on 08/09 in [place]? 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 Buck Recc art tears four [...] can I get the FL-41 filter? Any [facility] location, (with an optical shop), throughout [place], Email: [email or web address] in [place], [place], [facility] in [place], [place], [facility] in [place], [place], [facility] in [place], [place], [phone] [email or web address] Discussed will need to submit for insurance [...] MD, July 05, 2022 11:57 AM. Brianda Chen [facility] 07/30/2022 12:00 PM Signed Yvon Espinal APRN.MAINSPRING STRIP INSPECTOR You; Wanda Sousa; Vanessa Maradiaga; Muna Apple PA-C; Parvin Bhatia MD; Stephany Scott PA-C 3 minutes ago (11:56 AM) RH I will send a message to the pharmacy auth team to see if he is approved. Melanie Chen [facility] 07/31/2022 1:33 PM Signed From: Pharm Auth Team Sent: Sunday, July 31, 2022 12:27 PM To: Yvon Espinal Cc: Donita Martinez ; Brianda Higgins ; Muna Apple ; Stephany Scott ; Parvin Abarca ; Ana Hankins ; Sirena Tapia Subject: RE: medical Botox approval [place] Sanz, I am not seeing a referral request for Botox. Please advise Thank you [facility] Department Remote Office [id number] [id number] From: Yvon Espinal Sent: Saturday, July 30, 2022 11:58 AM To: Pharm Auth Team Cc: Donita Martinez ; Brianda Higgins ; Muna Apple ; Stephany Scott ; Parvin Abarca Subject: medical Botox approval Fredis Berry submitted a prior authorization for Mr. Gonzales Farrell ([id number]) on 07/05/22 for medical Botox. Has it been approved? Thank you, Melanie Chen [facility] 07/31/2022 1:36 PM Signed From: Yvon Espinal Sent: Sunday, July 31, 2022 12:33 PM To: Stewart Combs ; Keyona Adkins ; Darlene Lugo ; Pharm Auth Team C (more content not included)... [facility] US JACKIE DOP LEG LTon 11-15-19 US JACKIE DOP LEG LT EXAMINATION: US [...] left leg. Findings were called by the receiver/laborer to the ordering provider at the time of imaging. Electronically authenticated by: RED QUINONEZ Date: 2021-11-14 12:03 [facility] ANES POSTPROC EVALon 022 ANES POSTPROC EVAL HNO ID: [id number] Author: Smooth Valadez MD Service: Anesthesiology Author Type: Anesthesiologist Type: Anesthesia Postprocedure Evaluation Filed: 10/25/2021 3:50 PM Note Text: POST ANESTHESIA EVALUATION NOTE : 1970 Procedure Summary Date: 10/25/21 Room / Location: [place] [address] / OR Anesthesia Start: 1148 Anesthesia Stop: [...] October 25, 2021 TIME: 3:50 PM CSN: [id number] [facility] ANES PRE-OPon 10-25-2021 [facility] PRE-OP HNO ID: [id number] Author: Smooth Valadez MD Service: Anesthesiology Author Type: Anesthesiologist Type: Anesthesia Preprocedure Evaluation Filed: 10/25/2021 10:00 AM Note Text: ANESTHESIOLOGY DAY OF SURGERY NOTE : 1970 Procedure Information Date/Time: 10/25/21 1120 Procedure: ARTHROSCOPY SHOULDER ROTATOR CUFF (Right Shoulder) - Arthrex Gene and Tex aware 90 mins Location: OR01 / MM OR Surgeons: Gus Vyas MD Estimated body [...] October 25, 2021 TIME: 9:56 AM CSN: [id number] [facility] NURSING PROGon 10-25-2021 NURSING PROG HNO ID: [id number] Author: Kyle Nuno RN Service: Nursing Author [...] 2021 TIME: 2:33 PM PAGER/CONTACT #: [phone] [facility] NURSING PROG HNO ID: [id number] Author: Salima Nuñez RN Service: Nursing Author [...] (RECOMMENDATION): None Electronically Signed By: Salima Nuñez [facility] OPERATIVE NOon 10-25-2021 OPERATIVE NO HNO ID: [id number] Author: Gus Vyas MD Service: Orthopaedic Surgery Author Type: Physician Type: Operative Report Filed: 10/25/2021 4:56 PM Note Text: OPERATIVE/PROCEDURE REPORT [place] [id number] Patient Name: Gonzales Farrell : 1970 Surgery/Procedure Date: 10/25/2021 Incision/Procedure Start Time: 12:34 PM Incision Close/Procedure End Time: 2:37 PM SURGEON(S)/PROCEDURALI ST(S) AND CLASSIFICATIONS OFFICER CC/CM(S): Gus Vyas MD MMSs (Primary Surgeon) Allan [...] reduce the to (more content not included)... [facility] NURSING PROGon 10-05-2021 NURSING PROG HNO ID: [id number] Author: Shyam Gotti RN Service: ? Author [...] Gotti RN October 05, 2021 7:40 AM [facility] HGB A1Con 09-27-2021 Average glucose Estimated from glycated hemoglobin (Bld) [Mass/Vol] 209 mg/dL [facility] HbA1c (Bld) [Mass fraction] 8.9 % High 4.3 - 5.6 % [facility] MRI SHOULDER RT WO CONon MRI [...] by: RED QUINONEZ Date: 2021-09-05 15:06 Normal [facility] XR FOREIGN BODY EYEon 2021 XR FOREIGN BODY EYE EXAMINATION: XR FOREIGN BODY EYE HISTORY: Foreign body in eye COMPARISON: No relevant comparison available. FINDINGS: ORBITS: Negative for a metallic foreign body. OTHER: Negative. IMPRESSION: 1. No metallic foreign body within the orbits. Electronically authenticated by: RED QUINONEZ Date: 2021-09-05 13:13 Normal [facility] CT CSPINE WO CONon 2 CT CSPINE WO CON EXAMINATION: CT CSPI NE WO CON HISTORY: Pain COMPARISON: None. TECHNIQUE: CT Cervical spine without IV contrast. Coronal and sagittal reformations were performed. Dose reduction techniques were achieved by using automated exposure control and/or adjustment of mA and/or kV according to patient size and/or use of iterative reconstruction technique. FINDINGS: Anatomy: 7 [id number] cervical segments. Column: No acute fracture or [...] ANN BARNETT Date: 2021-08-25 16:01 Normal [facility] BOTOX INJECTION ESSENTIAL BL EPHAROSPASM [facility] Vital Signs Date Time Vital Sign Value Performing Clinician Facility 06-17-2023 15:18-0500 Blood Pressure Location Stewart MAY [facility] 06-17-2023 15:18-0500 Diastolic blood pressure 66 mm[Hg] Stewart MAY [facility] 06-17-2023 15:18-0500 Heart rate 70 /min Stewart MAY [facility] 06-17-2023 15:18-0500 Respiratory rate 16 /min Stewart MAY [facility] 06-17-2023 15:18-0500 Systolic blood pressure 122 mm[Hg] Stewart MAY [facility] 09-27-2021 15:07-0400 Body height 177.8 cm Pacc 4 Work Phone: [facility] 09-27-2021 15:07-0400 Body temperature 96.69 [degF] Pacc 4 Work Phone: [facility] 09-27-2021 15:07-0400 Body weight 140.62 kg Pacc 4 Work Phone: [facility] 09-27-2021 15:07-0400 Diastolic blood pressure 84 mm[Hg] Pacc 4 Work Phone: [facility] 09-27-2021 15:07-0400 Heart rate 88 /min Pacc 4 Work Phone: [facility] 09-27-2021 15:07-0400 Respiratory rate 16 /min Pacc 4 Work Phone: [facility] 09-27-2021 15:07-0400 SaO2% (BldA) [Mass fraction] 97 % Pacc 4 Work Phone: [facility] 09-27-2021 15:07-0400 Systolic blood pressure 147 mm[Hg] Pacc 4 Work Phone: [facility] 09-21-2021 13:51-0400 Body height 177.8 cm Gus Vyas MD Work Phone: [facility] 09-21-2021 13:51-0400 Body weight 136.08 kg Gus Vyas MD Work Phone: [facility] Encounters Encounter Date Encounter Type Care Provider Facility Start: 07-02-2023 End: 07-03-2023 ambulatory Stewart R NILL Facility:[facility] Start: 06-19-2023 End: 06-19-2023 [facility] Perry DIA Work Phone: [facility] Comment on above: Adjustment disorder with mixed anxiety and depressed mood (Primary Dx); Functional neurological symptom disorder with mixed symptoms Start: 06-17-2023 End: 06-18-2023 ambulatory Stewart R NILL Facility:[facility] Start: 06-17-2023 End: 06-17-2023 Patient encounter procedure Stewart R NILL General Surgery Nill/Said Chris Start: 05-15-2023 ambulatory Stewart NILL Facility:[facility] Start: 04-30-2023 End: 04-30-2023 ambulatory RULA M SHARON Facility:[facility] Start: 03-13-2023 End: 03-13-2023 ambulatory RULA M SHARON Facility:[facility] Start: 03-13-2023 End: 03-13-2023 OT/PT/Speech Visit Soo Villalba PT Work Phone: [facility] Comment on above: Functional movement disorder (Primary Dx); Blepharospasm Start: 02-18-2023 End: 02-18-2023 ambulatory RULA M CHRISY Facility:[facility] Start: 01-16-2023 End: 01-16-2023 ambulatory RULA M Fitz Facility:[facility] Start: 12-26-2022 Telephone encounter Michael vargas MD Work Phone: [facility] Comment on above: Letter Start: 12-24-2022 End: 12-24-2022 ambulatory RULA HERRERA Facility:[facility] Start: 12-24-2022 End: 12-24-2022 OT/PT/Speech Visit Vonnie Connolly PT Work Phone: [facility] Comment on above: Blepharospasm (Prima ry Dx); Functional movement disorder Start: 12-19-2022 End: 12-19-2022 ambulatory RULA HERRREA Facility:[facility] Start: 12-19-2022 End: 12-19-2022 OT/PT/Speech Visit Soo Villalba PT Work Phone: [facility] Comment on above: Blepharospasm (Prima ry Dx); Functional movement disorder Start: 2022 End: 2022 ambulatory RULA HERRERA Facility:[facility] Start: 2022 End: 2022 OT/PT/Speech Visit Soo Villalba PT Work Phone: [facility] Comment on above: Blepharospasm (Prima ry Dx); Functional movement disorder Start: 11-20-2022 End: 11-20-2022 OT/PT/Speech Visit Megha Leggett PT Work Phone: [facility] Comment on above: Blepharospasm (Prima ry Dx); Functional movement disorder Adjustment disorder, unspecified type (Primary Dx); Functional neurological symptom disorder with mixed symptoms Start: 10-31-2022 End: 10-31-2022 ambulatory RULA HERRERA Facility:[facility] Start: 08-26-2022 End: 08-26-2022 ambulatory STEWART BRISENO Facility:[facility] Start: 08-16-2022 End: 08-16-2022 ambulatory RULA HERRERA Facility:[facility] Start: 08-16-2022 End: 08-16-2022 Patient encounter procedure Donita Martinez MD Work Phone: Ophthalmology Comment on above: Blepharospasm (Prima ry Dx) Start: 08-16-2022 Telephone encounter Donita Martinez MD Work Phone: Ophthalmology Comment on above: Patient Question Start: 08-09-2022 End: 08-09-2022 ambulatory RULA HERRERA Facility:[facility] Start: 08-09-2022 End: 08-09-2022 Patient encounter procedure Donita Martinez MD Work Phone: Ophthalmology Comment on above: Blepharospasm (Prima ry Dx) Start: 08-02-2022 End: 08-02-2022 ambulatory STEWART BRISENO Facility:[facility] Start: 08-02-2022 End: 08-02-2022 Patient encounter procedure Stewart Briseno OD Work Phone: Ophthalmology Comment on above: Steroid induced glau coma, both eyes (Primary Dx); Dry eye syndrome of bilateral lacrimal glands; Other chronic allergic conjunctivitis of both eyes; Blepharospasm Start: 07-30-2022 Telephone encounter Donita Martinez MD Work Phone: Ophthalmology Comment on above: Follow Up Start: 07-19-2022 End: 07-19-2022 ambulatory STEWART BRISENO Facility:[facility] Start: 07-19-2022 End: 07-19-2022 Patient encounter procedure Stewart Briseno OD Work Phone: Ophthalmology Comment on above: Steroid induced glau coma, both eyes (Primary Dx); Other chronic allergic conjunctivitis of both eyes; Dry eye syndrome of bilateral lacrimal glands; Blepharospasm Start: 07-07-2022 End: 07-08-2022 ambulatory RULA HERRERA Facility: Start: 07-05-2022 End: 07-05-2022 Patient encounter procedure [...] cuff, initial encounter (Primary Dx) Start: 04-28-2022 [facility] Facility: 1 Start: 03-04-2022 End: 03-04-2022 Patient encounter procedure Gus Vyas MD Work Phone: Orthopaedics Comment on above: Traumatic complete t ear of right rotator cuff, initial encounter (Primary Dx); S/P right rotator cuff repair Start: 01-25-2022 End: 01-25-2022 Patient encounter procedure Gus Vyas MD Work Phone: Orthopaedics Comment on above: S/P right rotator cu ff repair (Primary Dx) Start: 12-13-2021 End: 04-27-2022 [facility] Facility: Start: 12-07-2021 End: 12-07-2021 Patient encounter procedure Gus Vyas MD Work Phone: Orthopaedics Comment on above: Traumatic complete t ear of right rotator cuff, subsequent encounter (Primary Dx); S/P right rotator cuff repair Start: 11-14-2021 End: 11-15-2021 [facility] Facility: Start: 11-07-2021 End: 11-07-2021 Refill Gus [...] Results (Elevated HG B A1C) Preparations For Teysha ojeda Start: 09-27-2021 End: 09-27-2021 Admission to establishment [place] [id number] Work Phone: [place] Start: 09-27-2021 End: 09-27-2021 ambulatory [facility] Work Phone: Pre Anesthesia Comment on above: [...] Start: 09-27-2021 End: 09-27-2021 Preprocedural examination done [facility] Work Phone: Pre Anesthesia Start: 09-21-2021 ambulatory [...] Procedure Detail Performing Clinician Start: 08-09-2022 Chemodnrvtj [facility] innervated facial nrv unil Yvon Espinal CATERING ADMINISTRATIVE ASSISTANT.MAINSPRING STRIP INSPECTOR Work Phone: Start: 12-07-2021 History of repair of musculotendinous cuff of shoulder S/P right rotator cuff repair Gus Vyas MD Work Phone: Start: 07-16-2011 Adult depression screening assessment Gus Vyas MD Work Phone: Amputation of finger of left hand Stewart MAY Appendectomy Stewart NILJenna Decompression of med andrey nerve Stewart NILL History of repair of musculotendinous cuff of [...] Author Start: 09-27-2024 DIABETES SCREEN DIABETES SCREEN [facility] Start: 04-28-2023 Depression Assessment Depression Ass [facility] Start: 12-27-2022 Covid-19 Vaccine ( season) Covid-19 Vaccine ( season) [facility] Start: 12-27-2022 Influenza vaccination [facility] Start: 04-28-2022 [facility] Start: 12-28-2021 Hemoglobin A1c measurement HbA1C [facility] Start: 12-28-2021 Hemoglobin A1c/Hemoglobin.total in Blood HBA1C [facility] Start: 12-27-2021 Influenza vaccination C [facility] Start: 10-17-2021 End: 12-17-2021 Basic metabolic 2000 panel - Serum or Plasma BASIC METABOLIC PNL Lab Routine Preoperative examination Expected: 10/17/2021, Expires: 12/17/2021 [facility] Work Phone: Comment on above: Expected: 10/17/2021 , Expires: 12/17/2021 Start: 09-27-2021 End: 11-27-2021 T3 BLD [facility] Work Phone: Comment on above: Expected: 09/27/2021 , Expires: 11/27/2021 Start: 09-27-2021 End: 11-27-2021 T4 FREE/FREE THYROX [facility] Work Phone: Comment on above: Expected: 09/27/2021 , Expires: 11/27/2021 Start: 09-27-2021 End: 11-27-2021 Thyrotropin [Units/volume] in Serum or Plasma [facility] Work Phone: Comment on above: Expected: 09/27/2021 , Expires: 11/27/2021 Start: 09-21-2021 End: 11-21-2021 Basic metabolic 2000 panel - Serum or Plasma BASIC METABOLIC PNL Lab Routine Preoperative examination Expected: 09/21/2021 (Approximate), Expires: 11/21/2021 [facility] Work Phone: Comment on above: Expected: 09/21/2021 (Approximate), Expires: 11/21/2021 Start: 09-21-2021 End: 11-21-2021 CBC panel - Blood by Automated count CBC Lab Routine Preoperative examination Expected: 09/21/2021 (Approximate), Expires: 11/21/2021 [facility] Work Phone: Comment on above: Expected: 09/21/2021 (Approximate), Expires: 11/21/2021 Start: 04-28-2021 DEPRESSION ASSESSMENT DEPRESSION ASS ESSMENT [facility] Start: 09-08-2020 COVID-19 VACCINE (2 - Booster for Marlen series) COVID-19 VACCINE (2 - Booster for Marlen series) [facility] Start: 2018 Influenza vaccination LUNG CANCER SC REENING [facility] Start: 2018 Screening for malign ant neoplasm of lung Lung Cancer Screening [facility] Start: 2018 SHINGRIX VACCINE (1 of 2) SHINGRIX VACCINE (1 of 2) [facility] Start: 2013 COLOGUARD (FIT-DNA) COLOGUARD (FIT-D NA) [facility] Start: 2013 Colonoscopy COLONOSCOPY [facility] Start: 2013 COLORECTAL CANCER SCREENING COLORECTAL CANCER SCREENING [facility] Start: [address] COLONOGRAPHY [facility] Start: 2013 DIABETES SCREEN DIABETES SCREEN [facility] Start: 2013 FECAL OCCULT BLOOD FECAL OCCULT BLOO D [facility] Start: 2013 Screening for malign ant neoplasm of colon [facility] Start: 2013 SIGMOIDOSCOPY SIGMOIDOSCOPY [facility] Start: 07-15-2012 Adult depression screening assessment DEPRESSION SCREENING [facility] Start: 12-13-2003 LIPID SCREEN LIPID SCREEN [facility] Start: 12-13-1987 HEPATITIS B (1 of 3 - Risk 3-dose series) HEPATITIS B (1 of 3 - Risk 3-dose series) [facility] Start: 12-13-1987 Hepatitis B Vaccine (1 of 3 - 19+ 3-dose series) Hepatitis B Vaccine (1 of 3 - 19+ 3-dose series) [facility] Start: 12-13-1987 Urine microalbumin profile [facility] Start: 1986 ANNUAL PCP TEAM DISH STACKER OLGA DISEASE VISIT ANNUAL PCP TEAM CHRONIC DISEASE VISIT [facility] Start: 1986 BP CONTROLLED (<130/80) BP CONTROLLE D (<130/80) [facility] Start: 1986 Hepatitis B surface antibody level LDL CHOLESTEROL [facility] Start: 1986 HEPATITIS C SCREENING HEPATITIS C [facility] Start: 1986 Hepatitis C screening Hepatitis C [facility] Start: 1986 HIV SCREENING HIV SCREENING [facility] Start: 1986 HIV screening HIV Screening [facility] Start: 1978 3 comp foot exam completed DIABETIC FOOT EXAM [facility] Start: 1978 Diabetic foot examination Diabetic Foot Exam [facility] Start: 1978 Glaucoma screening Dilated Retinal E xam [facility] Start: 1978 Hepatitis B screening URINE ALBUMIN:CREATININE RATIO [facility] Start: 1978 Hepatitis C antibody , confirmatory test DILATED RETINAL EXAM [facility] Start: 1974 PNEUMOCOCCAL (1 - PCV) PNEUMOCOCCAL (1 - PCV) [facility] Start: 1974 Pneumococcal vaccination [facility] Start: 1968 HEPATITIS B (1 of 3 - 3-dose series) HEPATITIS B (1 of 3 - 3-dose series) [facility] Start: 1968 Hepatitis B Vaccine (1 of 3 - 3-dose series) Hepatitis B Vaccine (1 of 3 - 3-dose series) [facility] End: 09-21-2022 ECG COMPLETE ECG COMPLETE ECG Routine Preoperative examination 1 Occurrences starting 09/21/2021 until 09/21/2022 [facility] Work Phone: Comment on above: 1 Occurrences [...] hypertension 1 Occurrences starting 09/27/2021 until 09/27/2022 [facility] Work Phone: Comment on above: 1 Occurrences starti ng 09/27/2021 until 09/27/2022 [facility] Immunizations Immunization Date Immunization Notes Care Provider Fa cility 07-14-2020 SARS-CoV-2 (COVID-19 ) Ad26 vaccine, recombinant [facility] NEGATED: Highlighted row has not occurred!06-17-2023 influenza virus vaccine, unspecified formulation [facility] Payers Date Payer Category Payer Private Health Insurance [id number] 2021 Unknown [id number] 2021 Unknown [facility] RADHA SHIN [id number] 2021-Present [phone] [place] [address] O [id number] 2020 Unknown [employer] [id number] 2020-Present [phone] [address] [place] [address] PPO [id number] 2011 Unknown [facility] MED[facility] GENERIC [id number] 2011-Present [phone] [address] [place] [address] Indemnity [id number] 1968 Unknown [id number] 1968 Unknown [id number] 1968 Unknown [id number] 1968 Unknown [id number] 1968 Unknown [id number] 1968 Unknown [id number] 1968 Unknown [id number] 1968 Unknown [id number] 1968 Unknown [id number] 1959 Self-pay 1959 Unknown [id number] 1959 Unknown [id number] 1959 Unknown [id number] 1959 Unknown [id number] Social History Date Type Detail Facility Start: 07-16-2011 End: 08-02-2022 Tobacco smoking status NHIS Smokes tobacco daily [facility] Start: 07-16-2011 End: 09-18-2022 Cigarettes smoked current (pack per day) - Reported 1.5 [facility] Start: 08-23-2011 End: 09-18-2022 Alcohol intake Current drinker of alcohol (finding) [facility] Start: 07-16-2011 History SDOH Alcohol Comment occassionally [facility] Start: 1970 Sex Assigned At Not on file [facility] Start: 09-11-2021 End: 03-04-2022 Exposure to SARS-CoV-2 (event) Not sure [facility] History of tobacco use Cigarette Smoker [facility] Start: 07-16-2011 End: 08-02-2022 Tobacco use and exposure Former smokeless tobacco user [facility] History of tobacco use [facility] Start: 09-27-2021 History SDOH Alcohol Comment once a month maybe [facility] Start: 09-27-2021 End: 08-02-2022 Tobacco Comment 2 ppd [facility] Start: 09-18-2022 End: 06-18-2023 Tobacco use panel [facility] Adult Depression Screening Assessment 4 [facility] Start: 06-17-2023 Tobacco smoking status Heavy t obacco smoker (finding) [facility] Medical Equipment Procedure Code Equipment Code Equipment Origin al Text Equipment Identifier Dates [place] Corkscrew Suturetape 5.5mm Full Thread 1.3mm Black Blue White - [id number] Start: 10-25-2021 [place] Swivelock C 4.75mm Black White Biocomposite Peek 19.1mm Suture - [id number] Start: 10-25-2021 [place] Swivelock C 4.75mm Black White Biocomposite 19.1mm Suture Close - [id number] Start: 10-25-2021 [place] Swivelock C 4.75mm Biocomposite Peek 19.1mm Suture Closed Eyelet - [id number] Start: 10-25-2021 [place] Swivelock C 4.75mm Biocomposite Peek 19.1mm Suture Closed Eyelet - [id number] Start: 10-25-2021 Functional Status Date Assessment Result Facility 06-17-2023 Functional Status N/A General Shrestha kayla Perez Clinical Notes 08-25-2021 to 07-02-2023 Perry Alcantara PSYD - 06/19/2023 1:55 PM Soo Vences, PT - 03/13/2023 4:20 PM Sandy Oliveros RN - 12/27/2022 8:45 AM Soo Colby PT - 12/19/2022 4:15 PM EDT Note Date & Type Note Facility 07-02-2023 Note HNO ID: [id number] Author: SOO VILLALBA PT Service: ? Author Type: Physical Therapist Type: Progress Notes Filed: 07/02/2023 16:27 Note Text: 07/02/2023 [facility] PHYSICAL THERAPY DISCONTINUANCE OF CARE Plan of Care Period: Start of Care Date: 11/20/22 Last Visit Date: 03/13/2023 Therapy Program: The following is a summary of the interventions provided for this episode of care; Therapeutic exercise, Neuromuscular re-education, Self-half-way management, Gait training, and Patient/Family/Caregiver Education Assessment: The following is the goal status: No specialty comments available. Based on the most recent progress report, patient was progressing slower than expected toward functional goals based on documented subjective information on progress. Reason for Discontinuation of Care: Patient has not returned to therapy or scheduled additional follow-up appointments. Soo Villalba PT [facility] 06-19-2023 Note HNO ID: [id number] Author: PERRY ALCANTARA PSYD Service: ? Author Type: Physician Type: Progress Notes Filed: 07/07/2023 22:02 Note Text: [facility] Progress Note Billing codes: Antonio PSYCHOLOGY: FOLLOW-UP APPOINTMENT PROGRESS NOTE- Virtual Visit I have communicated my name and active licensure. The patient's identity and physical location were verified at the time of this visit. Either the patient or their legal business process representative has been informed of the risks and benefits of -- and alternatives to -- treatment through a remote evaluation and consents to proceed with the evaluation remotely. Gonzales Farrell 06/19/2023 [id number] PROVIDER: Perry Alcantara PSYD CPT Code: Virtual PSYTX PT AND/FAMILY 45 MINS Time spent doing therapy with patient: 1:55-2:35pm Parties Present: Patient Interventions: Cognitive Behavioral Education MENTAL STATUS: Mood: dysthymic Affect: mood-congruent Thoughts/Associations: goal directed Suicidal/Homicidal Ideation: [...] Issues: No change from previous appointment DIAGNOSIS: (F43.23) Adjustment disorder with mixed anxiety and depressed mood (primary encounter diagnosis) (F44.7) Functional neurological symptom disorder with mixed symptoms PROGRESS TO DATE/ASSESSMENT: -Reports he has applied for disability -Still exercising at gym and at home, using stairs -Still doing breathing exercise 3-4 per day -Processed frustration with pace of progress; reviewed education on FND sx and ANS TREATMENT PLAN/GOALS/OBJECTIVES: Homework: *[email or web address] functional facial symptoms handout review for additional psychoeducation *increase practice of distraction and breath activation (examples from PT: blowing bubbles , itsy bitsy spider ) *continue aerobic exercise for neuroplasticity Follow Up: 4-6 weeks Perry Alcantara Psy.D. Staff, [facility] 06-19-2023 History of Presen t illness Narrative [facility] Progress Note Billing codes: Antonio PSYCHOLOGY: FOLLOW-UP APPOINTMENT PROGRESS NOTE- Virtual Visit I have communicated my name and active licensure. The patient's identity and physical location were verified at the time of this visit. Either the patient or their legal business process representative has been informed of the risks and benefits of -- and alternatives to -- treatment through a remote evaluation and consents to proceed with the evaluation remotely. Gonzales Farrell 06/19/2023 [id number] PROVIDER: Perry Alcantara PSYD CPT Code: Virtual PSYTX PT &/FAMILY 45 MINS Time spent doing therapy with patient: 1:55-2:35pm Parties Present: Patient Interventions: Cognitive Behavioral Education MENTAL STATUS: Mood: dysthymic Affect: mood-congruent Thoughts/Associations: goal directed Suicidal/Homicidal Ideation: [...] Issues: No change from previous appointment DIAGNOSIS: (F43.23) Adjustment disorder with mixed anxiety and depressed mood (primary encounter diagnosis) (F44.7) Functional neurological symptom disorder with mixed symptoms PROGRESS TO DATE/ASSESSMENT: -Reports he has applied for disability -Still exercising at gym and at home, using stairs -Still doing breathing exercise 3-4 per day -Processed frustration with pace of progress; reviewed education on FND sx and ANS TREATMENT PLAN/GOALS/OBJECTIVES: Homework: *[email or web address] functional facial symptoms handout review for additional psychoeducation *increase practice of distraction and breath activation (examples from PT: blowing bubbles , itsy bitsy spider ) *continue aerobic exercise for neuroplasticity Follow Up: 4-6 weeks Perry Alcantara Psy.D. Staff, [facility] documented in this encounter [facility] 06-17-2023 Note Chief Complaint consultation for colonoscopy [...] Tobacco Use:. [employer] (more content not included)... [facility] Comment on above: Result Comment: Elec tronically Signed By: LALO JARAMILLO, Stewart Crespo\Date and Time Signed: 06/17/23 15:50 EST 04-30-2023 Note HNO ID: [id number] Author: PERRY ALCANTARA PSYD Service: ? Author Type: Physician Type: Progress Notes Filed: 05/19/2023 21:24 Note Text: [facility] Progress Note Billing codes: Antonio PSYCHOLOGY: FOLLOW-UP APPOINTMENT PROGRESS NOTE- Virtual Visit I have communicated my name and active licensure. The patient's identity and physical location were verified at the time of this visit. Either the patient or their legal business process representative has been informed of the risks and benefits of -- and alternatives to -- treatment through a remote evaluation and consents to proceed with the evaluation remotely. Gonzales Farrell 04/30/2023 [id number] PROVIDER: Perry Alcantara PSYD CPT Code: Virtual [...] having problems connecting to virtual platform via End[employer] and was able to troubleshoot with helpdesk. He has reports minimal changes to symptoms since last session. However, continues to implement suggestions from care team, including working with field support technician and chiropractic weekly for the past 1.5 [...] month/JOEY Alcantara Psy.D. Staff, [facility] 03-13-2023 Note HNO ID: [id number] Author: Soo Villalba, LANDY Service: ? Author [...] Patient to be seen for Therapeutic exercise (87698), Neuromuscular re-education (17323), Manual therapy (24193), Therapeutic activities (74560), Self-half-way management (37221), Gait Training (53848) PLAN FOR NEXT VISIT: Return as needed [...] 28.56 (mild reduced left eye spasm) TREATMENT: Self-Assisted Management: 1: PNE on sensitive nerves with [...] diverted attention str (more content not included)... [facility] 03-13-2023 History of Presen t illness [...] Patient to be seen for Therapeutic exercise (96689), Neuromuscular re-education (12848), Manual therapy (01477), Therapeutic activities (27351), Self-half-way management (92222), Gait Training (70976) PLAN FOR NEXT VISIT: Return as needed [...] 28.56 (mild reduced left eye spasm) TREATMENT: Self-Assisted Management: 1: PNE on sensitive nerves with [...] Soo Villalba PT documented in this encounter [facility] 02-18-2023 Note HNO ID: [id number] Author: Perry Alcantara PSYD Service: ? Author Type: Physician Type: Progress Notes Filed: 03/10/2023 8:54 PM Note Text: [facility] Progress Note Billing codes: Antonio PSYCHOLOGY: FOLLOW-UP APPOINTMENT PROGRESS NOTE- Virtual Visit I have communicated my name and active licensure. The patient's identity and physical location were verified at the time of this visit. Either the patient or their legal business process representative has been informed of the risks and benefits of -- and alternatives to -- treatment through a remote evaluation and consents to proceed with the evaluation remotely. Gonzales Rambo Krzysztof 02/18/2023 [id number] PROVIDER: Perry Alcantara PSYD CPT Code: Virtual [...] Perry Alcantara Psy.D. Staff, [facility] 01-16-2023 Note HNO ID: [id number] Author: Soo Villalba PT Service: ? Author [...] Patient to be seen for Therapeutic exercise (81142), Neuromuscular re-education (68538), Manual therapy (28033), Therapeutic activities (51977), Self-half-way management (74298), Gait Training (57834) PLAN FOR NEXT VISIT: Return in 2 months SUBJECTIVE: Went on vacation and had a great time and was relaxing. Was thinking that the relaxation would get rid of his sx but it did not happen. Thinks his sx all stemmed from when he got his shoulder injury and was out of a job. [place] a lot of stress at that time, [...] Stop Time : 1648 Soo Villalba PT [facility] 12-27-[address] Andrew documented [...] not able to see be faxed to [phone]/Attn: Sheron @ [facility] re: disability. Please cc: Dr. Rula Herrera (PCP) on letter and fax to Dr. Herrera at [phone]. Number to return call [phone] Okay to leave a message ? Yes Last office visit 09/18/[address] Gilmar Andrew Next office visit not scheduled (only FMD appts w/Dr. Alcantara) Thank you calling [facility] [place]. You will receive a return call within 48 hours ( or 2 business days if close to the weekend). If you feel that this is an urgent issue and needs immediate attention, it is recommended that you contact your primary care provider office or proceed to your nearest Urgent Care Center of Emergency Room ED for evaluation/treatment. ' documented in this encounter [facility] 12-24-2022 Note HNO ID: [id number] Author: Vonnie Connolly, PT Service: ? Author [...] Time Minutes (timed/untimed): 45 Vonnie Connolly, PT [facility] 12-24-2022 History of Presen t illness [...] management. Skilled Intervention: Education as described above. Elijahing Neuromuscular Re-Education Treatment Minutes: 45 Total Treatment Time Minutes (timed/untimed): 45 Vonnie Connolly PT documented in this encounter [facility] 12-19-2022 Note HNO ID: [id number] Author: Soo Villalba, LANDY Service: ? Author [...] conversation TREATMENT: Neuromuscular Re-Education: 1: C Mill- Moldovan alps- speed: 0.8 m/s. B UE support. [...] Stop Time : 1700 Soo Villalba, PT [facility] 12-19-2022 History of Presen t illness [...] conversation TREATMENT: Neuromuscular Re-Education: 1: C Mill- Moldovan alps- speed: 0.8 m/s. B UE support. [...] Soo Villalba PT documented in this encounter [facility] 2022 Note HNO ID: [id number] Author: Soo Villalba PT Service: ? Author Type: Physical Therapist Type: Progress Notes Filed: 2022 5:59 PM Note Text: Episode Visit Count: 2 Therapist That Will Accept/Oversee The Plan Of Care: Soo Villalba Start of Care Date: 11/20/22 Onset Date: 11/20/21 REHABILITATION AND SPORTS THERAPY PHYSICAL THERAPY TREATMENT NOTE *Patient accepted as transfer of care from [facility]* ASSESSMENT: Gonzales Farrell tolerated the session [...] with visual external focus. C Mill with Moldovan alps for visual distraction. Aerobic exercise. SUBJECTIVE: [...] Stop Time : 1700 Soo Villalba, PT [facility] 2022 History of Presen t illness Narrative Episode Visit Count: 2 Therapist That Will Accept/Oversee The Plan Of Care: Soo Villalba Start of Care Date: 11/20/22 Onset Date: 11/20/21 REHABILITATION AND SPORTS THERAPY PHYSICAL THERAPY TREATMENT NOTE *Patient accepted as transfer of care from [facility]* ASSESSMENT: Gonzales Farrell tolerated the session [...] with visual external focus. C Mill with Moldovan alps for visual distraction. Aerobic exercise. SUBJECTIVE: [...] Soo Villalba PT documented in this encounter [facility] 11-22-2022 Instructions Megha Leggett, PT - 11/22/2022 [...] she developed this for others.? ? - [email or web address] tion? ?- Website developed by Dr. Annabella Rodriguez who owns a private neuro therapy practice in [place] with a large focus on the treatment of FND. They are also on Instagram: [email or web address] - [email or web address] - Website developed to better understand FND with helpful links and resources (including an information sheet to give to you physician who may be unfamiliar with your FND diagnosis). - MyFND Wyatt - Free wyatt where patients can track and monitor their symptoms, review strategies for symptom management, and find resources and education on FND. documented in this encounter [facility] 11-20-2022 Note HNO ID: [id number] Author: Perry Alcantara PSYD Service: ? Author Type: Physician Type: Progress Notes Filed: 12/09/2022 10:05 PM Note Text: [facility] Evaluation Time of Service: 3:00 pm to 4:00 pm CPT Code: 72187 - Health AND Behavior Assessment Billing Code: Hasnie The patient [...] Social History: Mr. 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 [...] Primary Hypertension Uncontrolled Diabetes Mellitus With Hyperglycemia ([facility]) S/P Right Rotator Cuff Repair Dry Eye Syndrome of Bilateral Lacrimal Glands Conjunctivitis Acute Embolism and Thrombosis of Unspecified Deep Veins of Left Lower Extremity ([facility]) Localized Edema Pain in Left Knee Pain in Right Shoulder Knee Pain Blepharospasm Steroid Induced Glaucoma, Both Eyes Current Functioning: -cautious with walking and fear of tripping; more slow with region manager and lifting objects -no longer driving -mostly [...] questions: - ?H (more content not included)... [facility] 11-20-2022 Note HNO ID: [id number] Author: Megha Leggett PT Service: ? 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 [facility] 11-20-2022 History of Presen t illness Narrative [facility] Evaluation Time of Service: 3:00 pm to 4:00 pm CPT Code: 77451 - Health & Behavior Assessment Billing Code: [...] who was referred by Dr. Andrew from [facility] as part of a multi-disciplinary evaluation for a functional movement disorder. He presents with a history of involuntary movement symptoms. Sx include eye closure/blepharospasm. Symptom onset: 2022 Social History: Mr. 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 [...] Primary Hypertension Uncontrolled Diabetes Mellitus With Hyperglycemia ([facility]) S/P Right Rotator Cuff Repair Dry Eye Syndrome of Bilateral Lacrimal Glands Conjunctivitis Acute Embolism and Thrombosis of Unspecified Deep Veins of Left Lower Extremity ([facility]) Localized Edema Pain in Left Knee Pain in Right Shoulder Knee Pain Blepharospasm Steroid Induced Glaucoma, Both Eyes Current Functioning: -cautious with walking and fear of tripping; more slow with region manager and lifting objects -no longer driving -mostly [...] current facility-administered medications for this visit. Mr. Frarell reports significant depressive symptoms in the past [...] Perry Alcantara Psy.D. 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 Author Type: Registered Nurse Type: Progress Notes Filed: 10/31/2022 10:01 AM Note Text: [facility] - FOLLOW UP EVALUATION No referring provider defined for this encounter. Rula Herrera MD [address] [facility] [phone] I had the pleasure of seeing Mr. Farrell for follow up today. he is a 51 year old male with a history of functional neurological disorder here for VSMA FND education session.. We had a visit using: [employer] I have communicated my name and active licensure. The patient's identity and physical location were verified at the time of this visit. Either the patient or their legal business process representative has been informed of the risks [...] history of functional neurological disorder here for [facility] FND education session. The following are the current problems noted and addressed during this visit: Functional neurological symptom disorder with mixed symptoms (primary encounter diagnosis) Plan: Provided general education on FMD and treatment approach, questions were answered. Offered future living well with FMD VSMA Follow up with FMD management team locally or at [facility] Level of service : 22377 (20-29 min). Time spent 29 min on the day of service, which included preparing to see the patient, [id number] patient care, completing clinical documentation, obtaining and/or [...] with any questions. Sincerely, Agapito Ruano MD [facility] 08-26-2022 Note HNO ID: [id number] Author: Stewart Briseno OD Service: ? Author Type: STRATEGIC PLANNING ANALYST Type: Progress Notes Filed: 08/26/2022 7:08 PM Note Text: [email or web address] (H40.63X0, T38.0X5A) Steroid induced glaucoma, both eyes [...] Briseno, OD August 26, 2022 6:55 PM [facility] 08-16-2022 Note HNO ID: [id number] Author: Donita Martinez MD Service: ? 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 Any [facility] location, (with an optical shop), throughout [place], Email: [email or web address] [facility] in [place], [place], [facility] in [place], [place], 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 [facility] 08-16-2022 Instructions Donita Martinez MD - [...] can I get the FL-41 filter? Any [facility] location, (with an optical shop), throughout [place], Email: [email or web address] [employer] in [place], [place], [facility] in [place], [place], 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 Any [facility] location, (with an optical shop), throughout [place], Email: [email or web address] [employer] in [place], [place], [facility] in [place], [place], 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 documented in this encounter [facility] 08-16-2022 Miscellaneous Notes I spoke with him and he will come in today at 3:30. Appt sent to be scheduled. Patient was seen on 08/09/22 and states that there is no change in his eyes. In fact he seems to think that they are worse and wants to know what should he do? Please Advise, Rohit documented in this encounter [facility] 08-16-2022 Miscellaneous Notes Patient called in and stated that his employer is requesting a letter to remain off of work due to still have systems after first Botox visit on 08/09/2022. Employer's contact info is [employer] Attn: Josue Castellon documented in this encounter [facility] 08-09-2022 Note HNO ID: [id number] Author: Donita Martinez MD Service: ? Author Type: Physician Type: Progress Notes Filed: 08/09/2022 11:19 AM Note Text: Blepharospasm follow up Patient having trouble keeping eyes open. 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 Any [facility] location, (with an optical shop), throughout [place], Email: [email or web address] [employer] [facility] in [place], [place], [facility] in [place], [place], [facility] in [place], [place], [employer] in [place], [place], [phone] [email or web address] Botulinum toxin takes 1 week to set [...] Martinez MD, August 09, 2022 11:13 AM. [facility] 08-09-2022 History of Presen t illness Narrative Blepharospasm follow up Patient having trouble keeping eyes open. 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 Any [facility] location, (with an optical shop), throughout [place], Email: [email or web address] [employer] in [place], [place], [employer] in [place], [place], [facility] in [place], [place], [employer] in [place], [place], [email or web address] Botulinum toxin takes 1 week to set [...] 2022 11:13 AM. documented in this encounter [facility] 08-02-2022 Note HNO ID: [id number] Author: Stewart Briseno OD Service: ? Author Type: STRATEGIC PLANNING ANALYST Type: Progress Notes Filed: 08/02/2022 12:01 [...] Briseno, OD August 02, 2022 12:00 PM [facility] 08-02-2022 History of Presen t illness [...] 2022 12:00 PM documented in this encounter [facility] 07-31-2022 Miscellaneous Notes From: Yvon Espinal [...] Subject: Re: medical Botox approval Gonzales Farrell [id number] This patient is supposed to be getting medical Botox injections with Dr. Martinez. Can the auth please get placed and expedited? patient has appointment on 08/09/22. Thanks, Melanie Espinal [facility] Oculoplastic and Reconstructive Surgery [facility] [phone] From: Pharm Auth Team < > Sent: [...] Please advise Thank you [facility] Department Remote Office [address] [facility] [address] From: Yvon Espinal < > Sent: Saturday, July 30, 2022 11:58 AM To: Pharm Auth Team < > Cc: Donita Martinez < >; Brianda Higgins < >; Muna Apple < >; Stephany Scott < >; Parvin Abarca < > Subject: medical Botox approval Fredis Berry submitted a prior authorization for Mr. Gonzales Farrell ([id number]) on 07/05/22 for medical Botox. Has it been approved? Thank you, Melanie Images from the original note were not included. Yvon Espinal APRN.MAINSPRING STRIP INSPECTOR You; Wanda Sousa; Vanessa Maradiaga; Muna Apple PA-C; [...] go for his appt on 08/09 in [place]? 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 Buck Recc art tears four [...] can I get the FL-41 filter? Any [facility] location, (with an optical shop), throughout [place], Email: [email or web address] [employer] in [place], [place], [facility] in [place], [place], [facility] in [place], [place], [facility] in [place], [place], [email or web address] Discussed will need to submit for insurance [...] 2022 11:57 AM. documented in this encounter [facility] 07-19-2022 Note HNO ID: [id number] Author: Stewart Briseno, OD Service: ? Author Type: STRATEGIC PLANNING ANALYST Type: Progress Notes Filed: 07/19/2022 11:27 [...] Briseno, OD July 19, 2022 11:25 AM [facility] 07-19-2022 History of Presen t illness [...] 2022 11:25 AM documented in this encounter [facility] 07-05-2022 Miscellaneous Notes Addended by: STEWART BRISENO on: 07/05/2022 12:21 PM Modules accepted: Orders, SmartSet documented in this encounter [facility] 07-05-2022 Instructions Donita Martinez MD - [...] also cause blepharospasm Recc eval with dry job service specialist Dr.. Buck Rec art tears four [...] can I get the FL-41 filter? Any [facility] location, (with an optical shop), throughout [place], Email: [email or web address] [employer] [facility] in [place], [place], [facility] in [place], [place], [facility] in [place], [place], [facility] in [place], [place], [email or web address] Discussed will need to submit for insurance [...] f/u Dr. 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 Buck Recc art tears four [...] can I get the FL-41 filter? Any [facility] location, (with an optical shop), throughout [place], Email: [email or web address] [employer] in [place], [place], [facility] in [place], [place], [facility] in [place], [place], [facility] in [place], [place], [phone] [email or web address] Discussed will need to submit for insurance [...] 2022 11:57 AM. documented in this encounter [facility] 07-05-2022 History of Presen t illness [...] 2022 11:49 AM documented in this encounter [facility] 06-17-2022 History of Presen t illness [...] of its relevant components. Stewart Briseno OD June 17, 2022 12:55 PM documented in this encounter [facility] 05-06-2022 History of Presen t illness Narrative [facility] NOTE Department of Orthopaedics Gus Vyas MD [facility] NAME: Gonzales Farrell CLINIC NO.: [id number] DATE: 05/06/22 Surgery: Arthroscopy Shoulder Rotator Cuff [...] Shoulder and Elbow Surgeon Orthopaedic Surgery Department [place], [place] [address] Tell: [phone] Appt:[phone] documented in this encounter [facility] 03-04-2022 History of Presen t illness Narrative [facility] NOTE Department of Orthopaedics Gus Vyas MD [facility] NAME: Gonzales Farrell CLINIC NO.: [id number] DATE: 03/04/2022 Surgery: Arthroscopy Shoulder Rotator Cuff [...] he should not hesitate to call. Gus Vysa M.D. M.M.Sc. Shoulder and Elbow Surgeon Orthopaedic Surgery Department [place], [place] [address] Tell: [phone] Appt:[phone] documented in this encounter [facility] 01-25-2022 History of Presen t illness Narrative [facility] NOTE Department of Orthopaedics Gus Vyas MD [facility] NAME: Gonzales Farrell CLINIC NO.: [id number] DATE: 01/25/2022 Surgery: Arthroscopy Shoulder Rotator Cuff [...] Shoulder and Elbow Surgeon Orthopaedic Surgery Department [place] [id number] Tell: [phone] Appt:[phone] documented in this encounter [facility] 12-07-2021 History of Presen t illness Narrative [facility] NOTE Department of Orthopaedics Gus Vyas MD [facility] NAME: Gonzales Farrell CLINIC NO.: [id number] DATE: 12/07/2021 Surgery: Arthroscopy Shoulder Rotator Cuff [...] Shoulder and Elbow Surgeon Orthopaedic Surgery Department [place], [place] [address] Tell: [phone] Appt:[phone] documented in this encounter [facility] 11-07-2021 History of Presen t illness [...] start formal PT after that apt-sent to [facility] for request of C9. Sutures removed-steri strips applied-unremarkable. Reviewed restrictions with pt. Office number provided for additional questions or concerns. Pt seen under direction of Gus Vyas MD. Teresa Birch RN [facility] [facility] 10-25-2021 Note HNO ID: [id number] Author: Pepe Cornelius APRN.ROBOTICS SYSTEMS ENGINEER Service: ? Author Type: Nurse Rn Eligibility Type: Anesthesia Procedure Notes Filed: 10/25/2021 12:53 PM Note Text: ANESTHESIOLOGY PROCEDURE NOTE Airway General Information Procedure Start Time/Medication Administration: 10/25/2021 11:57 AM Patient location during procedure: OR Timeout Performed Pre-procedure: timeout performed Consent Obtained: Yes Patient identity confirmed: arm band, care freight team associate and patient Staffing ROBOTICS SYSTEMS ENGINEER: Pepe Cornelius APRN.ROBOTICS SYSTEMS ENGINEER Performed by: CHARO Indications and Patient Condition [...] 1 Airway not difficult SIGNATURE: Pepe Cornelius APRN.ROBOTICS SYSTEMS ENGINEER PATIENT NAME: Gonzales Farrell DATE: October 25, 2021 TIME: 12:52 PM CSN: [id number] [facility] 10-25-2021 Note HNO ID: [id number] Author: Sofia Glaser RN Service: Nursing Author Type: Registered Nurse Type: Nursing Progress Note Filed: 10/25/2021 10:27 AM Note Text: preop block: [id number] [facility] 10-25-2021 Note HNO ID: [id number] Author: Smooth Valadez MD Service: Anesthesiology Author [...] October 25, 2021 TIME: 10:21 AM CSN: [id number] [facility] 09-28-2021 Miscellaneous Notes Spoke with pt and he has made an appointment with his PCP on 10/01/21. Shyam Gotti RN September 28, 2021 11:11 AM The patient needs optimization from PCP for new DM, untreated. Letter and results faxed, please track. Email sent to Dr. Sanders in anesthesia for review. Thank you. documented in this encounter [facility] 09-28-2021 Miscellaneous Notes Component Latest Ref [...] 2021 7:33 AM documented in this encounter [facility] 09-27-2021 History and physical note HISTORY [...] fevers. Neuro: No history of TIA's, stroke, PAINTER DECORATOR tumor, impaired sensorium, hemiplegia, paraplegia or quadraplegia. [...] TIME: 4:01 PM documented in this encounter [facility] 09-27-2021 Instructions Barb Mast PA-C - 09/27/2021 3:40 PM EDT PATIENT PREOPERATIVE INSTRUCTIONS Gus Vyas MD has scheduled you for your procedure at this surgery center: [facility]: [phone] -- [address] [place] [address]. Please read below carefully for your personalized [...] Procedures: - YOU MUST HAVE A RESPONSIBLE [employer] TAKE YOU HOME. A LINEMARKER OR INDUSTRIAL YARD BRAKE COUPLER CANNOT BE MADE A RESPONSIBLE [employer]. - We recommend that a responsible person [...] Advance Directive, please fax a copy to [phone] or email to for it to be [...] Barb Mast PA-C documented in this encounter [facility] 09-21-2021 History of Presen t illness Narrative SERVICE DATE: Patient would like to see someone today. PCP: Gonzales Felizjohanna REFERRING PROVIDER: SELF Consult requested for an [...] is a 50 year old is a uchor-ligs-miqdvutx gentleman who is referred to my clinic by Dr. Alcocer for evaluation of his right shoulder injury. This visit is part of a [facility] claim. 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 HISTORY: Pain FINDINGS: BONES:No acute fracture or dislocation. Mild osteoarthropathy of the acromioclavicular joint. SOFT TISSUES:Negative. No visible soft tissue swelling. EFFUSION:None visible. OTHER: Numerous lung nodules, likely sequela of prior granulomatous process IMPRESSION: No acute fracture Electronically authenticated by: TORIE FOLEY Date: 2021-08-25 15:59 [facility] Evaluation + Plan note No data available for this section General Surgery [place] Evaluation note Diagnosis Preoperative examination- Primary Preoperative examination, unspecified Traumatic complete tear of right rotator cuff, initial encounter [facility] Traumatic complete tear of right rotator cuff, initial encounter- Primary [facility] Diagnosis Preop examination- Primary Preoperative examination, [...] Preoperative examination, unspecified [facility] Preoperative examination- Primary Preoperative examination, unspecified Traumatic complete tear of right rotator cuff, initial encounter Preoperative examination Preoperative examination, unspecified Traumatic complete tear of right rotator cuff, initial encounter [facility] Diagnosis Traumatic complete tear of right rotator cuff, initial encounter [facility] Diagnosis Postop check- Primary Follow-up examination, following unspecified surgery [facility] Diagnosis Traumatic complete tear of right rotator cuff, subsequent encounter- Primary S/P right rotator cuff repair [facility] Diagnosis S/P right rotator cuff repair- Primary [facility] Diagnosis Traumatic complete tear of right rotator cuff, initial encounter- Primary S/P right rotator cuff repair [facility] Diagnosis Traumatic complete tear of right rotator cuff, initial encounter- Primary [facility]* Diagnosis Other chronic allergic conjunctivitis of both eyes- Primary 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, unspecified [facility] Diagnosis Blepharospasm- Primary [facility] Diagnosis Other chronic allergic conjunctivitis of both eyes- Primary 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, unspecified Blepharospasm [facility]* Diagnosis Steroid induced glaucoma, both eyes- Primary Corticosteroid-induced glaucoma, 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, unspecified Blepharospasm [facility] Diagnosis Steroid induced glaucoma, both eyes- Primary Corticosteroid-induced glaucoma, 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, 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 documented in this encounter [facility] note* Diagnosis Blepharospasm- Primary documented in this encounter [facility] note* Diagnosis Blepharospasm- Primary documented in this encounter [facility] note* Diagnosis 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 documented in this encounter [facility] note* Diagnosis Adjustment disorder, unspecified type- Primary 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 documented in this encounter [facility] note* Diagnosis 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 documented in this encounter [facility] note* Diagnosis 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 documented in this encounter [facility] note* Diagnosis 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 documented in this encounter [facility] note* Diagnosis 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 documented in this encounter [facility] note* Diagnosis Adjustment disorder with mixed anxiety and depressed mood- Primary 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 documented in this encounter [facility] Discharge instructions No data available for this section General Surgery [employer] Progress note No data available for this section General Surgery [place] Reason for referral (narrative)* Outpatient Procedure (Routine) - Pending Review Specialty Diagnoses / Procedures Referred By Jassi t Referred To [facility] Diagnoses Preoperative examination Procedures ECG COMPLETE ECG ROUTINE ECG W/LEAST 12 LDS W/I&R Gus Vyas MD [address] [place] [address] [facility] [place] [place] [address] Referral ID Status Reason Start Date Expiration Date Visits Requested Visits Authorized [id number] Pending Review Auto-Generat ed Referral 09/21/2021 09/21/2022 1 1 [facility] Outpatient Procedure (Routine) - Pending Review Specialty Diagnoses / Procedures Referred By Contac t Referred To Contact [facility] [...] W/LEAST 12 LDS W/I&R Barb Mast PA-C [address] [place] [id number] [facility] [place] [address] [place] [address] Referral ID Status Reason Start Date Expiration Date Visits Requested Visits Authorized [id number] Pending Review Auto-Generat ed Referral 09/27/2021 09/27/2022 1 1 [facility] Advance Directives No Advanced Directives Records FoundDocuments on File Type Date Recorded Patient 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 Slugger Expl anation Advance Directive(s) 10/01/2021 8:09 AM Documents on File Type Date Recorded Patient Heel Slugger Expl anation Advance Directive(s) 10/24/2021 10:15 AM Advance Directive(s) 10/01/2021 8:09 AM Documents on File Type Date Recorded Patient Heel Slugger Expl anation Advance Directive(s) 10/24/2021 10:15 AM Advance Directive(s) 10/01/2021 8:09 AM Summary Purpose Family History No Family History Records FoundNo Family History Records Found No data available for this section No Family History Records FoundNo Family History Records Found Reason for Referral Specialty Diagnoses / Procedures Referred By Harvinderac t Referred To Contact Diagnoses Traumatic complete tear of right rotator cuff, initial encounter Gus Vyas MD [address] [place] [address] Referral ID Status Reason Start Date Expiration Date Visits Re quested Visits Authorized [id number] Denied 1 1 Specialty Diagnoses / Procedures Referred By Jassi t Referred To Contact [facility] Diagnoses Traumatic complete tear of right rotator cuff, subsequent encounter S/P right rotator cuff repair Procedures CONSULT TO PHYSICAL THERAPY PHYSICAL THERAPY EVALUATION HIGH COMPLEX 45 MINS Gus Vysa MD [address] [place] [address] [address] Referral ID Status Reason Start Date Expiration Date Visits Requested Visits Authorized [id number] Pending Review Auto-Generat ed Referral 12/07/2021 12/07/2022 1 1 Specialty Diagnoses / Procedures Referred By Contac t Referred To Contact [facility] Diagnoses S/P right rotator cuff repair Procedures CONSULT TO PHYSICAL THERAPY PHYSICAL THERAPY EVALUATION HIGH COMPLEX 45 MINS Gus Vyas MD [address] [place] [address] [address] Referral ID Status Reason Start Date Expiration Date Visits Requested Visits Authorized [id number] Pending Review Auto-Generat ed Referral 01/25/2022 01/25/2023 1 1 Specialty Diagnoses / Procedures Referred By Contac t Referred To Contact Neurology Diagnoses Blepharospasm Procedures CONSULT TO NEUROLOGY OFFICE/OUTPATIENT [facility]3] 60-74 MINUTES Donita Martinez MD [address] [place] [id number] Referral ID Status Reason Start Date Expiration Date Visits Requested Visits Authorized [id number] Pending Review PCP Requested Referral 08/16/2022 08/16/2023 1 1 Specialty Diagnoses / Procedures Referred By Contac t Referred To Contact [facility] Diagnoses Blepharospasm Procedures PT REHAB FOLLOW UP ORDER THERAPEUTIC EXERCISES RE, EA [address] [address] [place] [address] [facility] [address] [address] Referral ID Status Reason Start Date Expiration Date Visits Requested Visits Authorized [id number] Pending Review PCP Requested Referral Auto-Generate d [...] the event of a Fluress shortage, administer [place]-Fluor 1 drop into both eyes as directed [...] the event of a Fluress shortage, administer [place]-Fluor 1 drop into both eyes as directed [...] or prosecute any alcohol or drug abuse patient.[facility] the event this information is protected by the Federal Confidentiality of Alcohol and Drug Abuse Patient Records regulations: The Federal rules restrict any use of the information to criminally investigate or prosecute any alcohol or drug abuse patient.[facility] the event this information is protected by the Federal Confidentiality of Alcohol and Drug Abuse Patient Records regulations: The Federal rules restrict any use of the information to criminally investigate or prosecute any alcohol or drug abuse patient.[facility] the event this information is protected by the Federal Confidentiality of Alcohol and Drug Abuse Patient Records regulations: The Federal rules restrict any use of the information to criminally investigate or prosecute any alcohol or drug abuse patient.[facility] the event this information is protected by the Federal Confidentiality of Alcohol and Drug Abuse Patient Records regulations: The Federal rules restrict any use of the information to criminally investigate or prosecute any alcohol or drug abuse patient.[facility] the event this information is protected by the Federal Confidentiality of Alcohol and Drug Abuse Patient Records regulations: The Federal rules restrict any use of the information to criminally investigate or prosecute any alcohol or drug abuse patient.[facility] the event this information is protected by the Federal Confidentiality of Alcohol and Drug Abuse Patient Records regulations: The Federal rules restrict any use of the information to criminally investigate or prosecute any alcohol or drug abuse patient.[facility] the event this information is protected by the Federal Confidentiality of Alcohol and Drug Abuse Patient Records regulations: The Federal rules restrict any use of the information to criminally investigate or prosecute any alcohol or drug abuse patient.[facility] the event this information is protected by the Federal Confidentiality of Alcohol and Drug Abuse Patient Records regulations: The Federal rules restrict any use of the information to criminally investigate or prosecute any alcohol or drug abuse patient.[facility] the event this information is protected by the Federal Confidentiality of Alcohol and Drug Abuse Patient Records regulations: The Federal rules restrict any use of the information to criminally investigate or prosecute any alcohol or drug abuse patient.[facility] the event this information is protected by the Federal Confidentiality of Alcohol and Drug Abuse Patient Records regulations: The Federal rules restrict any use of the information to criminally investigate or prosecute any alcohol or drug abuse patient.[facility] the event this information is protected by the Federal Confidentiality of Alcohol and Drug Abuse Patient Records regulations: The Federal rules restrict any use of the information to criminally investigate or prosecute any alcohol or drug abuse patient.[facility] the event this information is protected by the Federal Confidentiality of Alcohol and Drug Abuse Patient Records regulations: The Federal rules restrict any use of the information to criminally investigate or prosecute any alcohol or drug abuse patient.[facility] the event this information is protected by the Federal Confidentiality of Alcohol and Drug Abuse Patient Records regulations: The Federal rules restrict any use of the information to criminally investigate or prosecute any alcohol or drug abuse patient.[facility] the event this information is protected by the Federal Confidentiality of Alcohol and Drug Abuse Patient Records regulations: The Federal rules restrict any use of the information to criminally investigate or prosecute any alcohol or drug abuse patient.[facility] the event this information is protected by the Federal Confidentiality of Alcohol and Drug Abuse Patient Records regulations: The Federal rules restrict any use of the information to criminally investigate or prosecute any alcohol or drug abuse patient.[facility] the event this information is protected by the Federal Confidentiality of Alcohol and Drug Abuse Patient Records regulations: The Federal rules restrict any use of the information to criminally investigate or prosecute any alcohol or drug abuse patient.[facility] the event this information is protected by the Federal Confidentiality of Alcohol and Drug Abuse Patient Records regulations: The Federal rules restrict any use of the information to criminally investigate or prosecute any alcohol or drug abuse patient.[facility]In the event this information is protected by the Federal Confidentiality of Alcohol and Drug Abuse Patient Records regulations: The Federal rules restrict any use of the information to criminally investigate or prosecute any alcohol or drug abuse patient.[facility]In the event this information is protected by the Federal Confidentiality of Alcohol and Drug Abuse Patient Records regulations: The Federal rules restrict any use of the information to criminally investigate or prosecute any alcohol or drug abuse patient.[facility] the event this information is protected by the Federal Confidentiality of Alcohol and Drug Abuse Patient Records regulations: The Federal rules restrict any use of the information to criminally investigate or prosecute any alcohol or drug abuse patient.[facility]In the event this information is protected by the Federal Confidentiality of Alcohol and Drug Abuse Patient Records regulations: The Federal rules restrict any use of the information to criminally investigate or prosecute any alcohol or drug abuse patient.[facility]In the event this information is protected by the Federal Confidentiality of Alcohol and Drug Abuse Patient Records regulations: The Federal rules restrict any use of the information to criminally investigate or prosecute any alcohol or drug abuse patient.[facility]In the event this information is protected by the Federal Confidentiality of Alcohol and Drug Abuse Patient Records regulations: The Federal rules restrict any use of the information to criminally investigate or prosecute any alcohol or drug abuse patient.[facility]In the event this information is protected by the Federal Confidentiality of Alcohol and Drug Abuse Patient Records regulations: The Federal rules restrict any use of the information to criminally investigate or prosecute any alcohol or drug abuse patient.[facility]In the event this information is protected by the Federal Confidentiality of Alcohol and Drug Abuse Patient Records regulations: The Federal rules restrict any use of the information to criminally investigate or prosecute any alcohol or drug abuse patient.[facility]In the event this information is protected by the Federal Confidentiality of Alcohol and Drug Abuse Patient Records regulations: The Federal rules restrict any use of the information to criminally investigate or prosecute any alcohol or drug abuse patient.[facility]In the event this information is protected by the Federal Confidentiality of Alcohol and Drug Abuse Patient Records regulations: The Federal rules restrict any use of the information to criminally investigate or prosecute any alcohol or drug abuse patient.[facility]In the event this information is protected by the Federal Confidentiality of Alcohol and Drug Abuse Patient Records regulations: The Federal rules restrict any use of the information to criminally investigate or prosecute any alcohol or drug abuse patient.[facility]In the event this information is protected by the Federal Confidentiality of Alcohol and Drug Abuse Patient Records regulations: The Federal rules restrict any use of the information to criminally investigate or prosecute any alcohol or drug abuse patient.[facility]In the event this information is protected by the Federal Confidentiality of Alcohol and Drug Abuse Patient Records regulations: The Federal rules restrict any use of the information to criminally investigate or prosecute any alcohol or drug abuse patient.[facility] Care Teams (unrecognized sec tion and content) Education Assistant Relationship Specialty Start Date End Date Rula Herrera MD [address] [id number] PCP - General 08/13/00 Education Assistant Relationship Specialty Start Date End Date Rula Herrera MD [address] [place] [address] PCP - General 08/13/00 Education Assistant Relationship Specialty Start Date End Date Rula Herrera MD [address] [place] [address] PCP - General 08/13/00 Education Assistant Relationship Specialty Start Date End Date Rula Herrera MD [address] [place] [address] PCP - General Family Practice 09/28/21 Education Assistant Relationship Specialty Start Date End Date Rula Herrera MD [address] [place] [id number] PCP - General Family Practice 09/28/21 Education Assistant Relationship Specialty Start Date End Date Rula Herrera MD [address] [place] [id number] PCP - General Family Practice 09/28/21 Education Assistant Relationship Specialty Start Date End Date Rula Herrera MD [address] [place] [id number] PCP - General Family Practice 09/28/21 Education Assistant Relationship Specialty Start Date End Date Rula Herrera MD [address] [place] [id number] PCP - General Family Practice 09/28/21 Education Assistant Relationship Specialty Start Date End Date Rula Herrera MD [address] [place] [id number] PCP - General Family Medicine 09/28/21 Education Assistant Relationship Specialty Start Date End Date Rula Herrera MD [address] [id number] PCP - General Family Medicine 09/28/21 Education Assistant Relationship Specialty Start Date End Date Rula Herrera MD [address] [facility] PCP - General Family Medicine 09/28/21 Education Assistant Relationship Specialty Start Date End Date Rula Herrera MD [address] [facility] PCP - General Family Medicine 09/28/21 Education Assistant Relationship Specialty Start Date End Date Rula Herrera MD [address] [place] [address] PCP - General Family Medicine 09/28/21 Education Assistant Relationship Specialty Start Date End Date Rula Herrera MD [address] [place] [address] PCP - General Family Medicine 09/28/21 Education Assistant Relationship Specialty Start Date End Date Rula Herrera MD PCP - General Family Medicine 09/28/21 Education Assistant Relationship Specialty Start Date End Date Rula Herrera MD PCP - General Family Medicine 09/28/21 Education Assistant Relationship Specialty Start Date End Date Rula Herrera MD PCP - General Family Medicine 09/28/21 Education Assistant Relationship Specialty Start Date End Date Rula Herrera MD PCP - General Family Medicine 09/28/21 Education Assistant Relationship Specialty Start Date End Date Rula Herrera MD PCP - General Family Medicine 09/28/21 Education Assistant Relationship Specialty Start Date End Date Rula Herrera MD PCP - General Family Medicine 09/28/21 Education Assistant Relationship Specialty Start Date End Date Rula Herrera MD PCP - General Family Medicine 09/28/21 Education Assistant Relationship Specialty Start Date End Date Rula Herrera MD PCP - General Family Medicine 09/28/21 Education Assistant Relationship Specialty Start Date End Date Rula Herrera MD PCP - General Family Medicine 09/28/21 Education Assistant Relationship Specialty Start Date End Date Rula Herrera MD PCP - General Family Medicine 09/28/21 Education Assistant Relationship Specialty Start Date End Date Rula Herrera MD PCP - General Family Medicine 09/28/21 Education Assistant Relationship Specialty Start Date End Date Rula Herrera MD PCP - General Family Medicine 09/28/21 Education Assistant Relationship Specialty Start Date End Date Rula Herrera MD PCP - General Family Medicine 09/28/21 Reason for Visit (unrecogniz ed section and content) Reason Comments Follow Up Specialty Diagnoses / Procedures Referred By Contac t Referred To Contact Psychology / NEUROLOGICAL MUSLIM Diagnoses follow up Procedures VIDEO PSYC/PSYL EST Perry Alcantara PSYD [address] [place] [address] Perry Alcantara PSYD [facility] [address] [place], [place] [id number] Referral ID Status Reason Start Date Expiration Date Visits Requested Visits Authorized [id number] Pending Review Financial Clearance Required - OON Payor 06/19/2023 09/17/2023 1 1 Reason Comments PT Progress Note Physical Therapy Specialty Diagnoses / Procedures Referred By Contac t Referred To Contact Physical Therapy / PHYSICAL THERAPY Diagnoses FMD Procedures NEW RS PT FND Michael Andrew MD [address] [place] [address] Megha Leggett, [place] [address] [place] [phone] Referral ID Status Reason Start Date Expiration Date V isits Requested Visits Authorized [id number] Authorized 04/28/2022 04/27/2023 20 20 Reason Comments Physical Therapy Reason Comments New Patient Right Shoulder Specialty Diagnoses / Procedures Referred By Jassi t Referred To Contact ANESTHESIOLOGY Diagnoses ARTHROSCOPY SHOULDER ROTATOR CUFF [1113] - Shoulder - Right Procedures ARTHROSCOPY SHOULDER ROTATOR CUFF [1113] - Shoulder - Right Gus Vyas MD [address] [place] [address] Pre [facility] [address] [place] [address] Referral ID Status Reason Start Date Expiration Date Visits Requested Visits Authorized [id number] Waiting for Response OON/Self Pay Override 09/26/2021 [...] 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 Gus Vyas MD [address] [place] [address] Teresa Birch RN Referral ID Status Reason Start Date Expiration Date Visits Re quested Visits Authorized [id number] Closed 11/07/2021 11/07/2021 1 1 Reason Comments Post Op Specialty Diagnoses / Procedures Referred By Jassi t Referred To Contact ORTHOPAEDIC SURGERY Diagnoses Post op shoulder Procedures established right shoulder post op Gus Vyas MD [address] [place] [address] [facility] [address] [place] [address] Referral ID Status Reason Start Date Expiration Date Visits Re quested Visits Authorized [id number] Closed 11/07/2021 12/07/2021 1 1 Specialty Diagnoses / Procedures Referred By Jassi t Referred To Contact ORTHOPAEDIC SURGERY Diagnoses RIGHT SHOULDER PAIN Procedures POST/ FOLLOW UP Gus Vyas MD [address] [place] [address] Orth [facility] [address] [place] [address] Referral ID Status Reason Start Date Expiration Date Visits Re quested Visits Authorized [id number] Closed 12/07/2021 03/07/2022 1 1 Reason Comments Established Patient Follow Up Pain Weakness Stiffness Specialty Diagnoses / Procedures Referred By Contac t Referred To Contact ORTHOPAEDIC SURGERY Diagnoses RIGHT SHOULDER PAIN Procedures POST/ FOLLOW UP Gus Vyas MD [address] [place] [address] [facility] [address] [place] [address] Reason Comments Established Patient Follow Up Pain Stiffness Weakness Specialty Diagnoses / Procedures Referred By Contact Referred To Contact [facility] Diagnoses Rotator cuff disorder, right Procedures FOLLOW-UP/REASSESSMEN T Gus Vyas MD [address] [place] [address] [facility] [address] [place] [address] Referral ID Status Reason Start Date Expiration Date Visits Requested Visits Authorized [id number] Pending Review OON/Self Pay Override Patient Cleared [...] of bilateral lacrimal g lands Reason Comments Blepharospasm Follow Up Specialty Diagnoses [...] 1 UNIT BOTOX EI Donita Martinez MD [address] [place] [address] Donita Martinez MD [address] [facility] [place] [phone] Referral ID Status Reason Start Date Expiration Date V isits Requested Visits Authorized [id number] Authorized 08/09/2022 04/27/2023 99 99 Reason Comments [...] 1 UNIT BOTOX EI Donita Martinez MD [address] [place] [address] Donita Martinez MD [address] [place] [address] Reason Comments PT Eval Specialty Diagnoses / Procedures Referred By Contac t Referred To Contact Physical Therapy / PHYSICAL THERAPY Diagnoses FMD Procedures NEW RS PT FND Michael Andrew MD [address] [place] [address] [place] [address] [place] [address] Reason Comments Consult Specialty Diagnoses / Procedures Referred By Contac t Referred To Contact Psychology / NEUROLOGICAL MUSLIM Diagnoses 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 Procedures OFFICE/OUTPATIENT NEW MODERATE MDM 45-59 MINUTES NEW PSYL HEADACHE/MOVEMENT Self Hasnie, Afiah, PSYD [address] [place] [address] Referral ID Status Reason Start Date Expiration Date Visits Re quested Visits Authorized [id number] Closed 11/20/2022 04/27/2023 1 1 Reason Comments Letter (unrecognized sect ion and content) No Status Records FoundNo Status Records FoundNo Status Records FoundNo Status Records Found INFORMATION SOURCE (unrecogn ized section and content) DATE CREATED AUTHOR 10/27/2021 Claudia Henriquez al DATE CREATED AUTHOR AUTHOR'S ORGANIZ ATION 07/10/2022 [facility] DATE CREATED AUTHOR AUTHOR'S ORGANIZ ATION 07/09/2023 [facility] DATE CREATED AUTHOR AUTHOR'S ORGANIZ ATION 07/11/2023 [facility] FOR RECORDS PERTAINING TO PATIENTS WHO [...] BE BASED ON THE PRIMARY CLINICAL RECORDS. [employer] provides no warranty or guarantee of the accuracy or completeness of information in this document.
== END 2023-07-15 14:13 | disposition home or self-care (01) ==
LOC: VC 14:18
PROVIDERS: PCP Radiology Diagnostic Radiology; Visit Provider Radiology Diagnostic Radiology
DX: I80.01 Phlebitis and thrombophlebitis of superficial vessels of right lower extremity (principal)
CPT/HCPCS: 93971; G0463

== ENCOUNTER 2023-07-24 13:45 | Outpatient (OUT) | payer OTHER, SELFPAY ==
--- NOTE | 2023-07-24 13:53 | VEIN_ITS ---
[address] [address] Patient Name: CHRISTOPHER FARRELL MRN: [id number] date: 1970 Sex: M Assigned Patient Location: Current Patient Location: Accession/Order Number: [id number] Exam Date: 07/24/2023 14:02 Report Date: 07/24/2023 15:37 At the request of: TORIE FOLEY Procedure: VC Endovenous Ablation 1VeinLT EXAMINATION: VC Endovenous Ablation 1Vein, left small saphenous vein HISTORY: I83.813 Bilateral painful varicose veins COMPARISON: No relevant comparison available. TECHNIQUE: The risks and benefits of the procedure had been previously discussed, and were rediscussed at length. Informed written consent was obtained. Cheri Rodriguez and Seamus Carter assisted. Time out procedure was performed. The left lower extremity was prepared and draped in the usual sterile fashion. Duplex ultrasound probe was draped in a sterile cover, sterile transmission gel was used. Venous mapping was performed with the areas of dilation and large tributaries marked. The total length was 27 cm from the entry 10 cm above the lateral malleolus to 3 cm below the saphenofemoral junction. The diameter of the small saphenous vein ranged from 5-6 mm. A 30 gauge needle and 1% buffered lidocaine was used to anesthetize the entry site. A 4 mm incision was made with a scalpel and the saphenous vein was entered percutaneously under direct ultrasound guidance with a micropuncture set, a single stick was successful in gaining access. The wire could not be advanced. Additional access was obtained 3 cm proximal to the initial access. A micro-guide wire was inserted and the needle removed. A micro-set including a dilator was inserted over the microwire and the needle and dilator were removed. A 0.018 guide wire was inserted through the micro-set and threaded through the saphenous vein. The dilator was removed and an introducer sheath was inserted over the wire. The dilator and wire were removed and the 600 micron fiber was introduced and placed and positioned so that it extended beyond the sheath. Final position of the fiber was determined by ultrasound guidance and duplex imaging. Tumescent anesthetic was delivered by ultrasound guidance. 150 cc of fluid was delivered along the entire course of the saphenous vein. The solution consisted of 1000 cc of normal saline with 40 mL of 1% lidocaine and 20 mL of sodium bicarbonate. A final positioning check was made. The energy source was turned on by means of the foot pedal and the fiber and sheath were withdrawn. The total number of Joules delivered was 1263. The laser was active for 158 seconds under continuous pulse, average laser use of 8 J. Laser start time 2:45 PM 07/23/2022. Laser stop time to 249 PM 07/15/2022 . A duplex ultrasound revealed compressibility and flow at the saphenofemoral junction immediately after the procedure. Hemostasis at the access site was achieved. The skin incision of the saphenous vein was closed with a 4 x 4. A compression stocking was applied. Postop instructions were given. A follow up appointment was recommended and scheduled. The patient tolerated the procedure well and was discharged in good condition . VEIN/VC Endovenous Ablation 1VeinLT IMPRESSION: Technically successful endovenous laser ablation of the left small saphenous vein Electronically authenticated by: TORIE FOLEY Date: 07/24/2023 15:37
[2023-07-24] MEDS: 0.9 % SODIUM CHLORIDE 500 ML, LIDOCAINE HCL 20 ML, SODIUM BICARBONATE 10 MEQ INJ (14:10)
[2023-07-24] MEDS: LIDOCAINE HCL 1% 100 MG/10 ML MDV INJ (14:10)
== END 2023-07-24 13:46 | disposition home or self-care (01) ==
LOC: VC 13:45
PROVIDERS: PCP Radiology Diagnostic Radiology; Visit Provider Radiology Diagnostic Radiology
DX: I83.813 Varicose veins of bilateral lower extremities with pain (principal)
CPT/HCPCS: 36478

== ENCOUNTER 2023-07-29 14:41 | Outpatient (OUT) | payer OTHER, SELFPAY ==
--- NOTE | 2023-07-29 14:51 | VEIN_ITS ---
Patient Name: CHRISTOPHER FARRELL MR#: [id number] : 1970 Exam Date: 07/29/2023 Ordering Doctor: DR TORIE FOLEY M.D. RADIOLOGY REPORT PROCEDURE: [facility] - OFFICE VISIT FOLLOW UP [facility] PROGRESS NOTES: The patient reports improvement in leg symptoms. There has been interval reduction in varicosities. The patient has followed our recommendations to walk 20-30 minutes once or twice per day since the procedure. Physical exam demonstrates decrease in varicosities of the leg. 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 Review of the ultrasound performed the same day demonstrates occlusive thrombus extending throughout the treated vein(s), see separate report, consistent with a successful ablation. No thrombus extending into or beyond the saphenofemoral junction. The patient expressed appreciation for significant improvement and lower extremity symptoms. VEIN/[facility] EST [facility] IMPRESSION: 1. Successful ablation of the left small saphenous vein(s). 2. Persistent incompetent branch saphenous veins and mild lower extremity symptoms. PLAN: 1. Patient understands there are still dilated incompetent branch saphenous varicosities which would benefit from treatment, but patient's insurance company has not approved microfoam chemical ablation for treatment of these veins. Patient will follow-up with vein center in future if treatment becomes available or as needed. Nurse notes, history and physical were reviewed and confirmed, see attached forms. The nurse was present throughout the physical exam and consultation Dictated by: Deng Sun M.D. on 07/29/2023 at 15:18 Approved by: Deng Sun M.D. on 07/29/2023 at 15:20
--- NOTE | 2023-07-29 14:52 | VEIN_ITS ---
Patient Name: CHRISTOPHER FARRELL MR#: [id number] : 1970 Exam Date: 07/29/2023 Ordering Doctor: DR TORIE FOLEY M.D. RADIOLOGY REPORT PROCEDURE: VC EXT VENOUS LT LIMITED COMPARISON: VC EXT VENOUS LT LIMITED, 06/25/2023. INDICATIONS: I80.02 Phlebitis of superficial veins of lt lower extremity TECHNIQUE: Lower extremity kothari scale and Duplex Doppler evaluation of the deep venous system from the inguinal ligament through the calf veins. FINDINGS: REGION: Left lower extremity. THROMBI: Positive for DVT. Chronic DVT noted again in Pop V. Heat induced thrombus visualized arising at distal thigh and extends through distal calf. COMPRESSIBILITY: Non-compressible segments corresponding to thrombus FLOW: Areas of no flow corresponding to thrombus OTHER: CONCLUSION: 1. Successful post ablation occlusion of left small saphenous vein. Dictated by: Deng Sun M.D. on 07/29/2023 at 15:14 Approved by: Deng Sun M.D. on 07/29/2023 at 15:17
== END 2023-07-29 14:42 | disposition home or self-care (01) ==
LOC: VC 14:46
PROVIDERS: PCP Radiology Diagnostic Radiology; Visit Provider Radiology Diagnostic Radiology
DX: I80.02 Phlebitis and thrombophlebitis of superficial vessels of left lower extremity (principal)
CPT/HCPCS: 93971; G0463

== ENCOUNTER 2023-09-11 15:24 | Outpatient (OUT) | payer OTHER, SELFPAY ==
[2023-09-11 15:43] LABS: Basophils Percent Auto 0.5 % (0.2-2.0); Eosinophils Absolute Auto 0.2 10^3/uL (0.0-0.7); Eosinophils Percent Auto 2.8 % (0.9-7.0); Hematocrit 47.5 % (42.0-54.0); Hemoglobin 16.3 g/dL (14.0-18.0); Immature Granulocytes Abs Auto 0.08 10^3/uL (0.00-0.03); Immature Granulocytes Pct Auto 0.9 % (0.0-0.5); Lymphocytes Absolute Auto 2.1 10^3/uL (1.2-3.8); Lymphocytes Percent Auto 24.2 % (20.5-60.0); Mean Corpuscular HGB Conc 34.3 g/dL (29.9-35.2); Mean Corpuscular Hemoglobin 32.4 pg (25.9-34.0); Mean Corpuscular Volume 94.4 fL (80.0-94.0); Mean Platelet Volume 9.2 fL (9.5-13.5); Monocytes Absolute Auto 0.9 10^3/uL (0.3-0.8); Monocytes Percent Auto 10.9 % (1.7-12.0); Neutrophils Absolute Auto 5.2 10^3/uL (1.4-6.5); Neutrophils Percent Auto 60.7 % (43.0-75.0); Platelet Count 241 10^3/uL (150-450); Red Blood Count 5.03 10^6/uL (4.70-6.10); Red Cell Distribution Width 13.3 % (11.0-15.0); White Blood Count 8.6 10^3/uL (4.0-11.0)
--- OUTSIDE RECORDS SUMMARY | 2023-09-11 15:55 | XMS_ITS | CCD ---
Author Organization [facility] Care Team Providers Care Risk And Compliance Analytics Director Name Role Phone Rula Herrera MD Primary Care Provider [phone] RULA HERRERA Primary Care Unavailable MISC, DR SOTO Attending Unavailable MISC, DR SOTO Admitting Unavailable RULA HERRERA Primary Care Unavailable MISC, DR SOTO Admitting Unavailable MISC, DR SOTO Attending Unavailable NICHOLAS BHATIA Admitting Unavailable CHIRSYRULA Primary Care Unavailable NICHOLAS BHATIA Attending Unavailable TORIE FOLEY Consulting Unavailable NICHOLAS BHATIA Consulting Unavailable LEE ANN BARNETT Consulting Unavailable RULA HERRERA Attending Unavailable RULA HERRERA Admitting Unavailable HOYRULA Primary Care Unavailable RULA HERRERA Consulting Unavailable CHRISY, RULA Primary Care Unavailable KRISTINA WAKEFIELD Attending Unavailable KRISTINA WAKEFIELD Admitting Unavailable RULA HERRERA Attending Unavailable RULA HERRERA Admitting Unavailable HOY, RULA Primary Care Unavailable CHRISYRULA Consulting Unavailable Red Quinonez Consulting Unavailable CHRISY RULA Primary Care Unavailable Red Quinonez Consulting Unavailable DENAE CONTRERAS Attending Unavailable DENAE CONTRERAS Admitting Unavailable DENAE CONTRERAS Consulting Unavailable Rula Herrera MD Primary Care Provider [phone] Rula Herrera Primary Care Physician Stewart MAY Attending Unavailable Rula Herrera Referring Unavailable Stewart MAY Attending Unavailable Rula Herrera MD Primary Care Provider [phone] RULA HERRERA Primary Care Unavailable AGAPITO RUANO Attending Unavailable ANDREW, MICHAEL Referring Unavailable MEGHA LEGGETT Attending Unavailable RULA HERRERA Primary Care Unavailable KAMRAN, MICHAEL Referring Unavailable RULA HERRERA Primary Care Unavailable ANDREW, MICHAEL Referring Unavailable [...] Drug Allergy 7 Swelling, Shortness of Breath [facility] Work Phone: (1 source) bee venom Drug allergy (disorder) 7 [facility] Repository (1 source) No Known Medication Allergies; Translations: [No Known Medication Allergies] Propensity to adverse reactions (disorder) [facility] Repository Medications Current Medications Medication Drug Class(es) Dates Sig (Normalized) Sig (Original) apixaban 5 mg oral tablet (20 sources) Factor Xa Inhibitor Start: 05-27-2022 take [...] (FLURESS) cyclobenzaprine hydrochloride 10 mg oral tablet (20 sources) Muscle Relaxant Start: 06-13-2022 take 1 tablet by mouth three times daily cyclobenzaprine (FLEXERIL) 10 mg tablet Take 10 mg by mouth three times daily. 0 06/13/2022 Active Comment on above: Take 10 mg by mouth three times daily. cycloSPORINE (17 sources) Calcineurin Inhibitor Immunosuppressant cyclosporine (RESTASIS OPHTHALMIC) Use in eyes. 0 Active Comment on above: Use in eyes. diclofenac sodium 75 mg delayed release oral tablet (20 sources) Nonsteroidal Anti-inflammatory Drug Start: 03-18-2022 take [...] Comment on above: Take 1 capsule by [facility] twice daily for 15 days. fenofibrate 145 mg oral tablet (1 source) Peroxisome Proliferator Receptor alpha Agonist Start: 05-28-2023 take 1 tablet by mouth once daily TriCor 145 mg Tab 145 mg = 1 tab(s), Oral, Daily, Refills(s) 0 Start Date: 05/28/23 Status: Ordered Fish Oil-DHA-EPA 1,200-144-216 mg cap (20 sources) Fish Oil-DHA-EPA 1,200-144-216 mg cap Take by mouth. Taking 3 tablet a day 0 Active Comment on above: Take by mouth. Takin g 3 tablet a day glimepiride 4 mg oral tablet (20 sources) Sulfonylurea Start: 05-28-2023 take 1 tablet by mouth once daily glimepiride 4 mg Tab 4 mg = 1 tab(s), Oral, Daily, Refills(s) 0 Start Date: 05/28/23 Status: Ordered Start: 05-03-2022 take 2 tablets by [facility] once daily glimepiride (AMARYL) 4 mg tablet [...] daily. metFORMIN hydrochloride 500 mg oral tablet (20 sources) Biguanide Start: 3 take 1 tablet [...] Take by mouth as nee ded. olopatadine (17 sources) Histamine-1 Receptor Inhibitor olopatadine HCl ([facility] OPHTHALMIC) Use in eyes. 0 Active Comment on above: Use in eyes. SITagliptin 100 mg oral tablet (1 source) [...] Comment on above: Take 1 tablet by [facility] twice daily for 14 days. dexamethasone 1 mg/ml / neomycin 3.5 mg/ml / polymyxin b 19348 unt/ml ophthalmic suspension (3 sources) Aminoglycoside Antibacterial, [...] Drop in both e yes once daily. oxyCODONE hydrochloride 5 mg oral tablet (6 [...] Problem Date Documented Date Episodic/Chronic Adjustment disorders (6 sources) Adjustment disorder; Translations: [Adjustment disorder, unspecified] Onset: 04-30-2023 12-09-2022 Chronic Anxiety disorders (1 source) Anxiety 05-28-2023 Chronic Diabetes mellitus with complications (20 sources) Diabetes mellitus; Translations: [Type 2 diabetes mellitus with hyperglycemia] Onset: 09-28-2021 09-28-2021 Chronic Disorders of lipid metabolism (1 source) Hyperlipidemia 05-28-2023 Chronic Essential hypertension (20 sources) Essential hypertension; Translations: [Essential (primary) hypertension] Onset: 09-27-2021 Chronic Glaucoma (20 sources) Corticosteroid-induce d glaucoma; 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, bilateral, stage unspecified] Onset: 07-19-2022 Chronic Gout and other crystal arthropathies (1 source) Gout 05-28-2023 Chronic Inflammation; infection of eye (except that caused by tuberculosis or sexually transmitteddisease) (4 sources) Chronic allergic conjunctivitis; Translations: [Other chronic allergic conjunctivitis] Chronic Miscellaneous mental health disorders (5 sources) Psychologic conversion disorder; 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] Onset: 08-18-2023 12-09-2022 Chronic Other aftercare (1 source) Surgical follow-up; Translations: [Encounter for follow-up examination after completed treatment for conditions other than malignant neoplasm] Episodic Other hereditary and degenerative nervous system conditions (20 sources) Blepharospasm; Translations: [Blepharospasm] Onset: 07-05-2022 Chronic Other hereditary and degenerative nervous system conditions (5 sources) Functional movement disorder; Translations: [Extrapyramidal and movement disorder, unspecified] 11-22-2022 Chronic Other nutritional; endocrine; and metabolic disorders [...] Date Documented Da te Episodic/Chronic E Codes: Overexertion (1 source) Slipping, tripping and stumbling without falling due to stepping from one level to another, initial encounter; Translations: [SLIP STMBL NO FALL 1 LVL ANOTHR INT] Onset: 09-04-2021 Episodic Inflammation; infection of eye (except that caused by tuberculosis or sexually transmitteddisease) (20 sources) Conjunctivitis; Translations: [Unspecified conjunctivitis] Onset: 06-17-2022 06-17-2022 Episodic Other connective tissue disease (1 source) Unspecified rotator cuff tear or rupture of right shoulder, not specified as traumatic; Translations: [UNS ROT CUFF TEAR/RUPT RT SHOULDER] Onset: 09-04-2021 Episodic Other eye disorders (20 sources) Disorder of lacrimal gland; Translations: [Dry eye syndrome of bilateral lacrimal glands] Onset: 06-17-2022 Episodic Other non-traumatic joint disorders (19 sources) Pain in left knee; Translations: [Pain in joint, lower leg] Onset: 03-21-2021 07-05-2022 Episodic Other non-traumatic joint disorders (10 sources) Shoulder pain; Translations: [Pain in right shoulder] Onset: 08-25-2021 07-05-2022 Episodic Other non-traumatic joint disorders (20 sources) Pain in unspecified knee; Translations: [Pain in joint, lower leg] Onset: 11-14-2021 07-05-2022 Episodic Other non-traumatic joint disorders (12 sources) Pain in right shoulder; Translations: [Pain in joint, shoulder region] Onset: 08-25-2021 07-05-2022 Episodic Other skin disorders (20 sources) Excessive sweating; Translations: [Generalized hyperhidrosis] Onset: 09-27-2021 Episodic Phlebitis; thrombophlebitis and thromboembolism (20 sources) H/O: Deep vein thrombosis; Translations: [Personal history of other venous thrombosis and embolism] Onset: 09-27-2021 Episodic Residual codes; unclassified (19 sources) Localized edema; Translations: [Localized edema] Onset: [...] Range Facility Outside Colonoscopyon 2023 Outside Colonoscopy [id number]#1.0 0TIFF [facility] Lab Reportson 07-03-2023 Lab Reports [id number]#1.0 0TIFF [facility] Reminderson 07-03-2023 Reminders - From: Martine Alvarez LPN To: N - Clinical; Sent: 07/03/2023 13:32:03 EST Show up: 06/03/2033 07:00:00 EST Subject: colonoscopy recall Due Date/Time: 07/01/2033 07:00:00 EST Reminder/Recall Patient due for screening colonoscopy 07/01/2033. [facility] Insurance Correspondenceon 0 06-20-2023 Insurance Correspondence [id number]#1. 00TIFF [facility] Consent for Procedure/Surger yon 06-19-2023 Consent for Procedure/Surgery [id number]#1. 00TIFF [facility] Formson 06-19-2023 Forms [id number]#1.0 0[facility] Facesheeton 06-18-2023 Facesheet [id number]#1.0 0[facility] Ambulatory Visit Summaryon 0 06-17-2023 Ambulatory Visit Summary GONZALES FARRELL :1970 Visit Date:06/17/2023 Ambulatory Visit Instructions Your Diagnosis Screening for malignant neoplasm of colon BMI 40.0-44.9, adult Your Care Team Attending Physician - LALO JARAMILLO, Stewart Gibbs Primary Care Physician - Xenia JARAMILLO, Rula Referring Physician - Rula Herrera [...] you for choosing us for your care. Normal [place] [facility] Physician Referralon 024 Physician Referral [id number]#1.00 TIFF [facility] CNTHERAPYon 03-13-2023 CNTHERAPY OT/PT/Speech Visit (PTAVTC) GONZALES FARRELL ([id number]) 1970 M Date Time Provider Department 03/13/23 4:15 PM SOO VILLALBA [facility] Date Time Provider Department Center 03/13/2023 4:15 PM [id number], AMANDA [facility] Reason for Visit: PT [...] mouth. Taking 3 tablet a day Normal [facility] CNTHERAPYon 01-16-2023 CNTHERAPY OT/PT/Speech Visit (PTAVTC) GONZALES FARRELL ([id number]) 1970 M Date Time Provider Department 01/16/23 4:15 PM SOO VILLALBA [facility] Date Time Provider Department Center 01/16/2023 4:15 PM [id number], AMANDA [facility] [place] Reason for Visit: Physical [...] mouth. Taking 3 tablet a day Normal [facility] 12-26-2022 CNPN Telephone (NREUS2) GONZALES FARRELL ([id number]) 1970 Date Time Provider Department 12/26/22 MICHAEL ANDREW NREUS2 During your visit today, we recorded the following information about you: [facility] [place] 12/26/2022 12:13 PM Signed NI PHONE Name [...] not able to see be faxed to [phone]/Attn: Sheron @ [facility] re: disability. Please cc: Dr. Rula Herrera (PCP) on letter and fax to Dr. Herrera at [phone]. Number to return call [phone] Okay to leave a message ? Yes Last office visit 09/18/[address] Gilmar Andrew Next office visit not scheduled (only FMD appts w/Dr. Alcantara) Thank you calling [facility]. You will receive a return [...] Encounter Status:Closed by SANDY RATLIFF on 12/27/22 [facility] CNTHERAPYon 12-24-2022 CNTHERAPY OT/PT/Speech Visit (PTAVTC) GONZALES FARRELL ([id number]) 1970 M Date Time Provider Department 12/24/22 4:15 PM VONNIE CONNOLLY PTAVTC During your visit today, we recorded the following information about you: Vonnie Connolly, PT 12/24/2022 5:08 PM Signed Episode Visit Count: 4 Therapist That Will Accept/Oversee The Plan Of Care: Soo Orly Start of Care Date: 11/20/22 Onset [...] Vonnie Connolly, PT Referring Provider: MICHAEL ANDREW [[id number]] Allergies As of Date: 12/24/2022 Noted Allergy [...] Encounter Status:Closed by VONNIE CONNOLLY on 12/24/22 [facility] CNTHERAPYon 12-19-2022 CNTHERAPY OT/PT/Speech Visit (PTAVTC) GONZALES FARRELL ([id number]) 1970 M Date Time Provider Department 12/19/22 4:15 PM SOO VILLALBA [facility] Date Time Provider Department Center 12/19/2022 4:15 PM [id number], AMANDA [facility] [place] Reason for Visit: Physical [...] mouth. Taking 3 tablet a day Normal [facility] CNTHERAPYon 2022 CNTHERAPY OT/PT/Speech Visit (PTAVTC) GONZLAES FARRELL ([id number]) 1970 M Date Time Provider Department 12/12/22 4:15 PM SOO VILLALBA [facility] Date Time Provider Department Center 2022 4:15 PM [id number], AMANDA [facility] [place] Reason for Visit: PT [...] mouth. Taking 3 tablet a day [facility] (NREUS2 ) GONZALES FARRELL ([id number]) 1970 M Date Time Provider Department 11/20/22 3:00 PM PERRY ALCANTARA NREUS2 During your visit today, we recorded the following information about you: Perry Alcantara PSYD 12/09/2022 10:05 PM Signed [facility] Clinical Health Psychology Evaluation Time of Service: 3:00 pm to 4:00 pm CPT Code: 92818 - Health AND Behavior Assessment Billing Code: [...] who was referred by Dr. 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 He presents with a history of involuntary movement symptoms. Sx include eye closure/blepharospasm. Symptom onset: 2022 Social History: Mr. 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 He stopped driving in July [...] Primary Hypertension Uncontrolled Diabetes Mellitus With Hyperglycemia ([facility]) S/P Right Rotator Cuff Repair Dry Eye Syndrome of Bilateral Lacrimal Glands Conjunctivitis Acute Embolism and Thrombosis of Unspecified Deep Veins of Left Lower Extremity ([facility]) Localized Edema Pain in Left Knee Pain in Right Shoulder Knee Pain Blepharospasm Steroid Induced Glaucoma, Both Eyes Current Functioning: -cautious with walking and fear of tripping; more slow with instrument and electrical technician and lifting objects -no longer driving -mostly [...] no alc (more content not included)... Normal [facility] CNTHERAPYon 11-20-2022 CNTHERAPY OT/PT/Speech Visit (CAPO) GONZALES FARRELL ([id number]) 1970 M Date Time Provider Department 11/20/22 1:00 PM MEGHA LEGGETT Date Time Provider Department Center 11/20/2022 1:00 PM [id number] LEGGETT PHYTMN [facility] Reason for Visit: PT Eval [417] Primary Visit Diagnosis:Blepharospas m [G24.5] Other Visit [...] mouth. Taking 3 tablet a day Normal [facility] JACKIE DOP LEG LTon 11-15-19 JACKIE DOP LEG LT EXAMINATION: US JACKIE [...] left leg. Findings were called by the turf farm worker to the ordering provider at the time of imaging. Electronically authenticated by: RED QUINONEZ Date: 2021-11-14 12:03 [facility] ANES POSTPROC EVALon 022 ANES POSTPROC EVAL HNO ID: [id number] Author: Smooth Valadez MD Service: Anesthesiology Author Type: Anesthesiologist Type: Anesthesia Postprocedure Evaluation Filed: 10/25/2021 3:50 PM Note Text: POST ANESTHESIA EVALUATION NOTE : 1970 Procedure Summary Date: 10/25/21 Room / Location: [place] [address] / [facility] Anesthesia Start: 1148 Anesthesia Stop: 1455 Procedure: [...] October 25, 2021 TIME: 3:50 PM CSN: [id number] [facility] ANES PRE-OPon 10-25-2021 ANES PRE-OP HNO ID: [id number] Author: Smooth Valadez MD Service: Anesthesiology Author [...] October 25, 2021 TIME: 9:56 AM CSN: [id number] [facility] NURSING PROGon 10-25-2021 NURSING PROG HNO ID: [id number] Author: Kyle Nuno RN Service: Nursing Author [...] 2021 TIME: 2:33 PM PAGER/CONTACT #: [phone] [facility] NURSING PROG HNO ID: [id number] Author: Salima Nuñez RN Service: Nursing Author [...] (RECOMMENDATION): None Electronically Signed By: Salima Nuñez [facility] OPERATIVE NOon 10-25-2021 OPERATIVE NO HNO ID: [id number] Author: Gus Vyas MD Service: Orthopaedic Surgery Author Type: Physician Type: Operative Report Filed: 10/25/2021 4:56 PM Note Text: OPERATIVE/PROCEDURE REPORT [place] [address] Patient Name: Gonzales Farrell : 1970 Surgery/Procedure Date: 10/25/2021 Incision/Procedure Start Time: 12:34 PM Incision Close/Procedure End Time: 2:37 PM SURGEON(S)/PROCEDURALI ST(S) AND [employer] WIPER REPAIRER(S): Gus Vyas MD MMSs (Primary Surgeon) Allan [...] reduce the to (more content not included)... [facility] NURSING PROGon 10-05-2021 NURSING PROG HNO ID: [id number] Author: Shyam Gotti RN Service: ? Author [...] Gotti RN October 05, 2021 7:40 AM [facility] HGB A1Con 09-27-2021 Average glucose Estimated from glycated hemoglobin (Bld) [Mass/Vol] 209 mg/dL [facility] HbA1c (Bld) [Mass fraction] 8.9 % High 4.3 - 5.6 % [facility] MRI SHOULDER RT WO CONon MRI SHOULDER [...] by: RED QUINONEZ Date: 2021-09-05 15:06 Normal [facility] XR FOREIGN BODY EYEon 2021 XR FOREIGN BODY EYE EXAMINATION: XR FOREIGN BODY EYE HISTORY: Foreign body in eye COMPARISON: No relevant comparison available. FINDINGS: ORBITS: Negative for a metallic foreign body. OTHER: Negative. IMPRESSION: 1. No metallic foreign body within the orbits. Electronically authenticated by: RED QUINONEZ Date: 2021-09-05 13:13 Normal [facility] CT CSPINE WO CONon 2 CT CSPINE WO CON EXAMINATION: CT CSPI NE WO CON HISTORY: Pain COMPARISON: None. TECHNIQUE: CT Cervical spine without IV contrast. Coronal and sagittal reformations were performed. Dose reduction techniques were achieved by using automated exposure control and/or adjustment of mA and/or kV according to patient size and/or use of iterative reconstruction technique. FINDINGS: Anatomy: 7 [id number] cervical segments. Column: No acute fracture or [...] Date: 2021-08-25 16:01 Normal [facility] BOTOX INJECTION ESSENTIAL BL EPHAROSPASM [facility] Vital Signs Date Time Vital Sign Value Performing Clinician Facility 06-17-2023 15:18-0500 Blood Pressure Location Setwart JACQUESJenna [facility] 06-17-2023 15:18-0500 Diastolic blood pressure 66 mm[Hg] Stewart JACQUESJenna [facility] 06-17-2023 15:18-0500 Heart rate 70 /min Stewart JACQUESJenna [facility] 06-17-2023 15:18-0500 Respiratory rate 16 /min Stewart JACQUESJenna [facility] 06-17-2023 15:18-0500 Systolic blood pressure 122 mm[Hg] Stewart JACQUESJenna [facility] 09-27-2021 15:07-0400 Body height 177.8 cm Pacc 4 Work Phone: [facility] 09-27-2021 15:07-0400 Body temperature 96.69 [degF] Pacc 4 Work Phone: [facility] 09-27-2021 15:07-0400 Body weight 140.62 kg Pacc 4 Work Phone: [facility] 09-27-2021 15:07-0400 Diastolic blood pressure 84 mm[Hg] Pacc 4 Work Phone: [facility] 09-27-2021 15:07-0400 Heart rate 88 /min Pacc 4 Work Phone: [facility] 09-27-2021 15:07-0400 Respiratory rate 16 /min Pacc 4 Work Phone: [facility] 09-27-2021 15:07-0400 SaO2% (BldA) [Mass fraction] 97 % Pacc 4 Work Phone: [facility] 09-27-2021 15:07-0400 Systolic blood pressure 147 mm[Hg] Pacc 4 Work Phone: [facility] 09-21-2021 13:51-0400 Body height 177.8 cm Gus Vyas MD Work Phone: [facility] 09-21-2021 13:51-0400 Body weight 136.08 kg Gus Vyas MD Work Phone: [facility] Encounters Encounter Date Encounter Type Care Provider Facility Start: 08-18-2023 End: 08-18-2023 Distance [facility] Carmela Antonio [employer] Work Phone: [facility] Comment on above: Adjustment disorder with mixed anxiety and depressed mood (Primary Dx); Functional neurological symptom disorder with mixed symptoms Start: 07-18-2023 End: 07-18-2023 Distance [facility] Perry Alcantara [facility] Work Phone: [facility] Comment on above: Adjustment disorder with mixed anxiety and depressed mood (Primary Dx); Functional neurological symptom disorder with mixed symptoms Start: 07-02-2023 End: 07-03-2023 ambulatory Stewart R NILL Facility:[facility] Start: 06-19-2023 End: 06-19-2023 Distance [facility] Perry Alcantara [facility] Work Phone: [facility] Comment on above: Adjustment disorder with mixed anxiety and depressed mood (Primary Dx); Functional neurological symptom disorder with mixed symptoms Start: 06-17-2023 End: 06-18-2023 ambulatory Stewart R NILL Facility:[facility] Start: 06-17-2023 End: 06-17-2023 Patient encounter procedure Stewart R NILL General Surgery Nill/[facility] Start: 05-15-2023 ambulatory Stewart NILL Facility:[facility] Start: 04-30-2023 End: 04-30-2023 ambulatory PERRY ALCANTARA Facility:[facility] Start: 03-13-2023 End: 03-13-2023 ambulatory MICHAEL ANDREW Facility:[facility] Start: 03-13-2023 End: 03-13-2023 OT/PT/Speech Visit Soo Villalba PT Work Phone: [facility] Comment on above: Functional movement disorder (Primary Dx); Blepharospasm Start: 02-18-2023 End: 02-18-2023 ambulatory PERRY ALCANTARA Facility:[facility] Start: 01-16-2023 End: 01-16-2023 ambulatory [facility] ANDREW Facility:[facility] Start: 12-26-2022 Telephone encounter Michael vargas MD Work Phone: [facility] Comment on above: Letter Start: 12-24-2022 End: 12-24-20[facility] Start: 12-24-2022 End: 12-24-2022 OT/PT/Speech Visit Vonnie Connolly PT Work Phone: [facility] Comment on above: Blepharospasm (Prima ry Dx); Functional movement disorder Start: 12-19-2022 End: 12-19-2022 [facility] Start: 12-19-2022 End: 12-19-2022 OT/PT/Speech Visit Soo Villalba PT Work Phone: [facility] Comment on above: Blepharospasm (Prima ry Dx); Functional movement disorder Start: 2022 End: 2022 [facility] Start: 2022 End: 2022 OT/PT/Speech Visit Soo Villalba PT Work Phone: [facility] Comment on above: Blepharospasm (Prima ry Dx); Functional movement disorder Start: 11-20-2022 End: 11-20-2022 OT/PT/Speech Visit Megha Leggett PT Work Phone: [facility] Comment on above: Blepharospasm (Prima ry Dx); Functional movement disorder Adjustment disorder, unspecified type (Primary Dx); Functional neurological symptom disorder with mixed symptoms Start: 10-31-2022 End: 10-31-2022 ambulatory [facility] Facility:[facility] Start: 08-16-2022 End: 08-16-2022 Patient encounter procedure Donita Martinez MD Work Phone: Ophthalmology Comment on above: Blepharospasm (Prima ry Dx) Start: 08-16-2022 Telephone encounter Donita Martinez MD Work Phone: Ophthalmology Comment on above: Patient Question Start: 08-09-2022 End: 08-09-2022 Patient encounter procedure Donita Martinez MD Work Phone: Ophthalmology Comment on above: Blepharospasm (Prima ry Dx) Start: 08-02-2022 End: 08-02-2022 Patient encounter procedure Stewart Olvera OD Work Phone: Ophthalmology Comment on above: Steroid induced glau coma, both eyes (Primary Dx); Dry eye syndrome of bilateral lacrimal glands; Other chronic allergic conjunctivitis of both eyes; Blepharospasm Start: 07-30-2022 Telephone encounter Donita Martinez MD Work Phone: Ophthalmology Comment on above: Follow Up Start: 07-19-2022 End: 07-19-2022 Patient encounter procedure Stewart Olvera OD Work Phone: Ophthalmology Comment on above: [...] 06-17-2022 End: 06-17-2022 Patient encounter procedure Stewart Olvera OD Work Phone: Ophthalmology Comment on above: Other chronic allerg ic conjunctivitis of both eyes (Primary Dx); Dry eye syndrome of bilateral lacrimal glands Start: 05-06-2022 End: 05-06-2022 Patient encounter procedure Gus Vyas MD Work Phone: Orthopaedics Comment on above: Traumatic complete t ear of right rotator cuff, initial encounter (Primary Dx) Start: 04-28-2022 ambulatory [facility] Facility:H 1 Start: 03-04-2022 End: 03-04-2022 Patient encounter procedure Gus Vyas MD Work Phone: Orthopaedics Comment on above: Traumatic complete t ear of right rotator cuff, initial encounter (Primary Dx); S/P right rotator cuff repair Start: 01-25-2022 End: 01-25-2022 Patient encounter procedure Gus Vyas MD Work Phone: Orthopaedics Comment on above: S/P right rotator cu ff repair (Primary Dx) Start: 12-13-2021 End: 04-27-2022 [facility] Facility: Start: 12-07-2021 End: 12-07-2021 Patient encounter procedure Gus Vyas MD Work Phone: Orthopaedics Comment on above: Traumatic complete t ear of right rotator cuff, subsequent encounter (Primary Dx); S/P right rotator cuff repair Start: 11-14-2021 End: 11-15-2021 [facility] Facility: Start: 11-07-2021 End: 11-07-2021 Refill [...] Start: 09-27-2021 End: 09-27-2021 Admission to establishment [place] [id number] Work Phone: MAZOMANIE Start: 09-27-2021 End: 09-27-2021 ambulatory [facility] Work Phone: Pre Anesthesia Comment on [...] Start: 09-27-2021 End: 09-27-2021 Preprocedural examination done [facility] Work Phone: Pre Anesthesia Start: 09-21-2021 [...] Procedure Detail Performing Clinician Start: 08-09-2022 [facility] innervated facial nrv unil Yvon Espinal ARCHITECT INTERN.DUMP WORKER Work Phone: Start: 12-07-2021 History of repair of musculotendinous cuff of shoulder S/P right rotator cuff repair Gus Vyas MD Work Phone: Start: 07-16-2011 Adult depression screening assessment Gus Vyas MD Work Phone: Amputation of finger of left hand Stewart MAY Appendectomy Stewart MAY Decompression of med andrey nerve Stewart MAY History of repair of musculotendinous cuff of shoulder S/P right rotator cuff repair Gus Vyas MD Work Phone: History of repair of musculotendinous cuff of shoulder S/P right rotator cuff repair Gus Vyas MD Work Phone: History of repair of musculotendinous cuff of shoulder Stewart MAY Repair of musculoten dinous cuff of shoulder Stewart MAY Tonsillectomy and adenoidectomy Stewart MAY Vasectomy Stewart MAY Plan of Treatment Date Care Activity Detail Author Start: 09-27-2024 DIABETES SCREEN DIABETES SCREEN [facility] Start: 12-28-2023 Influenza vaccination Influenz a Vaccine (Season Ended) [facility] Start: 09-17-2023 End: 09-17-2023 Follow-up encounter 09/17/2023 4:00 PM EDT [facility] [address] [place] [address] Perry Alcantara, NILDA [address] [place] [address] follow up [facility] Comment on above: follow up Start: 04-28-2023 Depression Assessment Depression Ass essment [facility] Start: 12-27-2022 Covid-19 Vaccine ( season) Covid-19 Vaccine ( season) [facility] Start: 09-01-2023 Influenza vaccination [facility] Start: 07-20-2022 Screening for malign ant neoplasm of colon [facility] Start: 04-28-2022 DEPRESSION ASSESSMENT DEPRESSION ASS ESSMENT [facility] Start: 12-28-2021 Hemoglobin A1c measurement HbA1C [facility] Start: 12-28-2021 Hemoglobin A1c/Hemoglobin.total in Blood HBA1C [facility] Start: 12-27-2021 Influenza vaccination [facility] Start: 10-17-2021 End: 12-17-2021 Basic metabolic 2000 panel - Serum or Plasma BASIC METABOLIC PNL Lab Routine Preoperative examination Expected: 10/17/2021, Expires: 12/17/2021 [facility] Work Phone: Comment on above: Expected: 10/17/2021 , Expires: 12/17/2021 Start: 09-27-2021 End: 11-27-2021 T3 BLD [facility] Work Phone: Comment on above: Expected: 09/27/2021 , Expires: 11/27/2021 Start: 09-27-2021 End: 11-27-2021 T4 FREE/FREE THYROX [facility] Work Phone: Comment on above: Expected: 09/27/2021 , Expires: 11/27/2021 Start: 09-27-2021 End: 11-27-2021 Thyrotropin [Units/volume] in Serum or Plasma [facility] Work Phone: Comment on above: Expected: 09/27/2021 , Expires: 11/27/2021 Start: 09-21-2021 End: 11-21-2021 Basic metabolic 2000 panel - Serum or Plasma BASIC METABOLIC PNL Lab Routine Preoperative examination Expected: 09/21/2021 (Approximate), Expires: 11/21/2021 [facility] Work Phone: Comment on above: Expected: 09/21/2021 (Approximate), Expires: 11/21/2021 Start: 09-21-2021 End: 11-21-2021 CBC panel - Blood by Automated count CBC Lab Routine Preoperative examination Expected: 09/21/2021 (Approximate), Expires: 11/21/2021 [facility] Work Phone: Comment on above: Expected: 09/21/2021 (Approximate), Expires: 11/21/2021 Start: 04-28-2021 DEPRESSION ASSESSMENT DEPRESSION ASS ESSMENT [facility] Start: 09-08-2020 COVID-19 VACCINE (2 - Booster for Marlen series) COVID-19 VACCINE (2 - Booster for Marlen series) [facility] Start: 2018 Influenza vaccination LUNG CANCER SANNA ZAPATA [facility] Start: 2018 Screening for malign ant neoplasm of lung Lung Cancer Screening [facility] Start: 2018 SHINGRIX VACCINE (1 of 2) SHINGRIX VACCINE (1 of 2) [facility] Start: 2013 COLOGUARD (FIT-DNA) COLOGUARD (FIT-D NA) [facility] Start: 2013 Colonoscopy COLONOSCOPY [facility] Start: 2013 COLORECTAL CANCER SCREENING COLORECTAL CANCER SCREENING [facility] Start: [address] COLONOGRAPHY [facility] Start: 2013 DIABETES SCREEN DIABETES SCREEN [facility] Start: 2013 FECAL OCCULT BLOOD FECAL OCCULT BLOO D [facility] Start: 2013 Screening for malign ant neoplasm of colon [facility] Start: 2013 SIGMOIDOSCOPY SIGMOIDOSCOPY [facility] Start: 07-15-2012 Adult depression screening assessment DEPRESSION SCREENING [facility] Start: 12-13-2003 LIPID SCREEN LIPID SCREEN [facility] Start: 12-13-1987 HEPATITIS B (1 of 3 - Risk 3-dose series) HEPATITIS B (1 of 3 - Risk 3-dose series) [facility] Start: 12-13-1987 Hepatitis B Vaccine (1 of 3 - 19+ 3-dose series) Hepatitis B Vaccine (1 of 3 - 19+ 3-dose series) [facility] Start: 12-13-1987 Urine microalbumin profile [facility] Start: 1986 ANNUAL PCP TEAM CAN CARRIER OLGA DISEASE VISIT ANNUAL PCP TEAM CHRONIC DISEASE VISIT [facility] Start: 1986 BP CONTROLLED (<130/80) BP CONTROLLE D (<130/80) [facility] Start: 1986 Hepatitis B surface antibody level LDL CHOLESTEROL [facility] Start: 1986 HEPATITIS C SCREENING HEPATITIS C [facility] Start: 1986 Hepatitis C screening Hepatitis C [facility] Start: 1986 HIV SCREENING HIV SCREENING [facility] Start: 1986 HIV screening HIV Screening [facility] Start: 1978 3 comp foot exam completed DIABETIC FOOT EXAM [facility] Start: 1978 Diabetic foot examination Diabetic Foot Exam [facility] Start: 1978 Glaucoma screening Dilated Retinal E xam [facility] Start: 1978 Hepatitis B screening URINE ALBUMIN:CREATININE RATIO [facility] Start: 1978 Hepatitis C antibody , confirmatory test DILATED RETINAL EXAM [facility] Start: 1974 PNEUMOCOCCAL (1 - PCV) PNEUMOCOCCAL (1 - PCV) [facility] Start: 1974 Pneumococcal vaccination [facility] Start: 1968 HEPATITIS B (1 of 3 - 3-dose series) HEPATITIS B (1 of 3 - 3-dose series) [facility] Start: 1968 Hepatitis B Vaccine (1 of 3 - 3-dose series) Hepatitis B Vaccine (1 of 3 - 3-dose series) [facility] End: 09-21-2022 ECG COMPLETE ECG COMPLETE ECG Routine Preoperative examination 1 Occurrences starting 09/21/2021 until 09/21/2022 [facility] Work Phone: Comment on above: 1 Occurrences [...] hypertension 1 Occurrences starting 09/27/2021 until 09/27/2022 [facility] Work Phone: Comment on above: 1 Occurrences starti ng 09/27/2021 until 09/27/2022 [facility] Immunizations Immunization Date Immunization Notes Care Provider Fa cility 07-14-2020 SARS-CoV-2 (COVID-19 ) Ad26 vaccine, recombinant Stewart JACQUESJenna [facility] [place] NEGATED: Highlighted row has not occurred!06-17-2023 influenza virus vaccine, unspecified formulation Stewart LALO [facility] [place] Payers Date Payer Category Payer Private Health Insurance [id number] 2021 Unknown [id number] 2021 Unknown [facility] [id number] 2021-Present [phone] [place] [address] O [id number] 2020 Unknown [employer] xx [id number] 2020-Present [phone] [address] [place] [address] PPO [id number] 2011 Unknown [facility] MEDICAL GENERIC [id number] 2011-Present [phone] [address] [place] [address] Indemnity [id number] 1968 Unknown [id number] 1968 Unknown [id number] [id number] 1968 Unknown [id number] [id number] 1968 Unknown [id number] [id number] 1968 Unknown [id number] [id number] 1968 Unknown [id number] [id number] 1968 Unknown [id number] [id number] 1968 Unknown [id number] [id number] 1968 Unknown [id number] 1959 Self-pay 1959 Unknown [id number] 1959 Unknown [id number] 1959 Unknown [id number] 1959 Unknown [id number] Social History Date Type Detail Facility Start: 07-16-2011 End: 08-02-2022 Tobacco smoking status NHIS Smokes tobacco daily [facility] Start: 07-16-2011 End: 09-18-2022 Cigarettes smoked current (pack per day) - Reported 1.5 [facility] Start: 08-23-2011 End: 09-18-2022 Alcohol intake Current drinker of alcohol (finding) [facility] Start: 07-16-2011 History SDOH Alcohol Comment occassionally [facility] Start: 1970 Sex Assigned At Not on file [facility] Start: 09-11-2021 End: 03-04-2022 Exposure to SARS-CoV-2 (event) Not sure [facility] History of tobacco use Cigarette Smoker [facility] Start: 07-16-2011 End: 08-02-2022 Tobacco use and exposure Former smokeless tobacco user [facility] History of tobacco use Chews Tobacco [facility] Start: 09-27-2021 History SDOH Alcohol Comment once a month maybe [facility] Start: 09-27-2021 End: 08-02-2022 Tobacco Comment 2 ppd [facility] Start: 09-18-2022 End: 08-14-2023 Tobacco use panel [facility] Adult Depression Screening Assessment 4 [facility] Start: 06-17-2023 Tobacco smoking status Heavy t obacco smoker (finding) [facility] [place] Medical Equipment Procedure Code Equipment Code Equipment Origin al Text Equipment Identifier Dates [place] Corkscrew Suturetape 5.5mm Full Thread 1.3mm Black Blue White - [id number] Start: 10-25-2021 [place] Swivelock C 4.75mm Black White Biocomposite Peek 19.1mm Suture - [id number] Start: 10-25-2021 [place] Swivelock C 4.75mm Black White Biocomposite 19.1mm Suture Close - [id number] Start: 10-25-2021 [place] Swivelock C 4.75mm Biocomposite Peek 19.1mm Suture Closed Eyelet - [id number] Start: 10-25-2021 [place] Swivelock C 4.75mm Biocomposite Peek 19.1mm Suture Closed Eyelet - [id number] Start: 10-25-2021 Functional Status Date Assessment Result Facility 06-17-2023 Functional Status N/A [facility] Clinical Notes 08-25-2021 to 08-18-2023 Perry Alcantara PSYD - 08/18/2023 3:55 PM Perry Wilde PSYD - 07/18/2023 3:59 PM Perry Wilde PSYD - 06/19/2023 1:55 PM ESTGuberSoo pruitt, PT - 03/13/2023 4:20 PM ESTPatient Instructions Note Date & Type Note Facility 08-18-2023 Note HNO ID: [id number] Author: PERRY ALCANTARA PSYD Service: ? Author Type: Physician Type: Progress Notes Filed: 09/01/2023 22:28 Note Text: [facility] Psychology Progress Note Billing codes: Antonio PSYCHOLOGY: FOLLOW-UP APPOINTMENT PROGRESS NOTE- Virtual Visit I have communicated my name and active licensure. The patient's identity and physical location were verified at the time of this visit. 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 Gonzales Farrell 08/18/2023 [id number] PROVIDER: Perry Alcantara PSYD CPT Code: Virtual PSYTX PT AND/FAMILY 45 MINS Time spent doing therapy with patient: 3:59-4:38pm Parties Present: Patient Interventions: Problem solving Reassurance/support MENTAL STATUS: Mood: euthymic Affect: mood-congruent Thoughts/Associations: [...] disorder with mixed symptoms PROGRESS TO DATE/ASSESSMENT: Patient reports mood has been stable; though reports periods of discouragement due to chronic eye spasms. Recently was ill with an ear infection which cause additional pain. He's noted subsequent unsteadiness when treading uneven ground. Reviewed plan of care and recommendations for diverted attention and relaxation training; patient encouraged to follow-up via Neurology given limited results from local therapy plan. TREATMENT PLAN/GOALS/OBJECTIVES: Homework: Mindful Breathing excercise, Walk daily, and Socialization Follow Up: 1 month Perry Alcantara Psy.D. Staff, [facility] 08-18-2023 History of Presen t illness Narrative [facility] Psychology Progress Note Billing codes: Antonio PSYCHOLOGY: FOLLOW-UP APPOINTMENT PROGRESS NOTE- Virtual Visit I have communicated my name and active licensure. The patient's identity and physical location were verified at the time of this visit. 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 Gonzales Farrell 08/18/2023 [id number] PROVIDER: Perry Alcantara PSYD CPT Code: Virtual PSYTX PT &/FAMILY 45 MINS Time spent doing therapy with patient: 3:59-4:38pm Parties Present: Patient Interventions: Problem solving Reassurance/support MENTAL STATUS: Mood: euthymic Affect: mood-congruent Thoughts/Associations: [...] disorder with mixed symptoms PROGRESS TO DATE/ASSESSMENT: Patient reports mood has been stable; though reports periods of discouragement due to chronic eye spasms. Recently was ill with an ear infection which cause additional pain. He's noted subsequent unsteadiness when treading uneven ground. Reviewed plan of care and recommendations for diverted attention and relaxation training; patient encouraged to follow-up via Neurology given limited results from local therapy plan. TREATMENT PLAN/GOALS/OBJECTIVES: Homework: Mindful Breathing excercise, Walk daily, and Socialization Follow Up: 1 month Perry Alcantara Psy.D. Staff, [facility] documented in this encounter [facility] 07-18-2023 Note HNO ID: [id number] Author: PERRY ALCANTARA PSYD Service: ? Author Type: Physician Type: Progress Notes Filed: 08/04/2023 21:35 Note Text: [facility] Psychology Progress Note Billing codes: Antonio PSYCHOLOGY: FOLLOW-UP APPOINTMENT PROGRESS NOTE- Virtual Visit I have communicated my name and active licensure. The patient's identity and physical location were verified at the time of this visit. 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 Gonzales Farrell 07/18/2023 [id number] PROVIDER: Perry Alcantara PSYD CPT Code: Virtual PSYTX PT AND/FAMILY 45 MINS Time spent doing therapy with patient: 4-4:41pm Parties Present: Patient Interventions: Psychoeducation Cognitive Reframing Reassurance/support MENTAL STATUS: Mood: euthymic Affect: mood-congruent Thoughts/Associations: [...] disorder with mixed symptoms PROGRESS TO DATE/ASSESSMENT: Fluctuating progress. He reports he completed a varicose vein procedure and is currently observing limited improvement re: pain in LE. Reviewed psycheducation re: functional facial spasms; patient posed questions and discussed previously learned skills in PT (increase practice of distraction and breath activation). He has continued aerobic exercise for neuroplasticity, with limited results. TREATMENT PLAN/GOALS/OBJECTIVES: Homework: Mindful Breathing excercise and Walk daily Follow Up: 1 month Perry Alcantara Psy.D. Staff, [facility] 07-18-2023 History of Presen t illness Narrative [facility] Psychology Progress Note Billing codes: Antonio PSYCHOLOGY: FOLLOW-UP APPOINTMENT PROGRESS NOTE- Virtual Visit I have communicated my name and active licensure. The patient's identity and physical location were verified at the time of this visit. 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 Gonzales Farrell 07/18/2023 [id number] PROVIDER: Perry Alcantara PSYD CPT Code: Virtual PSYTX PT &/FAMILY 45 MINS Time spent doing therapy with patient: 4-4:41pm Parties Present: Patient Interventions: Psychoeducation Cognitive Reframing Reassurance/support MENTAL STATUS: Mood: euthymic Affect: mood-congruent Thoughts/Associations: [...] disorder with mixed symptoms PROGRESS TO DATE/ASSESSMENT: Fluctuating progress. He reports he completed a varicose vein procedure and is currently observing limited improvement re: pain in LE. Reviewed psycheducation re: functional facial spasms; patient posed questions and discussed previously learned skills in PT (increase practice of distraction and breath activation). He has continued aerobic exercise for neuroplasticity, with limited results. TREATMENT PLAN/GOALS/OBJECTIVES: Homework: Mindful Breathing excercise and Walk daily Follow Up: 1 month Perry Alcantara Psy.D. Staff, [facility] documented in this encounter [facility] 07-02-2023 Note HNO ID: [id number] Author: SOO VILLALBA, PT Service: ? Author Type: Physical Therapist Type: Progress Notes Filed: 07/02/2023 16:27 Note Text: 07/02/2023 [facility] PHYSICAL THERAPY DISCONTINUANCE OF CARE Plan of Care Period: Start of Care Date: 11/20/22 Last Visit Date: 03/13/2023 Therapy Program: The following is a summary of the interventions provided for this episode of care; Therapeutic exercise, Neuromuscular re-education, Self-assisted management, Gait training, and Patient/Family/Caregiver Education Assessment: The following is the goal status: No specialty comments available. Based on the most recent progress report, patient was progressing slower than expected toward functional goals based on documented subjective information on progress. Reason for Discontinuation of Care: Patient has not returned to therapy or scheduled additional follow-up appointments. Soo Villalba, PT [facility] 06-19-2023 Note HNO ID: [id number] Author: PERRY ALACNTARA PSYD Service: ? Author Type: Physician Type: Progress Notes Filed: 07/07/2023 22:02 Note Text: [facility] Psychology Progress Note Billing codes: Antonio PSYCHOLOGY: FOLLOW-UP APPOINTMENT PROGRESS NOTE- Virtual Visit I have communicated my name and active licensure. The patient's identity and physical location were verified at the time of this visit. 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 Gonzales Farrell 06/19/2023 [id number] PROVIDER: Perry Alcantara PSYD CPT Code: Virtual [...] Perry Alcantara Psy.D. Staff, [facility] 06-19-2023 History of Presen t illness Narrative [facility] Psychology Progress Note Billing codes: Antonio PSYCHOLOGY: FOLLOW-UP APPOINTMENT PROGRESS NOTE- Virtual Visit I have communicated my name and active licensure. The patient's identity and physical location were verified at the time of this visit. 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 Gonzales Farrell 06/19/2023 [id number] PROVIDER: Perry Alcantara PSYD CPT Code: Virtual [...] Perry Alcantara Psy.D. Staff, [facility] documented in this encounter [facility] 06-17-2023 Note Chief Complaint consultation for colonoscopy [...] Tobacco Use:. [employer]ig[employer] (more content not included)... [facility] Comment on above: Result Comment: Elec tronically Signed By: LALO JARAMILLO, Stewart Crespo\Date and Time Signed: 06/17/23 15:50 EST 04-30-2023 Note HNO ID: [id number] Author: PERRY ALCANTARA PSYD Service: ? Author Type: Physician Type: Progress Notes Filed: 05/19/2023 21:24 Note Text: [facility] Psychology Progress Note Billing codes: Antonio PSYCHOLOGY: FOLLOW-UP APPOINTMENT PROGRESS NOTE- Virtual Visit I have communicated my name and active licensure. The patient's identity and physical location were verified at the time of this visit. 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 Gonzales Farrell 04/30/2023 [id number] PROVIDER: Perry Alcantara PSYD CPT Code: Virtual [...] having problems connecting to virtual platform via [employer] and was able to troubleshoot with A [employer]e.. He has reports minimal changes to symptoms since last session. 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 Staff, [facility] 03-13-2023 Note HNO ID: [id number] Author: Soo Villalba PT Service: ? Author Type: Physical Therapist Type: Progress Notes Filed: 03/14/2023 7:50 AM Note Text: Episode Visit Count: 6 Therapist That Will Accept/Oversee The Plan Of Care: Oryl Start of Care Date: 11/20/22 Onset Date: [...] Patient to be seen for Therapeutic exercise (67934), Neuromuscular re-education (60149), Manual therapy (16739), Therapeutic activities (43763), Self-assisted management (47480), Gait Training (28009) PLAN FOR NEXT VISIT: Return as needed [...] 28.56 (mild reduced left eye spasm) TREATMENT: Self-Residential Management: 1: PNE on sensitive nerves with [...] diverted attention str (more content not included)... [facility] 03-13-2023 History of Presen t illness Narrative Episode Visit Count: 6 Therapist That Will Accept/Oversee The Plan Of Care: [facility] Start of Care Date: 11/20/22 Onset Date: [...] Patient to be seen for Therapeutic exercise (69446), Neuromuscular re-education (10163), Manual therapy (50249), Therapeutic activities (32745), Self-assisted management (52451), Gait Training (48776) PLAN FOR NEXT VISIT: Return as needed [...] 28.56 (mild reduced left eye spasm) TREATMENT: Self-Residential Management: 1: PNE on sensitive nerves with [...] Soo Villalba PT documented in this encounter [facility] 02-18-2023 Note HNO ID: [id number] Author: Perry Alcantara PSYD Service: ? Author Type: Physician Type: Progress Notes Filed: 03/10/2023 8:54 PM Note Text: [facility] Psychology Progress Note Billing codes: Antonio PSYCHOLOGY: FOLLOW-UP APPOINTMENT PROGRESS NOTE- Virtual Visit I have communicated my name and active licensure. The patient's identity and physical location were verified at the time of this visit. 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 Gonzales Farrell 02/18/2023 [id number] PROVIDER: Perry Alcantara PSYD CPT Code: Virtual [...] Perry Alcantara Psy.D. Staff, [facility] 01-16-2023 Note HNO ID: [id number] Author: Soo Villalba, PT Service: ? Author [...] Patient to be seen for Therapeutic exercise (43898), Neuromuscular re-education (14229), Manual therapy (18603), Therapeutic activities (56711), Self-assisted management (72102), Gait Training (17892) PLAN FOR NEXT VISIT: Return in 2 months SUBJECTIVE: Went on vacation and had a great time and was relaxing. Was thinking that the relaxation would get rid of his sx but it did not happen. Thinks his sx all stemmed from when he got his shoulder injury and was out of a job. [place] a lot of stress at that time, [...] 1623 Session Stop Time : 1648 Soo Villalba, PT [facility] 12-27-[address] Andrew documented in [...] not able to see be faxed to [phone]/Attn: Sheron @ [facility] re: disability. Please cc: Dr. Rula Herrera (PCP) on letter and fax to Dr. Herrera at [phone]. Number to return call [phone] Okay to leave a message ? Yes Last office visit 09/18/[address] Gilmar Andrew Next office visit not scheduled (only FMD appts w/Dr. Alcantara) Thank you calling [facility] [place]. You will receive a return call within 48 hours ( or 2 business days if close to the weekend). If you feel that this is an urgent issue and needs immediate attention, it is recommended that you contact your primary care provider office or proceed to your nearest Urgent Care Center of Emergency Room ED for evaluation/treatment. ' documented in this encounter [facility] 12-24-2022 Note HNO ID: [id number] Author: Vonnie Connolly PT Service: ? Author [...] and agrees starting wellness exercise routine at [facility] will help him feel better globally.. The [...] Time Minutes (timed/untimed): 45 Vonnie Connolly, PT [facility] 12-24-2022 History of Presen t illness Narrative [...] and agrees starting wellness exercise routine at [facility] will help him feel better globally.. The [...] Vonnie Connolly PT documented in this encounter [facility] 12-19-2022 Note HNO ID: [id number] Author: Soo Villalba, PT Service: ? Author [...] conversation TREATMENT: Neuromuscular Re-Education: 1: C Mill- Chilean alps- speed: 0.8 m/s. B UE support. [...] Stop Time : 1700 Soo Villalba, PT [facility] 12-19-2022 History of Presen t illness Narrative [...] conversation TREATMENT: Neuromuscular Re-Education: 1: C Mill- Chilean alps- speed: 0.8 m/s. B UE support. [...] Soo Villalba PT documented in this encounter [facility] 2022 Note HNO ID: [id number] Author: Soo Villalba PT Service: ? Author Type: Physical Therapist Type: Progress Notes Filed: 2022 5:59 PM Note Text: Episode Visit Count: 2 Therapist That Will Accept/Oversee The Plan Of Care: Soo Villalba Start of Care Date: 11/20/22 Onset Date: 11/20/21 REHABILITATION AND SPORTS THERAPY PHYSICAL THERAPY TREATMENT NOTE *Patient accepted as transfer of care from [facility]* ASSESSMENT: Gonzales Farrell tolerated the session [...] with visual external focus. C Mill with Chilean alps for visual distraction. Aerobic exercise. SUBJECTIVE: [...] Stop Time : 1700 Soo Villalba, PT [facility] 2022 History of Presen t illness Narrative Episode Visit Count: 2 Therapist That Will Accept/Oversee The Plan Of Care: Soo Villalba Start of Care Date: 11/20/22 Onset Date: 11/20/21 REHABILITATION AND SPORTS THERAPY PHYSICAL THERAPY TREATMENT NOTE *Patient accepted as transfer of care from [facility]* ASSESSMENT: Gonzales Farrell tolerated the session [...] with visual external focus. C Mill with Chilean alps for visual distraction. Aerobic exercise. SUBJECTIVE: [...] Soo Villalba PT documented in this encounter [facility] 11-22-2022 Instructions Megha Leggett PT - 11/22/2022 2:18 PM EDT You [...] she developed this for others.? ? - [email or web address] tion? ?- Website developed by Dr. Annabella Rodriguez who owns a private neuro therapy practice in [place] with a large focus on the treatment of FND. They are also on Instagram: [email or web address] - [email or web address].org/ - Website developed to better understand FND with helpful links and resources (including an information sheet to give to you physician who may be unfamiliar with your FND diagnosis). - MyFND Wyatt - Free wyatt where patients can track and monitor their symptoms, review strategies for symptom management, and find resources and education on FND. documented in this encounter [facility] 11-20-2022 Note HNO ID: [id number] Author: Perry Alcantara PSYD Service: ? Author Type: Physician Type: Progress Notes Filed: 12/09/2022 10:05 PM Note Text: [facility] Clinical Health Psychology Evaluation Time of Service: 3:00 pm to 4:00 pm CPT Code: 37285 - Health AND Behavior Assessment Billing Code: [...] who was referred by Dr. 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 He presents with a history of involuntary movement symptoms. Sx include eye closure/blepharospasm. Symptom onset: 2022 Social History: Mr. 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 [facility] 11-20-2022 Note HNO ID: [id number] Author: Megha Leggett PT Service: ? 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 [facility] 11-20-2022 History of Presen t illness Narrative [facility] Clinical Health Psychology Evaluation Time of Service: 3:00 pm to 4:00 pm CPT Code: 23726 - Health & Behavior Assessment Billing Code: [...] Social History: Mr. 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 Andrew from [facility] as part of a multi-disciplinary evaluation for [...] Perry Alcantara Psy.D. 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 Author Type: Registered Nurse Type: Progress Notes Filed: 10/31/2022 10:01 AM Note Text: [facility] - FOLLOW UP EVALUATION No referring provider defined for this encounter. Rula Herrera MD [address] [facility] [phone] I had the pleasure of seeing Mr. Farrell for follow up today. he is a 51 year old male with a history of functional neurological disorder here for VSMA FND education session.. We had a visit using: [employer] I have communicated my name and active licensure. The patient's identity and physical location were verified at the time of this visit. Either the patient or their legal sales representative girls' apparel has been informed of the risks and [...] with FMD management team locally or at [facility] Level of service : 21993 (20-29 min). Time spent 29 min on the day of service, which included preparing to see the patient, [id number] patient care, completing clinical documentation, obtaining and/or [...] with any questions. Sincerely, Agapito Ruano MD [facility] 08-16-2022 Instructions Donita Martinez MD - 08/16/2022 [...] can I get the FL-41 filter? Any [facility] location, (with an optical shop), throughout [place], Email: [email or web address] [employer] [facility] in [place], [place], [facility] in [place], [place], 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 Olvera; at this time blepharospasm seems minimal but can try and see neurology to try and see if there are any other treatment options F/u 3 mo 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 , up to 100 units [address]. General eye care Dr.. Olvera To use pataday 3. H/o Steroid responder documented in this encounter [facility] 08-16-2022 History of Presen t illness Narrative Pt is worried about his ability to return to work - current facial sx, blepharospasm, have not improved since injection last week. 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 Any [facility] location, (with an optical shop), throughout [place], Email: [email or web address] [employer] [facility] in [place], [place], [facility] in [place], [place], 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 Olvera; at this time blepharospasm seems minimal but can try and see neurology to try and see if there are any other treatment options; may want to change professions if he doesn't feel comfortable driving---desk job option? F/u 3 mo 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 , up to 100 units 2. General eye care Dr.. Olvera To use pataday 3. H/o Steroid responder [...] 2022 11:13 AM. documented in this encounter [facility] 08-16-2022 Miscellaneous Notes I spoke with him and he will come in today at 3:30. Appt sent to be scheduled. Patient was seen on 08/09/22 and states that there is no change in his eyes. In fact he seems to think that they are worse and wants to know what should he do? Please Advise, Rohit documented in this encounter [facility] 08-16-2022 Miscellaneous Notes Patient called in and stated that his employer is requesting a letter to remain off of work due to still have systems after first Botox visit on 08/09/2022. Employer's contact info is [employer] Attn: Josue Castellon documented in this encounter [facility] 08-09-2022 History of Presen t illness Narrative Blepharospasm follow up Patient having trouble keeping eyes open. 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 Any [facility] location, (with an optical shop), throughout [place], Email: [email or web address] [employer] [facility] in [place], [place], [facility] in [place], [place], [facility] in [place], [place], [employer] in [place], [place], www[email or web address] Botulinum toxin takes 1 week to set [...] 100 units 2. General eye care Dr.. Olvera To use pataday 3. H/o Steroid responder [...] 2022 11:13 AM. documented in this encounter [facility] 08-02-2022 History of Presen t illness Narrative [...] with all of its relevant components. Stewart Olvera, MADAI August 02, 2022 12:00 PM documented in this encounter [facility] 07-31-2022 Miscellaneous Notes From: Yvon Espinal < [...] Subject: Re: medical Botox approval Gonzales Farrell [id number] This patient is supposed to be getting medical Botox injections with Dr. Martinez. Can the auth please get placed and expedited? patient has appointment on 08/09/22. Thanks, Melanie Espinal [facility] Oculoplastic and Reconstructive Surgery [facility] [phone] From: Pharm Auth Team < > Sent: [...] advise Thank you [facility] Department Remote Office [address] [facility] [address] From: Yvon Espinal < > Sent: Saturday, July 30, 2022 11:58 AM To: Pharm Auth Team < > Cc: Donita Martinez < >; Brianda Higgins < >; Muna Apple < >; Stephany Scott < >; Parvin Abarca < > Subject: medical Botox approval Fredis Berry submitted a prior authorization for Mr. Gonzales Farrell ([id number]) on 07/05/22 for medical Botox. Has it been approved? Thank you, Melanie Images from the original note were not included. Yvon Espinal APRN.DUMP WORKER You; Wanda Sousa; Vanessa Maradiaga; Muna Apple [...] go for his appt on 08/09 in [place]? 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 Exam: + blepharospasm tr both eyes (intermittent) 1+ Superficial punctate keratopathy (SPK) right eye, trace left eye Meibomian gland dysfunction Floppy eyelids Bilateral upper lids Everted the lids, no lesions Discussed with patient he has dryness both eyes, recc treating dry eye Patient has restasis-->recc starting Intraocular pressure elevated today-->may be steroid responder (was using pred forte); followed by Dr.. Olvera; advised patient to stop steroid drops and not use as needed and to f/u Dr.. Olvera for intraocular pressure Patient does have blepharospasm Will try and get approval for Botox however patient has dryness which can also cause blepharospasm Recc eval with dry unattended ground sensor specialist Dr.. Buck Recc art tears four [...] can I get the FL-41 filter? Any [facility] location, (with an optical shop), throughout [place], Email: [email or web address] [employer] [facility] in [place], [place], [facility] in [place], [place], [facility] in [place], [place], [employer] in [place], [place], www[employer] [employer] Discussed will need to submit for insurance approval and return once approved, usually takes ~1month 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 , up to 100 units Return 1 month for Botulinum toxin if dryness improved 2. General eye care Dr.. Olvera To use pataday 3. Steroid responder Used pred acetate; stop ; f/u Dr. Olvera The documentation for this note was completed [...] 2022 11:57 AM. documented in this encounter [facility] 07-19-2022 History of Presen t illness Narrative [...] with all of its relevant components. Stewart Olvera, OD July 19, 2022 11:25 AM documented in this encounter [facility] 07-05-2022 Miscellaneous Notes Addended by: STEWART OLVERA on: 07/05/2022 12:21 PM Modules accepted: Orders, SmartSet documented in this encounter [facility] 07-05-2022 Instructions Donita Martinez MD - 07/05/2022 11:58 AM EST Discussed with patient he has dryness both eyes, recc treating dry eye Patient has restasis-->recc starting Intraocular pressure elevated today-->may be steroid responder (was using pred forte); followed by Dr.. Olvera; advised patient to stop steroid drops and not use as needed and to f/u Dr.. Olvera for intraocular pressure Patient does have blepharospasm Will try and get approval for Botox however patient has dryness which can also cause blepharospasm Recc eval with dry unattended ground sensor specialist Dr.. Buck Recc art tears four [...] can I get the FL-41 filter? Any [facility] location, (with an optical shop), throughout [place], Email: [email or web address] [employer] in [place], [place], [facility] in [place], [place], [facility] in [place], [place], [employer] in [place], [place], www[employer] Discussed will need to submit for insurance approval and return once approved, usually takes ~1month 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 , up to 100 units Return 1 month for Botulinum toxin if dryness improved 2. General eye care Dr.. Olvera To use pataday 3. Steroid responder Used pred acetate; stop ; f/u Dr. 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 Olvera; advised patient to stop steroid drops and not use as needed and to f/u Dr.. Olvera for intraocular pressure Patient does have blepharospasm Will try and get approval for Botox however patient has dryness which can also cause blepharospasm Recc eval with dry unattended ground sensor specialist Dr.. Buck Recc art tears four [...] can I get the FL-41 filter? Any [facility] location, (with an optical shop), throughout [place], Email: [email or web address] [employer] [facility] in [place], [place], [facility] in [place], [place], [facility] in [place], [place], [employer] in [place], [place], www[email or web address] Discussed will need to submit for insurance approval and return once approved, usually takes ~1month 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 , up to 100 units Return 1 month for Botulinum toxin if dryness improved 2. General eye care Dr.. Olvera To use pataday 3. Steroid responder Used pred acetate; stop ; f/u Dr. Olvera The documentation for this note was completed [...] 2022 11:57 AM. documented in this encounter [facility] 07-05-2022 History of Presen t illness Narrative [...] with all of its relevant components. Stewart Olvera, OD July 05, 2022 11:49 AM documented in this encounter [facility] 06-17-2022 History of Presen t illness Narrative [...] with all of its relevant components. Stewart Olvera OD June 17, 2022 12:55 PM documented in this encounter [facility] 05-06-2022 History of Presen t illness Narrative [facility] NOTE Department of Orthopaedics Gus Vyas MD [facility] NAME: Gonzales Farrell CLINIC NO.: [id number] DATE: 05/06/22 Surgery: Arthroscopy Shoulder Rotator Cuff [...] Shoulder and Elbow Surgeon Orthopaedic Surgery Department [place], [place] [address] Tell: [phone] Appt:[phone] documented in this encounter [facility] 03-04-2022 History of Presen t illness Narrative [facility] NOTE Department of Orthopaedics Gus Vyas MD [facility] NAME: Gonzales Farrell CLINIC NO.: [id number] DATE: 03/04/2022 Surgery: Arthroscopy Shoulder Rotator Cuff [...] Shoulder and Elbow Surgeon Orthopaedic Surgery Department [place], [place] [id number] Tell: [phone] Appt:[phone] documented in this encounter [facility] 01-25-2022 History of Presen t illness Narrative [facility] NOTE Department of Orthopaedics [place] Vyas [place] [facility] [place]: [place] Farrell CLINIC NO.: [id number] DATE: 01/25/2022 Surgery: Arthroscopy Shoulder Rotator Cuff [...] Shoulder and Elbow Surgeon Orthopaedic Surgery Department [place], [place] [address] Tell: [phone] Appt:[phone] documented in this encounter [facility] 12-07-2021 History of Presen t illness Narrative [facility] NOTE Department of Orthopaedics Gus Vyas MD [facility] [place]: Gonzales Farrell CLINIC NO.: [id number] DATE: 12/07/2021 Surgery: Arthroscopy Shoulder Rotator Cuff [...] Shoulder and Elbow Surgeon Orthopaedic Surgery Department [place], [place] [address] Tell: [phone] Appt:[phone] documented in this encounter [facility] 11-07-2021 History of Presen t illness Narrative [...] start formal PT after that apt-sent to [facility] for request of C9. Sutures removed-steri strips applied-unremarkable. Reviewed restrictions with pt. Office number provided for additional questions or concerns. Pt seen under direction of uGs Vyas MD. Teresa Birch RN documented in this encounter [facility] 10-25-2021 Note HNO ID: [id number] Author: Pepe Cornelius APRN.IT DIRECTOR Service: ? 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 Staffing IT DIRECTOR: Pepe Cornelius APRN.IT DIRECTOR Performed by: IT DIRECTOR Indications and Patient Condition Preoxygenated: yes Patient [...] 1 Airway not difficult SIGNATURE: Pepe Cornelius APRN.IT DIRECTOR PATIENT NAME: Gonzales Farrell DATE: October 25, 2021 TIME: 12:52 PM CSN: [id number] [facility] 10-25-2021 Note HNO ID: [id number] Author: Sofia Glaser RN Service: Nursing Author Type: Registered Nurse Type: Nursing Progress Note Filed: 10/25/2021 10:27 AM Note Text: preop block: [phone] [facility] 10-25-2021 Note HNO ID: [id number] Author: Smooth Valadez MD Service: Anesthesiology Author [...] October 25, 2021 TIME: 10:21 AM CSN: [id number] [facility] 09-28-2021 Miscellaneous Notes Spoke with pt and he has made an appointment with his PCP on 10/01/21. Shyam Gotti RN September 28, 2021 11:11 AM The patient needs optimization from PCP for new DM, untreated. Letter and results faxed, please track. Email sent to Dr. Sanders in anesthesia for review. Thank you. documented in this encounter [facility] 09-28-2021 Miscellaneous Notes Component Latest Ref Rng [...] 2021 7:33 AM documented in this encounter [facility] 09-27-2021 History and physical note HISTORY AND [...] fevers. Neuro: No history of TIA's, stroke, PORTFOLIO MANAGER tumor, impaired sensorium, hemiplegia, paraplegia or quadraplegia. [...] TIME: 4:01 PM documented in this encounter [facility] 09-27-2021 Instructions Barb Mast PA-C - 09/27/2021 3:40 PM EDT PATIENT PREOPERATIVE INSTRUCTIONS Gus Vyas MD has scheduled you for your procedure at this surgery center: [facility]: [phone] -- [address] [place] [address]. Please read below carefully for your personalized [...] Procedures: - YOU MUST HAVE A RESPONSIBLE CAUSTICS LOADER TAKE YOU HOME. A INSTRUMENT TECHNICIAN APPRENTICE OR MIDDLE SCHOOL RESOURCE TEACHER CANNOT BE MADE A RESPONSIBLE CAUSTICS LOADER. - We recommend that a responsible person [...] Advance Directive, please fax a copy to [phone] or email to for it to be [...] Barb Mast PA-C documented in this encounter [facility] 09-21-2021 History of Presen t illness Narrative [...] is a 50 year old is a ouwhr-mcut-zvzruycc gentleman who is referred to my clinic by Dr. Alcocer for evaluation of his right shoulder injury. This visit is part of a [facility] claim. 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 HISTORY: Pain FINDINGS: BONES:No acute fracture or dislocation. Mild osteoarthropathy of the acromioclavicular joint. SOFT TISSUES:Negative. No visible soft tissue swelling. EFFUSION:None visible. OTHER: Numerous lung nodules, likely sequela of prior granulomatous process IMPRESSION: No acute fracture Electronically authenticated by: TORIE FOLEY Date: 2021-08-25 15:59 [facility] Evaluation + Plan note No data available for this section General Surgery [place] Evaluation note Diagnosis Preoperative examination- Primary Preoperative examination, unspecified Traumatic complete tear of right rotator cuff, initial encounter [facility] Diagnosis Traumatic complete tear of right rotator cuff, initial encounter- Primary [facility] Diagnosis Preop examination- Primary Preoperative examination, [...] cuff, initial encounter [facility] Diagnosis Preoperative examination- Primary Preoperative examination, unspecified [facility] Diagnosis Preoperative examination- Primary Preoperative examination, unspecified Traumatic complete tear of right rotator cuff, initial encounter Preoperative examination Preoperative examination, unspecified Traumatic complete tear of right rotator cuff, initial encounter [facility] Traumatic complete tear of right rotator cuff, initial encounter [facility] Postop check- Primary Follow-up examination, following unspecified surgery [facility] Diagnosis Traumatic complete tear of right rotator cuff, subsequent encounter- Primary S/P right rotator cuff repair [facility] Diagnosis S/P right rotator cuff repair- Primary [facility] Diagnosis Traumatic complete tear of right rotator cuff, initial encounter- Primary S/P right rotator cuff repair [facility] Diagnosis Traumatic complete tear of right rotator cuff, initial encounter- Primary [facility] Diagnosis Other chronic allergic conjunctivitis of both eyes- Primary 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, unspecified [facility] Diagnosis Blepharospasm- Primary [facility] Diagnosis Other chronic allergic conjunctivitis of both eyes- Primary 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, unspecified Blepharospasm [facility] Diagnosis Steroid induced glaucoma, both eyes- Primary Corticosteroid-induced glaucoma, 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, 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, both eyes- Primary Corticosteroid-induced glaucoma, 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, 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 [facility] Diagnosis Blepharospasm- Primary [facility] Diagnosis Blepharospasm- Primary [facility] Diagnosis 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 [facility] Diagnosis Adjustment disorder, unspecified type- Primary 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 [facility] Diagnosis 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 [facility] Diagnosis 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 [facility] Diagnosis 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 [facility] Diagnosis 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 documented in this encounter [facility] note* Diagnosis Adjustment disorder with mixed anxiety and depressed mood- Primary 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 documented in this encounter [facility] note* Diagnosis Adjustment disorder with mixed anxiety and depressed mood- Primary 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 documented in this encounter [facility] note* Diagnosis Adjustment disorder with mixed anxiety and depressed mood- Primary 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 documented in this encounter [facility] Discharge instructions No data available for this section General Surgery [facility] Progress note No data available for this section General Surgery [facility] Reason for referral (narrative)* Outpatient Procedure (Routine) - Pending Review Specialty Diagnoses / Procedures Referred By Jassi yoo Referred To Contact [facility] Diagnoses Preoperative examination Procedures ECG COMPLETE ECG ROUTINE ECG W/LEAST 12 LDS W/I&R Gus Vyas MD [address] [place] [address] [facility] [address] [address] Referral ID Status Reason Start Date Expiration Date Visits Requested Visits Authorized [id number] Pending Review Auto-Generat ed Referral 09/21/2021 09/21/2022 [address] [facility] for referral (narrative)* Outpatient Procedure (Routine) - Pending Review Specialty Diagnoses / Procedures Referred By Jassi yoo Referred To Contact [facility] Diagnoses Preop examination Obstructive sleep apnea Class 3 severe obesity due to excess calories without serious comorbidity with body mass index (BMI) of 40.0 to 44.9 in adult (HCC) Traumatic complete tear of right rotator cuff, initial encounter Elevated BP without diagnosis of hypertension Primary hypertension Procedures ECG COMPLETE ECG ROUTINE ECG W/LEAST 12 LDS W/I&R Barb Mast PA-C [address] [place] [address] [facility] [address] [address] Referral ID Status Reason Start Date Expiration Date Visits Requested Visits Authorized [id number] Pending Review Auto-Generat ed Referral 09/27/2021 09/27/2022 1 1 [facility] Advance Directives No Advanced Directives Records FoundDocuments on File Type Date Recorded Patient Oyster Tonger Expl anation Advance Directive(s) 10/01/2021 8:09 AM Documents on File Type Date Recorded Patient Oyster Tonger Expl anation Advance Directive(s) 10/24/2021 10:15 AM Advance Directive(s) 10/01/2021 8:09 AM Documents on File Type Date Recorded Patient Oyster Tonger Expl anation Advance Directive(s) 10/24/2021 10:15 AM Advance Directive(s) 10/01/2021 8:09 AM Summary Purpose Family History No Family History Records FoundNo Family History Records Found No data available for this section No Family History Records FoundNo Family History Records Found Reason for Referral Specialty Diagnoses / Procedures Referred By Contac t Referred To Contact Diagnoses Traumatic complete tear of right rotator cuff, initial encounter Gus Vyas MD [address] [place] [place] [address] Referral ID Status Reason Start Date Expiration Date Visits Re quested Visits Authorized [id number] Denied 1 1 Specialty Diagnoses / Procedures Referred By Contac t Referred To Contact [facility] Diagnoses Traumatic complete tear of right rotator cuff, subsequent encounter S/P right rotator cuff repair Procedures CONSULT TO PHYSICAL THERAPY PHYSICAL THERAPY EVALUATION HIGH COMPLEX 45 MINS Gus Vyas MD [address] [place] [place] [address] [facility] [address] [address] Referral ID Status Reason Start Date Expiration Date Visits Requested Visits Authorized [id number] Pending Review Auto-Generat ed Referral 12/07/2021 12/07/2022 1 1 Specialty Diagnoses / Procedures Referred By Contac t Referred To Contact [facility] Diagnoses S/P right rotator cuff repair Procedures CONSULT TO PHYSICAL THERAPY PHYSICAL THERAPY EVALUATION HIGH COMPLEX 45 MINS Gus Vyas MD [address] [place] [address] [facility] [address] [address] Referral ID Status Reason Start Date Expiration Date Visits Requested Visits Authorized [id number] Pending Review Auto-Generat ed Referral 01/25/2022 01/25/2023 1 1 Specialty Diagnoses / Procedures Referred By Contac t Referred To Contact Neurology Diagnoses Blepharospasm Procedures CONSULT TO NEUROLOGY OFFICE/OUTPATIENT [facility] 60-[place] [address] [place], [place] [id number] Referral ID Status Reason Start Date Expiration Date Visits Requested Visits Authorized [id number] Pending Review PCP Requested Referral 08/16/2022 08/16/2023 1 1 Specialty Diagnoses / Procedures Referred By Jassi yoo Referred To Contact [facility] Diagnoses Blepharospasm Procedures PT REHAB FOLLOW UP ORDER THERAPEUTIC EXERCISES RE, EA [address] [address] [place] [address] [facility] [address] [address] Referral ID Status Reason Start Date Expiration Date Visits Requested Visits Authorized [id number] Pending Review PCP Requested Referral Auto-Generate d [...] the event of a Fluress shortage, administer [place]-Fluor 1 drop into both eyes as directed for applanation tonometry, [facility] MED ORDERS Given 08/02/2022 10:30 AM EDT 1 Drop Additional Source Comments Source Comments (unrecognize d section and content) In the event this informatio n is protected by the Federal Confidentiality of Alcohol and Drug Abuse Patient Records regulations: The Federal rules restrict any use of the information to criminally investigate or prosecute any alcohol or drug abuse patient.[facility] the event this information is protected by the Federal Confidentiality of Alcohol and Drug Abuse Patient Records regulations: The Federal rules restrict any use of the information to criminally investigate or prosecute any alcohol or drug abuse patient.[facility] the event this information is protected by the Federal Confidentiality of Alcohol and Drug Abuse Patient Records regulations: The Federal rules restrict any use of the information to criminally investigate or prosecute any alcohol or drug abuse patient.[facility] the event this information is protected by the Federal Confidentiality of Alcohol and Drug Abuse Patient Records regulations: The Federal rules restrict any use of the information to criminally investigate or prosecute any alcohol or drug abuse patient.[facility] the event this information is protected by the Federal Confidentiality of Alcohol and Drug Abuse Patient Records regulations: The Federal rules restrict any use of the information to criminally investigate or prosecute any alcohol or drug abuse patient.[facility] the event this information is protected by the Federal Confidentiality of Alcohol and Drug Abuse Patient Records regulations: The Federal rules restrict any use of the information to criminally investigate or prosecute any alcohol or drug abuse patient.[facility] Center[facility] the event this information is protected by the Federal Confidentiality of Alcohol and Drug Abuse Patient Records regulations: The Federal rules restrict any use of the information to criminally investigate or prosecute any alcohol or drug abuse patient.[facility] Center[facility] the event this information is protected by the Federal Confidentiality of Alcohol and Drug Abuse Patient Records regulations: The Federal rules restrict any use of the information to criminally investigate or prosecute any alcohol or drug abuse patient.[facility] Center[facility] the event this information is protected by the Federal Confidentiality of Alcohol and Drug Abuse Patient Records regulations: The Federal rules restrict any use of the information to criminally investigate or prosecute any alcohol or drug abuse patient.[facility] Center[facility] the event this information is protected by the Federal Confidentiality of Alcohol and Drug Abuse Patient Records regulations: The Federal rules restrict any use of the information to criminally investigate or prosecute any alcohol or drug abuse patient.[facility] Center[facility] the event this information is protected by the Federal Confidentiality of Alcohol and Drug Abuse Patient Records regulations: The Federal rules restrict any use of the information to criminally investigate or prosecute any alcohol or drug abuse patient.[facility] Center[facility] the event this information is protected by the Federal Confidentiality of Alcohol and Drug Abuse Patient Records regulations: The Federal rules restrict any use of the information to criminally investigate or prosecute any alcohol or drug abuse patient.[facility] Center[facility] the event this information is protected by the Federal Confidentiality of Alcohol and Drug Abuse Patient Records regulations: The Federal rules restrict any use of the information to criminally investigate or prosecute any alcohol or drug abuse patient.[facility] Center[facility] the event this information is protected by the Federal Confidentiality of Alcohol and Drug Abuse Patient Records regulations: The Federal rules restrict any use of the information to criminally investigate or prosecute any alcohol or drug abuse patient.[facility] Center[facility] the event this information is protected by the Federal Confidentiality of Alcohol and Drug Abuse Patient Records regulations: The Federal rules restrict any use of the information to criminally investigate or prosecute any alcohol or drug abuse patient.[facility] Center[facility] the event this information is protected by the Federal Confidentiality of Alcohol and Drug Abuse Patient Records regulations: The Federal rules restrict any use of the information to criminally investigate or prosecute any alcohol or drug abuse patient.[facility] Center[facility] the event this information is protected by the Federal Confidentiality of Alcohol and Drug Abuse Patient Records regulations: The Federal rules restrict any use of the information to criminally investigate or prosecute any alcohol or drug abuse patient.[facility] Center[facility] the event this information is protected by the Federal Confidentiality of Alcohol and Drug Abuse Patient Records regulations: The Federal rules restrict any use of the information to criminally investigate or prosecute any alcohol or drug abuse patient.[facility] Center[facility] the event this information is protected by the Federal Confidentiality of Alcohol and Drug Abuse Patient Records regulations: The Federal rules restrict any use of the information to criminally investigate or prosecute any alcohol or drug abuse patient.[facility] CenterIn the event this information is protected by the Federal Confidentiality of Alcohol and Drug Abuse Patient Records regulations: The Federal rules restrict any use of the information to criminally investigate or prosecute any alcohol or drug abuse patient.[facility] CenterIn the event this information is protected by the Federal Confidentiality of Alcohol and Drug Abuse Patient Records regulations: The Federal rules restrict any use of the information to criminally investigate or prosecute any alcohol or drug abuse patient.[facility] CenterIn the event this information is protected by the Federal Confidentiality of Alcohol and Drug Abuse Patient Records regulations: The Federal rules restrict any use of the information to criminally investigate or prosecute any alcohol or drug abuse patient.[facility] CenterIn the event this information is protected by the Federal Confidentiality of Alcohol and Drug Abuse Patient Records regulations: The Federal rules restrict any use of the information to criminally investigate or prosecute any alcohol or drug abuse patient.[facility] CenterIn the event this information is protected by the Federal Confidentiality of Alcohol and Drug Abuse Patient Records regulations: The Federal rules restrict any use of the information to criminally investigate or prosecute any alcohol or drug abuse patient.[facility] CenterIn the event this information is protected by the Federal Confidentiality of Alcohol and Drug Abuse Patient Records regulations: The Federal rules restrict any use of the information to criminally investigate or prosecute any alcohol or drug abuse patient.[facility] CenterIn the event this information is protected by the Federal Confidentiality of Alcohol and Drug Abuse Patient Records regulations: The Federal rules restrict any use of the information to criminally investigate or prosecute any alcohol or drug abuse patient.[facility] CenterIn the event this information is protected by the Federal Confidentiality of Alcohol and Drug Abuse Patient Records regulations: The Federal rules restrict any use of the information to criminally investigate or prosecute any alcohol or drug abuse patient.[facility] CenterIn the event this information is protected by the Federal Confidentiality of Alcohol and Drug Abuse Patient Records regulations: The Federal rules restrict any use of the information to criminally investigate or prosecute any alcohol or drug abuse patient.[facility] CenterIn the event this information is protected by the Federal Confidentiality of Alcohol and Drug Abuse Patient Records regulations: The Federal rules restrict any use of the information to criminally investigate or prosecute any alcohol or drug abuse patient.[facility] CenterIn the event this information is protected by the Federal Confidentiality of Alcohol and Drug Abuse Patient Records regulations: The Federal rules restrict any use of the information to criminally investigate or prosecute any alcohol or drug abuse patient.[facility] CenterIn the event this information is protected by the Federal Confidentiality of Alcohol and Drug Abuse Patient Records regulations: The Federal rules restrict any use of the information to criminally investigate or prosecute any alcohol or drug abuse patient.[facility] CenterIn the event this information is protected by the Federal Confidentiality of Alcohol and Drug Abuse Patient Records regulations: The Federal rules restrict any use of the information to criminally investigate or prosecute any alcohol or drug abuse patient.[facility] CenterIn the event this information is protected by the Federal Confidentiality of Alcohol and Drug Abuse Patient Records regulations: The Federal rules restrict any use of the information to criminally investigate or prosecute any alcohol or drug abuse patient.[facility] Care Teams (unrecognized sec tion and content) Risk And Compliance Analytics Director Relationship Specialty Start Date End Date Rula Herrera MD [address] [place] [address] PCP - General 08/13/00 Risk And Compliance Analytics Director Relationship Specialty Start Date End Date Rula Herrera MD [address] [place] [address] PCP - General 08/13/00 Risk And Compliance Analytics Director Relationship Specialty Start Date End Date Rula Herrera MD [address] [place] [facility] [place] [place] [address] PCP - General 08/13/00 Risk And Compliance Analytics Director Relationship Specialty Start Date End Date Rula Herrera MD [address] [place] [place] [place] [address] PCP - General Family Practice 09/28/21 Risk And Compliance Analytics Director Relationship Specialty Start Date End Date Rula Herrera MD [address] [place] [place] [place] [address] PCP - General Family Practice 09/28/21 Risk And Compliance Analytics Director Relationship Specialty Start Date End Date Rula Herrera MD [address] [place] [place] [place] [address] PCP - General Family Practice 09/28/21 Risk And Compliance Analytics Director Relationship Specialty Start Date End Date Rula Herrera MD [address] [place] [place] [place] [address] PCP - General Family Practice 09/28/21 Risk And Compliance Analytics Director Relationship Specialty Start Date End Date Rula Herrera MD [address] [place] [place] [place] [address] PCP - General Family Practice 09/28/21 Risk And Compliance Analytics Director Relationship Specialty Start Date End Date Rula Herrera MD [address] [place] [place] [place] [address] PCP - General Family Medicine 09/28/21 Risk And Compliance Analytics Director Relationship Specialty Start Date End Date Rula Herrera MD [address] [place] [place] [place] [address] PCP - General Family Medicine 09/28/21 Risk And Compliance Analytics Director Relationship Specialty Start Date End Date Rula Herrera MD [address] [place] [place] [place] [address] PCP - General Family Medicine 09/28/21 Risk And Compliance Analytics Director Relationship Specialty Start Date End Date Rula Herrera MD [address] [place] [id number] PCP - General Family Medicine 09/28/21 Risk And Compliance Analytics Director Relationship Specialty Start Date End Date Rula Herrera MD [address] [place] [id number] PCP - General Family Medicine 09/28/21 Risk And Compliance Analytics Director Relationship Specialty Start Date End Date Rula Herrera MD [address] [place] [id number] PCP - General Family Medicine 09/28/21 Risk And Compliance Analytics Director Relationship Specialty Start Date End Date Rula Herrera MD PCP - General Family Medicine 09/28/21 Risk And Compliance Analytics Director Relationship Specialty Start Date End Date Rula Herrera MD PCP - General Family Medicine 09/28/21 Risk And Compliance Analytics Director Relationship Specialty Start Date End Date Rula Herrera MD PCP - General Family Medicine 09/28/21 Risk And Compliance Analytics Director Relationship Specialty Start Date End Date Rula Herrera MD PCP - General Family Medicine 09/28/21 Risk And Compliance Analytics Director Relationship Specialty Start Date End Date Rula Herrera MD PCP - General Family Medicine 09/28/21 Risk And Compliance Analytics Director Relationship Specialty Start Date End Date Rula Herrera MD PCP - General Family Medicine 09/28/21 Risk And Compliance Analytics Director Relationship Specialty Start Date End Date Rula Herrera MD PCP - General Family Medicine 09/28/21 Risk And Compliance Analytics Director Relationship Specialty Start Date End Date Rula Herrera MD PCP - General [facility] Medicine 09/28/21 Risk And Compliance Analytics Director Relationship Specialty Start Date End Date Rula Herrera MD PCP - General Family Medicine 09/28/21 Risk And Compliance Analytics Director Relationship Specialty Start Date End Date Rula Herrera MD PCP - [facility] Medicine 09/28/21 Risk And Compliance Analytics Director Relationship Specialty Start Date End Date Rula Herrera MD PCP - General Family Medicine 09/28/21 Risk And Compliance Analytics Director Relationship Specialty Start Date End Date Rula Herrera MD PCP - General [facility] Medicine 09/28/21 Risk And Compliance Analytics Director Relationship Specialty Start Date End Date Rula Herrera MD PCP - General [facility] Medicine 09/28/21 Reason for Visit (unrecogniz ed section and content) Reason Comments Follow Up Specialty Diagnoses / Procedures Referred By Jassi yoo Referred To Contact Psychology / NEUROLOGICAL TAOISM Diagnoses follow up Procedures VIDEO PSYC/PSYL EST Perry Alcantara PSYD [address] [place], [place] [id number] Perry Alcantara PSYD [address] [place] [address] Referral ID Status Reason Start Date Expiration Date Visits Requested Visits Authorized [id number] Pending Review Financial Clearance Required - OON Payor 06/19/2023 09/17/2023 1 1 Reason Comments PT Progress Note Physical Therapy Specialty Diagnoses / Procedures Referred By Jassi yoo Referred To Contact Physical Therapy / PHYSICAL THERAPY Diagnoses FMD Procedures NEW RS PT FND Michael Andrew MD [address] [place] [phone] [place] [address] [place] [phone] Referral ID Status Reason Start Date Expiration Date V isits Requested Visits Authorized [id number] Authorized 04/28/2022 04/27/2023 20 20 Reason Comments Physical Therapy Reason Comments New Patient Right Shoulder Specialty Diagnoses / Procedures Referred By Jassi yoo Referred To Contact ANESTHESIOLOGY Diagnoses ARTHROSCOPY SHOULDER ROTATOR CUFF [1113] - Shoulder - Right Procedures ARTHROSCOPY SHOULDER ROTATOR CUFF [1113] - Shoulder - Right Gus Vyas MD [address] [facility] [address] [place] [phone] [facility] [address] [place] [address] Referral ID Status Reason Start Date Expiration Date Visits Requested Visits Authorized [id number] Waiting for Response OON/Self Pay Override 09/26/2021 [...] 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 Gus Vyas MD [address] [place] [phone] Teresa Birch, flat hammerer ID Status Reason Start Date Expiration Date Visits Re quested Visits Authorized [id number] Closed 11/07/2021 11/07/2021 1 1 Reason Comments Post Op Specialty Diagnoses / Procedures Referred By Jassi yoo Referred To Contact ORTHOPAEDIC SURGERY Diagnoses Post op shoulder Procedures established right shoulder post op Gus Vyas MD [address] [place] [phone] [facility] [address] [place] [phone] Referral ID Status Reason Start Date Expiration Date Visits Re quested Visits Authorized [id number] Closed 11/07/2021 12/07/2021 1 1 Specialty Diagnoses / Procedures Referred By Contac t Referred To Contact ORTHOPAEDIC SURGERY Diagnoses RIGHT SHOULDER PAIN Procedures POST/ FOLLOW UP Gus Vyas MD [address] [place] [phone] [facility] [address] [place] [phone] Referral ID Status Reason Start Date Expiration Date Visits Re quested Visits Authorized [id number] Closed 12/07/2021 03/07/2022 1 1 Reason Comments Established Patient Follow Up Pain Weakness Stiffness Specialty Diagnoses / Procedures Referred By Contjesus t Referred To Contact ORTHOPAEDIC SURGERY Diagnoses RIGHT SHOULDER PAIN Procedures POST/ FOLLOW UP Gus Vyas MD [address] [place] [phone] [facility] [address] [place] [phone] Reason Comments Established Patient Follow Up Pain Stiffness Weakness Specialty Diagnoses / Procedures Referred By Contact Referred To Contact [facility] Diagnoses Rotator cuff disorder, right Procedures FOLLOW-UP/REASSESSMEN T Gus Vyas MD [address] [place] [address] [facility] [place] [address] Referral ID Status Reason Start Date Expiration Date Visits Requested Visits Authorized [id number] Pending Review OON/Self Pay Override Patient Cleared [...] Referred By Jassi t Referred To Contact Ophthalmology / OPHTHALMOLOGY Diagnoses Blepharospasm Discussed will need to submit for insurance approval and return once approved, usually takes ~1month 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 , up to 100 units Return 1 month for Botulinum toxin if dryness improved Procedures BOTULINUM TOXIN A PER 1 UNIT BOTOX Donita Shaffer MD [address] [place] [address] Donita Martinez MD [address] [place] [address] Referral ID Status Reason Start Date Expiration Date V isits Requested Visits Authorized [id number] Authorized 08/09/2022 04/27/2023 99 99 Reason Comments Patient Question Reason Comments Botox Injection 3mo: Blepharospasm s /p botox injection essential on 08/07/22 Specialty Diagnoses / Procedures Referred By Jassi t Referred To Contact Ophthalmology / OPHTHALMOLOGY Diagnoses Blepharospasm Discussed will need to submit for insurance approval and return once approved, usually takes ~1month 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 , up to 100 units Return 1 month for Botulinum toxin if dryness improved Procedures BOTULINUM TOXIN A PER 1 UNIT BOTOX Donita Shaffer MD [address] [place] [address] Donita Martinez MD [address] [place] [address] Reason Comments PT Eval Specialty Diagnoses / Procedures Referred By Contac t Referred To Contact Physical Therapy / PHYSICAL THERAPY Diagnoses FMD Procedures NEW RS PT FND Michael Andrew MD [address] [place] [phone] [place] [address] [place] [address] Reason Comments Consult Specialty Diagnoses / Procedures Referred By Contac t Referred To Contact Psychology / NEUROLOGICAL TAOISM Diagnoses 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 Procedures OFFICE/OUTPATIENT NEW MODERATE MDM 45-59 MINUTES NEW PSYL HEADACHE/MOVEMENT Self Hasnie, aMruiah, PSYD [address] [place] [address] Referral ID Status Reason Start Date Expiration Date Visits Re quested Visits Authorized [id number] Closed 11/20/2022 04/27/2023 1 1 Reason Comments Letter Referral ID Status Reason Start Date Expiration Date V isits Requested Visits Authorized [id number] Pending Review 08/18/2023 11/16/2023 1 1 (unrecognized sect ion and content) No Status Records FoundNo Status Records FoundNo Status Records FoundNo Status Records Found INFORMATION SOURCE (unrecogn ized section and content) DATE CREATED AUTHOR 10/27/2021 [facility] DATE CREATED AUTHOR AUTHOR'S ORGANIZ ATION 07/10/2022 [facility] DATE CREATED AUTHOR AUTHOR'S ORGANIZ ATION 07/11/2023 [facility] DATE CREATED AUTHOR AUTHOR'S ORGANIZ ATION 09/03/2023 [facility] FOR RECORDS PERTAINING TO PATIENTS WHO ARE [...] BE BASED ON THE PRIMARY CLINICAL RECORDS. [facility] [place] [facility]. provides no warranty or guarantee of the accuracy or completeness of information in this document.
[2023-09-11 16:32] LABS: Alanine Aminotransferase 61 U/L (16-63); Alkaline Phosphatase 47 U/L (46-116); Anion Gap 13.2; Aspartate Amino Transferase 44 U/L (15-37); BUN Creatinine Ratio 14.3; Bilirubin Total 0.5 mg/dL (0.2-1.0); Calcium 8.9 mg/dL (8.5-10.1); Carbon Dioxide 26.9 mmol/L (21.0-32.0); Chloride 98 mmol/L (98-107); Estimated GFR (African America >60 (>=60); Estimated GFR (Non-African Ame >60 (>=60); Glucose 147 mg/dL (74-106); Potassium 4.1 mmol/L (3.5-5.1); Sodium 134 mmol/L (136-145); Thyroid Stimulating Hormone 2.206 uIU/mL (0.358-3.740)
[2023-09-11 16:49] LABS: Free T4 0.86 ng/dL (0.76-1.46)
== END 2023-09-11 15:25 | disposition home or self-care (01) ==
LOC: LAB 15:26
PROVIDERS: PCP Family Medicine; Visit Provider Family Medicine
DX: I95.1 Orthostatic hypotension (principal); I50.30 Unspecified diastolic (congestive) heart failure; I11.0 Hypertensive heart disease with heart failure
CPT/HCPCS: 36415; 80053; 83880; 84439; 84443; 85025

== ENCOUNTER 2024-07-31 11:58 | Outpatient (OUT) | payer OTHER, SELFPAY ==
--- OUTSIDE RECORDS SUMMARY | 2024-07-31 08:14 | XMS_ITS | CCD ---
Author Organization [facility] Care Team Providers Care Brim Setter Name Role Phone Rula Herrera MD Primary Care Provider [phone] RULA HERRERA Primary Care Unavailable MISC, DR SOTO Attending Unavailable MISC, DR SOTO Admitting Unavailable RULA HERRERA Primary Care Unavailable MISC, DR SOTO Admitting Unavailable MISC, DR SOTO Attending Unavailable NICHOLAS BHATIA Admitting Unavailable CHRISYRULA Primary Care Unavailable NICHOLAS BHATIA Attending Unavailable TORIE FOLEY Consulting Unavailable NICHOLAS BHATIA Consulting Unavailable LEE ANN BARNETT Consulting Unavailable RULA HERRERA Attending Unavailable RULA HERRERA Admitting Unavailable HOYRULA Primary Care Unavailable RULA HERRERA Consulting Unavailable CHRISY, RULA Primary Care Unavailable KRISTINA WAKEFIELD Attending Unavailable KRISTINA WAKEFIELD Admitting Unavailable RULA HERRERA Attending Unavailable URLA HERRREA Admitting Unavailable HOY, RULA Primary Care Unavailable RULA HERRERA Consulting Unavailable Dino, Red Consulting Unavailable CHRISY RULA Primary Care Unavailable Dino Red Consulting Unavailable MARICARMEN CONTRERASA Attending Unavailable DENAE CONTRERAS Admitting Unavailable DENAE CONTRERAS Consulting Unavailable Rula Herrera MD Primary Care Provider [phone] Rula Herrera Primary Care Physician [phone] Stewart MAY Attending Unavailable Rula Herrera Referring Unavailable Stewart MAY Attending Unavailable Rula Herrera MD Primary Care Provider [phone] RULA HERRERA Primary Care Unavailable ANDREW, MICHAEL Referring Unavailable RULA HERRERA Primary Care Unavailable ANDREW, MICHAEL Referring Unavailable MEGHA LEGGETT Attending Unavailable RULA HERRERA Primary Care Unavailable ANDREW, MICHAEL Referring Unavailable RULA HERRERA Primary Care Unavailable HASNIE, AFIAH Attending Unavailable HASNIE, AFIAH Referring Unavailable HOY, RULA M Primary Care Unavailable HASNIE, AFIAH Attending Unavailable HOY, RULA M Primary Care Unavailable HASNIE, AFIAH Attending Unavailable HOY, RULA M Primary Care Unavailable HASNIE, AFIAH Attending Unavailable HOY, URLA M Primary Care Unavailable ANDREW, MICHAEL Referring Unavailable HASNIE, AFIAH Attending Unavailable HOY, RULA M Primary Care Unavailable RUANOAGAPITO AGAPITO Attending Unavailable HOY, RULA M Primary Care Unavailable HASNIE, AFIAH Attending Unavailable HOY, RULA M Primary Care Unavailable HASNIE, AFIAH Referring Unavailable HASNIE, AFIAH Attending Unavailable HOY, RULA M Primary Care Unavailable HOY, RULA M Primary Care Unavailable ANDREW, MICHAEL Referring Unavailable HOY, RULA M Primary Care Unavailable ANDREW, MICHAEL Referring Unavailable Rula Herrera MD Primary Care Provider [phone] Allergies Allergy Classification Reported Allergen(s) Allergy Type Date of Onset Reaction(s) Facility (20 sources) Bee Venom Protein (Honey Bee); Translations: [BEE VENOM PROTEIN (HONEY BEE)] Drug Allergy 7 Swelling, Shortness of Breath [facility] Work Phone: (1 source) bee venom Drug allergy (disorder) 7 [facility] Repository (1 source) No Known Medication Allergies; Translations: [No Known Medication Allergies] Propensity to adverse reactions (disorder) [facility] Repository Medications Current Medications Medication Drug [...] mg by mouth three times daily. cycloSPORINE (18 sources) Calcineurin Inhibitor Immunosuppressant cyclosporine (RESTASIS OPHTHALMIC) [...] Comment on above: Take 1 capsule by [facility] twice daily for 15 days. fenofibrate 145 [...] by mouth. Taking 3 tablet a day Active Fish Oil-DHA-EPA 1,200-144-216 mg cap Take by mouth. Taking 3 tablet a day 0 Active Comment on above: Take by mouth. Takin g 3 tablet a day glimepiride 4 mg oral tablet (20 sources) Sulfonylurea Start: 4 take 1 tablet by mouth once daily glimepiride 4 mg Tab 4 mg = 1 tab(s), Oral, Daily, Refills(s) 0 Start Date: 05/28/23 Status: Ordered Start: 05-03-2022 take 2 tablets by mo ut once daily glimepiride (AMARYL) 4 mg tablet [...] Take by mouth. Taking 3 a day Active MULTI-VITAMIN OR AL Take by mouth. Taking 3 a day 0 Active Comment on above: Take by mouth. Takin g 3 a day naproxen sodium 220 mg oral capsule (20 sources) Nonsteroidal Anti-inflammatory Drug naproxen sodium 220 mg cap Take by mouth as needed. Active Comment on above: Take by mouth as nee ded. olopatadine (18 sources) Histamine-1 Receptor Inhibitor olopatadine HCl ([facility] OPHTHALMIC) Use in eyes. 0 Active Comment [...] above: Take 1 tablet by omari th twice daily for 14 days. dexamethasone 1 mg/ml / neomycin 3.5 mg/ml / polymyxin b 81404 unt/ml ophthalmic suspension (3 sources) Aminoglycoside Antibacterial, [...] pain. 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] Onset: 07-18-2023 12-09-2022 Chronic Other aftercare (1 source) Surgical [...] Translations: [OBSTRUCTIVE SLEEP APNEA] Onset: 07-09-2022 Chronic Residual codes; unclassified (1 source) Pain; Translations: [Pain, unspecified] 09-21-2021 Episodic Thyroid disorders (20 sources) Nodular goiter ; [...] Onset: 06-17-2022 Episodic Other non-traumatic joint disorders (20 sources) Pain in left knee; Translations: [Pain in joint, lower leg] Onset: 03-21-2021 07-05-2022 Episodic Other non-traumatic joint disorders (10 sources) Shoulder pain; Translations: [Pain in right shoulder] Onset: 08-25-2021 07-05-2022 Episodic Other non-traumatic joint disorders (20 sources) Pain in unspecified knee; Translations: [Pain in joint, lower leg] Onset: 11-14-2021 07-05-2022 Episodic Other non-traumatic joint disorders (14 sources) Pain in right shoulder; Translations: [Pain in joint, shoulder region] Onset: 08-25-2021 07-05-2022 Episodic Other skin disorders (20 sources) Excessive sweating; Translations: [Generalized hyperhidrosis] Onset: 09-27-2021 Episodic Phlebitis; thrombophlebitis and thromboembolism (20 sources) H/O: Deep vein thrombosis; Translations: [Personal history of other venous thrombosis and embolism] Onset: 09-27-2021 Episodic Residual codes; unclassified (20 sources) Localized edema; Translations: [Localized edema] Onset: [...] Range Facility Outside Colonoscopyon 2023 Outside Colonoscopy [id number]#1.0 0TIFF [facility] Lab Reportson 07-03-2023 Lab Reports [id number]#1.0 0TIFF [facility] Reminderson 07-03-2023 Reminders - From: Martine Alvarez LPN To: GSN - Clinical; Sent: 07/03/2023 13:32:03 EST Show up: 06/03/2033 07:00:00 EST Subject: colonoscopy recall Due Date/Time: 07/01/2033 07:00:00 EST Reminder/Recall Patient due for screening colonoscopy 07/01/2033. [facility] Insurance Correspondenceon 0 06-20-2023 Insurance Correspondence [id number]#1. 00TIFF [facility] Consent for Procedure/Surger yon 06-19-2023 Consent for Procedure/Surgery [id number]#1. 00TIFF [facility] Formson 06-19-2023 Forms [id number]#1.0 0TIFF [facility] Facesheeton 06-18-2023 Facesheet [id number]#1.0 0TIFF [facility] Ambulatory Visit Summaryon 0 06-17-2023 Ambulatory [...] you for choosing us for your care. 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 [...] Taking 3 tablet a day Normal [facility] CNTHERAPYon 01-16-2023 CNTHERAPY OT/PT/Speech Visit ([facility]) GONZALES FARRELL ([id number]) 1970 M Date Time Provider Department 01/16/23 4:15 PM SOO VILLALBA [facility] Date Time Provider Department Center 01/16/2023 4:15 PM [id number], AMANDA [facility] [place] Reason for Visit: Physical Therapy [503] [...] mouth. Taking 3 tablet a day [facility]NREUS2[facility] GONZALES FARRELL ([id number]) 1970 M Date Time Provider Department 12/26/22 MICHAEL ANDREW NRCHAYAS2 During your visit today, we recorded the [...] not able to see be faxed to [phone]/Attn: Sheron @ [facility]'s Services re: disability. Please cc: Dr. Rula Herrera (PCP) on letter and fax to Dr. Herrera at [phone]. Number to return call [phone] Okay to leave a message ? Yes Last office visit 09/18/[address] Gilmar Andrew Next office visit not scheduled (only FMD appts w/Dr. Alcantara) Thank you calling [facility]. You will receive a return call within [...] Encounter Status:Closed by SANDY RATLIFF on 12/27/22 [facility] CNTHERAPYon 12-24-2022 CNTHERAPY OT/PT/Speech Visit (PTAVTC) GONZALES FARRELL ([id number]) 1970 M Date Time Provider Department 12/24/22 4:15 PM VONNIE CONNOLLY PTAVT During your visit today, we recorded the [...] Vonnie Connolly, PT Referring Provider: MICHAEL ANDREW [[id number]] Allergies As of Date: 12/24/2022 Noted Allergy [...] Encounter Status:Closed by VONNIE CONNOLLY on 12/24/22 [facility] CNTHERAPYon 12-19-2022 CNTHERAPY OT/PT/Speech Visit (PTAVTC) GONZALES FARRELL ([id number]) 1970 Date Time Provider Department 12/19/22 4:15 PM SOO VILLALBA [facility] Date Time Provider Department Center 12/19/2022 4:15 PM [id number], AMANDA [facility] [place] Reason for Visit: Physical Therapy [503] [...] Taking 3 tablet a day Normal [facility] CNTHERAPYon 2022 [facility] GONZALES FARRELL ([id number]) 1970 M Date Time Provider Department 12/12/22 4:15 PM SOO VILLALBA [facility] Date Time Provider Department Center 2022 4:15 PM [id number], AMANDA [facility] [place] Reason for Visit: PT Progress Note [5866] Physical Therapy [503] Primary Visit Diagnosis:Blepharospas m [...] Taking 3 tablet a day Normal [facility] CNOVon 11-20-2022 CNOV Office Visit (NREUS2 ) GONZALES FARRELL ([id number]) 1970 M Date Time Provider Department 11/20/22 3:00 PM PERRY ALCANTARA NRCHAYAS2 During your visit today, we recorded the following information about you: Perry Alcantara PSYD 12/09/2022 10:05 PM Signed [facility] Clinical [facility] Psychology Evaluation Time of Service: 3:00 pm to 4:00 pm CPT Code: 01234 - Health AND Behavior Assessment Billing Code: [...] referred by Dr. 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 He presents with a history of involuntary movement symptoms. Sx include eye closure/blepharospasm. Symptom onset: 2022 Social History: Mr. 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 [...] Primary Hypertension Uncontrolled Diabetes Mellitus With Hyperglycemia (Hcc) S/P Right Rotator Cuff Repair Dry Eye Syndrome of Bilateral Lacrimal Glands Conjunctivitis Acute Embolism and Thrombosis of Unspecified Deep Veins of Left Lower Extremity (Hcc) Localized Edema Pain in Left Knee Pain in Right Shoulder Knee Pain Blepharospasm Steroid Induced Glaucoma, Both Eyes Current Functioning: -cautious with walking and fear of tripping; more slow with test lead and lifting objects -no longer driving -mostly [...] no alc (more content not included)... Normal [facility] CNTHERAPYon 11-20-2022 CNTHERAPY OT/PT/Speech Visit (PHYTMN) GONZALES FARRELL ([id number]) 1970 M Date Time Provider Department 11/20/22 1:00 PM MEGHA LEGGETT Date Time Provider Department [place] 11/20/2022 1:00 PM [id number] LEGGETT [facility] Reason for Visit: [...] mouth. Taking 3 tablet a day Normal [facility] JACKIE DOP LEG LTon 11-15-19 US JACKIE [...] left leg. Findings were called by the pollution control chemist to the ordering provider at the time of imaging. Electronically authenticated by: RED QUINONEZ Date: 2021-11-14 12:03 Normal [facility] ANES POSTPROC EVALon 022 ANES POSTPROC EVAL HNO ID: [id number] Author: Smooth Valadez MD Service: Anesthesiology Author Type: Anesthesiologist Type: Anesthesia Postprocedure Evaluation Filed: 10/25/2021 3:50 PM Note Text: POST ANESTHESIA EVALUATION NOTE : 1970 Procedure Summary Date: 10/25/21 Room / Location: [place] [address] / OR Anesthesia Start: 1148 Anesthesia Stop: [...] October 25, 2021 TIME: 3:50 PM CSN: [id number] [facility] ANES PRE-OPon 10-25-2021 ANES PRE-OP HNO ID: [id number] Author: Smooth Valadez MD Service: Anesthesiology Author Type: Anesthesiologist Type: Anesthesia Preprocedure Evaluation Filed: 10/25/2021 10:00 AM Note Text: ANESTHESIOLOGY DAY OF SURGERY NOTE : 1970 Procedure Information Date/Time: 10/25/21 1120 Procedure: ARTHROSCOPY SHOULDER ROTATOR CUFF (Right Shoulder) - Arthrex Gene and Tex aware 90 mins Location: OR / OR Surgeons: Gus Vyas MD Estimated [...] October 25, 2021 TIME: 9:56 AM CSN: [id number] [facility] NURSING PROGon 10-25-2021 NURSING PROG HNO ID: [id number] Author: Kyle Nuno RN Service: Nursing Author [...] 26, 2021 TIME: 2:33 PM PAGER/CONTACT #: [phone] [facility] NURSING PROG HNO ID: [id number] Author: Salima Nuñez RN Service: Nursing Author [...] REFERRAL (RECOMMENDATION): None Electronically Signed By: Salima A Gruntkowski [facility] OPERATIVE NOon 10-25-2021 OPERATIVE NO HNO ID: [id number] Author: Gus Vyas MD Service: Orthopaedic Surgery Author Type: Physician Type: Operative Report Filed: 10/25/2021 4:56 PM Note Text: OPERATIVE/PROCEDURE REPORT [place] [address] Patient Name: Gonzales Farrell : 1970 Surgery/Procedure Date: 10/25/2021 Incision/Procedure Start Time: 12:34 PM Incision Close/Procedure End Time: 2:37 PM SURGEON(S)/PROCEDURALI ST(S) AND BIOLOGICAL TECHNICAL OFFICER(S): Gus Vyas MD MMSs (Primary Surgeon) Allan [...] reduce the to (more content not included)... [facility] NURSING PROGon 10-05-2021 NURSING PROG HNO ID: [id number] Author: Shyam Gotti RN Service: ? Author [...] Gotti RN October 05, 2021 7:40 AM [facility] HGB A1Con 09-27-2021 Average glucose Estimated from glycated hemoglobin (Bld) [Mass/Vol] 209 mg/dL [facility] HbA1c (Bld) [Mass fraction] 8.9 % High 4.3 - 5.6 % [facility] - right 3 Viewso n 09-21-2021 Radiology Study observation (narrative) [facility] IMPRESSION: Mild degenerative change right shoulder Manager People: PSCB Transcribe Date/Time: Sep 21 2021 12:55P Dictated by : PADMA SAGE MD This examination was interpreted and the report reviewed and electronically signed by: PADMA SAGE MD on Sep 21 2021 12:56PM EST ZZZ_DO_NOT_US E_DIVISION OF RADIOLOGY * * *Final Report* * * DATE OF EXAM: Sep 21 2021 12:30PM CCX 5253 - XR SHLDR >/=3V AP/GURMEET AP/OTHR RT / PROCEDURE REASON: Pain * * * * Physician Interpretation * * * * X-RAYS RIGHT SHOULDER HISTORY: right shoulder pain s/p fall out of dump truck 1 month ago.. Pain TECHNIQUE: 3 views of the right shoulder. COMPARISON: None RESULT: Minimal degenerative change glenohumeral joint with inferior osteophyte formation along the glenoid. Glenohumeral joint spaces otherwise maintained. Mild degenerative change acromioclavicular joint. Acromiohumeral interval is maintained. ZZZ_DO_NOT_US E_DIVISION OF RADIOLOGY Provider, [facility] Danny [facility] - 09/21/2021 * * *Final Report* * * DATE OF EXAM: Sep 21 2021 12:30PM CCX 5253 - XR SHLDR >/=3V AP/GURMEET AP/OTHR RT / PROCEDURE REASON: Pain * * * * Physician Interpretation * * * * X-RAYS RIGHT SHOULDER HISTORY: right shoulder pain s/p fall out of dump truck 1 month ago.. Pain TECHNIQUE: 3 views of the right shoulder. COMPARISON: None RESULT: Minimal degenerative change glenohumeral joint with inferior osteophyte formation along the glenoid. Glenohumeral joint spaces otherwise maintained. Mild degenerative change acromioclavicular joint. Acromiohumeral interval is maintained. IMPRESSION IMPRESSION: Mild degenerative change right shoulder Manager People: LUIS Transcribe Date/Time: Sep 21 2021 12:55P Dictated by : PADMA SAGE MD This examination was interpreted and the report reviewed and electronically signed by: PADMA SAGE MD on Sep 21 2021 12:56PM EST [facility] XR Shoulder - right 3 ViewsO rdered By: Ccf Provider on 09-21-2021 [facility] MRI SHOULDER RT WO CONon MRI [...] by: RED QUINONEZ Date: 2021-09-05 15:06 Normal [facility] XR FOREIGN BODY EYEon 2021 XR FOREIGN BODY EYE EXAMINATION: XR FOREIGN BODY EYE HISTORY: Foreign body in eye COMPARISON: No relevant comparison available. FINDINGS: ORBITS: Negative for a metallic foreign body. OTHER: Negative. IMPRESSION: 1. No metallic foreign body within the orbits. Electronically authenticated by: RED QUINONEZ Date: 2021-09-05 13:13 Normal [facility] CT CSPINE WO CONon 2 CT CSPINE WO CON EXAMINATION: CT CSPI NE WO CON HISTORY: Pain COMPARISON: None. TECHNIQUE: CT Cervical spine without IV contrast. Coronal and sagittal reformations were performed. Dose reduction techniques were achieved by using automated exposure control and/or adjustment of mA and/or kV according to patient size and/or use of iterative reconstruction technique. FINDINGS: Anatomy: 7 dve-bsp-xervato cervical segments. Column: No acute fracture or [...] ANN BARNETT Date: 2021-08-25 16:01 Normal [facility] BOTOX INJECTION ESSENTIAL BL EPHAROSPASM [facility] Vital Signs Date Time Vital Sign Value Performing Clinician Facility 06-17-2023 15:18-0500 Blood Pressure Location App[facility] 06-17-2023 15:18-0500 Diastolic blood pressure 66 mm[Hg] Stewart JACQUESL [facility] 06-17-2023 15:18-0500 Heart rate 70 /min Stewart JACQUESL [facility] 06-17-2023 15:18-0500 Respiratory rate 16 /min Stewart JACQUESL [facility] 06-17-2023 15:18-0500 Systolic blood pressure 122 mm[Hg] Stewart [employer] [facility] 09-27-2021 15:07-0400 Body height 177.8 cm Pac 4 Work Phone: [facility] 09-27-2021 15:07-0400 Body temperature 96.69 [degF] Pac 4 Work Phone: [facility] 09-27-2021 15:07-0400 Body weight 140.62 kg Pacc 4 Work Phone: [facility] 09-27-2021 15:07-0400 Diastolic blood pressure 84 mm[Hg] Pacc 4 Work Phone: [facility] 09-27-2021 15:07-0400 Heart rate 88 /min Pacc 4 Work Phone: [facility] 09-27-2021 15:07-0400 Respiratory rate 16 /min Pacc 4 Work Phone: [facility] 09-27-2021 15:07-0400 SaO2% (BldA) [Mass fraction] 97 % Pacc 4 Work Phone: [facility] 09-27-2021 15:07-0400 Systolic blood pressure 147 mm[Hg] Pacc 4 Work Phone: [facility] 09-21-2021 13:51-0400 Body height 177.8 cm Gus Vyas MD Work Phone: [facility] 09-21-2021 13:51-0400 Body weight 136.08 kg Gus Vyas MD Work Phone: [facility] Encounters Encounter Date Encounter Type Care Provider Facility Start: 09-17-2023 End: 09-17-2023 [facility] [employer] Work Phone: [facility] Comment on above: Adjustment disorder with mixed anxiety and depressed mood (Primary Dx); Functional neurological symptom disorder with mixed symptoms Start: 08-18-2023 End: 08-18-2023 [facility] [employer] Work Phone: [facility] Comment on above: Adjustment disorder with mixed anxiety and depressed mood (Primary Dx); Functional neurological symptom disorder with mixed symptoms Start: 07-18-2023 End: 07-18-2023 [facility] [employer] Work Phone: [facility] Comment on above: Adjustment disorder with mixed anxiety and depressed mood (Primary Dx); Functional neurological symptom disorder with mixed symptoms Start: 07-02-2023 End: 07-03-2023 ambulatory Stewart MAY Facility:[facility] Start: 06-19-2023 End: 06-19-2023 [facility] Perry Alcantara PSYD Work Phone: [facility] Comment on above: Adjustment disorder with mixed anxiety and depressed mood (Primary Dx); Functional neurological symptom disorder with mixed symptoms Start: 06-17-2023 End: 06-18-2023 ambulatory Stewart MAY Facility:[facility] Start: 06-17-2023 End: 06-17-2023 Patient encounter procedure Stewart MAY General Surgery Nill/Said Chris Start: 05-15-2023 ambulatory Stewart MAY Facility:[facility] Start: 04-30-2023 End: 04-30-2023 ambulatory [facility] Facility:[facility] Start: 03-13-2023 End: 03-13-2023 OT/PT/Speech Visit Soo Villalba PT Work Phone: [facility] Physical Therapy Comment on above: Functional movement disorder (Primary Dx); Blepharospasm Start: 02-18-2023 End: 02-18-2023 ambulatory [facility] Facility:[facility] Start: 01-16-2023 End: 01-16-2023 ambulatory [facility] Facility:[facility] Start: 12-26-2022 Telephone encounter Michael vargas MD Work Phone: [facility] Comment on above: Letter Start: 12-24-2022 End: 12-24-2022 OT/PT/Speech Visit Vonnie Connolly PT Work Phone: [facility] Physical Therapy Comment on above: Blepharospasm (Prima ry Dx); Functional movement disorder Start: 12-19-2022 End: 12-19-2022 OT/PT/Speech Visit Soo Villalba PT Work Phone: [facility] Physical Therapy Comment on above: Blepharospasm (Prima ry Dx); Functional movement disorder Start: 2022 End: 2022 OT/PT/Speech Visit Soo Orly PT Work Phone: [facility] Physical Therapy Comment on above: Blepharospasm (Prima ry Dx); Functional movement disorder Start: 11-20-2022 End: 11-20-2022 OT/PT/Speech Visit Megha Chae PT Work Phone: [facility] Physical Therapy Comment on above: Blepharospasm (Prima ry Dx); Functional movement disorder Adjustment disorder, unspecified type (Primary Dx); Functional neurological symptom disorder with mixed symptoms Start: 10-31-2022 End: 10-31-2022 ambulatory AGAPITO ALTMAN RUANO Facility:[facility] Start: 08-16-2022 End: 08-16-2022 Patient encounter [...] Blepharospasm Start: 07-07-2022 End: 07-08-2022 ambulatory RULA HOY Facility: Start: 07-05-2022 End: 07-05-2022 Patient encounter [...] encounter (Primary Dx) Start: 04-28-2022 [facility] Facility: 1 Start: 03-04-2022 End: 03-04-2022 Patient [...] Dx) Start: 12-13-2021 End: 04-27-2022 [facility] Facility: Start: 12-07-2021 End: 12-07-2021 Patient encounter procedure Gus Vyas MD Work Phone: Orthopaedics Comment on above: Traumatic complete t ear of right rotator cuff, subsequent encounter (Primary Dx); S/P right rotator cuff repair Start: 11-14-2021 End: 11-15-2021 [facility] Facility: Start: 11-07-2021 End: 11-07-2021 Refill Gus Vyas MD Work Phone: Orthopaedics Comment on above: Refill Request Postop check (Primar y Dx) Start: 10-19-2021 ambulatory Gus Vyas MD Work Phone: Orthopaedics Start: 10-19-2021 Preprocedural examination done Gus Vyas MD Work Phone: Orthopaedics Start: 10-17-2021 Orders Only Gus Vyas MD Work Phone: Orthopaedics Comment on above: Preoperative examina tion (Primary Dx) Start: 10-17-2021 Preprocedural examination done Gus Vyas MD Work Phone: Orthopaedics Start: 09-28-2021 Telephone encounter Barb olivares PA-C Work Phone: Pre Anesthesia Comment on above: Results (Elevated HG B A1C) Preparations For Tyesha lynette Start: 09-27-2021 End: 09-27-2021 Admission to establishment [place] [id number] Work Phone: [place] Start: 09-27-2021 End: 09-27-2021 ambulatory [facility] Work Phone: Pre Anesthesia Comment on [...] Start: 09-27-2021 End: 09-27-2021 Preprocedural examination done [facility] Work Phone: Pre Anesthesia Start: 09-21-2021 ambulatory Gus Vyas MD Work Phone: Orthopaedics Start: 09-21-2021 Preprocedural examination done Gus Vyas MD Work Phone: Orthopaedics Start: 09-21-2021 End: 09-21-2021 Patient encounter procedure Gus Vyas MD Work Phone: Orthopaedics Comment on above: Traumatic complete t ear of right rotator cuff, initial encounter (Primary Dx) Start: 09-21-2021 End: 09-21-2021 Subsequent hospital visit by physician Asiya [facility] Work Phone: Radiology Comment on above: Pain [R52] Start: 09-05-2021 End: 09-06-2021 ambulatory RULA HERRERA Facility:H1 Start: 08-25-2021 End: 08-25-2021 ambulatory NICHOLAS BHATIA Facility:H1 Procedures Date Procedure Procedure Detail Performing Clinician Start: 08-09-2022 [facility] innervated facial nrv unil Rebekke 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 Start: 12-13-2023 Prostate specific antigen measurement Prostate Cancer Screening Discussion [facility] Start: 09-17-2023 End: 09-17-2023 Follow-up encounter 09/17/2023 4:00 PM EDT [facility] [address] [place] [id number] HasCarmela garveyh, PSYD [address] [place] [id number] follow up [facility] Comment on above: follow up Start: 04-28-2023 Depression Assessment Depression Ass [facility] Start: 12-27-2022 Covid-19 Vaccine ( season) Covid-19 Vaccine () [facility] Start: 12-27-[address] [facility] Start: 07-20-2022 Screening for malign ant neoplasm of colon [facility] Start: 04-28-2022 [facility]ION [facility]MENT [facility] Start: 12-28-2021 Hemoglobin A1c measurement HbA1C [facility] Start: 12-28-2021 Hemoglobin A1c/Hemoglobin.total in Blood HBA1C [facility] Start: 12-27-2021 Influenza vaccination C [facility] Start: 10-17-2021 End: 12-17-2021 Basic metabolic 2000 panel - Serum or Plasma BASIC METABOLIC PNL Lab Routine Preoperative examination Expected: 10/17/2021, Expires: 12/17/2021 [facility] Work Phone: Comment on above: Expected: 10/17/2021 , Expires: 12/17/2021 Start: 09-27-2021 End: 11-27-2021 T3 BLD [facility] Work Phone: Comment on above: Expected: 09/27/2021 , Expires: 11/27/2021 Start: 09-27-2021 End: 11-27-2021 T4 FREE/FREE THYROX [facility] Work Phone: Comment on above: Expected: 09/27/2021 , Expires: 11/27/2021 Start: 09-27-2021 End: 11-27-2021 Thyrotropin [Units/volume] in Serum or Plasma [facility] Work Phone: Comment on above: Expected: 09/27/2021 , Expires: 11/27/2021 Start: 09-21-2021 End: 11-21-2021 Basic metabolic 2000 panel - Serum or Plasma BASIC METABOLIC PNL Lab Routine Preoperative examination Expected: 09/21/2021 (Approximate), Expires: 11/21/2021 [facility] Work Phone: Comment on above: Expected: 09/21/2021 (Approximate), Expires: 11/21/2021 Start: 09-21-2021 End: 11-21-2021 CBC panel - Blood by Automated count CBC Lab Routine Preoperative examination Expected: 09/21/2021 (Approximate), Expires: 11/21/2021 [facility] Work Phone: Comment on above: Expected: 09/21/2021 (Approximate), Expires: 11/21/2021 Start: 04-28-2021 DEPRESSION ASSESSMENT DEPRESSION ASS ESSMENT [facility] Start: 09-08-2020 COVID-19 VACCINE (2 - Booster for Marlen series) COVID-19 VACCINE (2 - Booster for Marlen series) [facility] Start: 2018 Influenza vaccination LUNG CANCER SC REENING [facility] Start: 2018 Screening for malign ant neoplasm of lung Lung Cancer Screening [facility] Start: 2018 SHINGRIX VACCINE (1 of 2) SHINGRIX VACCINE (1 of 2) [facility] Start: 2013 COLOGUARD (FIT-DNA) COLOGUARD (FIT-D NA) [facility] Start: 2013 Colonoscopy COLONOSCOPY [facility] Start: 2013 COLORECTAL CANCER SCREENING COLORECTAL CANCER SCREENING [facility] Start: [address] COLONOGRAPHY [facility] Start: 2013 DIABETES SCREEN DIABETES SCREEN [facility] Start: 2013 FECAL OCCULT BLOOD FECAL OCCULT BLOO D [facility] Start: 2013 Screening for malign ant neoplasm of colon [facility] Start: 2013 SIGMOIDOSCOPY SIGMOIDOSCOPY [facility] Start: 07-15-2012 Adult depression screening assessment DEPRESSION SCREENING [facility] Start: 12-13-2003 LIPID SCREEN LIPID SCREEN [facility] Start: 12-13-1987 HEPATITIS B (1 of 3 - Risk 3-dose series) HEPATITIS B (1 of 3 - Risk 3-dose series) [facility] Start: 12-13-1987 Hepatitis B Vaccine (1 of 3 - 19+ 3-dose series) Hepatitis B Vaccine (1 of 3 - 19+ 3-dose series) [facility] Start: 12-13-1987 Urine microalbumin profile [facility] Start: 1986 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 VISIT ANNUAL PCP TEAM CHRONIC DISEASE VISIT [facility] Start: 1986 Anxiety Screening Anxiety Screening [facility] Start: 1986 BP CONTROLLED (<130/80) BP CONTROLLE D (<130/80) [facility] Start: 1986 Depression Screening Depression Scre ening [facility] Start: 1986 Hepatitis B surface antibody level LDL CHOLESTEROL [facility] Start: 1986 HEPATITIS C SCREENING HEPATITIS C [facility] Start: 1986 Hepatitis C screening Hepatitis C [facility] Start: 1986 HIV SCREENING HIV SCREENING [facility] Start: 1986 HIV screening HIV Screening [facility] Start: 1978 3 comp foot exam completed DIABETIC FOOT EXAM [facility] Start: 1978 Diabetic foot examination Diabetic Foot Exam [facility] Start: 1978 Glaucoma screening Dilated Retinal E xam [facility] Start: 1978 Hepatitis B screening URINE ALBUMIN:CREATININE RATIO [facility] Start: 1978 Hepatitis C antibody , confirmatory test DILATED RETINAL EXAM [facility] Start: 1974 PNEUMOCOCCAL (1 - PCV) PNEUMOCOCCAL (1 - PCV) [facility] Start: 1974 Pneumococcal vaccination [facility] Start: 1968 HEPATITIS B (1 of 3 - 3-dose series) HEPATITIS B (1 of 3 - 3-dose series) [facility] Start: 1968 Hepatitis B Vaccine (1 of 3 - 3-dose series) Hepatitis B Vaccine (1 of 3 - 3-dose series) [facility] End: 09-21-2022 ECG COMPLETE ECG COMPLETE ECG Routine Preoperative examination 1 Occurrences starting 09/21/2021 until 09/21/2022 [facility] Work Phone: Comment on above: 1 [...] hypertension 1 Occurrences starting 09/27/2021 until 09/27/2022 [facility] Work Phone: Comment on above: 1 Occurrences starti ng 09/27/2021 until 09/27/2022 [facility] Immunizations Immunization Date Immunization Notes Care Provider Macho jaquez 07-14-2020 SARS-CoV-2 (COVID-19 ) Ad26 vaccine, recombinant Stewart [facility] [place] NEGATED: Highlighted row has not occurred!06-17-2023 influenza virus vaccine, unspecified formulation Stewart [facility] [place] Payers Date Payer Category Payer Private Health Insurance [id number] 2021 Unknown [id number] 2021 Unknown [facility] RAD[facility] [id number] 2021-Present [phone] [place] [address] MCO [id number] 2020 Unknown [employer] xx [id number] 2020-Present [phone] [address] [place] [address] PPO [id number] 2011 Unknown [facility] MEDICAL GENERIC [id number] 2011-Present [phone] [address] [place] [address] Indemnity [id number] 1968 Unknown [id number] 1968 Unknown [id number] 1968 Unknown [id number] [id number] 1968 Unknown [id number] [id number] 1968 Unknown [id number] [id number] 1968 Unknown [id number] [id number] 1968 Unknown [id number] [id number] 1968 Unknown [id number] [id number] 1968 Unknown [id number] [id number] 1959 Self-pay 1959 Unknown [id number] 1959 Unknown [id number] 1959 Unknown [id number] 1959 Unknown [id number] Social History Date Type Detail Facility Start: 07-16-2011 End: 08-02-2022 Tobacco smoking status NHIS Smokes tobacco daily [facility] Start: 07-16-2011 End: 09-21-2021 Cigarettes smoked current (pack per day) - Reported 1.5 [facility] Start: 08-23-2011 End: 09-18-2022 Alcohol intake Current drinker of alcohol (finding) [facility] Start: 07-16-2011 History SDOH Alcohol Comment occassionally [facility] Start: 1970 Sex Assigned At Not on file C [facility] Start: 09-11-2021 End: 03-04-2022 Exposure to SARS-CoV-2 (event) Not sure [facility] History of tobacco use Cigarette Smoker C [facility] Start: 07-16-2011 End: 08-02-2022 Tobacco use and exposure Former smokeless tobacco user [facility] History of tobacco use Chews Tobacco [facility] Start: 09-27-2021 History SDOH Alcohol Comment once a month maybe [facility] Start: 09-27-2021 End: 08-02-2022 Tobacco Comment 2 ppd [facility] Start: 09-21-2021 End: 09-18-2022 Tobacco use panel [facility] Adult Depression Screening Assessment 4 [facility] Start: 06-17-2023 Tobacco smoking status Heavy t obacco smoker (finding) [facility] Procedure Code Equipment Code Equipment Origin al Text Equipment Identifier Dates [place] Corkscrew Suturetape 5.5mm Full Thread 1.3mm Black Blue White - [id number] Start: 10-25-2021 [place]ington Swivelock C 4.75mm Black White Biocomposite Peek 19.1mm Suture - [id number] Start: 10-25-2021 [employer] Swivelock C 4.75mm Black White Biocomposite 19.1mm Suture Close - [id number] Start: 10-25-2021 [place] Swivelock C 4.75mm Biocomposite Peek 19.1mm Suture Closed Eyelet - [id number] Start: 10-25-2021 [place]ington Alonzo C 4.75mm Biocomposite Peek 19.1mm Suture Closed Eyelet - [id number] Start: 10-25-2021 Functional Status Date Assessment Result Facility 06-17-2023 Functional Status N/A General Shrestha kayla Perez Clinical Notes 08-25-2021 to 09-17-2023 Perry Alcantara PSYD - 09/17/2023 3:58 PM Perry Wilde PSYD - 08/18/2023 3:55 PM Perry Wilde PSYD - 07/18/2023 3:59 PM Perry Wilde PSYD - 06/19/2023 1:55 PM ESTPatient Instructions Note Date & Type Note Facility 09-17-2023 Note HNO ID: [id number] Author: PERRY ALCANTARA PSYD Service: ? Author Type: Physician Type: Progress Notes Filed: 10/06/2023 22:00 Note Text: [facility] Psychology Progress Note Billing codes: Antonio PSYCHOLOGY: FOLLOW-UP APPOINTMENT PROGRESS NOTE- Virtual Visit I have communicated my name and active licensure. The patient's identity and physical location were verified at the time of this visit. 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 Gonzales Farrell 09/17/2023 [id number] PROVIDER: Perry Alcantara PSYD CPT Code: Virtual PSYTX PT AND/FAMILY 30 MINS Time spent doing therapy with patient: 3:58-4:30pm Parties Present: Patient Interventions: Problem solving Treatment planning Stress Management MENTAL STATUS: Mood: euthymic Affect: mood-congruent Thoughts/Associations: [...] mixed symptoms PROGRESS TO DATE/ASSESSMENT: Fluctuating progress. -mood has remained stable, no significant changes since last session -patient reports that last Friday he experiences dizziness after going to visit his [id number]. This was concerning for him; however, did resolve after halving dose of his blood pressure medication - he is now maintaining adjusted dosage as recommended by his PCP. -he continues to focus on prioritizing self-care/relaxation. He plans to camp and utilize mindful apps -discussed his thoughts on rescheduling follow-up with Neurology to determine further treatment options for eyelid movements TREATMENT PLAN/GOALS/OBJECTIVES: Homework: Mindful Breathing excercise, Walk daily, and Socialization Follow Up: JOEY Alcantara Psy.D. Staff, [facility] 09-17-2023 History of Presen t illness Narrative [facility] Psychology Progress Note Billing codes: Antonio PSYCHOLOGY: FOLLOW-UP APPOINTMENT PROGRESS NOTE- Virtual Visit I have communicated my name and active licensure. The patient's identity and physical location were verified at the time of this visit. 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 Gonzales Farrell 09/17/2023 [id number] PROVIDER: Perry Alcantara PSYD CPT Code: Virtual PSYTX PT &/FAMILY 30 MINS Time spent doing therapy with patient: 3:58-4:30pm Parties Present: Patient Interventions: Problem solving Treatment planning Stress Management MENTAL STATUS: Mood: euthymic Affect: mood-congruent Thoughts/Associations: [...] mixed symptoms PROGRESS TO DATE/ASSESSMENT: Fluctuating progress. -mood has remained stable, no significant changes since last session -patient reports that last Friday he experiences dizziness after going to visit his [id number]-[id number]. This was concerning for him; however, did resolve after halving dose of his blood pressure medication - he is now maintaining adjusted dosage as recommended by his PCP. -he continues to focus on prioritizing self-care/relaxation. He plans to camp and utilize mindful apps -discussed his thoughts on rescheduling follow-up with Neurology to determine further treatment options for eyelid movements TREATMENT PLAN/GOALS/OBJECTIVES: Homework: Mindful Breathing excercise, Walk daily, and Socialization Follow Up: JOEY Alcantara Psy.D. Staff, [facility] documented in this encounter [facility] 08-18-2023 Note HNO ID: [id number] Author: PERRY ALCANTARA PSYD Service: ? Author Type: Physician Type: Progress Notes Filed: 09/01/2023 22:28 Note Text: [facility] Psychology Progress Note Billing codes: Antonio PSYCHOLOGY: FOLLOW-UP APPOINTMENT PROGRESS NOTE- Virtual Visit I have communicated my name and active licensure. The patient's identity and physical location were verified at the time of this visit. 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 Gonzales Farrell 08/18/2023 [id number] PROVIDER: Perry Alcantara PSYD CPT Code: Virtual [...] Perry Alcantara Psy.D. Staff, [facility] 08-18-2023 History of Presen t illness Narrative [facility] Psychology Progress Note Billing codes: Antonio PSYCHOLOGY: FOLLOW-UP APPOINTMENT PROGRESS NOTE- Virtual Visit I have communicated my name and active licensure. The patient's identity and physical location were verified at the time of this visit. 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 Gonzales Farrell 08/18/2023 [id number] PROVIDER: Perry Alcantara PSYD CPT Code: Virtual [...] Perry Alcantara Psy.D. Staff, [facility] documented in this encounter [facility] 07-18-2023 Note HNO ID: [id number] Author: PERRY ALCANTARA PSYD Service: ? Author Type: Physician Type: Progress Notes Filed: 08/04/2023 21:35 Note Text: [facility] Psychology Progress Note Billing codes: Antonio PSYCHOLOGY: FOLLOW-UP APPOINTMENT PROGRESS NOTE- Virtual Visit I have communicated my name and active licensure. The patient's identity and physical location were verified at the time of this visit. 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 Gonzales Farrell 07/18/2023 [id number] PROVIDER: Perry Alcantara PSYD CPT Code: Virtual [...] Perry Alcantara Psy.D. Staff, [facility] 07-18-2023 History of Presen t illness Narrative [facility] Psychology Progress Note Billing codes: Antonio PSYCHOLOGY: FOLLOW-UP APPOINTMENT PROGRESS NOTE- Virtual Visit I have communicated my name and active licensure. The patient's identity and physical location were verified at the time of this visit. 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 Gonzales Farrell 07/18/2023 [id number] PROVIDER: Perry Alcantara PSYD CPT Code: Virtual [...] Perry Alcantara Psy.D. Staff, [facility] documented in this encounter [facility] 07-02-2023 Note HNO ID: [id number] Author: SOO VILLALBA PT Service: ? Author Type: Physical Therapist Type: Progress Notes Filed: 07/02/2023 16:27 Note Text: 07/02/2023 [facility] PHYSICAL THERAPY DISCONTINUANCE OF CARE Plan of Care Period: Start of Care Date: 11/20/22 Last Visit Date: 03/13/2023 Therapy Program: The following is a summary of the interventions provided for this episode of care; Therapeutic exercise, Neuromuscular re-education, Self-intermediate management, Gait training, and Patient/Family/Caregiver Education Assessment: The following is the goal status: No specialty comments available. Based on the most recent progress report, patient was progressing slower than expected toward functional goals based on documented subjective information on progress. Reason for Discontinuation of Care: Patient has not returned to therapy or scheduled additional follow-up appointments. Soo Villalba PT [facility] 06-19-2023 History of Presen t illness Narrative [facility] Psychology Progress Note Billing codes: Atnonio PSYCHOLOGY: FOLLOW-UP APPOINTMENT PROGRESS NOTE- Virtual Visit I have communicated my name and active licensure. The patient's identity and physical location were verified at the time of this visit. 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 Gonzales Farrell 06/19/2023 [id number] PROVIDER: Perry Alcantara PSYD CPT Code: Virtual [...] Perry Alcantara Psy.D. Staff, [facility] documented in this encounter [facility] 06-19-2023 Note HNO ID: [id number] Author: PERRY ALCANTARA PSYD Service: ? Author Type: Physician Type: Progress Notes Filed: 07/07/2023 22:02 Note Text: [facility] Psychology Progress Note Billing codes: Antonio PSYCHOLOGY: FOLLOW-UP APPOINTMENT PROGRESS NOTE- Virtual Visit I have communicated my name and active licensure. The patient's identity and physical location were verified at the time of this visit. 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 Gonzales Farrell 06/19/2023 [id number] PROVIDER: Perry Alcantara PSYD CPT Code: Virtual [...] exercise for neuroplasticity Follow Up: 4-6 weeks Afiah Hasnie, Psy.D. Staff, [facility] 06-17-2023 Note Chief Complaint consultation for [...] Tobacco Use:. [employer] (more content not included)... [facility] Comment on above: Result Comment: Elec tronically Signed By: LALO JARAMILLO, Stewart Crespo\Date and Time Signed: 06/17/23 15:50 EST 04-30-2023 Note HNO ID: [id number] Author: PERRY ALCANTARA PSYD Service: ? Author Type: Physician Type: Progress Notes Filed: 05/19/2023 21:24 Note Text: [facility] Psychology Progress Note Billing codes: Antonio PSYCHOLOGY: FOLLOW-UP APPOINTMENT PROGRESS NOTE- Virtual Visit I have communicated my name and active licensure. The patient's identity and physical location were verified at the time of this visit. 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 Gonzales Farrell 04/30/2023 [id number] PROVIDER: Perry Alcantara PSYD CPT Code: Virtual [...] having problems connecting to virtual platform via [email or web address] and was able to troubleshoot with [employer]. He has reports minimal changes to symptoms since last session. However, continues to implement suggestions from care team, including working with round cutter operator and chiropractic weekly for the past 1.5 [...] month/JOEY Alcantara Psy.D. Staff, [facility] 03-13-2023 Note HNO ID: [id number] Author: Soo Villalba PT Service: ? Author [...] Patient to be seen for Therapeutic exercise (55393), Neuromuscular re-education (14930), Manual therapy (57047), Therapeutic activities (47936), Self-intermediate management (53068), Gait Training (38256) PLAN FOR NEXT VISIT: Return as needed [...] 28.56 (mild reduced left eye spasm) TREATMENT: Self-Mcfp Management: 1: PNE on sensitive nerves with [...] diverted attention str (more content not included)... [facility] 03-13-2023 History of Presen t illness [...] Patient to be seen for Therapeutic exercise (92960), Neuromuscular re-education (90246), Manual therapy (14913), Therapeutic activities (49020), Self-intermediate management (45410), Gait Training (25008) PLAN FOR NEXT VISIT: Return as needed [...] 28.56 (mild reduced left eye spasm) TREATMENT: Self-Mcfp Management: 1: PNE on sensitive nerves with [...] Soo Villalba PT documented in this encounter [facility] 02-18-2023 Note HNO ID: [id number] Author: Perry Alcantara PSYD Service: ? Author Type: Physician Type: Progress Notes Filed: 03/10/2023 8:54 PM Note Text: [facility] Psychology Progress Note Billing codes: Antonio PSYCHOLOGY: FOLLOW-UP APPOINTMENT PROGRESS NOTE- Virtual Visit I have communicated my name and active licensure. The patient's identity and physical location were verified at the time of this visit. 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 Gonzales Farrell 02/18/2023 [id number] PROVIDER: Perry Alcantara PSYD CPT Code: Virtual [...] Perry Alcantara Psy.D. Staff, [facility] 01-16-2023 Note HNO ID: [id number] Author: Soo Villalba, PT Service: ? Author [...] Patient to be seen for Therapeutic exercise (06004), Neuromuscular re-education (77683), Manual therapy (89737), Therapeutic activities (84589), Self-intermediate management (73274), Gait Training (48871) PLAN FOR NEXT VISIT: Return in 2 months SUBJECTIVE: Went on vacation and had a great time and was relaxing. Was thinking that the relaxation would get rid of his sx but it did not happen. Thinks his sx all stemmed from when he got his shoulder injury and was out of a job. Elma a lot of stress at that time, [...] Stop Time : 1648 Soo Villalba PT [facility] 12-27-[address] Andrew documented [...] not able to see be faxed to [phone]/Attn: Sheron @ [facility] re: disability. Please cc: Dr. Rula Herrera (PCP) on letter and fax to Dr. Herrera at [phone]. Number to return call [phone] Okay to leave a message ? Yes Last office visit 09/18/[address] Gilmar Andrew Next office visit not scheduled (only FMD appts w/Dr. Alcantara) Thank you calling [facility] Neurological [place]. You will receive a return call within 48 hours ( or 2 business days if close to the weekend). If you feel that this is an urgent issue and needs immediate attention, it is recommended that you contact your primary care provider office or proceed to your nearest Urgent Care Center of Emergency Room ED for evaluation/treatment. ' documented in this encounter [facility] 12-24-2022 Note HNO ID: [id number] Author: Vonnie Connolly PT Service: ? Author Type: Physical Therapist Type: Progress Notes Filed: 12/24/2022 5:08 PM Note Text: Episode Visit Count: 4 Therapist That Will Accept/Oversee The Plan Of Care: Soo Bethanyedmond Start of Care Date: 11/20/22 Onset Date: [...] Time Minutes (timed/untimed): 45 Vonnie Connolly, PT [facility] 12-24-2022 History of Presen t illness Narrative Episode Visit Count: 4 Therapist That Will Accept/Oversee The Plan Of Care: Soo Bethanyedmond Start of Care Date: 11/20/22 Onset Date: [...] Vonnie Connolly PT documented in this encounter [facility] 12-19-2022 Note HNO ID: [id number] Author: Soo Villalba PT Service: ? Author [...] conversation TREATMENT: Neuromuscular Re-Education: 1: C Mill- Belarusian alps- speed: 0.8 m/s. B UE support. [...] Stop Time : 1700 Soo Villalba PT [facility] 12-19-2022 History of Presen t illness [...] task of conversation TREATMENT: Neuromuscular Re-Education: 1: Marichuy Echeverria- Belarusian alps- speed: 0.8 m/s. B UE support. [...] Soo Villalba PT documented in this encounter [facility] 2022 Note HNO ID: [id number] Author: Soo Villalba PT Service: ? Author Type: Physical Therapist Type: Progress Notes Filed: 2022 5:59 PM Note Text: Episode Visit Count: 2 Therapist That Will Accept/Oversee The Plan Of Care: Soo Villalba Start of Care Date: 11/20/22 Onset Date: 11/20/21 REHABILITATION AND SPORTS THERAPY PHYSICAL THERAPY TREATMENT NOTE *Patient accepted as transfer of care from [facility]* ASSESSMENT: Gonzales Farrell tolerated the [...] with visual external focus. C Mill with Belarusian alps for visual distraction. Aerobic exercise. SUBJECTIVE: [...] Stop Time : 1700 Soo Villalba, PT [facility] 2022 History of Presen t illness Narrative Episode Visit Count: 2 Therapist That Will Accept/Oversee The Plan Of Care: Soo Villalba Start of Care Date: 11/20/22 Onset Date: 11/20/21 REHABILITATION AND SPORTS THERAPY PHYSICAL THERAPY TREATMENT NOTE *Patient accepted as transfer of care from [facility]* ASSESSMENT: Gonzales Farrell tolerated the [...] NEXT VISIT: Walking with visual external focus. Marichuy Echeverria with Belarusian alp for visual distraction. Aerobic exercise. SUBJECTIVE: Feels [...] Soo Villalba PT documented in this encounter [facility] 11-22-2022 Instructions Megha Leggett PT - 11/22/2022 [...] she developed this for others.? ? - [email or web address] tion? ?- Website developed by Dr. Annabella Rodriguez who owns a private neuro therapy practice in [place] with a large focus on the treatment of FND. They are also on [employer]: @Guess Your Songs - [email or web address].org/ - Website developed to better understand FND with helpful links and resources (including an information sheet to give to you physician who may be unfamiliar with your FND diagnosis). - MyFND Wyatt - Free wyatt where patients can track and monitor their symptoms, review strategies for symptom management, and find resources and education on FND. documented in this encounter [facility] 11-20-2022 History of Presen t illness Narrative [facility] Clinical Health Psychology Evaluation Time of Service: 3:00 pm to 4:00 pm CPT Code: 32883 - Health & Behavior Assessment Billing Code: [...] referred by Dr. 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 He presents with a history of involuntary movement symptoms. Sx include eye closure/blepharospasm. Symptom onset: 2022 Social History: Mr. 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 [...] Primary Hypertension Uncontrolled Diabetes Mellitus With Hyperglycemia (Hcc) S/P Right Rotator Cuff Repair Dry Eye Syndrome of Bilateral Lacrimal Glands Conjunctivitis Acute Embolism and Thrombosis of Unspecified Deep Veins of Left Lower Extremity (Hcc) Localized Edema Pain in Left Knee Pain in Right Shoulder Knee Pain Blepharospasm Steroid Induced Glaucoma, Both Eyes Current Functioning: -cautious with walking and fear of tripping; more slow with test lead and lifting objects -no longer driving -mostly [...] referred by Dr. Andrew from [facility] as part of a multi-disciplinary evaluation [...] Perry Alcantara Psy.D. Staff, [facility] documented in this encounter [facility] 11-20-2022 Note HNO ID: [id number] Author: Perry Alcantara PSYD Service: ? Author Type: Physician Type: Progress Notes Filed: 12/09/2022 10:05 PM Note Text: [facility] Clinical [facility] Psychology Evaluation Time of Service: 3:00 pm to 4:00 pm CPT Code: 68431 - Health AND Behavior Assessment Billing Code: [...] referred by Dr. 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 He presents with a history of involuntary movement symptoms. Sx include eye closure/blepharospasm. Symptom onset: 2022 Social History: Mr. 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 [...] Primary Hypertension Uncontrolled Diabetes Mellitus With Hyperglycemia ([facility]) S/P Right Rotator Cuff Repair Dry Eye Syndrome of Bilateral Lacrimal Glands Conjunctivitis Acute Embolism and Thrombosis of Unspecified Deep Veins of Left Lower Extremity (Hcc) Localized Edema Pain in Left Knee Pain in Right Shoulder Knee Pain Blepharospasm Steroid Induced Glaucoma, Both Eyes Current Functioning: -cautious with walking and fear of tripping; more slow with test lead and lifting objects -no longer driving -mostly [...] questions: - ?H (more content not included)... [facility] 11-20-2022 Note HNO ID: [id number] Author: Megha Leggett PT Service: ? 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 Author Type: Registered Nurse Type: Progress Notes Filed: 10/31/2022 10:01 AM Note Text: [facility] - FOLLOW UP EVALUATION No referring provider defined for this encounter. Rula Herrera MD [address] [facility] [id number] I had the pleasure of seeing Mr. Farrell for follow up today. he is a 51 year old male with a history of functional neurological disorder here for VSMA FND education session.. We had a visit using: [employer] I have communicated my name and active licensure. The patient's identity and physical location were verified at the time of this visit. Either the patient or their legal dairy supplies sales representative has been informed of the [...] with FMD management team locally or at [facility] Level of service : 46704 (20-29 min). Time spent 29 min on the day of service, which included preparing to see the patient, [id number] patient care, completing clinical documentation, obtaining and/or [...] with any questions. Sincerely, Agapito Ruano MD [facility] 08-16-2022 Instructions Donita Martinez MD - [...] can I get the FL-41 filter? Any [facility] location, (with an optical shop), throughout [place], Email: [email or web address] [employer] in [place], [place], [facility] in [place], [place], 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 Any [facility] location, (with an optical shop), throughout [place], Email: [email or web address] [employer] in [place], [place], [facility] in [place], [place], 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 documented in this encounter [facility] 08-16-2022 Miscellaneous Notes I spoke with him and he will come in today at 3:30. Appt sent to be scheduled. Patient was seen on 08/09/22 and states that there is no change in his eyes. In fact he seems to think that they are worse and wants to know what should he do? Please Advise, Rohit documented in this encounter [facility] 08-16-2022 Miscellaneous Notes Patient called in and stated that his employer is requesting a letter to remain off of work due to still have systems after first Botox visit on 08/09/2022. Employer's contact info is Glenda Marvin Attn: Josue Castellon documented in this encounter [facility] 08-09-2022 History of Presen t illness Narrative Blepharospasm follow up Patient having trouble keeping eyes open. 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 Any [facility] location, (with an optical shop), throughout [place], Email: [email or web address] [employer] in [place], [place], [facility] in [place], [place], [facility] in [place], [place], [employer] in [place], [place], www[employer] Botulinum toxin takes 1 week to set [...] 2022 11:13 AM. documented in this encounter [facility] 08-02-2022 History of Presen t illness [...] 2022 12:00 PM documented in this encounter [facility] 07-31-2022 Miscellaneous Notes From: Yvon Espinal < > Sent: Sunday, July 31, 2022 12:33 PM To: Stewart Combs < >; Keyona Adkins < >; Darlene Lugo < >; Pharm Auth Team < > Cc: Donita Martinez < >; Brianda Higgins < >; Muna Apple < >; Stephany Scott < >; Parvin Abacra. < >; Ana Hankins < >; Sirena Tapia < > Subject: Re: medical Botox approval Gonzales Farrell [id number] This patient is supposed to be getting medical Botox injections with Dr. Martinez. Can the auth please get placed and expedited? patient has appointment on 08/09/22. Thanks, Melanie Espinal [facility] Oculoplastic and Reconstructive Surgery [facility] [phone] From: Pharm Auth Team < > Sent: [...] Please advise Thank you [facility] Pharm[facility] Department Remote Office [address] [facility] [address] From: Yvon Espinal < > Sent: Saturday, July 30, 2022 11:58 AM To: Pharm Auth Team < > Cc: Donita Martinez < >; Brianda Higgins < >; Muna Apple < >; Stephany Scott < >; Parvin Abarca < > Subject: medical Botox approval Fredis Berry submitted a prior authorization for Mr. Gonzales Farrell ([id number]) on 07/05/22 for medical Botox. Has it been approved? Thank you, Melanie Images from the original note were not included. Yvon Espinal APRN.[employer]OM[employer] POWER PLANT SUPERINTENDENT Bernardo; Wanda Sousa; Vanessa Maradiaga; Muna Apple [...] go for his appt on 08/09 in [place]? 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 [facility] art tears four times a day [...] can I get the FL-41 filter? Any [facility] location, (with an optical shop), throughout [place], Email: [email or web address].[email or web address] in [place], [place], [facility] in [place], [place], [facility] [facility] in [place], [place], [employer] in [place], [place], [phone] www.[employer] Discussed will need to submit for insurance [...] 2022 11:57 AM. documented in this encounter [facility] 07-19-2022 History of Presen t illness [...] 2022 11:25 AM documented in this encounter [facility] 07-05-2022 Miscellaneous Notes Addended by: STEWART BRISENO on: 07/05/2022 12:21 PM Modules accepted: Orders, SmartSet documented in this encounter [facility] 07-05-2022 Instructions Donita Martinez MD - 07/05/2022 11:58 AM EST Discussed with patient he has dryness both eyes, [facility] treating dry eye Patient has restasis-->recc starting [...] also cause blepharospasm Rec eval with dry eyeglass frame truer Dr.. [facility] art tears four times a day [...] can I get the FL-41 filter? Any [facility] location, (with an optical shop), throughout [place], Email: [email or web address].[email or web address] [employer] in [place], [place], [facility] in [place], [place], [facility] [facility] [facility] in [place], [place], [employer] [facility] in [place], [place], www.[email or web address].Thismoment Discussed will need to submit for insurance [...] f/u Dr. 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 Buck Recc art tears four times [...] can I get the FL-41 filter? Any [facility] location, (with an optical shop), throughout [place], Email: [email or web address].[email or web address].[facility] in [place], [place], [facility] in [place], [place], [facility] in [place], [place], [employer] in [place], [place], www[employer] Discussed will need to submit for insurance [...] note was completed by Yvon Espinal APRN, KAN acting as a scribe for Donita Martinez [...] 2022 11:57 AM. documented in this encounter [facility] 07-05-2022 History of Presen t illness [...] its relevant components. Stewart Briseno, OD July 05, 2022 11:49 AM documented in this encounter [facility] 06-17-2022 History of Presen t illness [...] 2022 12:55 PM documented in this encounter [facility] 05-06-2022 History of Presen t illness Narrative [facility] NOTE Department of Orthopaedics Gus Vyas MD [facility] NAME: Gonzales Farrell CLINIC NO.: [id number] DATE: 05/06/22 Surgery: Arthroscopy Shoulder Rotator Cuff [...] Shoulder and Elbow Surgeon Orthopaedic Surgery Department [place], [place] [address] Tell: [phone] Appt:[phone] documented in this encounter [facility] 03-04-2022 History of Presen t illness Narrative [facility] NOTE Department of Orthopaedics Gus Vyas MD [facility] NAME: Gonzales Farrell CLINIC NO.: [id number] DATE: 03/04/2022 Surgery: Arthroscopy Shoulder Rotator Cuff [...] Shoulder and Elbow Surgeon Orthopaedic Surgery Department [place], [place] [address] Tell: [phone] Appt:[phone] documented in this encounter [facility] 01-25-2022 History of Presen t illness Narrative [facility] NOTE Department of Orthopaedics Gus Vyas MD [facility] NAME: Gonzales Farrell [facility] NO.: [id number] DATE: 01/25/2022 Surgery: Arthroscopy Shoulder Rotator Cuff [...] Shoulder and Elbow Surgeon Orthopaedic Surgery Department [place], [place] [address] Tell: [phone] Appt:[phone] documented in this encounter [facility] 12-07-2021 History of Presen t illness Narrative [facility] NOTE Department of Orthopaedics Gus Vyas MD [facility] NAME: Gonzales Farrell CLINIC NO.: [id number] DATE: 12/07/2021 Surgery: Arthroscopy Shoulder Rotator Cuff [...] Shoulder and Elbow Surgeon Orthopaedic Surgery Department [place], [place] [address] Tell: [phone] Appt:[phone] documented in this encounter [facility] 11-07-2021 History of Presen t illness [...] start formal PT after that apt-sent to [facility] for request of C9. Sutures removed-steri strips applied-unremarkable. Reviewed restrictions with pt. Office number provided for additional questions or concerns. Pt seen under direction of Gus Vyas MD. Teresa Birch RN documented in this encounter [facility] 10-25-2021 Note HNO ID: [id number] Author: Pepe Cornelius APRN.FUNDRAISING DIRECTOR Service: ? Author Type: Nurse Hydro Generation Supervisor Type: Anesthesia Procedure Notes Filed: 10/25/2021 12:53 PM Note Text: ANESTHESIOLOGY PROCEDURE NOTE Airway General Information Procedure Start Time/Medication Administration: 10/25/2021 11:57 AM Patient location during procedure: OR Timeout Performed Pre-procedure: timeout performed Consent Obtained: Yes Patient identity confirmed: arm band, care sample steamer and patient Staffing FUNDRAISING DIRECTOR: Pepe Cornelius APRN.FUNDRAISING DIRECTOR Performed by: FUNDRAISING DIRECTOR Indications and Patient Condition Preoxygenated: yes [...] October 25, 2021 TIME: 12:52 PM CSN: [id number] [facility] 10-25-2021 Note HNO ID: [id number] Author: Sofia Glaser RN Service: Nursing Author Type: Registered Nurse Type: Nursing Progress Note Filed: 10/25/2021 10:27 AM Note Text: preop block: [id number] [facility] 10-25-2021 Note HNO ID: [id number] Author: Smooth Valadez MD Service: Anesthesiology Author [...] October 25, 2021 TIME: 10:21 AM CSN: [id number] [facility] 09-28-2021 Miscellaneous Notes Spoke with pt and he has made an appointment with his PCP on 10/01/21. Shyam Gotti RN September 28, 2021 11:11 AM The patient needs optimization from PCP for new DM, untreated. Letter and results faxed, please track. Email sent to Dr. Sanders in anesthesia for review. Thank you. documented in this encounter [facility] 09-28-2021 Miscellaneous Notes Component Latest Ref [...] 2021 7:33 AM documented in this encounter [facility] 09-27-2021 History and physical note HISTORY [...] fevers. Neuro: No history of TIA's, stroke, POULTRY INSEMINATOR tumor, impaired sensorium, hemiplegia, paraplegia or quadraplegia. [...] TIME: 4:01 PM documented in this encounter [facility] 09-27-2021 Instructions Barb Mast PA-C - 09/27/2021 3:40 PM EDT PATIENT PREOPERATIVE INSTRUCTIONS Gus Vyas MD has scheduled you for your procedure at this surgery center: [facility]: [phone] -- [address] [place] [address]. Please read below carefully for your personalized [...] Procedures: - YOU MUST HAVE A RESPONSIBLE ED EDUCATIONAL AIDE TAKE YOU HOME. A FIELD MARKETER OR PROFESSIONAL NURSE CANNOT BE MADE A RESPONSIBLE ED EDUCATIONAL AIDE. - We recommend that a responsible person [...] Advance Directive, please fax a copy to [phone] or email to for it to be [...] Barb Mast PA-C documented in this encounter [facility] 09-21-2021 History of Presen t illness [...] is a 50 year old is a huzkr-lanl-mxeejinx gentleman who is referred to my clinic by Dr. Alcocer for evaluation of his right shoulder injury. This visit is part of a [facility] claim. 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 FALL SCREENING: Has the patient had 2 falls in the last year or 1 fall with injury or currently using an Ambulatory Assistive Device (Walker, Cane, Wheelchair, Crutches, etc.)? No PATIENT GENDER DATA: Male PATIENT RELEVANT IMPLANT DATA REVIEWED: Not Applicable RADIOLOGY DEPARTMENT: General X-ray: Exam(s) Completed: Upper Extremity X-Ray(s): Shoulder, AP / TRUE AP / AXILLARY right PERIPHERAL IV DATA: Not applicable SIGNED BY: RT Emory(R) September 21, 2021 12:25 PM documented in this encounter [facility] 08-25-2021 Note PROCEDURE: XR SHOULD ER RT 2V or > COMPARISON: None. HISTORY: Pain FINDINGS: BONES:No acute fracture or dislocation. Mild osteoarthropathy of the acromioclavicular joint. SOFT TISSUES:Negative. No visible soft tissue swelling. EFFUSION:None visible. OTHER: Numerous lung nodules, likely sequela of prior granulomatous process IMPRESSION: No acute fracture Electronically authenticated by: TORIE FOLEY Date: 2021-08-25 15:59 [facility] Evaluation + Plan note No data available for this section General Surgery [facility] Evaluation note Diagnosis Preoperative examination- Primary Preoperative [...] cuff, initial encounter [facility] Preoperative examination- Primary Preoperative examination, unspecified [facility] Diagnosis Preoperative examination- Primary Preoperative [...] insufficiency, unspecified Blepharospasm [facility] Diagnosis Steroid induced glaucoma, both eyes- Primary Corticosteroid-induced glaucoma, 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, unspecified Blepharospasm [facility] Diagnosis Steroid induced glaucoma, both eyes- Primary Corticosteroid-induced glaucoma, 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, 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 [facility] Diagnosis Blepharospasm- Primary [facility] Diagnosis Blepharospasm- Primary [facility] Diagnosis 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 [facility] Diagnosis Adjustment disorder, unspecified type- Primary 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 [facility] Diagnosis 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 [facility] Diagnosis 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 [facility] Diagnosis 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 [facility] Diagnosis 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 [facility] Diagnosis Adjustment disorder with mixed anxiety and depressed mood- Primary 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 [facility] Diagnosis Adjustment disorder with mixed anxiety and depressed mood- Primary 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 [facility] Diagnosis Adjustment disorder with mixed anxiety and depressed mood- Primary 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 [facility] Diagnosis Adjustment disorder with mixed anxiety and depressed mood- Primary 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 [facility] Diagnosis Pain Generalized pain [facility] No data available for this section General Surgery Chris Progress note No data available for this section General Surgery [place] Reason for referral (narrative)* Outpatient Procedure (Routine) - Pending Review Specialty Diagnoses / Procedures Referred By Contac t Referred To Contact [facility] [place] Diagnoses Preoperative examination Procedures ECG COMPLETE ECG ROUTINE ECG W/LEAST 12 LDS W/I&R Gus Vyas MD [address] [place] [address] [address] Referral ID Status Reason Start Date Expiration Date Visits Requested Visits Authorized [id number] Pending Review Auto-Generat ed Referral 09/21/2021 09/21/2022 1 1 [facility] for referral (narrative)* Outpatient Procedure (Routine) - Pending Review Specialty Diagnoses / Procedures Referred By Contac t Referred To Contact [facility] Diagnoses Preop examination Obstructive sleep apnea Class 3 severe obesity due to excess calories without serious comorbidity with body mass index (BMI) of 40.0 to 44.9 in adult (HCC) Traumatic complete tear of right rotator cuff, initial encounter Elevated BP without diagnosis of hypertension Primary hypertension Procedures ECG COMPLETE ECG ROUTINE ECG W/LEAST 12 LDS W/I&R Barb Mast PA-C [address] [place] [address] [address] Referral ID Status Reason Start Date Expiration Date Visits Requested Visits Authorized [id number] Pending Review Auto-Generat ed Referral 09/27/2021 09/27/2022 1 1 [facility] Advance Directives Documents on File Type Date Recorded Patient Director Of Coding Expl anation Advance Directive(s) 10/01/2021 8:09 AM Documents on File Type Date Recorded Patient Director Of Coding Expl anation Advance Directive(s) 10/24/2021 10:15 AM Advance Directive(s) 10/01/2021 8:09 AM Documents on File Type Date Recorded Patient Director Of Coding Expl anation Advance Directive(s) 10/24/2021 10:15 AM Advance Directive(s) 10/01/2021 8:09 AM Summary Purpose Family History No Family History Records FoundNo Family History Records Found No data available for this section No Family History Records FoundNo Family History Records Found Reason for Referral Specialty Diagnoses / Procedures Referred By Jassi t Referred To Contact Diagnoses Traumatic complete tear of right rotator cuff, initial encounter Gus Vyas MD [address] [facility] [address] Referral ID Status Reason Start Date Expiration Date Visits Re quested Visits Authorized [id number] Denied 1 1 Specialty Diagnoses / Procedures Referred By Jassi t Referred To Contact [facility] Diagnoses Traumatic complete tear of right rotator cuff, subsequent encounter S/P right rotator cuff repair Procedures CONSULT TO PHYSICAL THERAPY PHYSICAL THERAPY EVALUATION HIGH COMPLEX 45 MINS Gus Vyas MD [address] [place] [address] [facility] [address] [address] Referral ID Status Reason Start Date Expiration Date Visits Requested Visits Authorized [id number] Pending Review Auto-Generat ed Referral 12/07/2021 12/07/2022 1 1 Specialty Diagnoses / Procedures Referred By Contac t Referred To Contact [facility] Diagnoses S/P right rotator cuff repair Procedures CONSULT TO PHYSICAL THERAPY PHYSICAL THERAPY EVALUATION HIGH COMPLEX 45 MINS Gus Vyas MD [address] [facility] [address] [facility] [address] [address] Referral ID Status Reason Start Date Expiration Date Visits Requested Visits Authorized [id number] Pending Review Auto-Generat ed Referral 01/25/2022 01/25/2023 1 1 Specialty Diagnoses / Procedures Referred By Contac t Referred To Contact Neurology Diagnoses Blepharospasm Procedures CONSULT TO NEUROLOGY OFFICE/OUTPATIENT [facility] 60-74 MINUTES Donita Martinez MD [address] [place] [address] Referral ID Status Reason Start Date Expiration Date Visits Requested Visits Authorized [id number] Pending Review PCP Requested Referral 08/16/2022 08/16/2023 1 1 Specialty Diagnoses / Procedures Referred By Contac t Referred To Contact [facility] Diagnoses Blepharospasm Procedures PT REHAB FOLLOW UP ORDER THERAPEUTIC EXERCISES RE, EA [address] [address] [place] [id number] [facility] [address] [address] Referral ID Status Reason Start Date Expiration Date Visits Requested Visits Authorized [id number] Pending Review PCP Requested Referral Auto-Generate d Referral 11/20/2022 02/18/2023 1 1 Specialty Diagnoses / Procedures Referred By Contac t Referred To Contact XR IMAGING Diagnoses Pain Procedures XR SHOULDER GENERAL 3V OR MORE AP/TRUE AP/OTHER RIGHT RADEX SHOULDER COMPLETE MINIMUM 2 VIEWS Gus Vyas MD [address] [place] [address] X[facility] Imaging [place] [address] Referral ID Status Reason Start Date Expiration Date Visits Re quested Visits Authorized [id number] Closed 09/17/2021 09/21/2021 1 1 Medications Administered Section Active Administered [...] DIRECTED, Starting on Fri08/02/22 at 1030, Until 08/02/22 at 2229, Administer for applanation tonometry. In the event of a Fluress shortage, administer [place]-Fluor 1 drop into both eyes as directed for applanation tonometry, [facility] MED ORDERS Given 08/02/2022 10:30 AM EDT 1 Drop Additional Source Comments Source Comments (unrecognize d section and content) In the event this informatio n is protected by the Federal Confidentiality of Alcohol and Drug Abuse Patient Records regulations: The Federal rules restrict any use of the information to criminally investigate or prosecute any alcohol or drug abuse patient.[facility] the event this information is protected by the Federal Confidentiality of Alcohol and Drug Abuse Patient Records regulations: The Federal rules restrict any use of the information to criminally investigate or prosecute any alcohol or drug abuse patient.[facility] the event this information is protected by the Federal Confidentiality of Alcohol and Drug Abuse Patient Records regulations: The Federal rules restrict any use of the information to criminally investigate or prosecute any alcohol or drug abuse patient.[facility] the event this information is protected by the Federal Confidentiality of Alcohol and Drug Abuse Patient Records regulations: The Federal rules restrict any use of the information to criminally investigate or prosecute any alcohol or drug abuse patient.[facility] the event this information is protected by the Federal Confidentiality of Alcohol and Drug Abuse Patient Records regulations: The Federal rules restrict any use of the information to criminally investigate or prosecute any alcohol or drug abuse patient.[facility] the event this information is protected by the Federal Confidentiality of Alcohol and Drug Abuse Patient Records regulations: The Federal rules restrict any use of the information to criminally investigate or prosecute any alcohol or drug abuse patient.[facility] the event this information is protected by the Federal Confidentiality of Alcohol and Drug Abuse Patient Records regulations: The Federal rules restrict any use of the information to criminally investigate or prosecute any alcohol or drug abuse patient.[facility] the event this information is protected by the Federal Confidentiality of Alcohol and Drug Abuse Patient Records regulations: The Federal rules restrict any use of the information to criminally investigate or prosecute any alcohol or drug abuse patient.[facility] the event this information is protected by the Federal Confidentiality of Alcohol and Drug Abuse Patient Records regulations: The Federal rules restrict any use of the information to criminally investigate or prosecute any alcohol or drug abuse patient.[facility] the event this information is protected by the Federal Confidentiality of Alcohol and Drug Abuse Patient Records regulations: The Federal rules restrict any use of the information to criminally investigate or prosecute any alcohol or drug abuse patient.[facility] the event this information is protected by the Federal Confidentiality of Alcohol and Drug Abuse Patient Records regulations: The Federal rules restrict any use of the information to criminally investigate or prosecute any alcohol or drug abuse patient.[facility] the event this information is protected by the Federal Confidentiality of Alcohol and Drug Abuse Patient Records regulations: The Federal rules restrict any use of the information to criminally investigate or prosecute any alcohol or drug abuse patient.[facility] the event this information is protected by the Federal Confidentiality of Alcohol and Drug Abuse Patient Records regulations: The Federal rules restrict any use of the information to criminally investigate or prosecute any alcohol or drug abuse patient.[facility] the event this information is protected by the Federal Confidentiality of Alcohol and Drug Abuse Patient Records regulations: The Federal rules restrict any use of the information to criminally investigate or prosecute any alcohol or drug abuse patient.[facility] the event this information is protected by the Federal Confidentiality of Alcohol and Drug Abuse Patient Records regulations: The Federal rules restrict any use of the information to criminally investigate or prosecute any alcohol or drug abuse patient.[facility] Hospital[facility] the event this information is protected by the Federal Confidentiality of Alcohol and Drug Abuse Patient Records regulations: The Federal rules restrict any use of the information to criminally investigate or prosecute any alcohol or drug abuse patient.[facility] HospitalIn the event this information is protected by the Federal Confidentiality of Alcohol and Drug Abuse Patient Records regulations: The Federal rules restrict any use of the information to criminally investigate or prosecute any alcohol or drug abuse patient.[facility] HospitalIn the event this information is protected by the Federal Confidentiality of Alcohol and Drug Abuse Patient Records regulations: The Federal rules restrict any use of the information to criminally investigate or prosecute any alcohol or drug abuse patient.[facility] HospitalIn the event this information is protected by the Federal Confidentiality of Alcohol and Drug Abuse Patient Records regulations: The Federal rules restrict any use of the information to criminally investigate or prosecute any alcohol or drug abuse patient.[facility] Hospital[facility] the event this information is protected by the Federal Confidentiality of Alcohol and Drug Abuse Patient Records regulations: The Federal rules restrict any use of the information to criminally investigate or prosecute any alcohol or drug abuse patient.[facility] Hospital[facility] the event this information is protected by the Federal Confidentiality of Alcohol and Drug Abuse Patient Records regulations: The Federal rules restrict any use of the information to criminally investigate or prosecute any alcohol or drug abuse patient.[facility] Hospital[facility] the event this information is protected by the Federal Confidentiality of Alcohol and Drug Abuse Patient Records regulations: The Federal rules restrict any use of the information to criminally investigate or prosecute any alcohol or drug abuse patient.[facility] Hospital[facility] the event this information is protected by the Federal Confidentiality of Alcohol and Drug Abuse Patient Records regulations: The Federal rules restrict any use of the information to criminally investigate or prosecute any alcohol or drug abuse patient.[facility] HospitalIn the event this information is protected by the Federal Confidentiality of Alcohol and Drug Abuse Patient Records regulations: The Federal rules restrict any use of the information to criminally investigate or prosecute any alcohol or drug abuse patient.[facility] HospitalIn the event this information is protected by the Federal Confidentiality of Alcohol and Drug Abuse Patient Records regulations: The Federal rules restrict any use of the information to criminally investigate or prosecute any alcohol or drug abuse patient.[facility] HospitalIn the event this information is protected by the Federal Confidentiality of Alcohol and Drug Abuse Patient Records regulations: The Federal rules restrict any use of the information to criminally investigate or prosecute any alcohol or drug abuse patient.[facility] HospitalIn the event this information is protected by the Federal Confidentiality of Alcohol and Drug Abuse Patient Records regulations: The Federal rules restrict any use of the information to criminally investigate or prosecute any alcohol or drug abuse patient.[facility] HospitalIn the event this information is protected by the Federal Confidentiality of Alcohol and Drug Abuse Patient Records regulations: The Federal rules restrict any use of the information to criminally investigate or prosecute any alcohol or drug abuse patient.[facility] HospitalIn the event this information is protected by the Federal Confidentiality of Alcohol and Drug Abuse Patient Records regulations: The Federal rules restrict any use of the information to criminally investigate or prosecute any alcohol or drug abuse patient.[facility] HospitalIn the event this information is protected by the Federal Confidentiality of Alcohol and Drug Abuse Patient Records regulations: The Federal rules restrict any use of the information to criminally investigate or prosecute any alcohol or drug abuse patient.[facility] HospitalIn the event this information is protected by the Federal Confidentiality of Alcohol and Drug Abuse Patient Records regulations: The Federal rules restrict any use of the information to criminally investigate or prosecute any alcohol or drug abuse patient.[facility] HospitalIn the event this information is protected by the Federal Confidentiality of Alcohol and Drug Abuse Patient Records regulations: The Federal rules restrict any use of the information to criminally investigate or prosecute any alcohol or drug abuse patient.[facility] HospitalIn the event this information is protected by the Federal Confidentiality of Alcohol and Drug Abuse Patient Records regulations: The Federal rules restrict any use of the information to criminally investigate or prosecute any alcohol or drug abuse patient.[facility] HospitalIn the event this information is protected by the Federal Confidentiality of Alcohol and Drug Abuse Patient Records regulations: The Federal rules restrict any use of the information to criminally investigate or prosecute any alcohol or drug abuse patient.[facility] HospitalIn the event this information is protected by the Federal Confidentiality of Alcohol and Drug Abuse Patient Records regulations: The Federal rules restrict any use of the information to criminally investigate or prosecute any alcohol or drug abuse patient.[facility] Care Teams (unrecognized sec tion and content) Brim Setter Relationship Specialty Start Date End Date Rula Herrera MD [address] [place] [address] PCP - General 08/13/00 Brim Setter Relationship Specialty Start Date End Date Rula Herrera MD [address] [place] [address] PCP - General 08/13/00 Brim Setter Relationship Specialty Start Date End Date Rula Herrera MD [address] [facility] [place] [address] PCP - General 08/13/00 Brim Setter Relationship Specialty Start Date End Date Rula Herrera MD [address] [facility] [place] [address] PCP - General Family Practice 09/28/21 Brim Setter Relationship Specialty Start Date End Date Rula Herrera MD [address] [facility], [place] [address] PCP - General Family Practice 09/28/21 Brim Setter Relationship Specialty Start Date End Date Rula Herrera MD [address] [facility], [place] [address] PCP - General Family Practice 09/28/21 Brim Setter Relationship Specialty Start Date End Date Rula Herrera MD [address] [place] [address] PCP - General Family Practice 09/28/21 Brim Setter Relationship Specialty Start Date End Date Rula Herrera MD [address] [place] [address] PCP - General Family Practice 09/28/21 Brim Setter Relationship Specialty Start Date End Date Rula Herrera MD [address] [place] [address] PCP - General Family Medicine 09/28/21 Brim Setter Relationship Specialty Start Date End Date Rula Herrera MD [address] [place] [address] PCP - General Family Medicine 09/28/21 Brim Setter Relationship Specialty Start Date End Date Rula Herrera MD [address] [place] [id number] PCP - General Family Medicine 09/28/21 Brim Setter Relationship Specialty Start Date End Date Rula Herrera MD [address] [place] [address] PCP - General Family Medicine 09/28/21 Brim Setter Relationship Specialty Start Date End Date Rula Herrera MD [address] [place] [address] PCP - General Family Medicine 09/28/21 Brim Setter Relationship Specialty Start Date End Date Rula Herrera MD [address] [facility], [place] [address] PCP - General Family Medicine 09/28/21 Brim Setter Relationship Specialty Start Date End Date Rula Herrera MD PCP - General Family Medicine 09/28/21 Brim Setter Relationship Specialty Start Date End Date Rula Herrera MD PCP - General Family Medicine 09/28/21 Brim Setter Relationship Specialty Start Date End Date Rula Herrera MD PCP - General Family Medicine 09/28/21 Brim Setter Relationship Specialty Start Date End Date Rula Herrera MD PCP - General Family Medicine 09/28/21 Brim Setter Relationship Specialty Start Date End Date Rula Herrera MD PCP - General Family Medicine 09/28/21 Brim Setter Relationship Specialty Start Date End Date Rula Herrera MD PCP - General Family Medicine 09/28/21 Brim Setter Relationship Specialty Start Date End Date Rula Herrera MD PCP - General Family Medicine 09/28/21 Brim Setter Relationship Specialty Start Date End Date Rula Herrera MD PCP - General Family Medicine 09/28/21 Brim Setter Relationship Specialty Start Date End Date Rula Herrera MD PCP - General Family Medicine 09/28/21 Brim Setter Relationship Specialty Start Date End Date Rula Herrera MD PCP - General Family Medicine 09/28/21 Brim Setter Relationship Specialty Start Date End Date Rula Herrera MD PCP - General Family Medicine 09/28/21 Brim Setter Relationship Specialty Start Date End Date Rula Herrera MD PCP - General Family Medicine 09/28/21 Brim Setter Relationship Specialty Start Date End Date Rula Herrera MD PCP - General Family Medicine 09/28/21 Brim Setter Relationship Specialty Start Date End Date Rula Herrera MD PCP - General Family Medicine 09/28/21 Brim Setter Relationship Specialty Start Date End Date Rula Herrera MD [address] [place] [address] PCP - General 08/13/00 09/27/21 Reason for Visit (unrecogniz ed section and content) Reason Comments Follow Up Specialty Diagnoses / Procedures Referred By Contac t Referred To Contact Psychology / NEUROLOGICAL MORMONISM Diagnoses follow up Procedures VIDEO PSYC/PSYL EST Perry Alcantara PSYD [address] [place], [place] [id number] Perry Alcantara PSYD [address] [place], [place] [id number] Referral ID Status Reason Start Date Expiration Date Visits Requested Visits Authorized [id number] Pending Review Financial Clearance Required - OON Payor 06/19/2023 09/17/2023 1 1 Reason Comments PT Progress Note Physical Therapy Specialty Diagnoses / Procedures Referred By Contac t Referred To Contact Physical Therapy / PHYSICAL THERAPY Diagnoses FMD Procedures NEW RS PT Michael Hatch MD [address] [place] [address] [place] [address] [place] [phone] Referral ID Status Reason Start Date Expiration Date V isits Requested Visits Authorized [id number] Authorized 04/28/2022 04/27/2023 20 20 Reason Comments Physical Therapy Reason Comments New Patient Right Shoulder Specialty Diagnoses / Procedures Referred By Contac t Referred To Contact ANESTHESIOLOGY Diagnoses ARTHROSCOPY SHOULDER ROTATOR CUFF [1113] - Shoulder - Right Procedures ARTHROSCOPY SHOULDER ROTATOR CUFF [1113] - Shoulder - Right Gus Vyas MD [address] [place] [address] Pre [facility] [address] [place] [address] Referral ID Status Reason Start Date Expiration Date Visits Requested Visits Authorized [id number] Waiting for Response OON/Self Pay Override 09/26/2021 [...] 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 Gus Vyas MD [address] [place] [phone] Teresa Birch, customer quality specialist ID Status Reason Start Date Expiration Date Visits Re quested Visits Authorized [id number] Closed 11/07/2021 11/07/2021 1 1 Reason Comments Post Op Specialty Diagnoses / Procedures Referred By Jassi yoo Referred To Contact ORTHOPAEDIC SURGERY Diagnoses Post op shoulder Procedures established right shoulder post op Gus Vyas MD [address] [place] [address] [facility] [address] [place] [address] Referral ID Status Reason Start Date Expiration Date Visits Re quested Visits Authorized [id number] Closed 11/07/2021 12/07/2021 1 1 Specialty Diagnoses / Procedures Referred By Jassi yoo Referred To Contact ORTHOPAEDIC SURGERY Diagnoses RIGHT SHOULDER PAIN Procedures POST/ FOLLOW UP Gus Vyas MD [address] [place] [address] [facility] [address] [place] [address] Referral ID Status Reason Start Date Expiration Date Visits Re quested Visits Authorized [id number] Closed 12/07/2021 03/07/2022 1 1 Reason Comments Established Patient Follow Up Pain Weakness Stiffness Specialty Diagnoses / Procedures Referred By Jassi yoo Referred To Contact ORTHOPAEDIC SURGERY Diagnoses RIGHT SHOULDER PAIN Procedures POST/ FOLLOW UP Gus Vyas MD [address] [place] [address] Orth [facility] [address] [place] [phone] Reason Comments Established Patient Follow Up Pain Stiffness Weakness Specialty Diagnoses / Procedures Referred By Contact Referred To Contact [facility] Diagnoses Rotator cuff disorder, right Procedures FOLLOW-UP/REASSESSMEN T Gus Vyas MD [address] [place] [address] [facility] [address] [place] [address] Referral ID Status Reason Start Date Expiration Date Visits Requested Visits Authorized [id number] Pending Review OON/Self Pay Override Patient Cleared [...] 1 UNIT BOTOX EI Donita Martinez MD [address] [place] [address] Donita Martinez MD [address] [facility] [address] Referral ID Status Reason Start Date Expiration Date V isits Requested Visits Authorized [id number] Authorized 08/09/2022 04/27/2023 99 99 Reason Comments [...] UNIT BOTOX EI Donita Martinez MD [address] [place] [address] Donita Martinez MD [address] [place] [phone] Reason Comments PT Eval Specialty Diagnoses / Procedures Referred By Contac t Referred To Contact Physical Therapy / PHYSICAL THERAPY Diagnoses FMD Procedures NEW RS PT FND Michael Andrew MD [address] [place] [address] [place] [address] [place] [address] Reason Comments Consult Specialty Diagnoses / Procedures Referred By Contac t Referred To Contact Psychology / NEUROLOGICAL MORMONISM Diagnoses 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 Procedures OFFICE/OUTPATIENT NEW MODERATE MDM 45-59 MINUTES NEW PSYL HEADACHE/MOVEMENT Self Hasnie, Afiah, PSYD [address] [place] [address] Referral ID Status Reason Start Date Expiration Date Visits Re quested Visits Authorized [id number] Closed 11/20/2022 04/27/2023 1 1 Reason Comments Letter Referral ID Status Reason Start Date Expiration Date V isits Requested Visits Authorized [id number] Pending Review 08/18/2023 11/16/2023 1 1 Specialty Diagnoses / Procedures Referred By Contac t Referred To Contact XR IMAGING Diagnoses Pain Procedures XR SHOULDER GENERAL 3V OR MORE AP/TRUE AP/OTHER RIGHT RADEX SHOULDER COMPLETE MINIMUM 2 VIEWS Gus Vyas MD [address] [place] [address] Xr Imaging [facility] Referral ID Status Reason Start Date Expiration Date Visits Re quested Visits Authorized [id number] Closed 09/17/2021 09/21/2021 1 1 (unrecognized sect ion and content) No Status Records FoundNo Status Records FoundNo Status Records FoundNo Status Records Found INFORMATION SOURCE (unrecogn ized section and content) DATE CREATED AUTHOR 10/27/2021 [facility] DATE CREATED AUTHOR AUTHOR'S ORGANIZ ATION 07/10/2022 [facility] DATE CREATED AUTHOR AUTHOR'S ORGANIZ ATION 07/11/2023 [facility] DATE CREATED AUTHOR AUTHOR'S ORGANIZ ATION 10/28/2023 [facility] FOR RECORDS PERTAINING TO PATIENTS WHO [...] BE BASED ON THE PRIMARY CLINICAL RECORDS. [employer] provides no warranty or guarantee of the accuracy or completeness of information in this document.
[2024-07-31 08:52] LABS: Basophils Absolute Auto 0.1 10^3/uL (0.0-0.1); Basophils Percent Auto 0.9 % (0.2-2.0); Eosinophils Absolute Auto 0.3 10^3/uL (0.0-0.7); Eosinophils Percent Auto 3.2 % (0.9-7.0); Hematocrit 50.4 % (42.0-54.0); Hemoglobin 17.5 g/dL (14.0-18.0); Immature Granulocytes Abs Auto 0.07 10^3/uL (0.00-0.03); Immature Granulocytes Pct Auto 0.7 % (0.0-0.5); Lymphocytes Absolute Auto 3.7 10^3/uL (1.2-3.8); Lymphocytes Percent Auto 36.1 % (20.5-60.0); Mean Corpuscular HGB Conc 34.7 g/dL (29.9-35.2); Mean Corpuscular Hemoglobin 33.1 pg (25.9-34.0); Mean Corpuscular Volume 95.3 fL (80.0-94.0); Mean Platelet Volume 9.5 fL (9.5-13.5); Monocytes Absolute Auto 0.9 10^3/uL (0.3-0.8); Monocytes Percent Auto 8.3 % (1.7-12.0); Neutrophils Absolute Auto 5.2 10^3/uL (1.4-6.5); Neutrophils Percent Auto 50.8 % (43.0-75.0); Platelet Count 307 10^3/uL (150-450); Red Blood Count 5.29 10^6/uL (4.70-6.10); Red Cell Distribution Width 13.3 % (11.0-15.0); White Blood Count 10.3 10^3/uL (4.0-11.0)
[2024-07-31 09:22] LABS: Estimated Average Glucose 183 mg/dL
[2024-07-31 10:04] LABS: Alanine Aminotransferase 72 U/L (16-63); Albumin Level 4.3 g/dL (3.4-5.0); Alkaline Phosphatase 58 U/L (46-116); Anion Gap 18.4; BUN Creatinine Ratio 15.5; Bilirubin Total 0.4 mg/dL (0.2-1.0); Calcium 10.1 mg/dL (8.5-10.1); Carbon Dioxide 23.9 mmol/L (21.0-32.0); Chloride 99 mmol/L (98-107); Chol HDL Ratio 7.4; Cholesterol 229 mg/dL (<=200); Estimated GFR (African America >60 (>=60 mL/min/1.73m^2); Estimated GFR (Non-African Ame >60 (>=60 mL/min/1.73m^2); Free T3 2.96 pg/mL (2.18-3.98); Globulin 4.1 g/dL; HDL Cholesterol 31 mg/dL (40-60); Sodium 137 mmol/L (136-145); Thyroid Stimulating Hormone 3.032 uIU/mL (0.358-3.740); Total Protein 8.4 g/dL (6.4-8.2); Triglycerides 794 mg/dL (<=150); Uric Acid 6.1 mg/dL (3.5-7.2); VLDL CHOLESTEROL 158.8 mg/dL
[2024-07-31 10:08] LABS: Aspartate Amino Transferase 43 U/L (15-37); Glucose 216 mg/dL (74-106); Potassium 4.3 mmol/L (3.5-5.1)
[2024-07-31 10:24] LABS: LDL Cholesterol Direct 107 mg/dL
== END 2024-07-31 23:59 | disposition home or self-care (01) ==
LOC: LAB 08-26 14:19
PROVIDERS: PCP Family Medicine; Visit Provider Family Medicine
DX: Z00.00 Encounter for general adult medical examination without abnormal findings (principal)
CPT/HCPCS: 36415; 80053; 80061; 83036; 83721; 84436; 84443; 84481; 84550; 85025; G0103